=== PATIENT | female | born 1985 | race Caucasian/White ===

== ENCOUNTER 2017-12-10 14:50 | Emergency (ER) | payer OTHER, SELFPAY ==
[2017-12-10 15:24] LABS: Urine Blood 1+ (NEG); Urine Glucose NEGATIVE (NEG); Urine Protein NEGATIVE (NEG); Urine Specific Gravity >1.030 (1.005-1.030)
[2017-12-10] MEDS ORDERED: KETOROLAC 30 MG/ML INJ ONE (15:27)
--- NOTE | 2017-12-10 16:08 | RAD REPORT ---
EXAM DESCRIPTION: RAD - Ankle Left 3 View -12/10/2017 4:00 pm CLINICAL HISTORY: Left ankle pain status post injury FINDINGS: No fracture or dislocation is seen.
--- NOTE | 2017-12-10 16:10 | RAD REPORT ---
EXAM DESCRIPTION: RAD - Foot Left 3 View - 12/10/2017 4:04 pm CLINICAL HISTORY: Left Foot pain status post injury FINDINGS: No fracture or dislocation is seen.
--- NOTE | 2017-12-10 16:33 | ER ---
Nurse's Notes [facility] Name: Zaria De Oliveira Age: 32 yrs Sex: Female : 1985 Arrival Date: 12/10/2017 Time: 14:54 Bed 28 Private MD: None, None Diagnosis: Sprain of ankle Presentation: 12/10 14:56 Presenting complaint: Patient states: "I hurt my ankle 2 days ago, I stepped down on it aj1 and I fell and then later that day I fell again. I've been trying to stay off it. I have work tonight, but I don't want to injure it anymore than I already have" Reports left ankle pain. Transition of care: patient was not received from another setting of care. Onset of symptoms was December 08, 2017. Risk Assessment: Do you want to hurt yourself or someone else? Patient reports no desire to harm self or others. Initial Sepsis Screen: Does the patient meet any 2 criteria? No. Patient's initial sepsis screen is negative. Does the patient have a suspected source of infection? No. Patient's initial sepsis screen is negative. Care prior to arrival: None. 14:56 Method Of Arrival: Ambulatory aj1 14:56 Acuity: CELESTINO 4 aj1 Triage Assessment: 15:00 General: Appears in no apparent distress. comfortable, Behavior is calm, cooperative, aj1 appropriate for age. Pain: Complains of pain in left ankle Pain currently is 8 out of 10 on a pain scale. Neuro: Level of Consciousness is awake, alert, obeys commands. Cardiovascular: Patient's skin is warm and dry. Respiratory: Airway is patent Respiratory effort is even, unlabored, Respiratory pattern is regular, symmetrical. Musculoskeletal: Range of motion: limited in left ankle. 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 - Social history:: Smoking status: Patient/guardian denies using tobacco. - Ebola Screening: : Patient denies travel to an Ebola-affected area in the 21 days before illness onset. Screenin:20 Abuse screen: Denies threats or abuse. Denies injuries from another. Nutritional mg2 screening: No deficits noted. Tuberculosis screening: No symptoms or risk factors identified. Fall Risk Fall in past 12 months (25 points). Gait- Weak (10 pts.). Assessment: 15:20 General: Appears in no apparent distress. comfortable, Behavior is calm, cooperative. mg2 Pain: Complains of pain in left ankle Pain does not radiate. Pain currently is 5 out of 10 on a pain scale. Quality of pain is described as aching, Pain began 1 day ago. Is intermittent, Alleviated by rest, Aggravated by increased activity, repositioning, weight bearing. Neuro: Level of Consciousness is awake, alert, obeys commands, Oriented to person, place, time, situation. Cardiovascular: Capillary refill < 3 seconds Patient's skin is warm and dry. Derm: Skin is intact, Skin is pink, warm \\T\\ dry. normal. Musculoskeletal: Circulation, motion, and sensation intact. Swelling present in left ankle. Injury Description: swelling. 16:45 Reassessment: Patient appears in no apparent distress at this time. Patient and/or ch family updated on plan of care and expected duration. Pain level reassessed. Patient is alert, oriented x 3, equal unlabored respirations, skin warm/dry/pink. Vital Signs: 15:00 BP 130 / 90; Pulse 74; Resp 18; Temp 98.0; Pulse Ox 100% on R/A; Weight 81.65 kg (R); aj1 Height 5 ft. 2 in. (157.48 cm) (R); Pain 8/10; 16:06 BP 120 / 90; Pulse 67; Resp 18; Pulse Ox 97% ; Pain 5/10; mg2 16:57 BP 118 / 74; Pulse 60; Resp 14; Temp 98.3; Pulse Ox 99% on R/A; Pain 3/10; ch 15:00 Body Mass Index 32.92 (81.65 kg, 157.48 cm) aj1 ED Course: 14:54 Patient arrived in ED. mr 14:54 None, None is Private Physician. mr 14:59 Triage completed. aj1 15:00 Arm band placed on Patient placed in an exam room. aj1 15:04 Jonathan Sutton PA is PHCP. [facility] 15:04 Jayjay Acosta MD is Attending Physician. [facility] 15:12 Leonardo Rodriguez, RN is Primary Nurse. mg2 15:25 Patient has correct armband on for positive identification. Side rails up X 1. Pulse ox mg2 on. NIBP on. 15:59 X-ray completed. Portable x-ray completed in exam room. Patient tolerated procedure la2 well. 16:00 Ankle Left 3 View XRAY In Process Unspecified. EDMS 16:00 Foot Left 3 View XRAY In Process Unspecified. EDMS 16:32 Fredy Lagunas MD is Referral Physician. [facility] 16:57 No apparent distress. Resting quietly. 16:57 No provider procedures requiring assistance completed. Patient did not have IV access ch during this emergency room visit. Crutch training done. Giovanni wrap to left ankle. Administered Medications: 15:29 Drug: Ketorolac 30 mg Route: IM; Site: left gluteus; mg2 16:45 Follow up: Response: No adverse reaction Outcome: 16:32 Discharge ordered by . [facility] 16:57 Discharged to home ambulatory, with crutches. 16:57 Condition: stable 16:57 Discharge instructions given to patient, Instructed on discharge instructions, follow up and referral plans. crutch walking, Demonstrated understanding of instructions, follow-up care, medications, crutch walking, Prescriptions given X 1. 17:01 Patient left the ED. Signatures: Dispatcher [employer] Shannan Pacheco, NANCY RN Annette Oswald RN RN aj1 Jonathan Sutton PA PA [facility] Alisa Millan mr Ish Mcraelie la2 Leonardo Rodriguez, NANCY CRUZ mg2
--- NOTE | 2017-12-10 16:33 | EDPHYS ---
Physician Documentation [facility] Name: Zaria De Oliveira Age: 32 yrs Sex: Female : 1985 Arrival Date: 12/10/2017 Time: 14:54 Bed 28 Private MD: None, None ED Physician Jayjay Acosta HPI: 12/10 15:06 This 32 yrs old Female presents to ER via Ambulatory with complaints of Ankle jmm Injury. 15:06 The patient presents with an injury, pain. The complaints affect the left ankle. Onset: jmm The symptoms/episode began/occurred acutely, 2 day(s) ago. Associated signs and symptoms: Pertinent positives:. Modifying factors: The symptoms are alleviated by elevation of extremity, the symptoms are aggravated by weight bearing, movement. This is a 32 year old female with a history of migraines that presents to the ED with left ankle and foot pain falling 2 injuries. The initial injury occurred 2 days ago when the patient rolled her left ankle while attempting to walk down a step. The second injury occurred when the patient slipped while attempting to use the restroom. Patient complain of pain on weight bearing. . [employer]FORMATION [employer]: 15:00 LMP N/A - Depo-provera aj1 Historical: - Allergies: 15:00 Oxistat; aj1 - Home Meds: 15:00 None [Active]; aj1 - PMHx: 15:00 Migraines; aj1 - PSHx: 15:00 ; aj1 - Immunization history:: Flu vaccine status is unknown. - Social history:: Smoking status: Patient/guardian denies using tobacco. - Ebola Screening: : Patient denies travel to an Ebola-affected area in the 21 days before illness onset. ROS: 16:08 Constitutional: Negative for fever, chills, and weight loss, Cardiovascular: Negative jmm for chest pain, palpitations, and edema, Respiratory: Negative for shortness of breath, cough, wheezing, and pleuritic chest pain. 16:08 MS/extremity: Positive for pain. 16:08 All other systems are negative. Exam: 16:08 Head/Face: atraumatic. Chest/axilla: Normal chest wall appearance and motion. jmm Cardiovascular: Regular rate and rhythm. No edema appreciated Respiratory: Normal respirations, no respiratory distress appreciated Back: Normal ROM Skin: General appearance color normal 16:08 Constitutional: The patient appears in no acute distress, alert, awake. 16:08 Musculoskeletal/extremity: Full dorsalis pulse, compartments soft, NVI. Pain is elicited on palpation of the lateral malleolus and the base of the 5th metatarsal. No obvious deformity appreciated. . Vital Signs: 15:00 BP 130 / 90; Pulse 74; Resp 18; Temp 98.0; Pulse Ox 100% on R/A; Weight 81.65 kg (R); aj1 Height 5 ft. 2 in. (157.48 cm) (R); Pain 8/10; 16:06 BP 120 / 90; Pulse 67; Resp 18; Pulse Ox 97% ; Pain 5/10; mg2 16:57 BP 118 / 74; Pulse 60; Resp 14; Temp 98.3; Pulse Ox 99% on R/A; Pain 3/10; ch 15:00 Body Mass Index 32.92 (81.65 kg, 157.48 cm) aj1 MDM: 15:06 Patient medically screened. [facility] 16:14 Data reviewed: vital signs, nurses notes. [facility] 16:29 Data reviewed: radiologic studies, plain films. Counseling: I had a detailed discussion ceci with the patient and/or guardian regarding: the historical points, exam findings, and any diagnostic results supporting the discharge/admit diagnosis, the presence of at least one elevated blood pressure reading (>120/80) during this emergency department visit, radiology results, the need for outpatient follow up, to return to the emergency department if symptoms worsen or persist or if there are any questions or concerns that arise at home. Response to treatment: the patient's symptoms have markedly improved after treatment. 12/10 15:23 Order name: Urine Dipstick--Ancillary (enter results); Complete Time: 15:33 bd 12/10 15:23 Order name: Urine --Ancillary (enter results); Complete Time: 15:33 12/10 15:23 Order name: Ankle Left 3 View XRAY; Complete Time: 16:23 [facility] 12/10 15:23 Order name: Foot Left 3 View XRAY; Complete Time: 16:23 [facility] 12/10 16:24 Order name: Crutches; Complete Time: 16:45 [facility] 12/10 16:24 Order name: Giovanni Wrap; Complete Time: 16:45 [facility] Administered Medications: 15:29 Drug: Ketorolac 30 mg Route: IM; Site: left gluteus; mg2 16:45 Follow up: Response: No adverse reaction Disposition: 12/11 14:31 Co-signature as Attending Physician, Jayjay Acosta MD I agree with the assessment and [facility] plan of care. Disposition: 12/10/17 16:32 Discharged to Home. Impression: Sprain of ankle. - Condition is Stable. - Discharge Instructions: Ankle Sprain. - Prescriptions for Ibuprofen 800 mg Oral Tablet - take 1 tablet by ORAL route every 8 hours As needed take with food; 30 tablet. - Work release form, Medication Reconciliation Form, Thank You Letter, Antibiotic Education, Prescription Opioid Use form. - Follow up: Fredy Lagunas MD; When: As needed; Reason: Continuance of care. Signatures: Dispatcher [employer] Shannan Pacheco, NANCY RN Annette Astudillo RN RN ajJayjay Good MD MD cha Mickail, Joel, PA PA [facility] Leonardo Rodriguez RN RN mg2 Corrections: (The following items were deleted from the chart) 12/10 16:10 15:06 This is a 32. [facility] 17:01 16:32 12/10/2017 16:32 Discharged to Home. Impression: Sprain of ankle. Condition is Stable. Forms are Medication Reconciliation Form, Thank You Letter, Antibiotic Education, Prescription Opioid Use. Follow up: Fredy Lagunas; When: As needed; Reason: Continuance of care. [facility]
[2017-12-10 17:20] VITALS: BP 118/74; TEMP 98.3; O2SAT 99
== END 2017-12-10 17:01 | disposition home or self-care (01) ==
LOC: ER 14:50
DX: S93.402A Sprain of unspecified ligament of left ankle, initial encounter (principal); X50.1XXA Overexertion from prolonged static or awkward postures, initial encounter; Y93.89 Activity, other specified; Y92.89 Other specified places as the place of occurrence of the external cause; Y99.9 Unspecified external cause status; Z88.8 Allergy status to other drugs, medicaments and biological substances
CPT/HCPCS: 81003; 81025; 96372; 99284

== ENCOUNTER 2018-03-30 13:34 | Emergency (ER) | payer SELFPAY ==
--- NOTE | 2018-03-30 17:31 | EDPHYS ---
Physician Documentation [facility] Name: Zaria De Oliveira Age: 32 yrs Sex: Female : 1985 Arrival Date: 03/30/2018 Time: 13:57 Bed 10 Private MD: None, None ED Physician Jayjay Acosta HPI: 03/30 17:00 This 32 yrs old Female presents to ER via Ambulatory with complaints of pm1 Congestion, Cough. 17:00 The patient or guardian reports cough, with no sputum. Onset: The symptoms/episode pm1 began/occurred. 17:00 Onset: The symptoms/episode began/occurred 7 day(s) ago. Severity of symptoms: in the pm1 emergency department the symptoms are unchanged. Modifying factors: The symptoms are alleviated by OTC cold preparation, Tylenol, the symptoms are aggravated by nothing. Associated signs and symptoms: Pertinent positives: fever, rhinorrhea, sore throat, Pertinent negatives: chest pain. The patient has not recently seen a physician. Patient with sinus congestion and drainage, sore throat, and cough. On and off fevers for the past week. Son was diagnosed with the flu 2 weeks ago. Historical: - Allergies: 14:37 Oxistat; ss - Home Meds: 14:37 None [Active]; ss - PMHx: 14:37 Migraines; ss - PSHx: 14:37 ; ss - Immunization history:: Adult Immunizations up to date. - Social history:: Smoking status: Patient/guardian denies using tobacco. - Ebola Screening: : Patient denies exposure to infectious person Patient denies travel to an Ebola-affected area in the 21 days before illness onset. ROS: 17:00 Eyes: Negative for injury, pain, redness, and discharge, Neck: Negative for injury, pm1 pain, and swelling. 17:00 Cardiovascular: Negative for chest pain, palpitations, and edema. 17:00 Abdomen/GI: Negative for abdominal pain, nausea, vomiting, diarrhea, and constipation, Back: Negative for injury and pain, : Negative for injury, bleeding, discharge, and swelling, MS/Extremity: Negative for injury and deformity, Skin: Negative for injury, rash, and discoloration, Neuro: Negative for headache, weakness, numbness, tingling, and seizure. 17:00 Constitutional: Positive for fever, Negative for poor PO intake. 17:00 ENT: Positive for sinus congestion, sinus pain, sore throat, Negative for drainage from ear(s), ear pain. 17:00 Respiratory: Positive for cough. Exam: 17:00 Constitutional: This is a well developed, well nourished patient who is awake, alert, pm1 and in no acute distress. Eyes: Pupils equal round and reactive to light, extra-ocular motions intact. Lids and lashes normal. Conjunctiva and sclera are non-icteric and not injected. Cornea within normal limits. Periorbital areas with no swelling, redness, or edema. ENT: Nares patent. No nasal discharge, no septal abnormalities noted. Tympanic membranes are normal and external auditory canals are clear. Oropharynx with no redness, swelling, or masses, exudates, or evidence of obstruction, uvula midline. Mucous membranes moist. 17:00 Neck: Trachea midline, no thyromegaly or masses palpated, and no cervical lymphadenopathy. Supple, full range of motion without nuchal rigidity, or vertebral point tenderness. No Meningismus. Chest/axilla: Normal chest wall appearance and motion. Nontender with no deformity. No lesions are appreciated. Cardiovascular: Regular rate and rhythm with a normal S1 and S2. No gallops, murmurs, or rubs. Normal PMI, no JVD. No pulse deficits. Respiratory: Lungs have equal breath sounds bilaterally, clear to auscultation and percussion. No rales, rhonchi or wheezes noted. No increased work of breathing, no retractions or nasal flaring. Abdomen/GI: Soft, non-tender, with normal bowel sounds. No distension or tympany. No guarding or rebound. No evidence of tenderness throughout. Back: No spinal tenderness. No costovertebral tenderness. Full range of motion. Skin: Warm, dry with normal turgor. Normal color with no rashes, no lesions, and no evidence of cellulitis. MS/ Extremity: Pulses equal, no cyanosis. Neurovascular intact. Full, normal range of motion. 17:00 Head/face: Sinus tenderness, that is moderate, is located over the right frontal sinus and left frontal sinus. 17:00 Neuro: Orientation: is normal, Motor: is normal, Gait: is steady, at a normal pace, without difficulty. Vital Signs: 14:34 BP 137 / 100; Pulse 83; Resp 17; Temp 97.3(TE); Pulse Ox 100% on R/A; Weight 86.18 kg; ss Height 5 ft. 2 in. (157.48 cm); Pain 8/10; 14:38 BP 123 / 91; ss 14:34 Body Mass Index 34.75 (86.18 kg, 157.48 cm) MDM: 16:07 Patient medically screened. pm1 17:29 Data reviewed: vital signs. Data interpreted: Pulse oximetry: on room air is 100 %. pm1 Interpretation: normal. Counseling: I had a detailed discussion with the patient and/or guardian regarding: the historical points, exam findings, and any diagnostic results supporting the discharge/admit diagnosis, lab results, the need for outpatient follow up, to return to the emergency department if symptoms worsen or persist or if there are any questions or concerns that arise at home. 03/30 16:16 Order name: Flu; Complete Time: 17:26 pm1 03/30 16:16 Order name: Strep; Complete Time: 17:26 pm1 03/30 17:04 Order name: Throat Culture EDMS Administered Medications: No medications were administered Disposition: 03/30/18 17:31 Discharged to Home. Impression: Acute sinusitis. - Condition is Stable. - Discharge Instructions: Sinusitis, Adult. - Prescriptions for Augmentin 875- 125 mg Oral Tablet - take 1 tablet by ORAL route every 12 hours for 10 days; 20 tablet. Zyrtec- D 5-120 mg Oral Tablet Sustained Release 12 hr - take 1 tablet by ORAL route every 12 hours As needed; 20 tablet. - Medication Reconciliation Form, Thank You Letter, Antibiotic Education form. - Follow up: Emergency Department; When: As needed; Reason: Worsening of condition. Follow up: Private Physician; When: 2 - 3 days; Reason: Recheck today's complaints, Continuance of care, Re-evaluation by your physician. - Problem is new. - Symptoms have improved. Addendum: 04/02/2018 08:16 Co-signature as Attending Physician, Jayjay Acosta MD I agree with the assessment and c [facility] plan of care. Signatures: Dispatcher [employer] EDKY Jayjay Acosta MD MD cha Calderon, Audri, RN RN aa5 Josephine Sherwood RN RN ss Baudilio Denise, CHILD NUTRITION DIRECTOR CHILD NUTRITION DIRECTOR pm1 Corrections: (The following items were deleted from the chart) 03/30 17:46 17:31 03/30/2018 17:31 Discharged to Home. Impression: Acute sinusitis. Condition is aa5 Stable. Forms are Medication Reconciliation Form, Thank You Letter, Antibiotic Education, Prescription Opioid Use. Follow up: Emergency Department; When: As needed; Reason: Worsening of condition. Follow up: Private Physician; When: 2 - 3 days; Reason: Recheck today's complaints, Continuance of care, Re-evaluation by your physician. Problem is new. Symptoms have improved. pm1
--- NOTE | 2018-03-30 17:31 | ER ---
Nurse's Notes [facility] Name: Zaria De Oliveira Age: 32 yrs Sex: Female : 1985 Arrival Date: 03/30/2018 Time: 13:57 Bed 10 Private MD: None, None Diagnosis: Acute sinusitis Presentation: 03/30 14:35 Presenting complaint: Patient states: cough and chest congestion that began x 1 week. ss Pt reports that her son was diagnosed with the flu 2 weeks ago. Transition of care: patient was not received from another setting of care. Resp Distress? No respiratory distress is noted at this time. Onset of symptoms was March 23, 2018. Risk Assessment: Do you want to hurt yourself or someone else? Patient reports no desire to harm self or others. Initial Sepsis Screen: Does the patient meet any 2 criteria? No. Patient's initial sepsis screen is negative. Does the patient have a suspected source of infection? No. Patient's initial sepsis screen is negative. Care prior to arrival: None. 14:35 Method Of Arrival: Ambulatory ss 14:35 Acuity: CELESTINO 4 ss Historical: - Allergies: 14:37 Oxistat; ss - Home Meds: 14:37 None [Active]; ss - PMHx: 14:37 Migraines; ss - PSHx: 14:37 ; ss - Immunization history:: Adult Immunizations up to date. - Social history:: Smoking status: Patient/guardian denies using tobacco. - Ebola Screening: : Patient denies exposure to infectious person Patient denies travel to an Ebola-affected area in the 21 days before illness onset. Screenin:00 Abuse screen: Denies threats or abuse. Denies injuries from another. Nutritional ss screening: No deficits noted. Tuberculosis screening: Never had TB. Fall Risk None identified. Assessment: 14:35 General: Appears uncomfortable, Behavior is calm, cooperative, Reports chills for fever ss for feeling ill for fatigue for "off and on for 1 week". Pain: Complains of pain in face Pain currently is 7 out of 10 on a pain scale. Is continuous. Neuro: Level of Consciousness is awake, alert, obeys commands, Oriented to person, place, time, situation. Cardiovascular: Capillary refill < 3 seconds is brisk in bilateral fingers. Respiratory: Reports cough that is since x 1 week Airway is patent Respiratory effort is even, unlabored, Respiratory pattern is regular, symmetrical, Breath sounds are clear bilaterally. EENT: Nares are clear. Derm: Skin is pink, warm \\T\\ dry. normal. 16:00 Reassessment: Patient appears in no apparent distress at this time. Patient and/or ss family updated on plan of care and expected duration. Pain level reassessed. Patient is alert, oriented x 3, equal unlabored respirations, skin warm/dry/pink. Vital Signs: 14:34 BP 137 / 100; Pulse 83; Resp 17; Temp 97.3(TE); Pulse Ox 100% on R/A; Weight 86.18 kg; ss Height 5 ft. 2 in. (157.48 cm); Pain 8/10; 14:38 BP 123 / 91; ss 14:34 Body Mass Index 34.75 (86.18 kg, 157.48 cm) ED Course: 13:57 Patient arrived in ED. mr 13:57 None, None is Private Physician. mr 14:34 Arm band placed on right wrist. ss 14:36 Triage completed. ss 15:33 Patient has correct armband on for positive identification. Bed in low position. Call ss light in reach. 16:06 Baudilio Denise NP is PHCP. pm1 16:06 Jayjay Acosta MD is Attending Physician. pm1 16:28 Josephine Sherwood, NANCY is Primary Nurse. ss 16:28 Strep Sent. ss 16:28 Flu Sent. ss 17:45 No provider procedures requiring assistance completed. Patient did not have IV access ss during this emergency room visit. Administered Medications: No medications were administered Outcome: 17:31 Discharge ordered by . pm1 17:45 Discharged to home ambulatory. ss 17:45 Condition: good 17:45 Discharge instructions given to patient, family, Instructed on discharge instructions, follow up and referral plans. medication usage, Demonstrated understanding of instructions, follow-up care, medications, Prescriptions given X 2. 17:46 Patient left the ED. aa5 Signatures: Waleska Millan EthanNohemy RN RN aa5 Josephine Sherwood RN RN ss Baudilio Denise, LAUREN ENGRAVER LETTER pm1
[2018-03-30 18:51] VITALS: TEMP 97.3; O2SAT 100
[2018-03-30 18:52] VITALS: BP 123/91
== END 2018-03-30 17:46 | disposition home or self-care (01) ==
LOC: ER 13:34
DX: J01.90 Acute sinusitis, unspecified (principal); Z88.8 Allergy status to other drugs, medicaments and biological substances
CPT/HCPCS: 87070; 87081; 87804; 99283

== ENCOUNTER 2018-09-18 10:54 | Emergency (ER) | payer SELFPAY ==
[2018-09-18] MEDS ORDERED: CETIRIZINE HCL 5 MG TABLET ONE (12:47)
--- NOTE | 2018-09-18 13:12 | ER ---
Nurse's Notes [facility] Name: Zaria De Oliveira Age: 32 yrs Sex: Female : 1985 Arrival Date: 09/18/2018 Time: 10:58 Bed DIS2 Private MD: Diagnosis: Cough;Allergy, unspecified Presentation: 09/18 11:09 Presenting complaint: Patient states: "I've had a cough, like something is caught in my aj1 chest. I've been taking Mucinex, I just dont seem to get better" Reports having this cough for the past 2 weeks. [facility]. Transition of care: patient was not received from another setting of care. Resp Distress? No respiratory distress is noted at this time. Onset of symptoms was September 05, 2018. Risk Assessment: Do you want to hurt yourself or someone else? Patient reports no desire to harm self or others. Initial Sepsis Screen: Does the patient meet any 2 criteria? No. Patient's initial sepsis screen is negative. Does the patient have a suspected source of infection? Yes: Productive cough/pneumonia. Care prior to arrival: None. 11:09 Method Of Arrival: Ambulatory aj1 11:09 Acuity: CELESTINO 4 aj1 Triage Assessment: 11:11 General: Appears in no apparent distress. comfortable, Behavior is calm, cooperative, aj1 appropriate for age. Pain: Denies pain. Neuro: Level of Consciousness is awake, alert, obeys commands. Cardiovascular: Patient's skin is warm and dry. Cardiovascular: Reports chest pain when she coughs. Respiratory: Airway is patent Respiratory effort is even, unlabored, Respiratory pattern is regular, symmetrical. 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 - Social history:: Smoking status: Patient/guardian denies using tobacco. - Ebola Screening: : Patient denies travel to an Ebola-affected area in the 21 days before illness onset. Screenin:20 Abuse screen: Denies threats or abuse. Denies injuries from another. Nutritional ss screening: No deficits noted. Tuberculosis screening: Never had TB. Fall Risk None identified. Assessment: 11:25 General: Appears in no apparent distress. comfortable, Behavior is calm, cooperative. ss Neuro: Level of Consciousness is awake, alert, obeys commands, Oriented to person, place, time, situation. Cardiovascular:. Respiratory: Airway is patent Respiratory effort is even, unlabored, Respiratory pattern is regular, symmetrical. Respiratory: Respiratory: Reports cough that is. EENT: Nares are clear. Derm: Skin is intact, is healthy with good turgor, Skin is pink, warm \\T\\ dry. normal. Musculoskeletal: Circulation, motion, and sensation intact. Range of motion: intact in all extremities. 13:53 Reassessment: Patient appears in no apparent distress at this time. Patient and/or ss family updated on plan of care and expected duration. Pain level reassessed. Patient is alert, oriented x 3, equal unlabored respirations, skin warm/dry/pink. Vital Signs: 11:11 BP 118 / 82; Pulse 82; Resp 18; Temp 98.0(O); Pulse Ox 100% on R/A; Weight 86.18 kg aj1 (R); Height 5 ft. 2 in. (157.48 cm) (R); Pain 0/10; 11:11 Body Mass Index 34.75 (86.18 kg, 157.48 cm) aj1 ED Course: 10:58 Patient arrived in ED. mr 11:11 Triage completed. aj1 11:11 Arm band placed on Patient placed in an exam room. aj1 11:14 Swapna Cadena FNP-C is [facility]. snw 11:14 Jayjay Acosta MD is Attending Physician. snw 11:20 Patient has correct armband on for positive identification. Bed in low position. Call ss light in reach. 13:54 No provider procedures requiring assistance completed. Patient did not have IV access ss during this emergency room visit. Administered Medications: 12:35 Drug: ZyrTEC - Cetirizine 10 mg Route: PO; ss 13:54 Follow up: Response: No adverse reaction; No change in condition ss Outcome: 13:11 Discharge ordered by . snw 13:54 Discharged to home ambulatory. ss 13:54 Condition: good 13:54 Discharge instructions given to patient, family, Instructed on discharge instructions, follow up and referral plans. medication usage, Demonstrated understanding of instructions, follow-up care, medications, Prescriptions given X 2. 13:54 Patient left the ED. Signatures: Annette Oswald, RN RN aj1 Swapna Cadena, ERP PROGRAMMER-C ERP PROGRAMMER-Csnw Monty Waleska mr Josephine Sherwood, NANCY RN ss
--- NOTE | 2018-09-18 13:12 | EDPHYS ---
Physician Documentation [facility] Name: Zaria De Oliveira Age: 32 yrs Sex: Female : 1985 Arrival Date: 09/18/2018 Time: 10:58 Bed DIS2 Private MD: ED Physician Jayjay Acosta HPI: 09/18 13:09 This 32 yrs old Female presents to ER via Ambulatory with complaints of snw Cough, Congestion, Fever. 13:09 The patient or guardian reports cough, described as moderate. Onset: The snw symptoms/episode began/occurred gradually, 2 week(s) ago, and became persistent. Severity of symptoms: At their worst the symptoms were mild, moderate. Modifying factors: The symptoms are alleviated by nothing, the symptoms are aggravated by heat. Associated signs and symptoms: Pertinent positives: congestion. It is unknown whether or not the patient has had similar symptoms in the past. The patient has not recently seen a physician. 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 - Social history:: Smoking status: Patient/guardian denies using tobacco. - Ebola Screening: : Patient denies travel to an Ebola-affected area in the 21 days before illness onset. ROS: 13:05 Constitutional: Negative for fever, chills, and weight loss, Eyes: Negative for injury, snw pain, redness, and discharge, ENT: Negative for injury, pain, and discharge, Neck: Negative for injury, pain, and swelling, Cardiovascular: Negative for chest pain, palpitations, and edema, Abdomen/GI: Negative for abdominal pain, nausea, vomiting, diarrhea, and constipation, Back: Negative for injury and pain, : Negative for injury, bleeding, discharge, and swelling, MS/Extremity: Negative for injury and deformity, Skin: Negative for injury, rash, and discoloration. 13:05 Respiratory: Positive for cough, some days the cough feels sticky in the center of her chest. Exam: 13:05 Constitutional: This is a well developed, well nourished patient who is awake, alert, snw and in no acute distress. Head/Face: Normocephalic, atraumatic. Eyes: Pupils equal round and reactive to light, extra-ocular motions intact. Lids and lashes normal. Conjunctiva and sclera are non-icteric and not injected. Cornea within normal limits. Periorbital areas with no swelling, redness, or edema. ENT: Nares patent. No nasal discharge, no septal abnormalities noted. Tympanic membranes are normal and external auditory canals are clear. Oropharynx with no redness, swelling, or masses, exudates, or evidence of obstruction, uvula midline. Mucous membranes moist. Neck: Trachea midline, no thyromegaly or masses palpated, and no cervical lymphadenopathy. Supple, full range of motion without nuchal rigidity, or vertebral point tenderness. No Meningismus. Chest/axilla: Normal chest wall appearance and motion. Nontender with no deformity. No lesions are appreciated. Cardiovascular: Regular rate and rhythm with a normal S1 and S2. No gallops, murmurs, or rubs. Normal PMI, no JVD. No pulse deficits. Respiratory: Lungs have equal breath sounds bilaterally, clear to auscultation and percussion. No rales, rhonchi or wheezes noted. No increased work of breathing, no retractions or nasal flaring. Abdomen/GI: Soft, non-tender, with normal bowel sounds. No distension or tympany. No guarding or rebound. No evidence of tenderness throughout. Back: No spinal tenderness. No costovertebral tenderness. Full range of motion. Skin: Warm, dry with normal turgor. Normal color with no rashes, no lesions, and no evidence of cellulitis. MS/ Extremity: Pulses equal, no cyanosis. Neurovascular intact. Full, normal range of motion. Neuro: Awake and alert, GCS 15, oriented to person, place, time, and situation. Cranial nerves II-XII grossly intact. Motor strength 5/5 in all extremities. Sensory grossly intact. Cerebellar exam normal. Normal gait. Psych: Awake, alert, with orientation to person, place and time. Behavior, mood, and affect are within normal limits. Vital Signs: 11:11 BP 118 / 82; Pulse 82; Resp 18; Temp 98.0(O); Pulse Ox 100% on R/A; Weight 86.18 kg aj1 (R); Height 5 ft. 2 in. (157.48 cm) (R); Pain 0/10; 11:11 Body Mass Index 34.75 (86.18 kg, 157.48 cm) aj1 MDM: 11:14 Patient medically screened. snw 13:12 Data reviewed: vital signs, nurses notes. Data interpreted: Pulse oximetry: on room air snw is 100 %. Interpretation: normal. Counseling: I had a detailed discussion with the patient and/or guardian regarding: the historical points, exam findings, and any diagnostic results supporting the discharge/admit diagnosis, the presence of at least one elevated blood pressure reading (>120/80) during this emergency department visit, the need for outpatient follow up, to return to the emergency department if symptoms worsen or persist or if there are any questions or concerns that arise at home. Special discussion: I have referred the patient to see his PCP for further evaluation of high blood pressure. Based on the history and exam findings, there is no indication for further emergent testing or inpatient evaluation. I discussed with the patient/guardian the need to see the primary care provider for further evaluation of the symptoms. Administered Medications: 12:35 Drug: ZyrTEC - Cetirizine 10 mg Route: PO; ss 13:54 Follow up: Response: No adverse reaction; No change in condition ss Disposition: 09/19 07:01 Co-signature as Attending Physician, Jayjay Acosta MD I agree with the assessment and veronica plan of care. Disposition: 09/18/18 13:11 Discharged to Home. Impression: Cough, Allergy, unspecified. - Condition is Stable. - Discharge Instructions: Allergies, Adult, Cool Mist Vaporizer, Cough, Adult, [id number]. - Prescriptions for Zyrtec 10 mg Oral Tablet - take 1 tablet by ORAL route once daily As needed; 20 tablet. Tessalon Perles 100 mg Oral Capsule - take 1 capsule by ORAL route every 8 hours As needed; 15 capsule. - Work release form, Medication Reconciliation Form, Thank You Letter, Antibiotic Education, Prescription Opioid Use form. - Follow up: Private Physician; When: 2 - 3 days; Reason: Recheck today's complaints, Continuance of care, Re-evaluation by your physician. Follow up: Emergency Department; When: As needed; Reason: Worsening of condition. Signatures: Annette Oswald, RN RN aj1 Jayjay Acosta MD MD cha Therrien, Shelly, EVENT COORDINATOR-C EVENT COORDINATOR-Csnw Josephine Sherwood, NANCY RN ss Corrections: (The following items were deleted from the chart) 09/18 13:54 13:11 09/18/2018 13:11 Discharged to Home. Impression: Cough; Allergy, unspecified. ss Condition is Stable. Forms are Medication Reconciliation Form, Thank You Letter, Antibiotic Education, Prescription Opioid Use. Follow up: Private Physician; When: 2 - 3 days; Reason: Recheck today's complaints, Continuance of care, Re-evaluation by your physician. Follow up: Emergency Department; When: As needed; Reason: Worsening of condition. snw
[2018-09-18 20:03] VITALS: BP 118/82; TEMP 98; O2SAT 100
== END 2018-09-18 13:54 | disposition home or self-care (01) ==
LOC: ER 10:54
DX: R05 Cough (principal); T78.40XA Allergy, unspecified, initial encounter
CPT/HCPCS: 99283

== ENCOUNTER 2018-11-06 18:26 | Emergency (ER) | payer SELFPAY ==
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
[2018-11-06 20:01] LABS: Urine Blood NEGATIVE (NEG); Urine Glucose NEGATIVE (NEG); Urine Protein TRACE (NEG); Urine Specific Gravity >1.030 (1.005-1.030)
[2018-11-06 20:16] LABS: Urine Bacteria <20 /HPF (<20); Urine Culture Reflex Order NOT NEEDED; Urine RBC NONE SEEN /HPF (NONE SEEN)
[2018-11-07 20:04] VITALS: BP 142/98; O2SAT 100
== END 2018-11-06 20:00 | disposition home or self-care (01) ==
LOC: ER 18:26
DX: M54.5 Low back pain (principal); V49.00XA Driver injured in collision with unspecified motor vehicles in nontraffic accident, initial encounter; Z88.8 Allergy status to other drugs, medicaments and biological substances
CPT/HCPCS: 72100; 81003; 81015; 81025; 99284

== ENCOUNTER 2019-02-22 18:28 | Emergency (ER) | payer SELFPAY ==
[2019-02-22] MEDS ORDERED: HYDROCODONE/APAP 5/325 MG TAB ONE (19:10)
[2019-02-22] MEDS ORDERED: IBUPROFEN 400 MG TAB ONE (19:10)
[2019-02-22] MEDS ORDERED: IBUPROFEN 200 MG TAB PO ONE (19:11)
--- NOTE | 2019-02-22 19:26 | RAD REPORT ---
EXAM DESCRIPTION: RAD - Ankle Right 3 View - 02/22/2019 7:13 pm CLINICAL HISTORY: PAIN COMPARISON: Ankle Left 3 View dated 12/10/2017 FINDINGS: Moderate soft tissue swelling is seen adjacent to the lateral malleolus. No acute fracture or dislocation is evident.
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
[2019-02-22 21:47] VITALS: TEMP 98.7; O2SAT 100
[2019-02-22 21:48] VITALS: BP 139/99
== END 2019-02-22 21:18 | disposition home or self-care (01) ==
LOC: ER 18:28
DX: M25.571 Pain in right ankle and joints of right foot (principal); X50.1XXA Overexertion from prolonged static or awkward postures, initial encounter; Y93.89 Activity, other specified; Y92.9 Unspecified place or not applicable
CPT/HCPCS: 99284

== ENCOUNTER 2020-03-10 10:42 | Emergency (ER) | payer SELFPAY ==
--- NOTE | 2020-03-10 12:45 | ER ---
Nurse's Notes [facility] Name: Zaria De Oliveira Age: 34 yrs Sex: Female : 1985 Arrival Date: 03/10/2020 Time: 10:46 Bed 20 Private MD: Diagnosis: Acute sinusitis;Cough Presentation: 03/10 11:04 Chief complaint: Patient states: Cough, sore throat for 2-3 weeks. Coronavirus screen: ll1 Client denies travel out of the [place] in the last 14 days. Client presents with at least one sign or symptom that may indicate coronavirus-19. Standard/surgical mask placed on the client. Ebola Screen: Patient denies travel to an Ebola-affected area in the 21 days before illness onset. Initial Sepsis Screen: Does the patient meet any 2 criteria? No. Patient's initial sepsis screen is negative. Does the patient have a suspected source of infection? Yes: Other: sore throat/cough. Risk Assessment: Do you want to hurt yourself or someone else? Patient reports no desire to harm self or others. Onset of symptoms was February 20, 2020. 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 - Social history:: Smoking status: Patient denies any tobacco usage or history of. Screenin:49 Abuse screen: Denies threats or abuse. Denies injuries from another. Nutritional zb screening: No deficits noted. Tuberculosis screening: No symptoms or risk factors identified. Possible symptoms: None. Fall Risk None identified. Assessment: 11:47 General: Appears in no apparent distress. comfortable, obese, well groomed, Behavior is zb calm, cooperative, appropriate for age. Pain: Denies pain. Neuro: No deficits noted. Level of Consciousness is awake, alert, obeys commands, Oriented to person, place, time, situation. Cardiovascular: No deficits noted. Capillary refill < 3 seconds in bilateral fingers. Respiratory: Airway is patent is compromised Trachea midline Respiratory effort is even, unlabored, Respiratory pattern is regular, symmetrical. GI: No signs and/or symptoms were reported involving the gastrointestinal system. : No signs and/or symptoms were reported regarding the genitourinary system. EENT: Throat is reddened has enlarged tonsils bilaterally with gag reflex present. Derm: No signs and/or symptoms reported regarding the dermatologic system. Skin is intact, is healthy with good turgor, Skin is pink, warm \T\ dry. Musculoskeletal: Circulation, motion, and sensation intact. Capillary refill < 3 seconds, in bilateral fingers. 13:00 Reassessment: Patient appears in no apparent distress at this time. Patient and/or zb family updated on plan of care and expected duration. Pain level reassessed. Patient is alert, oriented x 3, equal unlabored respirations, skin warm/dry/pink. Respiratory: Reports cough that is. Vital Signs: 11:04 BP 139 / 92; Pulse 85; Resp 18; Temp 98.1; Pulse Ox 98% on R/A; Weight 99.34 kg; Pain ll1 0/10; 13:00 BP 142 / 84; Pulse 82; Resp 16; Pulse Ox 99% on R/A; zb ED Course: 10:46 Patient arrived in ED. mr 10:48 Jayjay Tariq PA is PHCP. cp 10:48 Raj Phillips MD is Attending Physician. cp 11:00 Lynne Moore, NANCY is Primary Nurse. zb 11:05 Triage completed. ll1 11:05 Arm band placed on Patient placed in an exam room, on a stretcher. ll1 11:49 Patient has correct armband on for positive identification. Bed in low position. Call zb light in reach. Side rails up X 1. Door closed. Noise minimized. Warm blanket given. Head of bed elevated. 11:50 No provider procedures requiring assistance completed. zb 13:20 Patient did not have IV access during this emergency room visit. zb Administered Medications: No medications were administered Outcome: 12:45 Discharge ordered by . cp 13:20 Discharged to home ambulatory. zb 13:20 Condition: good 13:20 Discharge instructions given to patient, Instructed on discharge instructions, follow up and referral plans. medication usage, Demonstrated understanding of instructions, follow-up care, medications, Prescriptions given X 1. 13:24 Patient left the ED. ph Addendum: 03/12/2020 18:04 Addendum: COVID-19 Result: Negative result given to RN to notify pt. Notified pt of i w negative COVID 19 swab results. Pt advised that even with a negative test result they should remain in isolation until symptom free for 3 days without medication. Pt also advised to return to the ED for worsening symptoms. Signatures: Waleska Millan Irene, RN RN Jazmine Madden RN RN ph Page, Corey, PA PA cp Lewis, Lynsay RN RN ll1 Lynne Moore RN RN zb
--- NOTE | 2020-03-10 12:45 | EDPHYS ---
Physician Documentation [facility] Name: Zaria De Oliveira Age: 34 yrs Sex: Female : 1985 Arrival Date: 03/10/2020 Time: 10:46 Bed 20 Private MD: ED Physician Raj Phillips HPI: 03/10 11:05 This 34 yrs old Female presents to ER via Ambulatory with complaints of Sore cp Throat, Cough. 11:05 The patient presents with sore throat. cp 11:05 Onset: The symptoms/episode began/occurred 2-3 weeks. cp 11:05 Associated signs and symptoms: Pertinent positives: cough, Sore throat sinus cp congestion, Pertinent negatives diarrhea, dysphagia, earache, vomiting. 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 - Social history:: Smoking status: Patient denies any tobacco usage or history of. ROS: 11:10 Constitutional: Negative for body aches, chills, fever, poor PO intake. cp 11:10 Eyes: Negative for injury, pain, redness, and discharge. cp 11:10 ENT: Positive for sinus congestion, sore throat, Negative for drainage from ear(s), ear pain, difficulty swallowing, difficulty handling secretions. 11:10 Cardiovascular: Negative for chest pain. 11:10 Respiratory: Positive for cough, Negative for shortness of breath, wheezing. 11:10 Abdomen/GI: Negative for abdominal pain, nausea, vomiting, and diarrhea. 11:10 Neuro: Negative for altered mental status, headache, weakness. 11:10 All other systems are negative. Exam: 11:30 Constitutional: The patient appears in no acute distress, alert, awake, non-toxic, well cp developed, well nourished. 11:30 Head/Face: Normocephalic, atraumatic. cp 11:30 Eyes: Periorbital structures: appear normal, Conjunctiva: normal, no exudate, no injection, Lids and lashes: appear normal, bilaterally. 11:30 ENT: External ear(s): are unremarkable, Ear canal(s): are normal, clear, TM's: bulging, is not appreciated, bilaterally, erythema, is not appreciated, bilaterally, Nose: is normal, Mouth: Lips: moist, Oral mucosa: pink and intact, moist, Posterior pharynx: Airway: no evidence of obstruction, patent, Tonsils: no enlargement, no exudate, erythema, that is mild, exudate, is not appreciated. 11:30 Neck: Lymph nodes: no appreciated lymphadenopathy. 11:30 Chest/axilla: Inspection: normal. 11:30 Cardiovascular: Rate: normal, Rhythm: regular. 11:30 Respiratory: the patient does not display signs of respiratory distress, Respirations: normal, no use of accessory muscles, no retractions, labored breathing, is not present, Breath sounds: bronchial sounds, are not appreciated, decreased breath sounds, are not appreciated, stridor, is not appreciated, + upper airway congestion. 11:30 Abdomen/GI: Exam negative for discomfort, distension, guarding, Inspection: abdomen appears normal. 11:30 Skin: no rash present. Vital Signs: 11:04 BP 139 / 92; Pulse 85; Resp 18; Temp 98.1; Pulse Ox 98% on R/A; Weight 99.34 kg; Pain ll1 0/10; 13:00 BP 142 / 84; Pulse 82; Resp 16; Pulse Ox 99% on R/A; zb MDM: 11:04 Patient medically screened. cp 12:00 Differential diagnosis: group A strep tonsillitis, influenza, pharyngitis, cp retropharyngeal abcess tonsillitis, upper respiratory infection. 12:44 Data reviewed: vital signs, nurses notes, lab test result(s), and as a result, I will cp discharge patient. 12:44 Counseling: I had a detailed discussion with the patient and/or guardian regarding: the cp historical points, exam findings, and any diagnostic results supporting the discharge/admit diagnosis, lab results, to return to the emergency department if symptoms worsen or persist or if there are any questions or concerns that arise at home. ED course: VSS. Patient instructed to self quarantine while awaiting results of COVID-19 testing. 03/10 11:04 Order name: Strep cp 03/10 11:04 Order name: COVID-19 cp 03/10 11:04 Order name: Influenza Screen (a \T\ B) cp 03/10 13:01 Order name: Throat Culture EDNJ Administered Medications: No medications were administered Disposition: 15:26 Co-signature as Attending Physician, Raj Phillips MD. rn Disposition: 03/10/20 12:45 Discharged to Home. Impression: Acute sinusitis, Cough. - Condition is Stable. - Discharge Instructions: Sinusitis, Adult, Cough, Adult. - Prescriptions for Amoxicillin 875 mg Oral Tablet - take 1 tablet by ORAL route every 12 hours for 10 days; 20 tablet. Tessalon Perles 100 mg Oral Capsule - take 1 capsule by ORAL route every 8 hours As needed; 15 capsule. - Medication Reconciliation Form, Thank You Letter, Antibiotic Education, Prescription Opioid Use form. - Follow up: Private Physician; When: 2 - 3 days; Reason: Worsening of condition. - Problem is new. - Symptoms are unchanged. Signatures: Dispatcher [employer] EDMS Raj Phillips MD MD rn Hall, Patricia, RN RN ph Jayjay Tariq PA PA cp Lewis, Lynsay, RN RN ll1 Corrections: (The following items were deleted from the chart) 12:46 12:45 03/10/2020 12:45 Discharged to Home. Impression: Acute upper respiratory cp infection, unspecified. Condition is Stable. Forms are Medication Reconciliation Form, Thank You Letter, Antibiotic Education, Prescription Opioid Use. Follow up: Private Physician; When: 2 - 3 days; Reason: Worsening of condition. Problem is new. Symptoms are unchanged. cp 13:24 12:46 03/10/2020 12:45 Discharged to Home. Impression: Acute sinusitis; Cough. ph Condition is Stable. Discharge Instructions: Sinusitis, Adult. Prescriptions for Amoxicillin 875 mg Oral Tablet - take 1 tablet by ORAL route every 12 hours for 10 days; 20 tablet, Tessalon Perles 100 mg Oral Capsule - take 1 capsule by ORAL route every 8 hours As needed; 15 capsule. and Forms are Medication Reconciliation Form, Thank You Letter, Antibiotic Education, Prescription Opioid Use. Follow up: Private Physician; When: 2 - 3 days; Reason: Worsening of condition. Problem is new. Symptoms are unchanged. cp
[2020-03-10 13:30] VITALS: BP 139/92; TEMP 98.1; O2SAT 98
== END 2020-03-10 13:24 | disposition home or self-care (01) ==
LOC: ER 10:42
DX: J01.90 Acute sinusitis, unspecified (principal); Z20.828 Contact with and (suspected) exposure to other viral communicable diseases; Z88.8 Allergy status to other drugs, medicaments and biological substances
CPT/HCPCS: 87070; 87081; 87804; 99282; U0002

== ENCOUNTER 2020-05-11 17:42 | Emergency (ER) | payer SELFPAY ==
--- NOTE | 2020-05-11 18:16 | EDPHYS ---
Physician Documentation [facility] Name: Zaria De Oliveira Age: 34 yrs Sex: Female : 1985 Arrival Date: 05/11/2020 Time: 17:48 Bed External Waiting Private MD: ED Physician Jayjay Acosta HPI: 05/11 18:50 This 34 yrs old Female presents to ER via Ambulatory with complaints of snw Fever, Cough, Vomiting. 18:50 The patient reports fever, that was measured at 102 degrees Fahrenheit. Onset: The snw symptoms/episode began/occurred suddenly, 3 day(s) ago, and became persistent. Associated signs and symptoms: Pertinent positives: cough, sore throat. Severity of symptoms: At their worst the symptoms were very mild mild. Unable to obtain HPI due to. It is unknown whether or not the patient has had similar symptoms in the past. It is unknown whether or not the patient has recently seen a physician. Historical: - Allergies: 18:09 Oxistat; sv 18:09 Bluestar ointments; sv - PMHx: 18:09 Migraines; sv - PSHx: 18:09 ; sv - Immunization history:: Adult Immunizations up to date. - Social history:: Smoking status: Patient denies any tobacco usage or history of. ROS: 18:49 Constitutional: Negative for fever, chills, and weight loss. snw 18:49 Eyes: Negative for injury, pain, redness, and discharge, ENT: Negative for injury and discharge, + sore throat Neck: Negative for injury, pain, and swelling, Cardiovascular: Negative for chest pain, palpitations, and edema, Respiratory: Negative for shortness of breath, cough, wheezing, and pleuritic chest pain, Abdomen/GI: Negative for abdominal pain, diarrhea, and constipation, positive nausea, vomiting, Back: Negative for injury and pain, : Negative for injury, bleeding, discharge, and swelling, MS/Extremity: Negative for injury and deformity, Skin: Negative for injury, rash, and discoloration, Neuro: Negative for headache, weakness, numbness, tingling, and seizure. 18:49 Constitutional: Positive for body aches, fever, malaise. Exam: 18:48 Constitutional: This is a well developed, well nourished patient who is awake, alert, snw and in no acute distress. Head/Face: Normocephalic, atraumatic. Eyes: Pupils equal round and reactive to light, extra-ocular motions intact. Lids and lashes normal. Conjunctiva and sclera are non-icteric and not injected. Cornea within normal limits. Periorbital areas with no swelling, redness, or edema. ENT: Nares patent. No nasal discharge, no septal abnormalities noted. Tympanic membranes are opaque and concave, and external auditory canals are clear. Oropharynx with no redness, swelling, or masses, exudates, or evidence of obstruction, uvula midline. Mucous membranes moist. Neck: Trachea midline, no thyromegaly or masses palpated, and no cervical lymphadenopathy. Supple, full range of motion without nuchal rigidity, or vertebral point tenderness. No Meningismus. Chest/axilla: Normal chest wall appearance and motion. Nontender with no deformity. No lesions are appreciated. Cardiovascular: Regular rate and rhythm with a normal S1 and S2. No gallops, murmurs, or rubs. Normal PMI, no JVD. No pulse deficits. Respiratory: Lungs have equal breath sounds bilaterally, clear to auscultation and percussion. No rales, rhonchi or wheezes noted. No increased work of breathing, no retractions or nasal flaring. Abdomen/GI: Soft, non-tender, with normal bowel sounds. No distension or tympany. No guarding or rebound. No evidence of tenderness throughout. Back: No spinal tenderness. No costovertebral tenderness. Full range of motion. Skin: Warm, dry with normal turgor. Normal color with no rashes, no lesions, and no evidence of cellulitis. MS/ Extremity: Pulses equal, no cyanosis. Neurovascular intact. Full, normal range of motion. Neuro: Awake and alert, GCS 15, oriented to person, place, time, and situation. Cranial nerves II-XII grossly intact. Motor strength 5/5 in all extremities. Sensory grossly intact. Cerebellar exam normal. Normal gait. Psych: Awake, alert, with orientation to person, place and time. Behavior, mood, and affect are within normal limits. Vital Signs: 18:07 BP 142 / 112; Pulse 85; Resp 20; Pulse Ox 100% ; Weight 97.52 kg; Height 5 ft. 2 in. sv (157.48 cm); 21:01 BP 130 / 100; Pulse 83; Resp 20; Temp 99(TE); Pulse Ox 99% on R/A; ca1 18:07 Body Mass Index 39.32 (97.52 kg, 157.48 cm) sv MDM: 18:15 Patient medically screened. snw 18:47 Data reviewed: vital signs, nurses notes. Data interpreted: Pulse oximetry: on room air snw is 100 %. Interpretation: normal. Counseling: I had a detailed discussion with the patient and/or guardian regarding: the historical points, exam findings, and any diagnostic results supporting the discharge/admit diagnosis, the presence of at least one elevated blood pressure reading (>120/80) during this emergency department visit, lab results, the need for outpatient follow up, to return to the emergency department if symptoms worsen or persist or if there are any questions or concerns that arise at home. Special discussion: I have referred the patient to see his PCP for further evaluation of high blood pressure. Based on the history and exam findings, there is no indication for further emergent testing or inpatient evaluation. I discussed with the patient/guardian the need to see the primary care provider for further evaluation of the symptoms. 05/11 18:14 Order name: Strep snw Administered Medications: 20:39 Drug: cloNIDine 0.2 mg Route: PO; ca1 21:02 Follow up: Response: No adverse reaction ca1 20:39 Drug: Zithromax 500 mg Route: PO; ca1 21:02 Follow up: Response: No adverse reaction ca1 Disposition: 05/11/20 18:15 Discharged to Home. Impression: Essential (primary) hypertension, Acute pharyngitis. - Condition is Stable. - Discharge Instructions: Hypertension, Pharyngitis, How to Take Your Blood Pressure, [id number], DASH Eating Plan, Rehydration, Adult, Managing Your Hypertension. - Prescriptions for Tessalon Perles 100 mg Oral Capsule - take 1 capsule by ORAL route every 8 hours As needed; 15 capsule. Pepcid 20 mg Oral Tablet - take 1 tablet by ORAL route once daily; 20 tablet. promethazine 25 mg Oral Tablet - take 1 tablet by ORAL route every 6 hours As needed; 20 tablet. Zithromax 500 mg Oral Tablet - take 1 tablet by ORAL route once daily for 5 days; 5 tablet. - Medication Reconciliation Form, Thank You Letter, Antibiotic Education, Prescription Opioid Use form. - Follow up: Emergency Department; When: As needed; Reason: Worsening of condition. Follow up: Private Physician; When: 1 - 2 days; Reason: Recheck today's complaints, Continuance of care, Re-evaluation by your physician. Addendum: 05/13/2020 06:49 Co-signature as Attending Physician, Jayjay Acosta MD I agree with the assessment and c rivera plan of care. Signatures: Dispatcher [employer] Felicia Lewis, RN RN Jayjay Mcmahon MD MD cha Waters, Shelly, BLUE LINE HANGER-C BLUE LINE HANGER-Csnw Joshua, Nicole RN RN ca1 Corrections: (The following items were deleted from the chart) 05/11 21:02 18:15 05/11/2020 18:15 Discharged to Home. Impression: Essential (primary) ca1 hypertension; Acute pharyngitis. Condition is Stable. Forms are Medication Reconciliation Form, Thank You Letter, Antibiotic Education, Prescription Opioid Use. Follow up: Emergency Department; When: As needed; Reason: Worsening of condition. Follow up: Private Physician; When: 1 - 2 days; Reason: Recheck today's complaints, Continuance of care, Re-evaluation by your physician. snw
--- NOTE | 2020-05-11 18:16 | ER ---
Nurse's Notes [facility] Name: Zaria De Oliveira Age: 34 yrs Sex: Female : 1985 Arrival Date: 05/11/2020 Time: 17:48 Bed External Waiting Private MD: Diagnosis: Essential (primary) hypertension;Acute pharyngitis Presentation: 05/11 18:07 Chief complaint: Patient states: sore throat, chest pain, fever Tmax 102, nausea, sv decreased appetite x 2 days. Coronavirus screen: Client denies travel out of the [place] in the last 14 days. Client presents with at least one sign or symptom that may indicate coronavirus-19. Standard/surgical mask placed on the client. Provider contacted for isolation considerations. Ebola Screen: No symptoms or risks identified at this time. Risk Assessment: Do you want to hurt yourself or someone else? Patient reports no desire to harm self or others. Onset of symptoms was May 09, 2020. 18:07 Method Of Arrival: Ambulatory sv 18:07 Acuity: CELESTINO 3 sv 18:07 Initial Sepsis Screen: Does the patient meet any 2 criteria? Yes Does the patient have sv a suspected source of infection? No. Patient's initial sepsis screen is negative. Triage Assessment: 18:09 General: Appears in no apparent distress. comfortable, Behavior is calm, cooperative, sv appropriate for age. Neuro: Level of Consciousness is awake, alert, obeys commands, Oriented to person, place, time, situation, Gait is steady. Respiratory: Respiratory effort is even, unlabored. Historical: - Allergies: 18:09 Oxistat; sv 18:09 Bluestar ointments; sv - PMHx: 18:09 Migraines; sv - PSHx: 18:09 ; sv - Immunization history:: Adult Immunizations up to date. - Social history:: Smoking status: Patient denies any tobacco usage or history of. Screenin:59 Abuse screen: Denies threats or abuse. Denies injuries from another. Nutritional ca1 screening: No deficits noted. Tuberculosis screening: No symptoms or risk factors identified. Fall Risk None identified. Assessment: 20:59 General: Appears in no apparent distress. comfortable, Behavior is calm, cooperative, ca1 appropriate for age. Pain: Complains of pain in anterior aspect of left upper chest Pain currently is 4 out of 10 on a pain scale. Pain began 2-3 days ago. Is intermittent. Neuro: Level of Consciousness is awake, alert, obeys commands, Oriented to person, place, time, situation. Cardiovascular: Heart tones S1 S2 present Capillary refill < 3 seconds Patient's skin is warm and dry. Rhythm is regular. Respiratory: Reports cough that is since today Airway is patent Respiratory effort is even, unlabored, Respiratory pattern is regular, symmetrical, Breath sounds are clear bilaterally. GI: Abdomen is round non-distended, Bowel sounds present X 4 quads. Abd is soft and non tender X 4 quads. Reports nausea. : No signs and/or symptoms were reported regarding the genitourinary system. EENT: No signs and/or symptoms were reported regarding the EENT system. Derm: Skin is intact, is healthy with good turgor, Skin is pink, warm \T\ dry. Musculoskeletal: Circulation, motion, and sensation intact. Capillary refill < 3 seconds. Vital Signs: 18:07 BP 142 / 112; Pulse 85; Resp 20; Pulse Ox 100% ; Weight 97.52 kg; Height 5 ft. 2 in. sv (157.48 cm); 21:01 BP 130 / 100; Pulse 83; Resp 20; Temp 99(TE); Pulse Ox 99% on R/A; ca1 18:07 Body Mass Index 39.32 (97.52 kg, 157.48 cm) sv ED Course: 17:48 Patient arrived in ED. rg4 18:08 Triage completed. sv 18:09 Arm band placed on. sv 18:13 Swapna Kellogg F[facility]-C [facility]. snw 18:13 Jayjay Acosta MD is Attending Physician. snw 20:59 Nicole Lewis, NANCY is Primary Nurse. ca1 20:59 Patient has correct armband on for positive identification. Bed in low position. ca1 21:01 Strep Sent. ca1 21:01 Flu Sent. ca1 21:02 COVID-19 Sent. ca1 21:02 No provider procedures requiring assistance completed. Patient did not have IV access ca1 during this emergency room visit. Administered Medications: 20:39 Drug: cloNIDine 0.2 mg Route: PO; ca1 21:02 Follow up: Response: No adverse reaction ca1 20:39 Drug: Zithromax 500 mg Route: PO; ca1 21:02 Follow up: Response: No adverse reaction ca1 Outcome: 18:15 Discharge ordered by MD. mtz 21:02 Discharged to home ambulatory. ca1 21:02 Condition: stable 21:02 Discharge instructions given to patient, Instructed on discharge instructions, follow up and referral plans. medication usage, Demonstrated understanding of instructions, follow-up care, medications, Prescriptions given X 2. 21:02 Patient left the ED. ca1 Signatures: Felicia Chase RN RN sv Swapna Kellogg, ALARM OPERATOR-C ALARM OPERATOR-Bobbi Pandey rg4 Nicole Lewis RN RN ca1 Corrections: (The following items were deleted from the chart) 18:09 18:07 97.52 kg; Height 5 ft. 2 in.; BMI: 39.3; sv sv 18:10 18:07 BP 142 / 112; Resp 20bpm; 97.52 kg; Height 5 ft. 2 in.; BMI: 39.3; sv sv
[2020-05-11] MEDS ORDERED: AZITHROMYCIN 250 MG TAB ONE (20:53)
[2020-05-11] MEDS ORDERED: cloNIDine HCL 0.1 MG TAB ONE (20:53)
[2020-05-11 21:28] VITALS: BP 130/100; TEMP 99; O2SAT 99
[2020-05-11 22:24] LABS: SARS-COV-2 RT PCR NEGATIVE (NEGATIVE)
== END 2020-05-11 21:02 | disposition home or self-care (01) ==
LOC: ER 17:42
DX: J02.9 Acute pharyngitis, unspecified (principal); I10 Essential (primary) hypertension; Z20.822 Contact with and (suspected) exposure to COVID-19; Z88.8 Allergy status to other drugs, medicaments and biological substances
CPT/HCPCS: 0240U; 87070; 87081; 99283

== ENCOUNTER 2020-06-05 16:38 | Emergency (ER) | payer OTHER, SELFPAY ==
--- OUTSIDE RECORDS SUMMARY | 2020-06-05 16:41 | XMS REPORT | Summary of Care ---
:1985 Author Organization [facility] Address [address] [place] [address] Care Team Providers Name Role Phone Pcp, Patient Does Not Have A Primary Care Provider +[id number] 0-0000 Reason for Referral Radiology Services (STAT) Status Reason Specialty Diagnoses / Referred By Referred To Procedures Contact Contact New Request Diagnostic Diagnoses Chest pain, unspecified type Elba Medina, Radiology Procedures XR CHEST 1 VW PAC [address] [place] [address] [place] [address] Reason for Visit Reason Comments Other sternum discomfort Auth/Cert Status Reason Specialty Diagnoses / Referred By Referred To Procedures Contact Contact Emergency Medicine [facility] Em ergency Dept [address] [place] [address] Fax: Encounter Details Date Type Department Care Team Description 05/27/2020 Emergency ADC-Emergency Elba Medina, PAC Gastritis, presence of bleeding unspecif ied, unspecified chronicity, unspecified gastritis type (Primary Dx); Department [address] [place] [address] Chest pain, unspecified type [address] [place] [address] [phone] [place] [address] [phone] Allergies Active Allergy Reactions Severity Noted Date Comments Oxiconazole Nitrate Swelling 12/08/2015 documented as of this encounter (statuses as of 05/27/2020) Medications Medication Sig Dispensed Refills Start Date End Date Status acyclovir (ZOVIRAX) 200 Take 200 mg by 0 Active mg capsule mouth. esomeprazole (NEXIUM) Take 20 mg by 30 capsule 0 05/27/2020 Active 20 mg mouth daily capsuleIndications: before a meal. Gastritis, presence of bleeding unspecified, unspecified chronicity, unspecified gastritis type documented as of this encounter (statuses as of 05/27/2020) Active Problems No known active problemsdocumented as of this encounter (statuses as of 05/27/2020) Immunizations Name Administration Dates Next Due Influenza Virus Vaccine Quad IM 3+ YRS 04/11/2016 TDAP 04/11/2016 documented as of this encounter Social History Tobacco Use Types Packs/Day Years Used Date Never Smoker Smokeless Tobacco: Never Used Alcohol Use Drinks/Week oz/Week Comments Yes 0 Standard drinks or equivalent 0.0 Occasional Sex Assigned at Date Recorded Not on file COVID-19 Exposure Response Date Recorded In the last month, have you been in contact with No / Unsure 05/27/2020 10:58 AM BOTANY PROFESSOR someone who was confirmed or suspected to have Coronavirus / COVID-19? documented as of this encounter Last Filed Vital Signs Vital Sign Reading Time Taken Comments Blood Pressure 127/87 05/27/2020 1:00 PM BOTANY PROFESSOR Pulse 73 05/27/2020 1:00 PM BOTANY PROFESSOR Temperature 36.2 C (97.1 F) 05/27/2020 10:59 AM BOTANY PROFESSOR Respiratory Rate 20 05/27/2020 1:00 PM BOTANY PROFESSOR Oxygen Saturation 100% 05/27/2020 1:00 PM BOTANY PROFESSOR Inhaled Oxygen Concentration - - Weight 98 kg (216 lb) 05/27/2020 10:59 AM BOTANY PROFESSOR Height 157.5 cm (5' 2") 05/27/2020 10:59 AM BOTANY PROFESSOR Body Mass Index 39.51 05/27/2020 10:59 AM BOTANY PROFESSOR documented in this encounter Discharge Instructions Elba Donovan PAC - 05/27/2020 DIAGNOSIS Diagnoses that have been ruled out: None Diagnoses that are still under consideration: None Final diagnoses: Chest pain, unspecified type Gastritis, presence of bleeding unspecified, unspecified chronicity, unspecified gastritis type NO LIFE-THREATENING FINDINGS ON TODAY'S EXAM. PROCEDURES IN THE ER TODAY: Orders Placed This Encounter Procedures XR CHEST 1 VW CBC WITH DIFF COMP. METABOLIC PANEL (12374) TROPONIN I POCT TEST MEDICATIONS ADMINISTERED IN THE ER TODAY AND DISCHARGE MEDICATIONS: Orders Placed This Encounter Medications aspirin tablet 325 mg ondansetron (ZOFRAN (PF)) injection 4 mg pantoprazole (PROTONIX) 40 mg in NaCl 0.9% (NS) 100 mL MINI-BAG esomeprazole (NEXIUM) 20 mg capsule SPECIAL CARE INSTRUCTIONS: Eat bland foods and avoid spicy, fatty, acidic foods. Drink plenty of clear liquids. Take medicine as directed. Follow up with a GI specialist for further evaluation. Return to the ER if you are worsening, especially if you develop chest pain or shortness of breath that is worse with activity. FOLLOW-UP RECOMMENDATIONS: RECOMMEND FOLLOW-UP WITH A PRIMARY CARE PROVIDER OR SPECIALIST IN 2-5 DAYS, ESPECIALLY IF NO IMPROVEMENT IN SYMPTOMS. MAY FOLLOW-UP WITH A PROVIDER OF YOUR CHOICE, SUCH : 1. A PHYSICIAN OF YOUR CHOICE 2. [facility], . LOCATIONS IN [facility] 3. [facility], [address] [place] [address]; [phone] OR, IF YOU WISH TO FOLLOW-UP WITHIN THE [facility], MAY TRY THESE OPTIONS (CLINIC APPOINTMENTS AVAILABLE ON ONGW-YL-TRYA BASIS): 1. SCHEDULE AN APPOINTMENT ONLINE AT [email or web address] 2. OR CALL THE [facility] AT OR 3. OR CALL YOUR [facility] PHYSICIAN'S OFFICE DIRECTLY IF YOU ARE ALREADY AN ESTABLISHED [facility] PATIENT. RETURN TO ER FOR WORSENING OF SYMPTOMS. AttachmentsThe following attachments cannot be sent through Care Everywhere. Gastritis (Adult) (Citizen Of [place])documented in this encounter ED Notes Roseline Molina RN - 05/27/2020 10:58 AM CSTEpigastric/sternal discomfort for "at least a month". Worsens when lying flat. Patient states, "I don't think it has to do with eating because i can eat just fine. But it's any position like I'm fucking fat bro. I'm just scared I won't wake up." documented in this encounter Miscellaneous Notes ED Nurse Note - Desirae Hernandez RN - 05/27/2020 1:39 PM CSTPt given printed and verbal discharge instructions regarding gastritis, encouraged hydration. 0 Prescriptions provided; 1 sent to pharmacy Discussed ibuprofen and to take with food to avoid GI distress. Pt verbalized understanding of instructions, pt awake alert oriented, resp reg unlabored, skin w/d, color appropriate for race, moves all ext well,pt encouraged to follow up with PCP and GI Advised to seek medical attention for new/prolonged/worsening of symptoms, Symptoms improved No adverse reaction to meds given in ER noted upon discharge PIV d'cd, dressing to site, catheter in tact. Awake, alert oriented, resp reg unlabored, skin w/d, pt leaving amb with steady gait, in no apparent distress. [place] PROFESSOR documented in this encounter Plan of Treatment Name Type Priority Associated Diagnoses Date/Ti me EKG-12 LEAD ROUTINE HEART STATION Routine Chest pain, unspecif ied 05/27/2020 11:06 AM ONCE type BOTANY PROFESSOR Name Type Priority Associated Diagnoses Order S chedule EKG-12 LEAD HEART STATION Routine Chest pain, ONCE for 1 Occ urrences ROUTINE ONCE unspecified type starting until Health Maintenance Due Date Last Done Comments VARICELLA VACCINES (1 of 2 - 1985 2-dose childhood series) Depression Screening 1996 PAP SMEAR 04/11/2019 04/11/2016 INFLUENZA VACCINE (#1) 2020 04/11/2016 DTaP,Tdap,and Td Vaccines (2 - Td) 04/11/2026 04/11/2016 PNEUMOCOCCAL 0-64 YEARS COMBINED Aged Out No longer eligible based on SERIES patient's age to complete this topic documented as of this encounter Procedures Procedure Name Priority Date/Time Associated Diagnosis Comme nts XR CHEST 1 VW STAT 05/27/2020 11:50 AM Chest pain, Results for this BOTANY PROFESSOR unspecified type procedure a re in the results section. CBC WITH DIFF STAT 05/27/2020 11:31 AM Chest pain, Results for this BOTANY PROFESSOR unspecified type procedure a re in the results section. COMP. METABOLIC STAT 05/27/2020 11:31 AM Chest pain, Resul ts for this PANEL ([id number]) BOTANY PROFESSOR unspecified type procedure are in the results section. TROPONIN I STAT 05/27/2020 11:31 AM Chest pain, Results for this BOTANY PROFESSOR unspecified type procedure a re in the results section. POCT TEST MERRILL 05/27/2020 11:26 AM Chest pain, R esults for this BOTANY PROFESSOR unspecified type procedure a re in the results section. NOTICE OF PRIVACY Routine 05/27/2020 10:45 AM PRACTICES BOTANY PROFESSOR documented in this encounter Results XR CHEST 1 VW (05/27/2020 11:50 AM BOTANY PROFESSOR) Specimen Narrative Performed At HISTORY: Chest pain. PACS/VR/DOSE TECHNIQUE: Portable AP semierect view of the chest is obtained. No prior chest study available for comparison. FINDINGS: No acute pneumonia. No pneumot horax or pleural effusion or pulmonary congestion detected. Cardiac s ize is within normal limits. CONCLUSIONS: No signs of acute cardiopulmonary disease . Procedure Note [facility], Radiant Results Inft User - 2020 11:53 AM BOTANY PROFESSOR HISTORY: Chest pain. TECHNIQUE: Portable AP semierect view of the chest is obtained. No prior chest study available for comparison. FINDINGS: No acute pneumonia. No pneumot horax or pleural effusion or pulmonary congestion detected. Cardiac s ize is within normal limits. CONCLUSIONS: No signs of acute cardiopul monary disease. Performing Organization Address City/State/Zipcode Phone Number PACS/VR/DOSE TROPONIN I (05/27/2020 11:31 AM BOTANY PROFESSOR) Pathologist Sig nature TROPONIN I <0.012 <=0.034 ng/mL [facility] Specimen Blood - VENOUS Narrative Performed At Equal or Less than 0.034 ng/ml---Normal [facility] Note: Cardiac troponin begins to rise 3-4 hours after the onset of ischemia. Repeat in 4-6 hours if the sample was drawn within 3-4 hours of the onset of the symptom and found normal. Between 0.035 and 0.120 ng/mL--- Borderline. Questionable myocardial injury or necros is Note: Serial measurement may be necessary to confirm or exclude the diagnosis of myocardial injury or necrosis; Clinical correlation (symptoms, EKGs, imaging studies, and others) required; Repeat in 4-6 hours if clinically indicated. Equal or Higher than 0.121 ng/mL---Abnormal. Myocardial Injury or Necrosis Likely Biotin has been reported to cause a negative bias, interpret results relative to patient's use of biotin. Performing Organization Address City/State/Zipcode Phone Number [facility] CLIA: [id number] [place] [address] COMP. METABOLIC PANEL ([id number]) (05/27/2020 11:31 AM BOTANY PROFESSOR) [facility] NA 140 135 - 145 mmol/L [facility] K 3.8 3.5 - 5.0 mmol/L [facility] CL 103 98 - 108 mmol/L [facility] CO2 TOTAL 26 23 - 31 mmol/L [facility] AGAP 11 2 - 16 [facility] BUN 13 7 - 23 mg/dL [facility] GLUCOSE 107 70 - 110 mg/dL [facility] CREATININE 0.88 0.50 - 1.04 [facility] mg/dL [facility] TOTAL BILI 0.5 0.1 - 1.1 mg/dL [facility] CALCIUM 9.1 8.6 - 10.6 mg/dL [facility] T PROTEIN 7.5 6.3 - 8.2 g/dL [facility] ALBUMIN 4.2 3.5 - 5.0 g/dL [facility] ALK PHOS 77 34 - 122 U/L [facility] ALTv 16 5 - 35 U/L [facility] AST(SGOT) 19 13 - 40 U/L [facility] eGFR Calculation 73.1 mL/min/1.73m2 [facility] (Non-) [facility] Y eGFR Calculation 88.6 mL/min/1.73m2 [facility] () [facility] Specimen Blood - VENOUS Narrative Performed At Association of Glomerular Filtration Rate (GFR) [facility] and Staging of Kidney Disease* + + +- + | GFR (mL/min/1.73 m2) | With Kidney Damage | Without Kidney Damage + + +- + | >90 | Stage one | Normal + + +- + | 60-89 | Stage two | Decreased GFR + + +- + | 30-59 | Stage three | Stage three + + +- + | 15-29 | Stage four | Stage four + + +- + | <15 (or dialysis) | Stage five | Stage five + + +- + *Each stage assumes the associated GFR level has been in effect for at least three months. Stages 1 to 5, with or without kidney disease, indicate chronic kidney disease. Notes: Determination of stages one and two (with eGFR >59mL/min/1.73 m2) requires estimation of kidney damage for at least three months as defined by structural or functional abnormalities of the kidney, manifested by either: Pathological abnormalities or Markers of kidney damage (including abnormalities in the composition of the blood or urine or abnormalities in imaging tests). Performing Organization Address City/State/Zipcode Phone Number [facility] CLIA: [id number] [place] [address] CBC WITH DIFF (05/27/2020 11:31 AM BOTANY PROFESSOR) Pathologist Sig nature WBC 10.55 4.30 - 11.10 [facility] 10*3/L [facility] RBC 4.65 3.93 - 5.25 [facility] 10*6/L [facility] HGB 12.1 11.6 - 15.0 g/dL [facility] HCT 38.0 35.7 - 45.2 % [facility] MCV 81.7 80.6 - 95.5 fL [facility] MCH 26.0 25.9 - 32.8 pg [facility] MCHC 31.8 31.6 - 35.1 g/dL [facility] RDW-SD 39.7 39.0 - 49.9 fL [facility] RDW-CV 13.3 12.0 - 15.5 % [facility] PLT 491 (H) 166 - 358 [facility] 10*3/L [facility] MPV 9.7 9.5 - 12.9 fL [facility] NRBC/100 WBC 0.0 0.0 - 10.0 /100 [facility] WBCs [facility] NRBC x10^3 <0.01 10*3/L [facility] GRAN MAT (NEUT) % 63.6 % [facility] IMM GRAN % 0.20 % [facility] LYMPH % 26.3 % [facility] MONO % 7.8 % [facility] EOS % 1.5 % [facility] BASO % 0.6 % [facility] GRAN MAT x10^3(ANC) 6.72 1.88 - 7.09 [facility] 10*3/uL [facility] IMM GRAN x10^3 <0.03 0.00 - 0.06 [facility] 10*3/uL [facility] LYMPH x10^3 2.77 1.32 - 3.29 [facility] 10*3/uL [facility] MONO x10^3 0.82 0.33 - 0.92 [facility] 10*3/uL [facility] EOS x10^3 0.16 0.03 - 0.39 [facility] 10*3/uL [facility] BASO x10^3 0.06 0.01 - 0.[address] LABORATORY Specimen Blood - VENOUS Performing Organization Address City/State/Zipcode Phone Number [facility] CLIA: [id number] [place] [address] POCT TEST (05/27/2020 11:26 AM BOTANY PROFESSOR) Pathologist Sig nature POCT PREG negative On board controls acceptable present with C Line POCT PREG LOT # [id number] POCT PREG TEST DATE 01/05/2022 Specimen Urine - URINE, CLEAN CATCH documented in this encounter Visit Diagnoses Diagnosis Gastritis, presence of bleeding unspecif ied, unspecified chronicity, unspecified gastritis type - Primary Chest pain, unspecified type documented in this encounter Administered Medications Medication Order MAR Action Action Date Dose Rate Site aspirin tablet 325 mg Given 05/27/2020 11:25 AM BOTANY PROFESSOR 325 mg 325 mg, Oral, ONCE, 1 dose, Mon05/27/20 at 1215, STAT ondansetron (ZOFRAN (PF)) injection 4 mg Given 05/27/2020 11:43 AM BOTANY PROFESSOR 4 mg 4 mg, Slow IV Push, ONCE, 1 dose, Mon05/27/20 at 1230, MERRILL pantoprazole (PROTONIX) 40 mg in NaCl 0.9% Given 05/27/2020 11:4 4 AM BOTANY PROFESSOR 40 mg (NS) 100 mL MINI-BAG 40 mg, IV Piggyback, ONCE, 1 dose, Mon05/27/20 at 1230, 100 mL documented in this encounter
--- OUTSIDE RECORDS SUMMARY | 2020-06-05 16:41 | XMS REPORT | Continuity of Care Document ---
:1985 Author Organization [facility] t Address [address] [place] [address] Care Team Providers Name Role Phone Mónica Hernandez Attending Clinician Problems This patient has no known problems. Allergies, Adverse Reactions, Alerts This patient has no known allergies or adverse reactions. Medications This patient has no known medications. Procedures This patient has no known procedures. Encounters Start End Encounter Admission Attending Care Care Encounter Source Date/Time Date/Time Type Type Clinicians Facility Department ID 2020-05-27 2020-05-27 Emergency TIMI Medina [id number] 11:00:00 13:42:00 Elba Nevarez [id number] [place] [id number] [place] [id number] Results This patient has no known results.
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
[2020-06-06 01:30] VITALS: TEMP 98.7; O2SAT 100
[2020-06-06 01:33] VITALS: BP 138/80
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
== END 2020-06-05 23:47 | disposition home or self-care (01) ==
LOC: ER 16:38
DX: R10.9 Unspecified abdominal pain (principal); V43.53XA Car driver injured in collision with pick-up truck in traffic accident, initial encounter; Y93.89 Activity, other specified; Y92.410 Unspecified street and highway as the place of occurrence of the external cause
CPT/HCPCS: 74177; 82565; 99283; Q9967

== ENCOUNTER 2020-07-08 16:01 | Emergency (ER) | payer SELFPAY ==
--- OUTSIDE RECORDS SUMMARY | 2020-07-08 16:04 | XMS REPORT | Continuity of Care Document ---
:1985 Author Organization [facility] t Address [address] [place] [address] Care Team Providers Name Role Phone Mónica [...] Department ID 2020-05-27 2020-05-27 Emergency TIMI Medina [id number] 11:00:00 13:42:00 Elba Nevarez [id number] [place] [id number] [place] [phone] [id number] Results This patient has no known results.
[2020-07-08 19:54] LABS: SARS-COV-2 RT PCR NEGATIVE (NEGATIVE)
--- NOTE | 2020-07-08 20:28 | ER ---
Nurse's Notes [facility] Name: Zaria De Oliveira Age: 34 yrs Sex: Female : 1985 Arrival Date: 07/08/2020 Time: 16:05 Bed 17 Private MD: Diagnosis: Acute pharyngitis Presentation: 07/08 16:10 Chief complaint: Patient states: Monday started with cough, body aches, congestion, low ll1 grade fever, DONOVAN for 4 day. + nausea. Coronavirus screen: Client denies travel out of the [place] in the last 14 days. congestion, cough unrelated to allergies, fatigue, fever, headache, sore throat, Client presents with at least one sign or symptom that may indicate coronavirus-19. Standard/surgical mask placed on the client. Ebola Screen: Patient denies travel to an Ebola-affected area in the 21 days before illness onset. Initial Sepsis Screen: Does the patient meet any 2 criteria? HR > 90 bpm. No. Patient's initial sepsis screen is negative. Does the patient have a suspected source of infection? Yes: Productive cough/pneumonia. Risk Assessment: Do you want to hurt yourself or someone else? Patient reports no desire to harm self or others. Onset of symptoms was July 05, 2020. 16:10 Method Of Arrival: Ambulatory ll1 16:10 Acuity: CELESTINO 3 ll1 Historical: - Allergies: 16:13 Bluestar ointments; ll1 16:13 Oxistat; ll1 - PMHx: 16:13 Migraines; ll1 - PSHx: 16:13 ; ll1 - Immunization history:: Flu vaccine is not up to date. - Social history:: Smoking status: Patient denies any tobacco usage or history of. Screenin:43 Abuse screen: Denies threats or abuse. Denies injuries from another. Nutritional ph screening: No deficits noted. Tuberculosis screening: No symptoms or risk factors identified. Fall Risk None identified. Assessment: 17:39 General: Appears in no apparent distress. comfortable, Behavior is calm, cooperative, ph appropriate for age, Reports fever for. Pain: Complains of pain in "body aches". Neuro: Level of Consciousness is awake, alert, obeys commands, Oriented to person, place, time, situation. Cardiovascular: Capillary refill < 3 seconds in bilateral fingers Patient's skin is warm and dry. Respiratory: Reports cough that is Airway is patent Respiratory effort is even, unlabored, Respiratory pattern is regular, symmetrical, Denies shortness of breath. GI: Reports nausea, Patient currently denies abdominal pain, diarrhea, vomiting. Derm: Skin is intact, is healthy with good turgor, Skin is pink, warm \\T\\ dry. 19:00 Reassessment: Patient appears in no apparent distress at this time. Patient and/or jb4 family updated on plan of care and expected duration. Pain level reassessed. Patient is alert, oriented x 3, equal unlabored respirations, skin warm/dry/pink. 19:59 Reassessment: Patient appears in no apparent distress at this time. Patient and/or jb4 family updated on plan of care and expected duration. Pain level reassessed. Patient is alert, oriented x 3, equal unlabored respirations, skin warm/dry/pink. 20:45 Reassessment: Patient appears in no apparent distress at this time. Patient and/or jb4 family updated on plan of care and expected duration. Pain level reassessed. Patient is alert, oriented x 3, equal unlabored respirations, skin warm/dry/pink. Vital Signs: 16:10 BP 133 / 97; Pulse 94; Resp 18; Temp 97.8; Pulse Ox 96% on R/A; Weight 97.98 kg; Height ll1 5 ft. 2 in. (157.48 cm); Pain 8/10; 20:45 BP 129 / 100; Pulse 95; Resp 18; Pulse Ox 97% on R/A; jb4 16:10 Body Mass Index 39.51 (97.98 kg, 157.48 cm) ll1 ED Course: 16:05 Patient arrived in ED. am2 16:13 Triage completed. ll1 16:13 Arm band placed on. 1 17:32 Jonathan Sutton PA is PHCP. [facility] 17:32 Eric Clayton MD is Attending Physician. [facility] 17:39 Jazmine Madden, NANCY is Primary Nurse. ph 17:44 Patient has correct armband on for positive identification. Bed in low position. Call light in reach. 20:45 No provider procedures requiring assistance completed. Patient did not have IV access jb4 during this emergency room visit. Administered Medications: No medications were administered Outcome: 20:27 Discharge ordered by . ceci 20:45 Discharged to home with family. jbOlga Lidia 20:45 Condition: stable 20:45 Discharge instructions given to patient, Instructed on discharge instructions, follow up and referral plans. medication usage, Demonstrated understanding of instructions, follow-up care, medications, Prescriptions given X 1. 20:49 Patient left the ED. jb4 Signatures: Jonathan Sutton PA PA jmm Hall, Patricia RN RN Remy Jiang RN RN jb4 Jessica Crowell am2 Acosta Alatorre RN RN ll1
--- NOTE | 2020-07-08 20:28 | EDPHYS ---
Physician Documentation [facility] Name: Zaria De Oliveira Age: 34 yrs Sex: Female : 1985 Arrival Date: 07/08/2020 Time: 16:05 Bed 17 Private MD: ED Physician Eric Clayton HPI: 07/08 20:24 This 34 yrs old Female presents to ER via Ambulatory with complaints of Body jmm Aches, Fever, Cough. 20:24 The patient presents with sore throat. Onset: The symptoms/episode began/occurred jmm gradually, 3 day(s) ago. Modifying factors: The symptoms are alleviated by nothing, the symptoms are aggravated by nothing. Associated signs and symptoms: Pertinent positives: chills, fever. Historical: - Allergies: 16:13 Bluestar ointments; ll1 16:13 Oxistat; ll1 - PMHx: 16:13 Migraines; ll1 - PSHx: 16:13 ; ll1 - Immunization history:: Flu vaccine is not up to date. - Social history:: Smoking status: Patient denies any tobacco usage or history of. ROS: 20:24 Cardiovascular: Negative for chest pain, palpitations, and edema, Respiratory: Negative jmm for shortness of breath, cough, wheezing, and pleuritic chest pain. 20:24 Constitutional: Positive for body aches, chills. 20:24 All other systems are negative. Exam: 20:24 Constitutional: This is a well developed, well nourished patient who is awake, alert, jmm and in no acute distress. Head/Face: atraumatic. Eyes: EOMI, no conjunctival erythema appreciated 20:24 Neck: Trachea midline, Supple Chest/axilla: Normal chest wall appearance and motion. Cardiovascular: Regular rate and rhythm. No edema appreciated Respiratory: Normal respirations, no respiratory distress appreciated Abdomen/GI: Non distended, soft Back: Normal ROM Skin: General appearance color normal MS/ Extremity: Moves all extremities, no obvious deformities appreciated, no edema noted to the lower extremities Neuro: Awake and alert, normal gait Psych: Behavior is normal, Mood is normal, Patient is cooperative and pleasant 20:24 ENT: Posterior pharynx: erythema, that is mild. Vital Signs: 16:10 BP 133 / 97; Pulse 94; Resp 18; Temp 97.8; Pulse Ox 96% on R/A; Weight 97.98 kg; Height ll1 5 ft. 2 in. (157.48 cm); Pain 8/10; 20:45 BP 129 / 100; Pulse 95; Resp 18; Pulse Ox 97% on R/A; jb4 16:10 Body Mass Index 39.51 (97.98 kg, 157.48 cm) ll1 MDM: 17:45 Patient medically screened. [facility] 20:25 Data reviewed: vital signs, nurses notes, lab test result(s). Counseling: I had a [facility] detailed discussion with the patient and/or guardian regarding: the historical points, exam findings, and any diagnostic results supporting the discharge/admit diagnosis, lab results, radiology results, the need for outpatient follow up, to return to the emergency department if symptoms worsen or persist or if there are any questions or concerns that arise at home. ED course: Patient is alert and non toxic in appearance in the ED. No signs of resp distress. Patient advised to return to the ED if symptoms return. patient understood and agrees with the plan of care. . 07/08 18:14 Order name: Flu [facility] 07/08 18:14 Order name: Strep [facility] 07/08 18:14 Order name: COVID-19 : Document "Date of Symptom Onset" if Symptomatic. [facility] 07/08 19:03 Order name: Group A Streptococcus Rapid Sc; Complete Time: 19:27 EDMS 07/08 19:54 Order name: COVID-19/FLU A+B; Complete Time: 20:08 EDMS Administered Medications: No medications were administered Disposition: 07/09 07:23 Co-signature as Attending Physician, Eric Clayton MD I agree with the assessment and kdr plan of care. Disposition: 07/08/20 20:27 Discharged to Home. Impression: Acute pharyngitis. - Condition is Stable. - Discharge Instructions: Pharyngitis. - Prescriptions for Amoxicillin 875 mg Oral Tablet - take 1 tablet by ORAL route every 12 hours for 10 days; 20 tablet. - Medication Reconciliation Form, Thank You Letter, Antibiotic Education, Prescription Opioid Use form. - Follow up: Private Physician; When: 2 - 3 days; Reason: Recheck today's complaints, Continuance of care, Re-evaluation by your physician. Signatures: Dispatcher [facility] EDMS Eric Clayton MD MD kdr Mickail, Joel, PA PA jmm Bryson, James, RN RN jb4 Acosta Alatorre RN RN ll1 Corrections: (The following items were deleted from the chart) 07/08 20:49 20:27 07/08/2020 20:27 Discharged to Home. Impression: Acute pharyngitis. Condition is jb4 Stable. Forms are Medication Reconciliation Form, Thank You Letter, Antibiotic Education, Prescription Opioid Use. Follow up: Private Physician; When: 2 - 3 days; Reason: Recheck today's complaints, Continuance of care, Re-evaluation by your physician. ceci
[2020-07-09 10:24] VITALS: BP 129/100; TEMP 97.8; O2SAT 97
== END 2020-07-08 20:49 | disposition home or self-care (01) ==
LOC: ER 16:01
DX: J02.9 Acute pharyngitis, unspecified (principal); Z20.822 Contact with and (suspected) exposure to COVID-19; Z88.8 Allergy status to other drugs, medicaments and biological substances
CPT/HCPCS: 0240U; 87070; 87081; 99282

== ENCOUNTER 2021-08-26 19:31 | Emergency (ER) | payer SELFPAY ==
--- OUTSIDE RECORDS SUMMARY | 2021-08-26 19:35 | XMS REPORT | Continuity of Care Document ---
:1985 Author Organization [facility] t Address [address] [place] [address] Care Team Providers Name Role Phone PCP, DOES NOT HAVE A Primary Care Physician Unavailable Sylvia GARY Attending Clinician Unavailable Sylvia Gary NP Attending Clinician Adam PAC, S Attending Clinician Sylvia GARY Admitting Clinician Unavailable Payers Payer Name Policy Type Policy Number Effective Date Expiration Date S juli [employer] [place] [id number] 2020 00:00:00 WOMEN Problems Condition Condition Condition Status Onset Resolution Last Treating Co mments Source Name Details Category Date Date Treatment Clinician Date No known No known Disease Unive rs active active ity of problems problems [facility] Allergies, Adverse Reactions, Alerts Allergy Allergy Status Severity Reaction(s) Onset Inactive Treating Comm ents Source Name Type Date Date Clinician OXICONAZ DRUG Active Swelling Univer s OLE INGREDI 12-07 ity of NITRATE 00:00: [place] [address] [place] [address] Branch Oxiconaz Propensi Active Swelling Univ ers ole ty to 12-07 ity of Nitrate adverse 00:00: [place] reaction Medical s Herod Social History Social Habit Start Date Stop Date Quantity Comments Source History [facility] [place] Alcohol Frequency Medical Branch History SDOH [facility] [place] Alcohol Std Drinks Medica l Branch History SDNH [facility] [place] Alcohol Binge Medical Bra count includes the [facility] Exposure to Not sure [facility] SARS-CoV-2 (event) Medica l Branch Alcohol intake 2021-04-11 2021-04-11 0 /d [facility] 00:00:00 00:00:00 Medical Branch Tobacco use and 2015-12-08 2015-12-08 Never used [facility] exposure 00:00:00 00:00:00 Medical Branch Alcohol Comment 2015-12-08 2015-12-08 Occasional [facility] 00:00:00 00:00:00 [facility] Branch Sex Ass[birth year] At [birth year] [facility] 00:00:00 00:00:00 Medical Branch Smoking Status Start Date Stop Date Source Never smoker [facility] Medications Ordered Filled Start Stop Current Ordering Indication Dosage Frequency Signature Comments Components Source Medication Medication Date Date Medication? Clinician (SIG) Name Name ketorolac 2020-05- No 30mg 30 mg, Unive rs (TORADOL) -05 Slow IV ity of injection 07:15: 06:22 Push, [place] 30 mg 00 :00 ONCE, 1 Medical dose, On Branch 04/11/21 at 0115, Routine
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 etodolac 2020-05- No [id number] 300mg Take 1 Univers 300 mg 2-05 -05 capsule by ity of capsule 00:00: 00:00 mouth 3 [place] 00 :00 (three) Medical times Branch daily with meals for 5 days. etodolac 2020-05- No [id number] 300mg Take 1 Univers 300 mg 2-05 12-05 capsule by ity of capsule 00:00: 00:00 mouth 3 [place] 00 :00 (three) Medical times Branch daily with meals. acyclovir 2020-05 Yes 200mg Take 200 Uni vers (ZOVIRAX) 2-04 mg by ity of 200 mg 23:44: mouth. [place] capsule 39 [facility] Branch benzonatate 2020- No [id number] 100mg Take 1 Univers 100 mg 12-26 capsule by ity of capsule 00:00: 00:00 mouth 3 [place] 00 :00 (three) Medical times Branch daily as needed for Cough. albuterol 2020- No [id number] 4{puff} Inhale 4 Univers 90 12-26 Puffs ity of mcg/actuati 00:00[place] 00:00 [place] 4 [place] inhaler 00 :00 (four) Medical hours as Branch needed for Wheezing or Shortness of Breath. ondansetron 2020- No [id number] 4mg Take 1 Univers 4 mg 12-26 tablet by ity of disintegrat 00:00: 00:00 [place] tablet 00 :00 every 8 Medica l (eight) Branch hours as needed for Nausea and Vomiting (N/V). esomeprazol 2020- No [id number] 20mg Take 20 mg Univers e (NEXIUM) 120 04-10 by mouth ity of 20 mg 00:00: 00:00 daily [place] capsule 00 :00 before a Medical meal. Branch Immunizations Ordered Filled Immunization Date Status Comments [facility] e Immunization Name Name Influenza Virus 2016-04-11 Completed [facility] of Vaccine Quad IM 3+ 00:00:00 [facility] Branch TDAP 2016-04-11 [facility] 00:00:00 [facility] Vital Signs Vital Name Observation Time Observation Value Comments Source Systolic blood 2021-04-11 08:00:00 132 mm[Hg] Univer sity of pressure [facility] Diastolic blood 2021-04-11 08:00:00 88 mm[facility]Hg[facility] Heart rate 2021-04-11 08:00:00 61 /[facility] Respiratory rate 2021-04-11 08:00:00 20 /min [facility] Oxygen saturation in 2021-04-11 08:00:00 100 /min [facility] Arterial blood by [facility] Pulse oximetry Branch Body temperature 2021-04-11 05:42:00 36.94 Penny [facility] Body height 2021-04-11 05:42:00 157.5 cm [facility] Body weight 2021-04-11 05:42:00 97.523 kg [facility] BMI 2021-04-11 05:42:00 39.32 kg/m2 [facility] Procedures Procedure Date / Time Performed Performing Clinician Supriya e XR CHEST 1 VW 2021-04-11 06:41:03 Vick Gary [facility] D-DIMER 2021-04-11 06:34:00 Vick Gary [facility] TROPONIN I 2021-04-11 06:15:00 Vick Gary [facility] COMP. METABOLIC PANEL 2021-04-11 06:15:00 Vick Gary [facility] ([facility]33[facility] CBC WITH DIFF 2021-04-11 06:15:00 Vick Gary [facility] LIPASE 2021-04-11 06:15:00 Vick Gary [facility] CONSENT/REFUSAL FOR 2021-04-11 05:33:33 Doctor Unassigned, No Un [facility] DIAGNOSIS AND Name [facility] TREATMENT Encounters Start End Encounter Admission Attending Care Care Encounter Source Date/Time Date/Time Type Type Clinicians Facility Department ID 2021-03-08 Emergency [facility] [id number] Univers [facility]-06 Emergency [facility] [id number] Univers 18:16:26 [facility] 2021-04-10 2021-04-11 Emergency [facility] ERT [id number] Univers 23:45:00 02:10:00 VICK [facility] 2021-04-10 2021-04-11 Emergency [facility] [id number] Univers 23:45:00 02:10:00 Vick NEVAREZ [id number] itjose [id number] [facility] [id number] [facility] 084 Branch 2020-05-27 2020-05-27 Emergency [facility] [id number] 11:00:00 13:42:00 Elba Nevarez [id number] [place] [id number] [place] [id number] Results Test Description Test Time Test Comments Results Result Comments Source D-DIMER 2021-04-11 07:04:48 Test Item Value Reference Range Interpretation Comme nts D-DIMER (test code = <0.27 See_Comment [Autom ated message] The [id number]) system which ge nerated this result tra nsmitted reference range : <0.41 ?g/mL (FEU). Th e reference range was not used to interpr et this result as normal/abnormal . JO (test code = JO) This test may be used in conjunction with a clinical pretest probability (PTP) assessment model to exclude venous thromboembolism (VTE) in patients suspected of deep venous thrombosis (DVT) and pulmonary embolism (PE) A D-Dimer value less than 0.50 ?g/ml (FEU) has a negative predicative value of 96 to 100% (95% CI)and 97 to 100% (95% CI) as an aid in the diagnosis of deep vein thrombosis (DVT) and pulmonary embolism when there is low or moderate pretest probability of PE or DVT. D-Dimer values are expressed in initial fibrinogen equivalent units (FEU)" The assay results should be used with other information, including the clinical context, in forming a diagnosis. Lab Interpretation Normal (test code = 09068-9) [facility] [place] [facility] [id number] 06:46:29 Test Item Value Reference Interpretation Comments Range TROPONIN I (test 0.000 ng/mL See_Comment [Automated code = [id number]) message] The system which generated this result transmitted reference range : <=0.034. The reference range was not used to interpret this result as normal/abnormal . JO (test code = Reference (Normal) JO) Range (defined by the 99th percentile reference limit): <= 0.034 ng/mL Note: Cardiac troponin begins to rise 3-4 hours after the onset of ischemia. Repeat in 4-6 hours if the sample was drawn within 3-4 hours of the onset of the symptom and found normal. Diagnosis of myocardial injury is made with acute changes in cTn concentrations with at least one serial sample above the 99th percentile upper reference limit (URL), taken together with the patient's clinical presentation. Biotin has been reported to cause a negative bias, interpret results relative to patient's use of biotin. Lab Interpretation Normal (test code = 77800-6) [facility]. METABOLIC PANEL (30398)2021-04-11 06:35:05 Test Item Value Reference Range Interpretation Comments NA (test code = 141 mmol/L 135-145 7310457811) K (test code = 4.2 mmol/L 3.5-5.0 4078994944) CL (test code = 107 mmol/L 98-108 7323164675) CO2 TOTAL (test code = 25 mmol/L 23-31 0642070006) AGAP (test code = 2-16 2056375048) BUN (test code = 15 mg/dL 7-23 0543919220) GLUCOSE (test code = 112 mg/dL 70-110 H 6904716355) CREATININE (test code = 0.79 mg/dL 0.50-1.04 0194152399) TOTAL BILI (test code = 0.4 mg/dL 0.1-1.9 9557748412) CALCIUM (test code = 10.0 mg/dL 8.6-10.6 5519505875) T PROTEIN (test code = 7.5 g/dL 6.3-8.2 2710479466) ALBUMIN (test code = 4.2 g/dL 3.5-5.0 9231068656) ALK PHOS (test code = 92 U/L 34-122 7054948141) ALTv (test code = 19 U/L 5-35 1742-6) AST(SGOT) (test code = 21 U/L 13-40 2193390866) eGFR (test code = mL/min/1.73m2 2113130602) JO (test code = JO) Association of Glomerular Filtration Rate (GFR) and Staging of Kidney Disease* + --+ --+ ------+| GFR (mL/min/1.73 m2) ?| With Kidney Damage ?| ?Without Kidney Damage+ --------+ --------+ +| ?>90 ?| ?Stage one ?| ? Normal ?+ ---+ ---+ -------+| ?60-89 ?| ?Stage two ?| ? Decreased GFR ? + --+ --+ ------+| ?30-59 ?| ?Stage three ?| ? Stage three ? + --+ --+ ------+| ?15-29 ?| ?Stage four ? | ? Stage four ?+ ---+ ---+ -------+| ?<15 (or dialysis) ? ?| ?Stage five ? | ? Stage five ?+ ---+ ---+ -------+ *Each stage assumes the associated GFR level has been in effect for at least three months. ?Stages 1 to 5, with or without kidney disease, indicate chronic kidney disease. Notes: Determination of stages one and two (with eGFR >59mL/min/1.73 m2) requires estimation of kidney damage for at least three months as defined by structural or functional abnormalities of the kidney, manifested by either:Pathological abnormalities or Markers of kidney damage (including abnormalities in the composition of the blood or urine or abnormalities in imaging tests). Lab Interpretation Abnormal (test code = 46121-1) [facility]45 Test Item Value Reference Range Interpretation Comments LIPASE (test code = 4993140832) 64 U/L 0-220 Lab Interpretation (test code = Normal 63230-6) [facility] WITH [id number] 06:24:53 Test Item Value Reference Range Interpretation Comments WBC (test code = See_Comment H [Automated 5696-2) message] The sy stem which generated this result transmitted reference range : 4.30 - 11.10 10*3/?L. The reference range was not used to interpret this result as normal/abnormal . RBC (test code = See_Comment [Automated 366-8) message] The sy stem which generated this result transmitted reference range : 3.93 - 5.25 10*6/?L. The reference range was not used to interpret this result as normal/abnormal . HGB (test code = 12.4 g/dL 11.6-15.0 718-7) HCT (test code = 39.5 % 35.7-45.2 4544-3) MCV (test code = 80.0 fL 80.6-95.5 L 787-2) MCH (test code = 25.1 pg 25.9-32.8 L 785-6) MCHC (test code = 31.4 g/dL 31.6-35.1 L 786-4) RDW-SD (test code = 41.1 fL 39.0-49.9 00863-0) RDW-CV (test code = 14.4 % 12.0-15.5 788-0) PLT (test code = See_Comment H [Automated 777-3) message] The sy stem which generated this result transmitted reference range : 166 - 358 10*3/ ?L. The reference r félix was not used to interpret this result as normal/abnormal . MPV (test code = 10.1 fL 9.5-12.9 19711-1) NRBC/100 WBC (test See_Comment [Automat ed code = 8853441600) message] The system which generated this result transmitted reference range : 0.0 - 10.0 /100 WBCs. The refer ence range was not u sed to interpret th is result as normal/abnormal . NRBC x10^3 (test code <0.01 See_Comment [Auto mated = 1350058529) message] The s ystem which generated this result transmitted reference range : 10*3/?L. The reference range was not used to interpret this result as normal/abnormal . GRAN MAT (NEUT) % 59.1 % (test code = 770-8) IMM GRAN % (test code 0.60 % = 4559873315) LYMPH % (test code = 28.9 % 736-9) MONO % (test code = 9.1 % 5905-5) EOS % (test code = 1.7 % 713-8) BASO % (test code = 0.6 % 706-2) GRAN MAT x10^3(ANC) 8.48 10*3/uL 1.88-7.09 H (test code = 5553316177) IMM GRAN x10^3 (test 0.08 10*3/uL 0.00-0.06 H code = 7818718446) LYMPH x10^3 (test code 4.14 10*3/uL 1.32-3.29 H = 731-0) MONO x10^3 (test code 1.30 10*3/uL 0.33-0.92 H = 742-7) EOS x10^3 (test code = 0.24 10*3/uL 0.03-0.39 711-2) BASO x10^3 (test code 0.08 10*3/uL 0.01-0.07 H = 704-7) Lab Interpretation Abnormal (test code = 60265-1) [facility]
[2021-08-26 20:46] LABS: Urine Blood Negative (Negative); Urine Glucose Negative (Negative); Urine Protein Negative (Negative); Urine Specific Gravity >=1.030 (1.005-1.030)
--- NOTE | 2021-08-26 21:06 | RAD REPORT ---
EXAM DESCRIPTION: CT - Head Brain Wo Cont - 08/26/2021 8:58 pm CLINICAL HISTORY: Headache COMPARISON: 2016 TECHNIQUE: Computed axial tomography of the head was obtained. IV contrast was not requested. All CT scans are performed using dose optimization technique as appropriate and may include automated exposure control or mA/KV adjustment according to patient size. FINDINGS: An intracranial bleed is not seen . The ventricles are normal in caliber. No significant hypodense areas within the brain Basal ganglia calcifications are unchanged No extra-axial fluid collection is noted. Fluid within the sinuses/ mastoids is not seen. IMPRESSION: No acute intracranial abnormality is seen. If patient's symptoms persist MRI of the bra in would be recommended.
--- NOTE | 2021-08-26 21:09 | ER ---
Nurse's Notes [facility] Name: Zaria De Oliveira Age: 35 yrs Sex: Female : 1985 Arrival Date: 08/26/2021 Time: 19:32 Bed 16 Private MD: Diagnosis: Epistaxis;Migraine, unspecified, not intractable, without status migrainosus Presentation: 08/26 19:53 Chief complaint: Patient states: 'I had a nosebleed on Monday and it quit. Well ab2 today I got another one. I am also lightheaded I have a migraine and im dizzy. I also checked my blood pressure at home and it was really high.". Coronavirus screen: Vaccine status: Patient reports being unvaccinated. Client denies travel out of the [place] in the last 14 days. At this time, the client does not indicate any symptoms associated with coronavirus-19. Ebola Screen: Patient negative for fever greater than or equal to 101.5 degrees Fahrenheit, and additional compatible Ebola Virus Disease symptoms Patient denies exposure to infectious person. Patient denies travel to an Ebola-affected area in the 21 days before illness onset. No symptoms or risks identified at this time. Initial Sepsis Screen: Does the patient meet any 2 criteria? No. Patient's initial sepsis screen is negative. Does the patient have a suspected source of infection? No. Patient's initial sepsis screen is negative. Risk Assessment: Do you want to hurt yourself or someone else? Patient reports no desire to harm self or others. Onset of symptoms is unknown. 19:53 Method Of Arrival: Ambulatory ab2 19:53 Acuity: CELESTINO 3 ab2 Triage Assessment: 19:55 Headache History: The patient has had previous headaches. General: Appears in no ab2 apparent distress. uncomfortable, Behavior is calm, cooperative, appropriate for age. Pain: Complains of pain in head Pain currently is 8 out of 10 on a pain scale. Pain: Pain began 2-3 days ago. Also complains of decreased appetite. EENT: Reports bloody nose. Neuro: Level of Consciousness is awake, alert, obeys commands, Oriented to person, place, time, situation, Appropriate for age Reports dizziness, headache. 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 - Social history:: Smoking status: Patient denies any tobacco usage or history of. - Family history:: not pertinent. - Hospitalizations: : No recent hospitalization is reported. Screenin:14 Abuse screen: Denies threats or abuse. Denies injuries from another. Nutritional mahendra screening: No deficits noted. Tuberculosis screening: No symptoms or risk factors identified. Fall Risk None identified. Assessment: 19:57 Reassessment: Patient appears in no apparent distress at this time. No changes from mahendra previously documented assessment. is at bedside discussing the pt's complaint with her and reassuring her. 20:38 Reassessment: The pt is providing a urine specimen, although she's on Depo, for an Hcg. mahendra 20:52 Reassessment: The Hcg was negative and the pt is being taken to CT, via wc. mahendra 21:02 Reassessment: The pt has returned from CT. mahendra 21:10 Reassessment: MD is at bedside explaining the unremarkable findings. He is expressing mahendra to the patient, the importance of f/u. Vital Signs: 19:53 BP 135 / 88; Pulse 97; Resp 17; Temp 97.7; Pulse Ox 100% on R/A; Weight 102.06 kg; ab2 Height 5 ft. 2 in. (157.48 cm); Pain 8/10; 19:58 BP 135 / 88; Pulse 78; Resp 18; Pulse Ox 100% on R/A; Pain 0/10; mahendra 20:15 BP 137 / 82; Pulse 94; Resp 18; Temp 98.5; Pulse Ox 98% on R/A; mahendra 21:11 BP 132 / 78; Pulse 88; Resp 18; Pulse Ox 100% on R/A; Pain 0/10; mahendra 19:53 Body Mass Index 41.15 (102.06 kg, 157.48 cm) ab2 ED Course: 19:32 Patient arrived in ED. ja2 19:43 Raj Phillips MD is Attending Physician. rn 19:54 Triage completed. ab2 19:56 Arm band placed on right wrist. ab2 19:57 O'Laird, Radha, RN is Primary Nurse. mahendra 20:15 No provider procedures requiring assistance completed. mahendra 20:22 Patient has correct armband on for positive identification. Placed in gown. Bed in low mahendra position. Call light in reach. Side rails up X 1. 20:59 CT Head Brain wo Cont In Process Unspecified. EDMS 21:24 Patient did not have IV access during this emergency room visit. mahendra Administered Medications: No medications were administered Outcome: 20:15 Condition: stable mahendra 21:08 Discharge ordered by . rn 21:24 Discharged to home ambulatory. mahendra 21:24 Discharge instructions given to patient, Instructed on discharge instructions, follow up and referral plans. Demonstrated understanding of instructions, follow-up care. 21:24 Patient left the ED. mahendra Signatures: Dispatcher [employer] Raj Villalobos MD MD rn Alexander, Jessica ja2 O'Farrell, Brenda, RN Hernan García
--- NOTE | 2021-08-26 21:09 | EDPHYS ---
Physician Documentation [facility] Name: Zaria De Oliveira Age: 35 yrs Sex: Female : 1985 Arrival Date: 08/26/2021 Time: 19:32 Bed 16 Private MD: ED Physician Raj Phillips HPI: 08/26 20:53 This 35 yrs old Female presents to ER via Ambulatory with complaints of Nose Bleed, rn High Blood Pressure, Headache. 20:53 The patient presents with a nose bleed, that is apparently anterior, from the right rn nare, and the bleeding resolved prior to arrival. Onset: The symptoms/episode began/occurred 2 day(s) ago. Modifying factors: The symptoms are alleviated by nothing. the symptoms are aggravated by nothing. Associated signs and symptoms: Loss of consciousness: the patient experienced no loss of consciousness, Pertinent positives: headache, Pertinent negatives: blurred vision, chest pain, fever, shortness of breath, vertigo. Severity of symptoms: At their worst the symptoms were mild in the emergency department the symptoms have resolved. The patient has experienced similar episodes in the past. The patient has not recently seen a physician. Pt reports nose bleed x 2 in last few days. No trauma. Reports a little congested but no fever. Reports hx of migraines that had gotten better, but now returning. NO focal neuro complaint. Mother scared her and told her she would could have a brain hemorrhage so she is panicked. . 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 - Social history:: Smoking status: Patient denies any tobacco usage or history of. - Family history:: not pertinent. - Hospitalizations: : No recent hospitalization is reported. ROS: 20:53 Constitutional: Negative for fever, chills, and weight loss, Eyes: Negative for injury, rn pain, redness, and discharge, ENT: + nosebleed, resolved Neck: Negative for injury, pain, and swelling, Cardiovascular: Negative for chest pain, palpitations, and edema, Respiratory: Negative for shortness of breath, cough, wheezing, and pleuritic chest pain, Abdomen/GI: Negative for abdominal pain, nausea, vomiting, diarrhea, and constipation, MS/Extremity: Negative for injury and deformity, Neuro: + headache, no focal weakness/numbness Exam: 20:53 Constitutional: This is a well developed, well nourished patient who is awake, alert, rn and in no acute distress. Head/Face: Normocephalic, atraumatic. Eyes: Pupils equal round and reactive to light, extra-ocular motions intact. Periorbital areas with no swelling, redness, or edema. ENT: Scabbed piercing right nare, no active bleeding, no masses Cardiovascular: Regular rate and rhythm. No pulse deficits. Neuro: Awake and alert, GCS 15, oriented to person, place, time, and situation. Cranial nerves II-XII grossly intact. Motor strength 5/5 in all extremities. Sensory grossly intact. Cerebellar exam normal. Vital Signs: 19:53 BP 135 / 88; Pulse 97; Resp 17; Temp 97.7; Pulse Ox 100% on R/A; Weight 102.06 kg; ab2 Height 5 ft. 2 in. (157.48 cm); Pain 8/10; 19:58 BP 135 / 88; Pulse 78; Resp 18; Pulse Ox 100% on R/A; Pain 0/10; mahendra 20:15 BP 137 / 82; Pulse 94; Resp 18; Temp 98.5; Pulse Ox 98% on R/A; mahendra 21:11 BP 132 / 78; Pulse 88; Resp 18; Pulse Ox 100% on R/A; Pain 0/10; mahendra 19:53 Body Mass Index 41.15 (102.06 kg, 157.48 cm) ab2 MDM: 19:43 Patient medically screened. rn 20:53 Differential diagnosis: spontaneous epistaxis, migraine, headache. rn 21:07 Data reviewed: vital signs, nurses notes, radiologic studies, CT scan, and as a result, rn I will discharge patient. Counseling: I had a detailed discussion with the patient and/or guardian regarding: the historical points, exam findings, and any diagnostic results supporting the discharge/admit diagnosis, radiology results, the need for outpatient follow up, to return to the emergency department if symptoms worsen or persist or if there are any questions or concerns that arise at home. Special discussion: I discussed with the patient/guardian in detail that at this point there is no indication for admission to the hospital. It is understood, however, that if the symptoms persist or worsen the patient needs to return immediately for re-evaluation. ED course: CT head without acute findings, epistaxis resolved prior to arrival, will dc home with return precautions.. 08/26 20:47 Order name: Urine Dipstick-Ancillary; Complete Time: 20:53 EDMD 08/26 20:03 Order name: CT Head Brain wo Cont; Complete Time: 21:07 rn Administered Medications: No medications were administered Disposition Summary: 08/26/21 21:08 Discharge Ordered Location: Home rn Problem: new rn Symptoms: have improved rn Condition: Stable rn Diagnosis - Epistaxis rn - Migraine, unspecified, not intractable, without status migrainosus rn Followup: rn - With: Private Physician - When: As needed - Reason: Recheck today's complaints, Re-evaluation by your physician Discharge Instructions: - Discharge Summary Sheet rn - Nosebleed, Adult rn - Migraine Headache rn Forms: - Medication Reconciliation Form rn - Thank You Letter 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
[2021-08-26 21:33] VITALS: TEMP 98.5
[2021-08-26 21:35] VITALS: BP 132/78; O2SAT 100
== END 2021-08-26 21:24 | disposition home or self-care (01) ==
LOC: ER 19:31
DX: R04.0 Epistaxis (principal); G43.909 Migraine, unspecified, not intractable, without status migrainosus
CPT/HCPCS: 70450; 81003; 99283

== ENCOUNTER 2022-05-17 12:15 | Emergency (ER) | payer SELFPAY ==
--- OUTSIDE RECORDS SUMMARY | 2022-05-17 12:26 | XMS REPORT | Continuity of Care Document ---
:1985 Author Organization [facility] t Address [address] [place] [address] Care Team Providers Name Role Phone Jesus WILSON, [facility] Primary Care Physician [phone] VICK GARY Attending Clinician Unavailable Vick Gary NP Attending Clinician Krissy Hernandez Attending Clinician KRISSY MERRITT Attending Clinician Unavailable VICK GARY Admitting Clinician Unavailable KRISSY MERRITT Admitting Clinician Unavailable Payers Payer Name Policy Type Policy Number Effective Date Expiration Date S [employer] [place] [id number] 2020 00:00:00 WOMEN Problems Condition Condition Condition Status Onset Resolution Last Treating Co mments Source Name Details Category Date Date Treatment Clinician Date No known No known Disease Unive rs active active ity of problems problems [facility] Allergies, Adverse Reactions, Alerts Allergy Allergy Status Severity Reaction(s) Onset Inactive Treating Comm ents Source Name Type Date Date Clinician OXICONAZ DRUG Active Swelling Univer s OLE INGREDI 12-07 ity of NITRATE 00:00: [address] Oxiconaz Propensi Active Swelling Univ ers ole ty to 12-07 ity of Nitrate adverse 00:00: [place] reaction 00 Medical s Branch Social History Social Habit Start Date Stop Date Quantity Comments Source History SDOH [facility] [place] Alcohol Frequency Medical Branch History SDOH [facility] [place] Alcohol Std Drinks Medica l Branch History SDAK [facility] [place] Alcohol Binge Medical Bra [facility] Exposure to Not sure [facility] SARS-CoV-2 (event) Medica l Branch Alcohol intake 2021-04-11 2021-04-11 0 /d [facility] 00:00:00 00:00:00 Medical Branch Tobacco use and 2015-12-08 2015-12-08 Never used [facility] exposure 00:00:00 00:00:00 Medical Branch Alcohol Comment 2015-12-08 2015-12-08 Occasional [facility] 00:00:00 00:00:00 Medical Branch Sex Ass[birth year] At [birth year] [facility] 00:00:00 00:00:00 Medical Branch Smoking Status Start Date Stop Date Source Never smoker [facility] Medical Branch Medications Ordered Filled Start Stop Current Ordering Indication Dosage Frequency Signature Comments Components Source Medication Medication Date Date Medication? Clinician (SIG) Name Name Depo-Utilities Operator 2021-0 No 1mg/mL a 150 mg/mL 6-28 intramuscul 00:00: ar syringe 00 TAKE 0 No CAPSULE BY 6-28 MOUTH THREE 00:00: TIMES A DAY 00 NEEDED FOR COUGH TAKE 0 No CAPSULE BY 6-28 MOUTH THREE 00:00: TIMES A DAY 00 NEEDED FOR COUGH TAKE 0 No CAPSULE BY 6-28 MOUTH THREE 00:00: TIMES A DAY 00 NEEDED FOR COUGH Depo-Utilities Operator 2021-0 No 1mg/mL a 150 mg/mL 6-28 intramuscul 00:00: ar syringe 00 TAKE 2021-0 No CAPSULE BY 6-28 MOUTH THREE 00:00: TIMES A DAY 00 NEEDED FOR COUGH TAKE 2021-0 No CAPSULE BY 6-28 MOUTH THREE 00:00: TIMES A DAY 00 NEEDED FOR COUGH TAKE 2021-0 No CAPSULE BY 6-28 MOUTH THREE 00:00: TIMES A DAY 00 NEEDED FOR COUGH INJECT 1 ML 2021-0 No INTRAMUSCUL -28 CARTER ONCE 00:00: EVERY 3 00 MONTHS. TAKE 2021-0 No CAPSULE BY 6-28 MOUTH THREE 00:00: TIMES A DAY 00 NEEDED FOR COUGH TAKE 1 0 No CAPSULE BY 6-28 MOUTH THREE 00:00: TIMES A DAY 00 NEEDED FOR COUGH TAKE 1 0 No CAPSULE BY 6-28 MOUTH THREE 00:00: TIMES A DAY 00 NEEDED FOR COUGH Dose 2021- No Unknown 1-17 00:00: 00 Dose 2021-0 No Unknown 1-17 00:00: 00 lisinopril No 1mg 10 mg 05-24 tablet 00:00: 00 Dose No Unknown 05-24 00:00: 00 Dose 2021-0 No Unknown 17 00:00: 00 Dose 0 No Unknown 05-24 00:00: 00 ketorolac 2020-05- No 30mg 30 mg, Unive rs (TORADOL) 2-09 16-05 Slow IV ity of injection 07:15: 06:22 Push, [place] 30 mg 00 :00 ONCE, 1 Medical dose, On Branch 04/11/21 at 0115, Routine
membership manager approving Restricted medication : VICK GARY etodolac 2020-05 Yes [id number] 300mg Take 1 U nivers 300 mg 2-05 capsule by ity of capsule 00:00: mouth 3 [place] 00 (three) Medical times Branch daily with meals. etodolac 2020-05- No [id number] 300mg Take 1 Univers 300 mg 2-09 16-05 capsule by ity of capsule 00:00: 00:00 mouth 3 [place] 00 :00 (three) Medical times Branch daily with meals for 5 days. etodolac 2020-05- No [id number] 300mg Take 1 Univers 300 mg 2-09 16-05 capsule by ity of capsule 00:00: 00:00 mouth 3 [place] 00 :00 (three) Medical times Branch daily with meals. acyclovir 2020-05 Yes 200mg Take 200 Uni vers (ZOVIRAX) 2-04 mg by ity of 200 mg 23:44: mouth. [place] capsule 39 Medical Branch Depo-Utilities Operator 2020-05 No 1mg/mL a 150 mg/mL 0-22 intramuscul 00:00: ar syringe 00 Depo-Utilities Operator 2020-05 No 1mg/mL a 150 mg/mL 0-22 intramuscul 00:00: ar syringe Depo-Utilities Operator 2020-05 No 1mg/mL a 150 mg/mL 0-22 intramuscul 00:00: ar syringe benzonatate 2020- No [id number] 100mg Take 1 Univers 100 mg 8-04 capsule by ity of capsule 00:00: 00:00 mouth 3 [place] 00 :00 (three) Medical times Branch daily as needed for Cough. albuterol 2020- No [id number] 4{puff} Inhale 4 Univers 90 12-26 12- Puffs ity of mcg/actuati 00:00: 00:00 [place] 4 [place]er 00 :00 (four) Medical hours as Branch needed for Wheezing or Shortness of Breath. ondansetron 2020- No [id number] 4mg Take 1 Univers 4 mg 12-26 tablet by ity of disintegrat 00:00: 00:00 [place] tablet 00 :00 every 8 Medica l (eight) Branch hours as needed for Nausea and Vomiting (N/V). Depo-Utilities Operator No 1mg/mL a 150 mg/mL 8-05 intramuscul 00:00: ar syringe Depo-Utilities Operator No 1mg/mL a 150 mg/mL 8-05 intramuscul 00:00: ar syringe Depo-Utilities Operator No 1mg/mL a 150 mg/mL 8-05 intramuscul 00:00: ar syringe esomeprazol 2020- No [id number] 20mg Take 20 mg Univers e (NEXIUM) 1-20 12-04 by mouth ity of 20 mg 00:00: 00:00 daily [place] capsule 00 :00 before a Medical meal. Branch lisinopril 2019-05 No 1mg 10 mg 2-29 tablet 00:00: 00 Dose 2019- No Unknown 2-29 00:00: 00 Dose 2019- No Unknown 2-29 00:00: 00 lisinopril 2019-05 No 1mg 10 mg 2-03 tablet 00:00: 00 lisinopril 2020-1 No 1mg 10 mg 2-03 tablet 00:00: 00 lisinopril 2020-1 No 1mg 10 mg 2-03 tablet 00:00: 00 lisinopril 2020-0 No 1mg 10 mg 3-31 tablet 00:00: 00 acyclovir 2020-0 No 3mg 200 mg 3-31 capsule 00:00: 00 Dose 2020-0 No Unknown 3-31 00:00: 00 Dose 2020-0 No Unknown 3-31 00:00: 00 Dose 2020-0 No Unknown 3-31 00:00: 00 Dose 2020-0 No Unknown 3-31 00:00: 00 lisinopril 2019-0 No 1mg 10 mg 8-20 tablet 00:00: 00 acyclovir 2019-0 No 3mg 200 mg 8-20 capsule 00:00: 00 lisinopril 2019-0 No 1mg 10 mg 8-20 tablet 00:00: 00 acyclovir 2019-0 No 3mg 200 mg 8-20 capsule 00:00: 00 lisinopril 2019-0 No 1mg 10 mg 8-20 tablet 00:00: 00 acyclovir 2019-0 No 3mg 200 mg 8-20 capsule 00:00: 00 clotrimazol 2019-0 No 1% e 1 % 5-07 topical 00:00: cream 00 clotrimazol 2019-0 No 1% e 1 % 5-07 topical 00:00: cream 00 clotrimazol 2019-0 No 1% e 1 % 5-07 topical 00:00: cream 00 lisinopril 2019-0 No 1mg 10 mg 3-27 tablet 00:00: 00 lisinopril 2019-0 No 1mg 10 mg 3-27 tablet 00:00: 00 lisinopril 2019-0 No 1mg 10 mg 3-27 tablet 00:00: 00 lisinopril 2019-0 No 1mg 10 mg 2-13 tablet 00:00: 00 acyclovir 2019-0 No 3mg 200 mg 2-13 capsule 00:00: 00 lisinopril 2019-0 No 1mg 10 mg 2-13 tablet 00:00: 00 acyclovir 2019-0 No 3mg 200 mg 2-13 capsule 00:00: 00 lisinopril 2019-0 No 1mg 10 mg 2-13 tablet 00:00: 00 acyclovir 2019-0 No 3mg 200 mg 2-13 capsule 00:00: 00 acyclovir 2019-0 No 3mg 200 mg 2-12 capsule 00:00: 00 acyclovir 2019-0 No 3mg 200 mg 2-12 capsule 00:00: 00 acyclovir 2019-0 No 3mg 200 mg 2-12 capsule 00:00: 00 clarithromy 2016-05 No 1mg joanna 500 mg 0-25 tablet 00:00: 00 amoxicillin 2016- No 2mg 500 mg 0-25 capsule 00:00: 00 clarithromy 2016-05 No 1mg joanna 500 mg 0-25 tablet 00:00: 00 amoxicillin 2016- No 2mg 500 mg 0-25 capsule 00:00: 00 clarithromy 2016-05 No 1mg joanna 500 mg 0-25 tablet 00:00: 00 amoxicillin 2016- No 2mg 500 mg 0-25 capsule 00:00: 00 Immunizations Ordered Filled Immunization Date Status Comments Sour e Immunization Name Name Influenza, 2018-06-19 Completed seasonal, inj 00:00:00 Tdap 2018-06-19 Completed 00:00:00 Influenza, 2018-06-19 Completed seasonal, inj 00:00:00 Tdap 2018-06-19 Completed 00:00:00 Influenza, 2018-06-19 Completed seasonal, inj 00:00:00 Tdap 2018-06-19 Completed 00:00:00 Influenza Virus 2016-04-11 Completed Universit y of Vaccine Quad IM 3+ 00:00:00 [facility] Branch TDAP 2016-04-11 Completed [facility] 00:00:00 [facility] Vital Signs Vital Name Observation Time Observation Value Comments Source Systolic blood 2021-04-11 08:00:00 132 mm[Hg] Univer sity of pressure [facility] Diastolic blood 2021-04-11 08:00:00 88 mm[Hg] Unive rsity of pressure [facility] Heart rate 2021-04-11 08:00:00 61 /[facility] Respiratory rate 2021-04-11 08:00:00 20 /min [facility] Oxygen saturation in 2021-04-11 08:00:00 100 /min [facility] Arterial blood by [facility] Pulse oximetry Branch Body temperature 2021-04-11 05:42:00 36.94 [facility] Body height 2021-04-11 05:42:00 157.5 cm [facility] Body weight 2021-04-11 05:42:00 97.523 kg [facility] BMI 2021-04-11 05:42:00 39.32 kg/m2 [facility] BP Systolic 2022-04-06 10:27:00 135 mm[Hg] BP Diastolic 2022-04-06 10:27:00 93 mm[Hg] Weight Measured 2022-04-06 10:27:00 224.20 pounds Height Measured 2022-04-06 10:27:00 61.00 inches Body Temperature 2022-04-06 10:27:00 98.30 degrees Heart Rate 2022-04-06 10:27:00 97.00 /min Respiratory Rate 2022-04-06 10:27:00 18.00 /min BP Systolic 2022-01-19 10:24:00 129 mm[Hg] BP Diastolic 2022-01-19 10:24:00 94 mm[Hg] Weight Measured 2022-01-19 10:24:00 226.00 pounds Height Measured 2022-01-19 10:24:00 61.00 inches Body Temperature 2022-01-19 10:24:00 98.10 degrees Heart Rate 2022-01-19 10:24:00 92.00 /min Respiratory Rate 2022-01-19 10:24:00 18.00 /min BP Systolic 2021-11-02 14:37:00 109 mm[Hg] BP Diastolic 2021-11-02 14:37:00 72 mm[Hg] Weight Measured 2021-11-02 14:37:00 230.00 pounds Height Measured 2021-11-02 14:37:00 61.00 inches Body Temperature 2021-11-02 14:37:00 98.00 degrees Heart Rate 2021-11-02 14:37:00 80.00 /min Respiratory Rate 2021-11-02 14:37:00 BP Systolic 2021-08-14 14:20:00 145 mm[Hg] BP Diastolic 2021-08-14 14:20:00 89 mm[Hg] Weight Measured 2021-08-14 14:20:00 225.20 pounds Height Measured 2021-08-14 14:20:00 61.00 inches Body Temperature 2021-08-14 14:20:00 98.20 degrees Heart Rate 2021-08-14 14:20:00 85.00 /min Respiratory Rate 2021-08-14 14:20:00 BP Systolic 2021-06-15 20:01:00 BP Diastolic 2021-06-15 20:01:00 Weight Measured 2021-06-15 20:01:00 220.00 pounds Height Measured 2021-06-15 20:01:00 61.00 inches Body Temperature 2021-06-15 20:01:00 Heart Rate 2021-06-15 20:01:00 Respiratory Rate 2021-06-15 20:01:00 BP Systolic 2021-05-24 14:54:00 141 mm[Hg] BP Diastolic 2021-05-24 14:54:00 91 mm[Hg] Weight Measured 2021-05-24 14:54:00 221.80 pounds Height Measured 2021-05-24 14:54:00 61.00 inches Body Temperature 2021-05-24 14:54:00 98.40 degrees Heart Rate 2021-05-24 14:54:00 95.00 /min Respiratory Rate 2021-05-24 14:54:00 BP Systolic 2021-02-26 08:16:00 136 mm[Hg] BP Diastolic 2021-02-26 08:16:00 93 mm[Hg] Weight Measured 2021-02-26 08:16:00 226.20 pounds Height Measured 2021-02-26 08:16:00 61.00 inches Body Temperature 2021-02-26 08:16:00 98.20 degrees Heart Rate 2021-02-26 08:16:00 76.00 /min Respiratory Rate 2021-02-26 08:16:00 BP Systolic 2020-12-10 11:20:00 146 mm[Hg] BP Diastolic 2020-12-10 11:20:00 95 mm[Hg] Weight Measured 2020-12-10 11:20:00 230.40 pounds Height Measured 2020-12-10 11:20:00 61.00 inches Body Temperature 2020-12-10 11:20:00 98.40 degrees Heart Rate 2020-12-10 11:20:00 95.00 /min Respiratory Rate 2020-12-10 11:20:00 17.00 /min BP Systolic 2020-11-03 14:47:00 132 mm[Hg] BP Diastolic 2020-11-03 14:47:00 93 mm[Hg] Weight Measured 2020-11-03 14:47:00 229.60 pounds Height Measured 2020-11-03 14:47:00 61.00 inches Body Temperature 2020-11-03 14:47:00 98.70 degrees Heart Rate 2020-11-03 14:47:00 93.00 /min Respiratory Rate 2020-11-03 14:47:00 17.00 /min BP Systolic 2020-09-23 13:46:00 123 mm[Hg] BP Diastolic 2020-09-23 13:46:00 79 mm[Hg] Weight Measured 2020-09-23 13:46:00 229.00 pounds Height Measured 2020-09-23 13:46:00 61.00 inches Body Temperature 2020-09-23 13:46:00 97.70 degrees Heart Rate 2020-09-23 13:46:00 85.00 /min Respiratory Rate 2020-09-23 13:46:00 21.00 /min BP Diastolic 2020-06-29 14:15:00 81 mm[Hg] Weight Measured 2020-06-29 14:15:00 228.60 pounds Height Measured 2020-06-29 14:15:00 61.00 inches Body Temperature 2020-06-29 14:15:00 98.20 degrees Heart Rate 2020-06-29 14:15:00 18.00 /min Respiratory Rate 2020-06-29 14:15:00 18.00 /min BP Systolic 2020-06-29 14:15:00 132 mm[Hg] BP Systolic 2020-04-09 15:39:00 127 mm[Hg] BP Diastolic 2020-04-09 15:39:00 96 mm[Hg] Weight Measured 2020-04-09 15:39:00 220.40 pounds Height Measured 2020-04-09 15:39:00 61.00 inches Body Temperature 2020-04-09 15:39:00 97.70 degrees Heart Rate 2020-04-09 15:39:00 91.00 /min Respiratory Rate 2020-04-09 15:39:00 17.00 /min Procedures Procedure Date / Time Performed Performing Clinician Supriya e XR CHEST 1 VW 2021-04-11 06:41:03 Vick Gary [facility] D-DIMER 2021-04-11 06:34:00 Vick Gary [facility] LIPASE 2021-04-11 06:15:00 Vick Gary [facility] TROPONIN I 2021-04-11 06:15:00 Vick Gary [facility] COMP. METABOLIC PANEL 2021-04-11 06:15:00 Vick Gary [facility] ([id number]) [facility] CBC WITH DIFF 2021-04-11 06:15:00 Vick Gary [facility] CONSENT/REFUSAL FOR 2021-04-11 05:33:33 Doctor Unassigned, No Un [facility] DIAGNOSIS AND Name [facility] TREATMENT Plan of Care Planned Activity Planned Date Details Comments Source Goal Plan of Care Note [code = 73548-1] Goal Plan of Care Note [code = 91479-2] Goal Plan of Care Note [code = 80626-9] Goal Plan of Care Note [code = 82651-4] Goal Plan of Care Note [code = 24591-1] Goal Plan of Care Note [code = 21672-5] Goal Plan of Care Note [code = 44497-8] Goal Plan of Care Note [code = 58920-9] Goal Plan of Care Note [code = 79651-3] Goal Plan of Care Note [code = 03420-7] Goal Plan of Care Note [code = 00147-0] Goal Plan of Care Note [code = 39490-2] Goal Plan of Care Note [code = 94740-1] Goal Plan of Care Note [code = 50448-0] Goal Plan of Care Note [code = 63973-0] Goal Plan of Care Note [code = 49748-8] Goal Plan of Care Note [code = 15383-8] Goal Plan of Care Note [code = 87191-1] Goal Plan of Care Note [code = 18686-5] Goal Plan of Care Note [code = 08374-4] Goal Plan of Care Note [code = 62792-5] Goal Plan of Care Note [code = 34692-9] Goal Plan of Care Note [code = 45207-9] Goal Plan of Care Note [code = 77442-6] Goal Plan of Care Note [code = 85104-3] Goal Plan of Care Note [code = 63307-9] Goal Plan of Care Note [code = 05056-9] Goal Plan of Care Note [code = 32922-8] Goal Plan of Care Note [code = 45534-0] Goal Plan of Care Note [code = 69553-4] Goal Plan of Care Note [code = 48763-4] Goal Plan of Care Note [code = 12602-8] Goal Plan of Care Note [code = 94470-7] Goal Plan of Care Note [code = 98841-1] Goal Plan of Care Note [code = 92976-9] Goal Plan of Care Note [code = 12502-8] Goal Plan of Care Note [code = 82085-3] Goal Plan of Care Note [code = 65475-4] Goal Plan of Care Note [code = 90881-3] Goal Plan of Care Note [code = 69869-7] Goal Plan of Care Note [code = 30366-8] Goal Plan of Care Note [code = 01841-9] Goal Plan of Care Note [code = 58397-3] Goal Plan of Care Note [code = 02565-3] Goal Plan of Care Note [code = 73657-8] Goal Plan of Care Note [code = 16705-9] Goal Plan of Care Note [code = 59349-8] Goal Plan of Care Note [code = 95845-1] Goal Plan of Care Note [code = 67058-8] Goal Plan of Care Note [code = 77899-4] Goal Plan of Care Note [code = 34145-4] Goal Plan of Care Note [code = 43328-1] Goal Plan of Care Note [code = 75811-1] Goal Plan of Care Note [code = 50539-6] Goal Plan of Care Note [code = 13731-3] Goal Plan of Care Note [code = 69199-1] Goal Plan of Care Note [code = 42393-9] Goal Plan of Care Note [code = 31852-1] Goal Plan of Care Note [code = 65664-9] Goal Plan of Care Note [code = 64600-9] Goal Plan of Care Note [code = 99373-7] Goal Plan of Care Note [code = 23109-5] Goal Plan of Care Note [code = 10258-8] Goal Plan of Care Note [code = 16757-2] Goal Plan of Care Note [code = 29454-5] Goal Plan of Care Note [code = 67214-0] Goal Plan of Care Note [code = 98711-5] Goal Plan of Care Note [code = 71707-5] Goal Plan of Care Note [code = 02108-8] Goal Plan of Care Note [code = 31019-1] Goal Plan of Care Note [code = 41685-9] Goal Plan of Care Note [code = 02944-7] Goal Plan of Care Note [code = 00805-4] Goal Plan of Care Note [code = 47946-2] Goal Plan of Care Note [code = 88925-8] Goal Plan of Care Note [code = 77053-4] Goal Plan of Care Note [code = 53655-0] Goal Plan of Care Note [code = 38149-0] Goal Plan of Care Note [code = 88041-9] Goal Plan of Care Note [code = 26200-3] Goal Plan of Care Note [code = 67231-5] Encounters Start End Encounter Admission Attending Care Care Encounter Source Date/Time Date/Time Type Type Clinicians Facility Department ID 2021-03-08 Emergency [facility] [id number] Univers 17:07:32 ity of [facility] 2022-04-06 2022-04-06 Outpatient [facility] [id number] Rah Zamorano 10:14:07 10:14:07 1130 F Madhav 2022-04-06 2022-04-06 Outpatient [id number] 00:00:00 00:00:00 Visit [id number]-[id number]-436a-[id number] -[id number] [id number] [id number] 2022-01-19 2022-01-19 Outpatient [id number] 00:00:00 00:00:00 Visit [id number] -[id number] [id number] 4965-06-28 2021-11-02 Outpatient [id number] 00:00:00 00:00:00 Visit 97g9-50n4 [id number] -8009-desiree [id number] 1504-12-04 2021-04-11 Emergency X [facility] ERT [id number] Univers 23:45:00 02:10:00 [facility] 2021-04-10 2021-04-11 Emergency [facility] [id number] [facility] 23:45:00 02:10:00 Vick LACEY 350.1.13.10 [facility] 4.2.7.2.686 [facility] [id number] [address] 2020-05-27 2020-05-27 Emergency [facility] [id number] 11:00:00 13:42:00 [facility] Mónica VergaraAvoca [id number] [place] 4.2.7.2.686 [place] [id number] [facility] 2020-05-27 2020-05-27 Emergency X [facility] ERT [id number] Univers 11:00:00 13:42:00 [facility] Results Test Description Test Time Test Comments Results Result Comments Source D-DIMER 2021-04-11 07:04:48 Test Item Value Reference Range Interpretation Comme nts D-DIMER (test code = <0.27 See_Comment [Autom ated message] The 7202250246) system which ge nerated this result tra nsmitted reference range : <0.41 ?g/mL (). Th e reference range was not used [...] diagnosis. Lab Interpretation Normal (test code = 32230-8) [facility] [id number] 06:46:29 Test Item Value Reference Interpretation Comments Range TROPONIN I (test 0.000 ng/mL See_Comment [Automated code = 0906842988) message] The system which generated this result [...] biotin. Lab Interpretation Normal (test code = 61221-6) [facility]. METABOLIC PANEL (00245)2021-04-11 06:35:05 Test Item Value Reference Range Interpretation Comments NA (test code = 141 mmol/L 135-145 2319908731) K (test code = 4.2 mmol/L 3.5-5.0 2100567536) CL (test code = 107 mmol/L 98-108 0760510527) CO2 TOTAL (test code = 25 mmol/L 23-31 9706406269) AGAP (test code = 2-16 0396573782) BUN (test code = 15 mg/dL 7-23 1674670649) GLUCOSE (test code = 112 mg/dL 70-110 H 6376283180) CREATININE (test code = 0.79 mg/dL 0.50-1.04 4167595465) TOTAL BILI (test code = 0.4 mg/dL 0.1-1.0 1048491848) CALCIUM (test code = 10.0 mg/dL 8.6-10.6 6786837348) T PROTEIN (test code = 7.5 g/dL 6.3-8.2 6533118610) ALBUMIN (test code = 4.2 g/dL 3.5-5.0 6391214992) ALK PHOS (test code = 92 U/L 34-122 7731656325) ALTv (test code = 19 U/L 5-35 1742-6) AST(SGOT) (test code = 21 U/L 13-40 3510504371) eGFR (test code = mL/min/1.73m2 5118749637) OJ (test code = JO) Association of Glomerular [...] tests). Lab Interpretation Abnormal (test code = 46983-7) [facility] 06:34:45 Test Item Value Reference Range Interpretation Comments LIPASE (test code = 1045321013) 64 U/L 0-220 Lab Interpretation (test code = Normal 12718-3) [facility] [id number] 06:24:53 Test Item Value Reference Range Interpretation Comments WBC (test code = See_Comment H [Automated 6690-2) message] The sy stem which generated this result transmitted reference range : 4.30 - 11.10 10*3/?L. The reference range was not used to interpret this result as normal/abnormal . RBC (test code = See_Comment [Automated 789-8) message] The sy stem which generated this [...] RDW-SD (test code = 41.1 fL 39.0-49.9 18822-4) RDW-CV (test code = 14.4 % 12.0-15.5 788-0) PLT (test code = See_Comment H [Automated 777-3) message] The sy stem which generated this result transmitted reference range : 166 - 358 10*3/ ?L. The reference r félix was not used to interpret this result as normal/abnormal . MPV (test code = 10.1 fL 9.5-12.9 89522-0) NRBC/100 WBC (test See_Comment [Automat ed code = 9283034669) message] The system which generated this result transmitted reference range : 0.0 - 10.0 /100 WBCs. The refer ence range was not u sed to interpret th is result as normal/abnormal . NRBC x10^3 (test code <0.01 See_Comment [Auto mated = 8544704053) message] The s ystem which generated this result transmitted reference range : 10*3/?L. The reference range was not used to interpret this result as normal/abnormal . GRAN MAT (NEUT) % 59.1 % (test code = 770-8) IMM GRAN % (test code 0.60 % = 5777260396) LYMPH % (test code = 28.9 % 736-9) MONO % (test code = 9.1 % 5905-5) EOS % (test code = 1.7 % 713-8) BASO % (test code = 0.6 % 706-2) GRAN MAT x10^3(ANC) 8.48 10*3/uL 1.88-7.09 H (test code = 2384278431) IMM GRAN x10^3 (test 0.08 10*3/uL 0.00-0.06 H code = 3690327747) LYMPH x10^3 (test code 4.14 10*3/uL 1.32-3.29 H = 731-0) MONO x10^3 (test code 1.30 10*3/uL 0.33-0.92 H = 742-7) EOS x10^3 (test code = 0.24 10*3/uL 0.03-0.39 711-2) BASO x10^3 (test code 0.08 10*3/uL 0.01-0.07 H = 704-7) Lab Interpretation Abnormal (test code = 34848-8) [facility] CHLAMYDIA, AMPLIFIED, [id number] 00:00:00 Test Item Value Reference Range Interpretation Comments GONORRHEA, NAAT (test code = 39622) NEGATIVE CHLAMYDIA, NAAT (test code = 71670) NEGATIVE GC AND CHLAMYDIA, AMPLIFIED, [id number] 00:00:00 Test Item Value Reference Range Interpretation Comments GONORRHEA, NAAT (test code = 51231) NEGATIVE CHLAMYDIA, NAAT (test code = 87551) NEGATIVE [id number] 00:00:00 Test Item Value Reference Range Interpretation Comments RPR RESULT (test code = NON-REACTIVE 3501) RPR TITER (test code = 3500) NOT INDIC. TITER [id number] 00:00:00 Test Item Value Reference Range Interpretation Comments RPR RESULT (test code = NON-REACTIVE 3501) RPR TITER (test code = 3500) NOT INDIC. TITER [id number] 00:00:00 Test Item Value Reference Range Interpretation Comments RPR RESULT (test code = NON-REACTIVE 3501) RPR TITER (test code = 3500) NOT INDIC. TITER HIV AB/AG COMBO RFLX [id number] 00:00:00 Test Item Value Reference Range Interpretation Comments HIV 1/2 4TH GEN, RFLX CONF (test NON-REACTIVE code = 3514) HIV AB/AG COMBO RFLX [id number] 00:00:00 Test Item Value Reference Range Interpretation Comments HIV 1/2 4TH GEN, RFLX CONF (test NON-REACTIVE code = 3514) GC AND CHLAMYDIA, AMPLIFIED, [id number] 00:00:00 Test Item Value Reference Range Interpretation Comments GONORRHEA, NAAT (test code = 96591) NEGATIVE CHLAMYDIA, NAAT (test code = 32229) NEGATIVE GC AND CHLAMYDIA, AMPLIFIED, [id number] 00:00:00 Test Item Value Reference Range Interpretation Comments GONORRHEA, NAAT (test code = 17714) NEGATIVE CHLAMYDIA, NAAT (test code = 23986) NEGATIVE [id number] 00:00:00 Test Item Value Reference Range Interpretation Comments RPR RESULT (test code = NON-REACTIVE 3501) RPR TITER (test code = 3500) NOT INDIC. TITER [id number] 00:00:00 Test Item Value Reference Range Interpretation Comments RPR RESULT (test code = NON-REACTIVE 3501) RPR TITER (test code = 3500) NOT INDIC. TITER [id number] 00:00:00 Test Item Value Reference Range Interpretation Comments RPR RESULT (test code = NON-REACTIVE 3501) RPR TITER (test code = 3500) NOT INDIC. TITER HIV AB/AG COMBO RFLX [id number] 00:00:00 Test Item Value Reference Range Interpretation Comments HIV 1/2 4TH GEN, RFLX CONF (test NON-REACTIVE code = 3514) GC AND CHLAMYDIA, AMPLIFIED, [id number] 00:00:00 Test Item Value Reference Range Interpretation Comments GONORRHEA, NAAT (test code = 77388) NEGATIVE CHLAMYDIA, NAAT (test code = 75946) NEGATIVE [id number] 00:00:00 Test Item Value Reference Range Interpretation Comments RPR RESULT (test code = NON-REACTIVE 3501) RPR TITER (test code = 3500) NOT INDIC. TITER [id number] 00:00:00 Test Item Value Reference Range Interpretation Comments RPR RESULT (test code = NON-REACTIVE 3501) RPR TITER (test code = 3500) NOT INDIC. TITER HIV AB/AG COMBO RFLX [id number] 00:00:00 Test Item Value Reference Range Interpretation Comments HIV 1/2 4TH GEN, RFLX CONF (test NON-REACTIVE code = 3514) HIV AB/AG COMBO RFLX [id number] 00:00:00 Test Item Value Reference Range Interpretation Comments HIV 1/2 4TH GEN, RFLX CONF (test NON-REACTIVE code = 3514) SARS-CoV-2 (COVID-19) by RT-PCR (HIGH RISK)2019-11-26 00:00:00 Test Item Value Reference Range Interpretation Comments SARS-CoV-2 INTERPRETATION (test NEGATIVE code = 91956) SOURCE (test code = 66983) NOT SPECIFIED SARS-CoV-2 (COVID-19) by RT-PCR (HIGH RISK)2019-11-26 00:00:00 Test Item Value Reference Range Interpretation Comments SARS-CoV-2 INTERPRETATION (test NEGATIVE code = 83735) SOURCE (test code = 36450) NOT SPECIFIED SARS-CoV-2 (COVID-19) by RT-PCR (HIGH RISK)2019-11-26 00:00:00 Test Item Value Reference Range Interpretation Comments SARS-CoV-2 INTERPRETATION (test NEGATIVE code = 95498) SOURCE (test code = 92531) NOT SPECIFIED SARS-CoV-2 (COVID-19) by RT-PCR (HIGH RISK)2019-11-26 00:00:00 Test Item Value Reference Range Interpretation Comments SARS-CoV-2 INTERPRETATION (test NEGATIVE code = 05163) SOURCE (test code = 06682) NOT SPECIFIED SARS-CoV-2 (COVID-19) by RT-PCR (HIGH RISK)2019-11-26 00:00:00 Test Item Value Reference Range Interpretation Comments SARS-CoV-2 INTERPRETATION (test NEGATIVE code = 53212) SOURCE (test code = 86825) NOT SPECIFIED PAP TEST, THINPREP, [id number] 00:00:00 Test Item Value Reference Range Interpretation Comments SOURCE: (test code = Cervical/Endocervical 8001) SLIDES: (test code = 1 8011) LMP: (test code = 8021) 03/08/2018 SPECIMEN ADEQUACY: (NOTE) (test code = 09327) INTERPRETATION: (test NILM/NO EPITH. code = 56733) ABNORMALITY;SEE BELOW RECORDS MANAGEMENT ASSISTANT: (test Andrew code = 8101) BEN Urena(ASCP)IAC LOCATION: (test code = (NOTE) 00274) CPT: (test code = 8140) (NOTE) PAP TEST, THINPREP, [id number] 00:00:00 Test Item Value Reference Range Interpretation Comments SOURCE: (test code = Cervical/Endocervical 8001) SLIDES: (test code = 1 8011) LMP: (test code = 8021) 03/08/2018 SPECIMEN ADEQUACY: (NOTE) (test code = 22538) INTERPRETATION: (test NILM/NO EPITH. code = 62260) ABNORMALITY;SEE BELOW RECORDS MANAGEMENT ASSISTANT: (test Andrew code = 8101) BEN Urena(ASCP)IAC LOCATION: (test code = (NOTE) 35587) CPT: (test code = 8140) (NOTE) PAP TEST, THINPREP, [id number] 00:00:00 Test Item Value Reference Range Interpretation Comments SOURCE: (test code = Cervical/Endocervical 8001) SLIDES: (test code = 1 8011) LMP: (test code = 8021) 03/08/2018 SPECIMEN ADEQUACY: (NOTE) (test code = 87059) INTERPRETATION: (test NILM/NO EPITH. code = 93760) ABNORMALITY;SEE BELOW RECORDS MANAGEMENT ASSISTANT: (test Andrew code = 8101) BEN Urena(ASCP)IAC LOCATION: (test code = (NOTE) 71820) CPT: (test code = 8140) (NOTE) PAP TEST, THINPREP, [id number] 00:00:00 Test Item Value Reference Range Interpretation Comments SOURCE: (test code = Cervical/Endocervical 8001) SLIDES: (test code = 1 8011) LMP: (test code = 8021) 03/08/2018 SPECIMEN ADEQUACY: (NOTE) (test code = 81793) INTERPRETATION: (test NILM/NO EPITH. code = 04844) ABNORMALITY;SEE BELOW RECORDS MANAGEMENT ASSISTANT: (test Andrew code = 8101) BEN Urena(ASCP)IAC LOCATION: (test code = (NOTE) 69890) CPT: (test code = 8140) (NOTE) PAP TEST, THINPREP, [id number] 00:00:00 Test Item Value Reference Range Interpretation Comments SOURCE: (test code = Cervical/Endocervical 8001) SLIDES: (test code = 1 8011) LMP: (test code = 8021) 03/08/2018 SPECIMEN ADEQUACY: (NOTE) (test code = 88524) INTERPRETATION: (test NILM/NO EPITH. code = 94690) ABNORMALITY;SEE BELOW RECORDS MANAGEMENT ASSISTANT: (test Andrew code = 8101) BEN Urena(ASCP)IAC LOCATION: (test code = (NOTE) 72010) CPT: (test code = 8140) (NOTE) PAP TEST, THINPREP, [id number] 00:00:00 Test Item Value Reference Range Interpretation Comments SOURCE: (test code = Cervical/Endocervical 8001) SLIDES: (test code = 2 8011) LMP: (test code = 8021) 03/08/2018 SPECIMEN ADEQUACY: (test (NOTE) code = 01778) INTERPRETATION: (test UNSATISFACTORY; SEE code = 80939) BELOW OTHER COMMENTS: (test (NOTE) code = 8081) RECORDS MANAGEMENT ASSISTANT: (test Farrah code = 8101) BEN Nicole(ASCP)IAC QC TECHNOLOGIST: (test Macarena code = 8111) JENARO Valentine(ASCP)CT(IA C) LOCATION: (test code = (NOTE) 98813) CPT: (test code = 8140) (NOTE) PAP TEST, THINPREP, [id number] 00:00:00 Test Item Value Reference Range Interpretation Comments SOURCE: (test code = Cervical/Endocervical 8001) SLIDES: (test code = 2 8011) LMP: (test code = 8021) 03/08/2018 SPECIMEN ADEQUACY: (test (NOTE) code = 48473) INTERPRETATION: (test UNSATISFACTORY; SEE code = 39030) BELOW OTHER COMMENTS: (test (NOTE) code = 8081) RECORDS MANAGEMENT ASSISTANT: (test Farrah code = 8101) BEN Nicole(ASCP)IAC QC TECHNOLOGIST: (test Macarena code = 8111) MemeSCT(ASCP)CT(IA C) LOCATION: (test code = (NOTE) 31562) CPT: (test code = 8140) (NOTE) PAP TEST, THINPREP, [id number] 00:00:00 Test Item Value Reference Range Interpretation Comments SOURCE: (test code = Cervical/Endocervical 8001) SLIDES: (test code = 2 8011) LMP: (test code = 8021) 03/08/2018 SPECIMEN ADEQUACY: (test (NOTE) code = 40742) INTERPRETATION: (test UNSATISFACTORY; SEE code = 61245) BELOW OTHER COMMENTS: (test (NOTE) code = 8081) RECORDS MANAGEMENT ASSISTANT: (test Farrah code = 8101) BEN Nicole(ASCP)IAC QC TECHNOLOGIST: (test Macarena code = 8111) MemeSCT(ASCP)CT(IA C) LOCATION: (test code = (NOTE) 52002) CPT: (test code = 8140) (NOTE) PAP TEST, THINPREP, [id number] 00:00:00 Test Item Value Reference Range Interpretation Comments SOURCE: (test code = Cervical/Endocervical 8001) SLIDES: (test code = 2 8011) LMP: (test code = 8021) 03/08/2018 SPECIMEN ADEQUACY: (test (NOTE) code = 41427) INTERPRETATION: (test UNSATISFACTORY; SEE code = 64272) BELOW OTHER COMMENTS: (test (NOTE) code = 8081) RECORDS MANAGEMENT ASSISTANT: (test Farrah code = 8101) BEN Nicole(ASCP)IAC QC TECHNOLOGIST: (test Macarena code = 8111) MemeSCT(ASCP)CT(IA C) LOCATION: (test code = (NOTE) 91087) CPT: (test code = 8140) (NOTE) PAP TEST, THINPREP, [id number] 00:00:00 Test Item Value Reference Range Interpretation Comments SOURCE: (test code = Cervical/Endocervical 8001) SLIDES: (test code = 2 8011) LMP: (test code = 8021) 03/08/2018 SPECIMEN ADEQUACY: (test (NOTE) code = 21451) INTERPRETATION: (test UNSATISFACTORY; SEE code = 92107) BELOW OTHER COMMENTS: (test (NOTE) code = 8081) RECORDS MANAGEMENT ASSISTANT: (test Farrah code = 8101) BEN Nicole(ASCP)IAC QC TECHNOLOGIST: (test Macarena code = 8111) JENARO Valentine(ASCP)CT(IA C) LOCATION: (test code = (NOTE) 49998) CPT: (test code = 8140) (NOTE) GC AND CHLAMYDIA AMPLIFIED, [id number] 00:00:00 Test Item Value Reference Range Interpretation Comments GONORRHEA, TMA (test code = 87364) NEGATIVE CHLAMYDIA, TMA (test code = 87643) NEGATIVE HEMOGLOBIN [id number] 00:00:00 Test Item Value Reference Range Interpretation Comments HEMOGLOBIN A1c (test code = 26504) 5.0 % LIPID [id number] 00:00:00 Test Item Value Reference Range Interpretation Comments CHOLESTEROL (test code = 2210) 149 MG/DL TRIGLYCERIDES (test code = 2232) 160 MG/DL HDL CHOLESTEROL (test code = 2220) 38 MG/DL CALC LDL CHOL (test code = 2237) 79 MG/DL RISK RATIO LDL/HDL (test code = 2.08 RATIO 2238) LIPID [id number] 00:00:00 Test Item Value Reference Range Interpretation Comments CHOLESTEROL (test code = 2210) 149 MG/DL TRIGLYCERIDES (test code = 2232) 160 MG/DL HDL CHOLESTEROL (test code = 2220) 38 MG/DL CALC LDL CHOL (test code = 2237) 79 MG/DL RISK RATIO LDL/HDL (test code = 2.08 RATIO 2238) HPV HIGH RISK WITH GENOTYPE, [id number] 00:00:00 Test Item Value Reference Range Interpretation Comments HPV HIGH RISK INTERP (test code = NEGATIVE 07939) HPV 16 (test code = 03870) NEGATIVE HPV 18 (test code = 99984) NEGATIVE HPV, HR, OTHER GENOTYPES (test code NEGATIVE = 20411) HPV HIGH RISK WITH GENOTYPE, [id number] 00:00:00 Test Item Value Reference Range Interpretation Comments HPV HIGH RISK INTERP (test code = NEGATIVE 29845) HPV 16 (test code = 52845) NEGATIVE HPV 18 (test code = 04765) NEGATIVE HPV, HR, OTHER GENOTYPES (test code NEGATIVE = 19553) COMPREHENSIVE METABOLIC [id number] 00:00:00 Test Item Value Reference Range Interpretation Comments GLUCOSE (test code = 2217) 96 MG/DL BUN (test code = 2208) 8 MG/DL CREATININE (test code = 2214) 0.82 MG/DL eGFR AMER. (test code 109 ML/MIN/1.73 = 74974) eGFR NON- AMER. (test 94 ML/MIN/1.73 code = 97592) CALC BUN/CREAT (test code = 10 RATIO 2235) SODIUM (test code = 2231) 142 MEQ/L POTASSIUM (test code = 2228) 4.4 MEQ/L CHLORIDE (test code = 2215) 101 MEQ/L CARBON DIOXIDE (test code = 29 MEQ/L 2205) CALCIUM (test code = 2209) 9.7 MG/DL PROTEIN, TOTAL (test code = 7.2 G/DL 2228) ALBUMIN (test code = 2201) 4.5 G/DL CALC GLOBULIN (test code = 2.7 G/DL 2240) CALC A/G RATIO (test code = 1.7 RATIO 2234) BILIRUBIN, TOTAL (test code = 0.3 MG/DL 2206) ALKALINE PHOSPHATASE (test 91 U/L code = 2204) AST (test code = 2218) 15 U/L ALT (test code = 2219) 16 U/L COMPREHENSIVE METABOLIC [id number] 00:00:00 Test Item Value Reference Range Interpretation Comments GLUCOSE (test code = 2217) 96 MG/DL BUN (test code = 2208) 8 MG/DL CREATININE (test code = 2214) 0.82 MG/DL eGFR AMER. (test code 109 ML/MIN/1.73 = 89468) eGFR NON- AMER. (test 94 ML/MIN/1.73 code = 30340) CALC BUN/CREAT (test code = 10 RATIO 2235) SODIUM (test code = 2231) 142 MEQ/L POTASSIUM (test code = 2228) 4.4 MEQ/L CHLORIDE (test code = 2215) 101 MEQ/L CARBON DIOXIDE (test code = 29 MEQ/L 2205) CALCIUM (test code = 2209) 9.7 MG/DL PROTEIN, TOTAL (test code = 7.2 G/DL 2228) ALBUMIN (test code = 2201) 4.5 G/DL CALC GLOBULIN (test code = 2.7 G/DL 2240) CALC A/G RATIO (test code = 1.7 RATIO 2233) BILIRUBIN, TOTAL (test code = 0.3 MG/DL 2206) ALKALINE PHOSPHATASE (test 91 U/L code = 2204) AST (test code = 2218) 15 U/L ALT (test code = 2219) 16 U/L [id number] 00:00:00 Test Item Value Reference Range Interpretation Comments RPR RESULT (test code = NON-REACTIVE 3501) RPR TITER (test code = 3500) NOT INDIC. TITER [id number] 00:00:00 Test Item Value Reference Range Interpretation Comments RPR RESULT (test code = NON-REACTIVE 3501) RPR TITER (test code = 3500) NOT INDIC. TITER [id number] 00:00:00 Test Item Value Reference Range Interpretation Comments RPR RESULT (test code = NON-REACTIVE 3501) RPR TITER (test code = 3500) NOT INDIC. TITER ACUTE HEPATITIS [id number] 00:00:00 Test Item Value Reference Range Interpretation Comments HEPATITIS A IgM (test code = NON-REACTIVE 64765) HEPATITIS B CORE IgM (test code NON-REACTIVE = 4644) HEPATITIS B SURF AG (test code = NON-REACTIVE 9) HEPATITIS C ANTIBODY (test code NON-REACTIVE = 4675) HCV INDEX (test code = 13117) 0.08 INTERPRETATION HEPATITIS A: (NOTE) (test code = 2552) INTERPRETATION HEPATITIS B: (NOTE) (test code = 98652) INTERPRETATION HEPATITIS C: (NOTE) (test code = 82462) ACUTE HEPATITIS [id number] 00:00:00 Test Item Value Reference Range Interpretation Comments HEPATITIS A IgM (test code = NON-REACTIVE 92944) HEPATITIS B CORE IgM (test code NON-REACTIVE = 4644) HEPATITIS B SURF AG (test code = NON-REACTIVE 9) HEPATITIS C ANTIBODY (test code NON-REACTIVE = 4675) HCV INDEX (test code = 47941) 0.08 INTERPRETATION HEPATITIS A: (NOTE) (test code = 2552) INTERPRETATION HEPATITIS B: (NOTE) (test code = 66320) INTERPRETATION HEPATITIS C: (NOTE) (test code = 39087) HIV AB/AG COMBO RFLX [id number] 00:00:00 Test Item Value Reference Range Interpretation Comments HIV 1/2 4TH GEN, RFLX CONF (test NON-REACTIVE code = 3514) HIV AB/AG COMBO RFLX [id number] 00:00:00 Test Item Value Reference Range Interpretation Comments HIV 1/2 4TH GEN, RFLX CONF (test NON-REACTIVE code = 3514) HEMOGLOBIN [id number] 00:00:00 Test Item Value Reference Range Interpretation Comments HEMOGLOBIN A1c (test code = 48559) 5.0 % HEMOGLOBIN [id number] 00:00:00 Test Item Value Reference Range Interpretation Comments HEMOGLOBIN A1c (test code = 01768) 5.0 % HEMOGLOBIN [id number] 00:00:00 Test Item Value Reference Range Interpretation Comments HEMOGLOBIN A1c (test code = 25995) 5.0 % GC AND CHLAMYDIA AMPLIFIED, [id number] 00:00:00 Test Item Value Reference Range Interpretation Comments GONORRHEA, TMA (test code = 03262) NEGATIVE CHLAMYDIA, TMA (test code = 95174) NEGATIVE GC AND CHLAMYDIA AMPLIFIED, [id number] 00:00:00 Test Item Value Reference Range Interpretation Comments GONORRHEA, TMA (test code = 54500) NEGATIVE CHLAMYDIA, TMA (test code = 16733) NEGATIVE HEMOGLOBIN [id number] 00:00:00 Test Item Value Reference Range Interpretation Comments HEMOGLOBIN A1c (test code = 89702) 5.0 % LIPID [id number] 00:00:00 Test Item Value Reference Range Interpretation Comments CHOLESTEROL (test code = 2210) 149 MG/DL TRIGLYCERIDES (test code = 2232) 160 MG/DL HDL CHOLESTEROL (test code = 2220) 38 MG/DL CALC LDL CHOL (test code = 2237) 79 MG/DL RISK RATIO LDL/HDL (test code = 2.08 RATIO 2238) LIPID [id number] 00:00:00 Test Item Value Reference Range Interpretation Comments CHOLESTEROL (test code = 2210) 149 MG/DL TRIGLYCERIDES (test code = 2232) 160 MG/DL HDL CHOLESTEROL (test code = 2220) 38 MG/DL CALC LDL CHOL (test code = 2237) 79 MG/DL RISK RATIO LDL/HDL (test code = 2.08 RATIO 2238) HPV HIGH RISK WITH GENOTYPE, [id number] 00:00:00 Test Item Value Reference Range Interpretation Comments HPV HIGH RISK INTERP (test code = NEGATIVE 42397) HPV 16 (test code = 53019) NEGATIVE HPV 18 (test code = 32274) NEGATIVE HPV, HR, OTHER GENOTYPES (test code NEGATIVE = 22429) HPV HIGH RISK WITH GENOTYPE, [id number] 00:00:00 Test Item Value Reference Range Interpretation Comments HPV HIGH RISK INTERP (test code = NEGATIVE 46627) HPV 16 (test code = 48769) NEGATIVE HPV 18 (test code = 29938) NEGATIVE HPV, HR, OTHER GENOTYPES (test code NEGATIVE = 61417) COMPREHENSIVE METABOLIC [id number] 00:00:00 Test Item Value Reference Range Interpretation Comments GLUCOSE (test code = 2217) 96 MG/DL BUN (test code = 2208) 8 MG/DL CREATININE (test code = 2214) 0.82 MG/DL eGFR AMER. (test code 109 ML/MIN/1.73 = 55967) eGFR NON- AMER. (test 94 ML/MIN/1.73 code = 77708) CALC BUN/CREAT (test code = 10 RATIO 2235) SODIUM (test code = 2231) 142 MEQ/L POTASSIUM (test code = 2228) 4.4 MEQ/L CHLORIDE (test code = 2215) 101 MEQ/L CARBON DIOXIDE (test code = 29 MEQ/L 2205) CALCIUM (test code = 2209) 9.7 MG/DL PROTEIN, TOTAL (test code = 7.2 G/DL 2228) ALBUMIN (test code = 2201) 4.5 G/DL CALC GLOBULIN (test code = 2.7 G/DL 2239) CALC A/G RATIO (test code = 1.7 RATIO 223) BILIRUBIN, TOTAL (test code = 0.3 MG/DL 2206) ALKALINE PHOSPHATASE (test 91 U/L code = 2204) AST (test code = 2218) 15 U/L ALT (test code = 2219) 16 U/L COMPREHENSIVE METABOLIC [id number] 00:00:00 Test Item Value Reference Range Interpretation Comments GLUCOSE (test code = 2217) 96 MG/DL BUN (test code = 2208) 8 MG/DL CREATININE (test code = 2214) 0.82 MG/DL eGFR AMER. (test code 109 ML/MIN/1.73 = 06154) eGFR NON- AMER. (test 94 ML/MIN/1.73 code = 29968) CALC BUN/CREAT (test code = 10 RATIO 2235) SODIUM (test code = 2231) 142 MEQ/L POTASSIUM (test code = 2228) 4.4 MEQ/L CHLORIDE (test code = 2215) 101 MEQ/L CARBON DIOXIDE (test code = 29 MEQ/L 2205) CALCIUM (test code = 2209) 9.7 MG/DL PROTEIN, TOTAL (test code = 7.2 G/DL 2228) ALBUMIN (test code = 2201) 4.5 G/DL CALC GLOBULIN (test code = 2.7 G/DL 2240) CALC A/G RATIO (test code = 1.7 RATIO 2234) BILIRUBIN, TOTAL (test code = 0.3 MG/DL 2206) ALKALINE PHOSPHATASE (test 91 U/L code = 2204) AST (test code = 2218) 15 U/L ALT (test code = 2219) 16 U/L [id number] 00:00:00 Test Item Value Reference Range Interpretation Comments RPR RESULT (test code = NON-REACTIVE 3501) RPR TITER (test code = 3500) NOT INDIC. TITER [id number] 00:00:00 Test Item Value Reference Range Interpretation Comments RPR RESULT (test code = NON-REACTIVE 3501) RPR TITER (test code = 3500) NOT INDIC. TITER [id number] 00:00:00 Test Item Value Reference Range Interpretation Comments RPR RESULT (test code = NON-REACTIVE 3501) RPR TITER (test code = 3500) NOT INDIC. TITER ACUTE HEPATITIS [id number] 00:00:00 Test Item Value Reference Range Interpretation Comments HEPATITIS A IgM (test code = NON-REACTIVE 27733) HEPATITIS B CORE IgM (test code NON-REACTIVE = 2243) HEPATITIS B SURF AG (test code = NON-REACTIVE 2739) HEPATITIS C ANTIBODY (test code NON-REACTIVE = 4675) HCV INDEX (test code = 72114) 0.08 INTERPRETATION HEPATITIS A: (NOTE) (test code = 2552) INTERPRETATION HEPATITIS B: (NOTE) (test code = 39871) INTERPRETATION HEPATITIS C: (NOTE) (test code = 92994) ACUTE HEPATITIS [id number] 00:00:00 Test Item Value Reference Range Interpretation Comments HEPATITIS A IgM (test code = NON-REACTIVE 92725) HEPATITIS B CORE IgM (test code NON-REACTIVE = 4644) HEPATITIS B SURF AG (test code = NON-REACTIVE 2739) HEPATITIS C ANTIBODY (test code NON-REACTIVE = 4675) HCV INDEX (test code = 58592) 0.08 INTERPRETATION HEPATITIS A: (NOTE) (test code = 2552) INTERPRETATION HEPATITIS B: (NOTE) (test code = 74750) INTERPRETATION HEPATITIS C: (NOTE) (test code = 09828) HIV AB/AG COMBO RFLX [id number] 00:00:00 Test Item Value Reference Range Interpretation Comments HIV 1/2 4TH GEN, RFLX CONF (test NON-REACTIVE code = 3514) HIV AB/AG COMBO RFLX [id number] 00:00:00 Test Item Value Reference Range Interpretation Comments HIV 1/2 4TH GEN, RFLX CONF (test NON-REACTIVE code = 3514) HEMOGLOBIN [id number] 00:00:00 Test Item Value Reference Range Interpretation Comments HEMOGLOBIN A1c (test code = 56928) 5.0 % GC AND CHLAMYDIA AMPLIFIED, [id number] 00:00:00 Test Item Value Reference Range Interpretation Comments GONORRHEA, TMA (test code = 78206) NEGATIVE CHLAMYDIA, TMA (test code = 49748) NEGATIVE LIPID [id number] 00:00:00 Test Item Value Reference Range Interpretation Comments CHOLESTEROL (test code = 2210) 149 MG/DL TRIGLYCERIDES (test code = 2232) 160 MG/DL HDL CHOLESTEROL (test code = 2220) 38 MG/DL CALC LDL CHOL (test code = 2237) 79 MG/DL RISK RATIO LDL/HDL (test code = 2.08 RATIO 2238) HPV HIGH RISK WITH GENOTYPE, [id number] 00:00:00 Test Item Value Reference Range Interpretation Comments HPV HIGH RISK INTERP (test code = NEGATIVE 15510) HPV 16 (test code = 04618) NEGATIVE HPV 18 (test code = 75123) NEGATIVE HPV, HR, OTHER GENOTYPES (test code NEGATIVE = 31227) COMPREHENSIVE METABOLIC [id number] 00:00:00 Test Item Value Reference Range Interpretation Comments GLUCOSE (test code = 2217) 96 MG/DL BUN (test code = 2208) 8 MG/DL CREATININE (test code = 2214) 0.82 MG/DL eGFR AMER. (test code 109 ML/MIN/1.73 = 61857) eGFR NON- AMER. (test 94 ML/MIN/1.73 code = 20716) CALC BUN/CREAT (test code = 10 RATIO 2235) SODIUM (test code = 2231) 142 MEQ/L POTASSIUM (test code = 2228) 4.4 MEQ/L CHLORIDE (test code = 2215) 101 MEQ/L CARBON DIOXIDE (test code = 29 MEQ/L 2206) CALCIUM (test code = 2209) 9.7 MG/DL PROTEIN, TOTAL (test code = 7.2 G/DL 2228) ALBUMIN (test code = 2201) 4.5 G/DL CALC GLOBULIN (test code = 2.7 G/DL 2240) CALC A/G RATIO (test code = 1.7 RATIO 2234) BILIRUBIN, TOTAL (test code = 0.3 MG/DL 2206) ALKALINE PHOSPHATASE (test 91 U/L code = 2204) AST (test code = 2218) 15 U/L ALT (test code = 2219) 16 U/L [id number] 00:00:00 Test Item Value Reference Range Interpretation Comments RPR RESULT (test code = NON-REACTIVE 3501) RPR TITER (test code = 3500) NOT INDIC. TITER [id number] 00:00:00 Test Item Value Reference Range Interpretation Comments RPR RESULT (test code = NON-REACTIVE 3501) RPR TITER (test code = 3500) NOT INDIC. TITER ACUTE HEPATITIS [id number] 00:00:00 Test Item Value Reference Range Interpretation Comments HEPATITIS A IgM (test code = NON-REACTIVE 42243) HEPATITIS B CORE IgM (test code NON-REACTIVE = 2421) HEPATITIS B SURF AG (test code = NON-REACTIVE 5379) HEPATITIS C ANTIBODY (test code NON-REACTIVE = 3351) HCV INDEX (test code = 58085) 0.08 INTERPRETATION HEPATITIS A: (NOTE) (test code = 2552) INTERPRETATION HEPATITIS B: (NOTE) (test code = 64511) INTERPRETATION HEPATITIS C: (NOTE) (test code = 18940) HIV AB/AG COMBO RFLX [id number] 00:00:00 Test Item Value Reference Range Interpretation Comments HIV 1/2 4TH GEN, RFLX CONF (test NON-REACTIVE code = 3514) HEMOGLOBIN [id number] 00:00:00 Test Item Value Reference Range Interpretation Comments HEMOGLOBIN A1c (test code = 20663) 5.0 % HEMOGLOBIN [id number] 00:00:00 Test Item Value Reference Range Interpretation Comments HEMOGLOBIN A1c (test code = 39702) 5.0 % GC AND CHLAMYDIA AMPLIFIED, [id number] 00:00:00 Test Item Value Reference Range Interpretation Comments GONORRHEA, TMA (test code = 20036) NEGATIVE CHLAMYDIA, TMA (test code = 98255) NEGATIVE
--- NOTE | 2022-05-17 12:59 | RAD REPORT ---
EXAM DESCRIPTION: US - Abdomen Exam Limited - 05/17/2022 12:46 pm CLINICAL HISTORY: ABD PAIN COMPARISON: Abdomen Pelvis W Contrast dated 06/05/2020 FINDINGS: Gallbladder is tightly contracted. Patient indicates she ate 2 hours before the examinatio n. This is not an adequate fasting duration for accurate gallbladder assessment. No gross evidence for gallstones or large quantity of sludge. Contracted state creates artificial wal l thickening. No pericholecystic fluid is seen. No common duct stone or biliary tree dilatation identified. IMPRESSION: No gross evidence for gallstones or large quantity of sludge. The patient was not fasting. The gallbladder is contracted due to recent meal.
[2022-05-17 13:18] LABS: Absolute Lymphocytes (CBC) 3.1 K/uL (0.7-4.9); Hematocrit 36.1 % (36.0-45.0); Lymphocytes % 22.7 % (15.3-44.8); MPV 7.9 fL (7.6-11.3); RBC Red Blood Cell Count 4.57 M/uL (3.86-4.86)
[2022-05-17 13:38] LABS: Albumin 3.3 g/dL (3.4-5.0); Bilirubin Total 0.4 mg/dL (0.2-1.0); Potassium 3.8 mmol/L (3.5-5.1); Protein, Total 7.6 g/dL (6.4-8.2)
[2022-05-17 13:41] LABS: Urine Blood Negative (Negative); Urine Glucose Negative (Negative); Urine Protein Negative (Negative); Urine Specific Gravity 1.025 (1.005-1.030); Urine pH 5.5 (5.0-7.0)
[2022-05-17 14:01] LABS: Urine Specific Gravity/Preg 1.025 (1.005-1.030)
[2022-05-17 14:14] LABS: Urine Bacteria None Seen /HPF (<20); Urine Crystals Unidentified Few /HPF (None Seen)
[2022-05-17] MEDS ORDERED: NA CHLORIDE 0.9% 1,000 ML ONE (14:24)
--- NOTE | 2022-05-17 15:52 | ER ---
Nurse's Notes [facility] Name: Zaria De Oliveira Age: 36 yrs Sex: Female : 1985 Arrival Date: 05/17/2022 Time: 12:17 Bed 12 Private MD: Diagnosis: Dehydration;Migraine without aura, not intractable Presentation: 05/17 12:28 Chief complaint: Patient states: Gave blood on Monday, then started to feel weak, ll1 dizzy, fatigued, N/V since Monday. [place] hot at home, but no fever. Never felt this bad after giving blood. Coronavirus screen: Vaccine status: Patient reports being unvaccinated. Client denies travel out of the [place] in the last 14 days. congestion, difficulty breathing, fatigue, headache, muscle pain, nausea, runny nose, sore throat, vomiting. Client presents with at least one sign or symptom that may indicate coronavirus-19. Standard/surgical mask placed on the client. Ebola Screen: Patient denies travel to an Ebola-affected area in the 21 days before illness onset. No acute neurological deficit is noted. Initial Sepsis Screen: Does the patient meet any 2 criteria? No. Patient's initial sepsis screen is negative. Does the patient have a suspected source of infection? No. Patient's initial sepsis screen is negative. Risk Assessment: Do you want to hurt yourself or someone else? Patient reports no desire to harm self or others. Onset of symptoms was May 14, 2022. 12:28 Method Of Arrival: Ambulatory ll1 12:28 Acuity: CELESTINO 3 ll1 Triage Assessment: 12:31 General: Appears in no apparent distress. Behavior is calm, cooperative, appropriate ll1 for age. Pain: Complains of pain in head Quality of pain is described as aching. Neuro: Reports dizziness, headache weakness. Cardiovascular: Reports fatigue, lightheadedness. GI: Reports diarrhea, nausea, vomiting. Stroke Activation: Symptom onset > 6 hours Physician: Stroke Attending; Name: ; Notified At: ; Arrived At: Physician: Chief Stroke Resident; Name: ; Notified At: ; Arrived At: Physician: Stroke Resident; Name: ; Notified At: ; Arrived At: Physician: ED Attending; Name: ; Notified At: ; Arrived At: Physician: ED Resident; Name: ; Notified At: ; Arrived At: Historical: - Allergies: 12:30 Bluestar ointments; ll1 12:30 Oxistat; ll1 - PMHx: 12:30 Migraines; ll1 - PSHx: 12:30 section; ll1 - Immunization history:: Client reports having NOT received the Covid vaccine. - Social history:: Smoking status: Patient denies any tobacco usage or history of. Screenin:30 [facility] ED Fall Risk Assessment (Adult) History of falling in the last 3 months, eh3 including since admission No falls in past 3 months (0 pts) Confusion or Disorientation No (0 pts) Intoxicated or Sedated No (0 pts) Impaired Gait No (0 pts) Mobility Assist Device Used No (0 pt) Altered Elimination No (0 pt) Score/Fall Risk Level 0 - 2 = Low Risk. Abuse screen: Denies threats or abuse. Denies injuries from another. Nutritional screening: No deficits noted. Tuberculosis screening: No symptoms or risk factors identified. Assessment: 13:30 VAN Scoring: Arm Drift: Patients demonstrates NO arm weakness. Patient is VAN Negative. eh3 Patient has been NPO before screening. The patient is alert, and able to follow commands. The patient does not exhibit slurred or garbled speech. The patient is not exhibiting difficulty speaking. The patient does not exhibit difficulty understanding words. The patient is able to swallow own secretions with no drooling or need for suction. Patient tolerated one teaspoon of water. No drooling, immediate coughing, gurgling, or clearing of the throat was noted. The patient tolerated 90mL of water. No drooling, immediate coughing, gurgling, or clearing of the throat was noted. The patient passed the bedside swallow screening. Oral medications may be given as ordered. Contact Physician for further diet orders. Provider notified of bedside swallow screening results: Ivis PENNINGTON. TNKase (Tenecteplase) Screening: Indications: Definite evidence of stroke, ischemic, embolic, or hypertensive: No. General: Appears in no apparent distress. uncomfortable, Behavior is calm, cooperative, appropriate for age. Pain: Denies pain. Neuro: Level of Consciousness is awake, alert, obeys commands, Oriented to person, place, time, situation. Neuro: Reports dizziness, weakness. Cardiovascular: Capillary refill < 3 seconds Patient's skin is warm and dry. Respiratory: Airway is patent Respiratory effort is even, unlabored, Respiratory pattern is regular, symmetrical. GI: Abdomen is round non-distended, Reports nausea. : No signs and/or symptoms were reported regarding the genitourinary system. EENT: No signs and/or symptoms were reported regarding the EENT system. Derm: No signs and/or symptoms reported regarding the dermatologic system. Musculoskeletal: No signs and/or symptoms reported regarding the musculoskeletal system. 14:30 Reassessment: Patient appears in no apparent distress at this time. Patient and/or eh3 family updated on plan of care and expected duration. Pain level reassessed. Patient is alert, oriented x 3, equal unlabored respirations, skin warm/dry/pink. 15:30 Reassessment: Patient appears in no apparent distress at this time. Patient and/or eh3 family updated on plan of care and expected duration. Pain level reassessed. Patient is alert, oriented x 3, equal unlabored respirations, skin warm/dry/pink. Vital Signs: 12:28 BP 129 / 80; Pulse 80; Resp 18; Temp 98.5; Pulse Ox 98% on R/A; Weight 99.79 kg; Height ll1 5 ft. 2 in. (157.48 cm); Pain 8/10; 12:34 BP 129 / 85 Sitting; Pulse 85; ll1 12:34 BP 127 / 89 Standing; Pulse 103; ll1 13:30 BP 121 / 86; Pulse 80; Resp 18; Pulse Ox 100% on R/A; eh3 14:30 BP 123 / 82; Pulse 79; Resp 18; Pulse Ox 100% on R/A; eh3 15:30 BP 121 / 82; Pulse 82; Resp 18; Pulse Ox 100% on R/A; eh3 12:28 Body Mass Index 40.24 (99.79 kg, 157.48 cm) ll1 NIH Stroke Scale Scores: 13:30 NIHSS Score: 0 3 ED Course: 12:17 Patient arrived in ED. rg4 12:23 Ivis Mcghee FNP-C [facility] kb 12:23 Clemente Thompson MD is Attending Physician. kb 12:30 Triage completed. ll1 12:31 Arm band placed on. ll1 12:48 US Abdomen Limited In Process Unspecified. EDMS 13:00 Initial lab(s) drawn, by me, sent to lab. Inserted saline lock: 20 gauge in left kj1 antecubital area, using aseptic technique. Blood collected. 13:30 Patient has correct armband on for positive identification. Bed in low position. Call 3 light in reach. Side rails up X2. Pulse ox on. NIBP on. Door closed. Noise minimized. Lights dimmed. Warm blanket given. 13:37 Christina Madden, NANCY is Primary Nurse. eh3 13:44 Urine collected: clean catch specimen, clear. tm3 14:30 Repositioned patient. eh3 16:36 No provider procedures requiring assistance completed. IV discontinued, intact, eh3 bleeding controlled, No redness/swelling at site. Pressure dressing applied. Administered Medications: 14:50 Drug: NS 0.9% 1000 ml Route: IV; Rate: 1000 ml; Site: left antecubital; eh3 16:11 Follow up: Response: No adverse reaction; IV Status: Completed infusion; IV Intake: ll1 1000ml 16:36 Follow up: IV Status: Completed infusion; IV Intake: 1000ml eh3 16:30 Drug: Ketorolac 15 mg Route: IVP; Site: left antecubital; eh3 16:44 Follow up: Response: Medication administered at discharge. eh3 16:30 Drug: Benadryl (diphenhydrAMINE) 12.5 mg Route: IVP; Site: left antecubital; eh3 16:44 Follow up: Response: Medication administered at discharge. eh3 16:30 Drug: Reglan (metoCLOPramide) 10 mg Route: IVP; Site: left antecubital; eh3 16:44 Follow up: Response: Medication administered at discharge. eh3 Medication: 16:36 VIS not applicable for this client. eh3 Intake: 16:11 IV: 1000ml; Total: 1000ml. ll1 16:36 IV: 1000ml; Total: 2000ml. eh3 Outcome: 15:51 Discharge ordered by . russ 16:43 Discharged to home ambulatory. eh3 16:43 Condition: stable 16:43 Discharge instructions given to patient, Instructed on discharge instructions, follow up and referral plans. medication usage, Demonstrated understanding of instructions, follow-up care, medications, Prescriptions given X 1. 16:44 Patient left the ED. eh3 NIH Stroke Scale - NIH Stroke Score Date: 05/17/2022 Time: 13:30 Total Score = 0 1a. Level of Consciousness (LOC) - 0(Alert) 1b. Level of Consciousness (LOC) (Month \T\ Age) - 0(Both) 1c. LOC Commands (Open \T\ Closes Eyes/Wardrobe Manager) - 0(Both) 2. Best Gaze (Lateral Gaze Paresis) - 0(Normal) 3. Visual Field Loss - 0(No visual loss) 4. Facial Palsy - 0(Normal) 5a. Left Arm: Motor (10-second hold) - 0(No drift) 5b. Right Arm: Motor (10-second hold) - 0(No drift) 6a. Left Leg: Motor (5-second hold - always test supine) - 0(No drift) 6b. Right Leg: Motor (5-second hold - always test supine) - 0(No drift) 7. Limb Ataxia (finger/nose \T\ heel/redman - test with eyes open) - 0(Absent) 8. Sensory Loss (pinprick arms/legs/face) - 0(Normal) 9. Best Language: Aphasia (description/naming/reading) - 0(No aphasia) 10. Dysarthria (speech clarity - read or repeat words) - 0(Normal) 11. Extinction and Inattention (visual/tactile/auditory/spatial/personal) - 0(No abnormality) Initials: eh3 Signatures: Dispatcher [employer] Ivis Rick, JACQUES-C MANAGER PUBLISHING-CkMiah Garcia tm3 Bobbi Porter rg4 Lia Mcghee kj1 Acosta Alatorre RN RN 1 Christina Madden RN RN 3
--- NOTE | 2022-05-17 15:52 | EDPHYS ---
Physician Documentation [facility] Name: Zaria De Oliveira Age: 36 yrs Sex: Female : 1985 Arrival Date: 05/17/2022 Time: 12:17 Bed 12 Private MD: ED Physician Clemente Thompson HPI: 05/17 15:48 This 36 yrs old Female presents to ER via Ambulatory with complaints of Weakness, kb Nausea/Vomiting. 15:48 The patient presents to the emergency department with nausea, vomiting. Onset: The kb symptoms/episode began/occurred 4 day(s) ago. Possible causes: blood donation. The symptoms are aggravated by nothing. The symptoms are alleviated by nothing. Associated signs and symptoms: Pertinent positives: nausea, vomiting. Severity of symptoms: At their worst the symptoms were moderate in the emergency department the symptoms are unchanged. The patient has not experienced similar symptoms in the past. The patient has not recently seen a physician. Pt reports weakness, n/v, migraine, dizziness and fatigue since giving blood 4 days ago. Historical: - Allergies: 12:30 Bluestar ointments; ll1 12:30 Oxistat; ll1 - PMHx: 12:30 Migraines; ll1 - PSHx: 12:30 section; ll1 - Immunization history:: Client reports having NOT received the Covid vaccine. - Social history:: Smoking status: Patient denies any tobacco usage or history of. ROS: 15:47 Respiratory: Negative for shortness of breath, cough, wheezing, and pleuritic chest kb pain. 15:47 Constitutional: Positive for fatigue, malaise. 15:47 Abdomen/GI: Positive for nausea and vomiting, Negative for abdominal pain, diarrhea. 15:47 Neuro: Positive for dizziness, headache. 15:47 All other systems are negative. Exam: 15:47 Constitutional: This is a well developed, well nourished patient who is awake, alert, kb and in no acute distress. Head/Face: Normocephalic, atraumatic. ENT: Moist Mucous membranes Cardiovascular: Regular rate and rhythm with a normal S1 and S2. No gallops, murmurs, or rubs. No pulse deficits. Respiratory: Respirations even and unlabored. No increased work of breathing. Talking in full sentences Skin: Warm, dry with normal turgor. Normal color. MS/ Extremity: Pulses equal, no cyanosis. Neurovascular intact. Full, normal range of motion. Neuro: Awake and alert, GCS 15, oriented to person, place, time, and situation. Moves all extremities. Normal gait. Psych: Awake, alert, with orientation to person, place and time. Behavior, mood, and affect are within normal limits. 15:47 Abdomen/GI: Inspection: abdomen appears normal, Bowel sounds: normal, Palpation: soft, in all quadrants, mild abdominal tenderness, in the right upper quadrant. Vital Signs: 12:28 BP 129 / 80; Pulse 80; Resp 18; Temp 98.5; Pulse Ox 98% on R/A; Weight 99.79 kg; Height ll1 5 ft. 2 in. (157.48 cm); Pain 12/15; 12:34 BP 129 / 85 Sitting; Pulse 85; ll1 12:34 BP 127 / 89 Standing; Pulse 103; ll1 13:30 BP 121 / 86; Pulse 80; Resp 18; Pulse Ox 100% on R/A; eh3 14:30 BP 123 / 82; Pulse 79; Resp 18; Pulse Ox 100% on R/A; eh3 15:30 BP 121 / 82; Pulse 82; Resp 18; Pulse Ox 100% on R/A; eh3 12:28 Body Mass Index 40.24 (99.79 kg, 157.48 cm) ll1 NIH Stroke Scale Scores: 13:30 NIHSS Score: 0 eh3 MDM: 12:29 Patient medically screened. kb 15:32 Data reviewed: vital signs, nurses notes. I considered the following discharge kb prescriptions or medication management in the emergency department Antibiotics: At this time antibiotics are not recommended, Pain Medications: At this time, prescription pain medications are not recommended. Test considered but Not performed: Other Details CT scan considered, but pt only has mild tenderness to RUQ with no reported pain. . Counseling: I had a detailed discussion with the patient and/or guardian regarding: the historical points, exam findings, and any diagnostic results supporting the discharge/admit diagnosis, lab results, radiology results, the need for outpatient follow up, a family practitioner, to return to the emergency department if symptoms worsen or persist or if there are any questions or concerns that arise at home. 05/17 12:30 Order name: CBC with Diff; Complete Time: 13:20 kb 05/17 12:30 Order name: CMP; Complete Time: 13:44 kb 05/17 12:30 Order name: Lipase; Complete Time: 13:44 kb 05/17 13:41 Order name: Urine Dipstick-Ancillary; Complete Time: 13:44 EDMS 05/17 13:41 Order name: Urine --Ancillary (enter results); Complete Time: 14:08 bd 05/17 13:45 Order name: Urine Microscopic Only; Complete Time: 14:24 kb 05/17 12:30 Order name: IV Saline Lock; Complete Time: 13:14 kb 05/17 12:30 Order name: Labs collected and sent; Complete Time: 13:14 kb 05/17 12:30 Order name: US Abdomen Limited; Complete Time: 13:00 kb 05/17 14:24 Order name: Urine Culture EDMS 05/17 12:30 Order name: Orthostatics; Complete Time: 12:36 kb Administered Medications: 14:50 Drug: NS 0.9% 1000 ml Route: IV; Rate: 1000 ml; Site: left antecubital; eh3 16:11 Follow up: Response: No adverse reaction; IV Status: Completed infusion; IV Intake: ll1 1000ml 16:36 Follow up: IV Status: Completed infusion; IV Intake: 1000ml eh3 16:30 Drug: Ketorolac 15 mg Route: IVP; Site: left antecubital; eh3 16:44 Follow up: Response: Medication administered at discharge. eh3 16:30 Drug: Benadryl (diphenhydrAMINE) 12.5 mg Route: IVP; Site: left antecubital; eh3 16:44 Follow up: Response: Medication administered at discharge. eh3 16:30 Drug: Reglan (metoCLOPramide) 10 mg Route: IVP; Site: left antecubital; eh3 16:44 Follow up: Response: Medication administered at discharge. 3 Disposition Summary: 05/17/22 15:51 Discharge Ordered Location: Home kb Condition: Stable kb Diagnosis - Dehydration kb - Migraine without aura, not intractable kb Followup: kb - With: Emergency Department - When: As needed - Reason: Worsening of condition Followup: kb - With: Private Physician - When: 2 - 3 days - Reason: Recheck today's complaints, Continuance of care, Re-evaluation by your physician Discharge Instructions: - Discharge Summary Sheet kb - Migraine Headache, [id number] kb - Dehydration, Adult, [id number] kb Forms: - Medication Reconciliation Form kb - Thank You Letter kb - Antibiotic Education kb - Prescription Opioid Use kb - Work release form eh3 Prescriptions: - Zofran 4 mg Oral Tablet - take 1 tablet by ORAL route every 8 hours As needed; 10 tablet; Refills: 0, kb Product Selection Permitted NIH Stroke Scale - NIH Stroke Score Date: 05/17/2022 Time: 13:30 Total Score = 0 1a. Level of Consciousness (LOC) - 0(Alert) 1b. Level of Consciousness (LOC) (Month \T\ Age) - 0(Both) 1c. LOC Commands (Open \T\ Closes Eyes/Stretching Machine Operator) - 0(Both) 2. Best Gaze (Lateral Gaze Paresis) - 0(Normal) 3. Visual Field Loss - 0(No visual loss) 4. Facial Palsy - 0(Normal) 5a. Left Arm: Motor (10-second hold) - 0(No drift) 5b. Right Arm: Motor (10-second hold) - 0(No drift) 6a. Left Leg: Motor (5-second hold - always test supine) - 0(No drift) 6b. Right Leg: Motor (5-second hold - always test supine) - 0(No drift) 7. Limb Ataxia (finger/nose \T\ heel/redman - test with eyes open) - 0(Absent) 8. Sensory Loss (pinprick arms/legs/face) - 0(Normal) 9. Best Language: Aphasia (description/naming/reading) - 0(No aphasia) 10. Dysarthria (speech clarity - read or repeat words) - 0(Normal) 11. Extinction and Inattention (visual/tactile/auditory/spatial/personal) - 0(No abnormality) Initials: eh3 Signatures: Dispatcher [employer] Ivis Rick, JACQUES-C AWNING HANGER HELPER-Acosta Guo, RN RN 1 Christina Madden RN RN eh3
[2022-05-17] MEDS ORDERED: METOCLOPRAMIDE 10 MG/2mL INJ ONE (16:28)
[2022-05-17] MEDS ORDERED: KETOROLAC 30 MG/ML INJ ONE (16:29)
[2022-05-17] MEDS ORDERED: DIPHENHYDRAMINE 50 MG/ML VIAL ONE (16:29)
[2022-05-17 16:55] VITALS: TEMP 98.5
[2022-05-17 16:57] VITALS: O2SAT 100
[2022-05-17 17:00] VITALS: BP 121/82
== END 2022-05-17 16:44 | disposition home or self-care (01) ==
LOC: ER 12:15
DX: E86.0 Dehydration (principal); G43.009 Migraine without aura, not intractable, without status migrainosus
CPT/HCPCS: 36415; 76705; 80053; 81003; 81015; 81025; 83690; 85025; 87086; 87088; 96361; 96374; 96375; 99284; J1200; J2765; J7030

== ENCOUNTER 2022-07-25 12:34 | Emergency (ER) | payer SELFPAY ==
--- OUTSIDE RECORDS SUMMARY | 2022-07-25 12:57 | XMS REPORT | Continuity of Care Document ---
:1985 Author Organization [facility] t Address [address] [place] [address] Care Team Providers Name Role Phone PCP, PATIENT DOES NOT HAVE A Primary Care Physician Unavaila ble VICK GARY Attending Clinician Unavailable Vick Gray NP Attending Clinician Krissy Hernandez Attending Clinician KRISSY MERRITT Attending Clinician Unavailable VICK GARY Admitting Clinician Unavailable KRISSY MERRITT Admitting Clinician Unavailable Payers Payer Name Policy Type Policy Number Effective Date Expiration Date S juli [employer] [place] [id number] 2020 00:00:00 WOMEN Problems Condition Condition Condition Status Onset Resolution Last Treating Co mments Source Name Details Category Date Date Treatment Clinician Date No known No known Disease Unive rs active active ity of problems problems [facility] Allergies, Adverse Reactions, Alerts Allergy Allergy Status Severity Reaction(s) Onset Inactive Treating Comm ents Source Name Type Date Date Clinician OXICONAZ DRUG Active Swelling Univer s OLE INGREDI 12-07 ity of NITRATE 00:00: [address] Oxiconaz Propensi Active Swelling Univ ers ole ty to 12-07 ity of Nitrate adverse 00:00: [place] reaction 00 Medical s Branch Social History Social Habit Start Date Stop Date Quantity Comments Source History SDOH [facility] [place] Alcohol Frequency Medical Branch History SDOH [facility] [place] Alcohol Std Drinks Medica l Branch History SDOH [facility] [place] Alcohol Binge Medical Bra [facility] Exposure to Not sure [facility] SARS-CoV-2 (event) Medica l Branch Alcohol intake 2021-04-11 2021-04-11 0 /d [facility] 00:00:00 00:00:00 Medical Branch Tobacco use and 2015-12-08 2015-12-08 Never used [facility] exposure 00:00:00 00:00:00 Medical Branch Alcohol Comment 2015-12-08 2015-12-08 Occasional [facility] 00:00:00 00:00:00 Medical Branch Sex [birth year] [facility] 00:00:00 00:00:00 Medical Branch Smoking Status Start Date Stop Date Source Never smoker [facility] Medical Branch Medications Ordered Filled Start Stop Current Ordering Indication Dosage Frequency Signature Comments Components Source Medication Medication Date Date Medication? Clinician (SIG) Name Name Depo-Plate Setter 2021-0 No 1mg/mL a 150 mg/mL -28 intramuscul 00:00: ar syringe 00 TAKE 2021-0 No CAPSULE BY 6-28 MOUTH THREE 00:00: TIMES A DAY 00 NEEDED FOR COUGH TAKE 0 No CAPSULE BY 6-28 MOUTH THREE 00:00: TIMES A DAY 00 NEEDED FOR COUGH TAKE 0 No CAPSULE BY 6-28 MOUTH THREE 00:00: TIMES A DAY 00 NEEDED FOR COUGH Depo-Plate Setter 2021-0 No 1mg/mL a 150 mg/mL -28 intramuscul 00:00: ar syringe 00 TAKE 2021-0 [...] ONCE 00:00: EVERY 3 00 MONTHS. TAKE 1 2022-0 No CAPSULE BY 6-28 MOUTH THREE 00:00: TIMES A DAY 00 NEEDED FOR COUGH TAKE 1 0 No CAPSULE BY 6-28 MOUTH THREE 00:00: TIMES A DAY 00 NEEDED FOR COUGH TAKE 1 No CAPSULE BY 6-28 MOUTH THREE 00:00: TIMES A DAY 00 NEEDED FOR COUGH Dose 2021- No Unknown 1-17 00:00: 00 Dose 2021-0 No Unknown 1-17 00:00: 00 lisinopril No 1mg 10 mg -17 tablet 00:00: 00 Dose 0 No Unknown -17 00:00: 00 Dose 2021-0 No Unknown -17 00:00: 00 Dose 0 No Unknown - 00:00: 00 ketorolac 2020-05- No 30mg 30 mg, Unive rs (TORADOL) 2-09 16-05 Slow IV ity of injection 07:15: 06:22 Push, [place] 30 mg 00 :00 ONCE, 1 Medical dose, On Branch [place] 04/11/21 at 0115, Routine
[employer] team member approving Restricted medication : VICK GARY etodolac 2020-05 Yes [id number] 300mg Take 1 U nivers 300 mg 2-05 capsule by ity of capsule 00:00: mouth 3 [place] 00 (three) Medical times Branch daily with meals. etodolac 2020-05- No [id number] 300mg Take 1 Univers 300 mg 2-09 16-05 capsule by ity of capsule 00:00: 00:00 mouth 3 [place] 00 :00 (three) Medical times Branch daily with meals for 5 days. etodolac 2020-05- No [id number] 300mg Take 1 Univers 300 mg 2-09 16-05 capsule by ity of capsule 00:00: 00:00 mouth 3 [place] 00 :00 (three) Medical times Branch daily with meals. acyclovir 2020-05 Yes 200mg Take 200 Uni vers (ZOVIRAX) 2-04 mg by ity of 200 mg 23:44: mouth. [place] capsule 39 Medical Branch Depo-Plate Setter 2020-05 No 1mg/mL a 150 mg/mL 0-22 intramuscul 00:00: ar syringe 00 Depo-Plate Setter 2020-05 No 1mg/mL a 150 mg/mL 0-22 intramuscul 00:00: ar syringe 00 Depo-Plate Setter 2020-05 No 1mg/mL a 150 mg/mL 0-22 intramuscul 00:00: ar syringe 00 benzonatate 2020- No [id number] 100mg Take 1 Univers 100 mg 8- 12-04 capsule by ity of capsule 00:00: 00:00 mouth 3 [place] 00 :00 (three) Medical times Branch daily as needed for Cough. albuterol 2020- No [id number] 4{puff} Inhale 4 Univers 90 8- 12- Puffs ity of mcg/actuati 00:00: 00:00 [place] 4 [place] inhaler 00 :00 (four) Medical hours as Branch needed for Wheezing or Shortness of Breath. ondansetron 2020- No [id number] 4mg Take 1 Univers 4 mg 12-26 tablet by ity of disintegrat 00:00: 00:00 [place] tablet 00 :00 every 8 Medica l (eight) Branch hours as needed for Nausea and Vomiting (N/V). Depo-Plate Setter No 1mg/mL a 150 mg/mL 8-05 intramuscul 00:00: ar syringe 00 Depo-Plate Setter No 1mg/mL a 150 mg/mL 8-05 intramuscul 00:00: ar syringe Depo-Plate Setter 0 No 1mg/mL a 150 mg/mL 8-05 intramuscul 00:00: ar syringe 00 esomeprazol 2020- No [id number] 20mg Take 20 mg Univers e (NEXIUM) [...] 500 mg 0-25 tablet 00:00: 00 amoxicillin 2016-05 No 2mg 500 mg 0-25 capsule 00:00: 00 clarithromy 2016-05 No 1mg joanna 500 mg 0-25 tablet 00:00: 00 amoxicillin 2016-05 No 2mg 500 mg 0-25 capsule 00:00: 00 clarithromy 2016-05 No 1mg joanna 500 mg 0-25 tablet 00:00: 00 amoxicillin 2016-05 No 2mg 500 mg 0-25 capsule 00:00: 00 Immunizations Ordered Filled Immunization Date Status Comments Sour e Immunization Name Name Influenza, 2018-06-19 Completed seasonal, inj 00:00:00 Tdap 2018-06-19 Completed 00:00:00 Influenza, 2018-06-19 Completed seasonal, inj 00:00:00 Tdap 2018-06-19 Completed 00:00:00 Influenza, 2018-06-19 Completed seasonal, inj 00:00:00 Tdap 2018-06-19 Completed 00:00:00 Influenza Virus 2016-04-11 Completed Universit y of Vaccine Quad IM 3+ 00:00:00 [facility] Branch TDAP 2016-04-11 Completed University 00:00:00 [facility] Vital Signs Vital Name Observation Time Observation Value Comments Source Systolic blood 2021-04-11 08:00:00 132 mm[Hg] Univer sity of pressure [facility] Diastolic blood 2021-04-11 08:00:00 88 [facility]Hg[facility] 2021-04-11 08:00:00 61 /min [facility] Respiratory rate 2021-04-11 08:00:00 20 /min [facility] Oxygen saturation in 2021-04-11 08:00:00 100 /min [facility] Arterial blood by [facility] Pulse oximetry Branch Body temperature 2021-04-11 05:42:00 36.94 [facility] Body height 2021-04-11 05:42:00 157.5 cm [facility] Body weight 2021-04-11 05:42:00 97.523 kg [facility] BMI 2021-04-11 05:42:00 39.32 kg/m2 [facility] BP Systolic 2022-04-06 10:27:00 135 mm[Hg] BP [...] Procedure Date / Time Performed Performing Clinician Sourkaren e XR CHEST 1 VW 2021-04-11 06:41:03 Vick Gary [facility] D-DIMER 2021-04-11 06:34:00 Vick Gary [facility] LIPASE 2021-04-11 06:15:00 Vick Gary [facility] TROPONIN I 2021-04-11 06:15:00 Vick Gary [facility] COMP. METABOLIC PANEL 2021-04-11 06:15:00 Vick Gary [facility] ([id number]) [facility] CBC WITH DIFF 2021-04-11 06:15:00 Vick Gary [facility] CONSENT/REFUSAL FOR 2021-04-11 05:33:33 Doctor Unassigned, No Un [facility] DIAGNOSIS AND Name [facility] TREATMENT Plan of Care Planned Activity Planned Date Details Comments Source Goal Plan of Care Note [code = 00007-4] Goal Plan of Care Note [code = 10292-2] Goal Plan of Care Note [code = 02750-4] Goal Plan of Care Note [code = 55566-5] Goal Plan of Care Note [code = 46794-9] Goal Plan of Care Note [code = 14968-2] Goal Plan of Care Note [code = 52516-5] Goal Plan of Care Note [code = 60301-8] Goal Plan of Care Note [code = 47999-0] Goal Plan of Care Note [code = 47400-6] Goal Plan of Care Note [code = 95625-2] Goal Plan of Care Note [code = 74971-6] Goal Plan of Care Note [code = 94699-1] Goal Plan of Care Note [code = 45212-2] Goal Plan of Care Note [code = 35987-7] Goal Plan of Care Note [code = 21683-2] Goal Plan of Care Note [code = 92758-3] Goal Plan of Care Note [code = 23074-3] Goal Plan of Care Note [code = 75828-4] Goal Plan of Care Note [code = 51575-0] Goal Plan of Care Note [code = 00534-5] Goal Plan of Care Note [code = 11205-7] Goal Plan of Care Note [code = 54691-9] Goal Plan of Care Note [code = 92323-6] Goal Plan of Care Note [code = 89105-3] Goal Plan of Care Note [code = 72215-9] Goal Plan of Care Note [code = 51207-5] Goal Plan of Care Note [code = 75571-5] Goal Plan of Care Note [code = 70567-1] Goal Plan of Care Note [code = 23906-8] Goal Plan of Care Note [code = 15706-4] Goal Plan of Care Note [code = 13906-1] Goal Plan of Care Note [code = 49139-5] Goal Plan of Care Note [code = 55023-7] Goal Plan of Care Note [code = 34082-2] Goal Plan of Care Note [code = 87415-3] Goal Plan of Care Note [code = 94887-0] Goal Plan of Care Note [code = 54371-9] Goal Plan of Care Note [code = 22342-1] Goal Plan of Care Note [code = 23707-1] Goal Plan of Care Note [code = 46890-0] Goal Plan of Care Note [code = 48572-0] Goal Plan of Care Note [code = 53020-7] Goal Plan of Care Note [code = 52595-2] Goal Plan of Care Note [code = 39159-0] Goal Plan of Care Note [code = 60192-1] Goal Plan of Care Note [code = 60956-7] Goal Plan of Care Note [code = 00558-9] Goal Plan of Care Note [code = 05441-9] Goal Plan of Care Note [code = 93022-2] Goal Plan of Care Note [code = 90163-7] Goal Plan of Care Note [code = 49121-5] Goal Plan of Care Note [code = 78618-9] Goal Plan of Care Note [code = 56941-1] Goal Plan of Care Note [code = 61809-9] Goal Plan of Care Note [code = 31974-8] Goal Plan of Care Note [code = 13974-6] Goal Plan of Care Note [code = 82638-1] Goal Plan of Care Note [code = 21367-5] Goal Plan of Care Note [code = 09998-6] Goal Plan of Care Note [code = 40038-0] Goal Plan of Care Note [code = 59676-7] Goal Plan of Care Note [code = 23836-5] Goal Plan of Care Note [code = 53692-9] Goal Plan of Care Note [code = 02035-8] Goal Plan of Care Note [code = 26942-3] Goal Plan of Care Note [code = 73432-8] Goal Plan of Care Note [code = 33000-5] Goal Plan of Care Note [code = 22512-5] Goal Plan of Care Note [code = 17735-8] Goal Plan of Care Note [code = 75250-8] Goal Plan of Care Note [code = 43902-4] Goal Plan of Care Note [code = 68878-8] Goal Plan of Care Note [code = 35232-6] Goal Plan of Care Note [code = 20846-8] Goal Plan of Care Note [code = 07582-2] Goal Plan of Care Note [code = 25906-6] Goal Plan of Care Note [code = 36508-9] Goal Plan of Care Note [code = 76406-6] Goal Plan of Care Note [code = 73087-0] Goal Plan of Care Note [code = 33984-9] Encounters Start End Encounter Admission Attending Care Care Encounter Source Date/Time Date/Time Type Type Clinicians Facility Department ID 2021-03-08 Emergency [facility] [id number] [facility]22-06-24 Outpatient SFA SFA [id number] Jaun 13:07:39 13:07:39 0217 F Madhav 2022-04-06 2022-04-06 Outpatient SFA SFA [id number] Jaun 10:14:07 10:14:07 1130 F Madhav 2022-04-06 2022-04-06 Outpatient [id number] 00:00:00 00:00:00 Visit 076b-436a 76b-436a-9 -9005-7a4 005-8x645l 30itb32k2 ca41b7 2022-01-19 2022-01-19 Outpatient [id number] [id number] p7y260-0 00:00:00 00:00:00 Visit 23c9-838a 5t8-036i-4 -3kf5-125 [facility]209318 [id number] 2218-06-28 2021-11-02 Outpatient [id number] 0u6bq9-2 00:00:00 00:00:00 Visit 41s1-36i9 1o0-39h4-3 -8009-desiree 009-eda48b [id number] 4260-12-04 2021-04-[address] [facility] ERT [id number] Univers 23:45:00 02:10:00 [facility] 2021-04-10 2021-04-11 Emergency [facility] [id number] [facility] 23:45:00 02:10:[address] [facility] 4.2.7.2.686 [facility] [id number] [address] 2020-05-27 2020-05-27 Emergency [facility] [id number] 11:00:00 13:42:00 [facility] Mónica Geri 350.1.13.10 [place] 4.2.7.2.686 [place] [id number] [facility] 2020-05-27 2020-05-27 Emergency X [facility] ERT [id number] Univers 11:00:00 13:42:00 [facility] Results Test Description Test Time Test Comments Results Result Comments Source D-DIMER 2021-04-11 07:04:48 Test Item Value Reference Range Interpretation Comme nts D-DIMER (test code = <0.27 See_Comment [Autom ated message] The 7958406896) system which ge nerated this result tra [...] diagnosis. Lab Interpretation Normal (test code = 89886-2) [facility] [id number] 06:46:29 Test Item Value Reference Interpretation Comments Range TROPONIN I (test 0.000 ng/mL See_Comment [Automated code = 7220359955) message] The system which generated this result [...] biotin. Lab Interpretation Normal (test code = 52639-0) [facility] (50475)2021-04-11 06:35:05 Test Item Value Reference Range Interpretation Comments NA (test code = 141 mmol/L 135-145 2026668754) K (test code = 4.2 mmol/L 3.5-5.0 9953124228) CL (test code = 107 mmol/L 98-108 1944087417) CO2 TOTAL (test code = 25 mmol/L 23-31 5774898934) AGAP (test code = 2-16 4118185175) BUN (test code = 15 mg/dL 7-23 8827246035) GLUCOSE (test code = 112 mg/dL 70-110 H 3790348519) CREATININE (test code = 0.79 mg/dL 0.50-1.04 4246580742) TOTAL BILI (test code = 0.4 mg/dL 0.1-1.3 8777725753) CALCIUM (test code = 10.0 mg/dL 8.6-10.6 2865992697) T PROTEIN (test code = 7.5 g/dL 6.3-8.2 0907445180) ALBUMIN (test code = 4.2 g/dL 3.5-5.0 9084503483) ALK PHOS (test code = 92 U/L 34-122 6605836558) ALTv (test code = 19 U/L 5-35 2-6) AST(SGOT) (test code = 21 U/L 13-40 7410823619) eGFR (test code = mL/min/1.73m2 7693491595) JO (test code = JO) Association of [...] tests). Lab Interpretation Abnormal (test code = 62594-9) [facility] 06:34:45 Test Item Value Reference Range Interpretation Comments LIPASE (test code = 6989741526) 64 U/L 0-220 Lab Interpretation (test code = Normal 91537-1) [facility] [id number] 06:24:53 Test Item Value Reference Range Interpretation [...] RDW-SD (test code = 41.1 fL 39.0-49.9 59178-3) RDW-CV (test code = 14.4 % 12.0-15.5 788-0) PLT (test code = See_Comment H [Automated 777-3) message] The sy stem which generated this result transmitted reference range : 166 - 358 10*3/ ?L. The reference r félix was not used to interpret this result as normal/abnormal . MPV (test code = 10.1 fL 9.5-12.9 96756-3) NRBC/100 WBC (test See_Comment [Automat ed code = 7968077859) message] The system which generated this result transmitted reference range : 0.0 - 10.0 /100 WBCs. The refer ence range was not u sed to interpret th is result as normal/abnormal . NRBC x10^3 (test code <0.01 See_Comment [Auto mated = 4995930530) message] The s ystem which generated this result transmitted reference range : 10*3/?L. The reference range was not used to interpret this result as normal/abnormal . GRAN MAT (NEUT) % 59.1 % (test code = 770-8) IMM GRAN % (test code 0.60 % = 8667029743) LYMPH % (test code = 28.9 % 736-9) MONO % (test code = 9.1 % 5905-5) EOS % (test code = 1.7 % 713-8) BASO % (test code = 0.6 % 706-2) GRAN MAT x10^3(ANC) 8.48 10*3/uL 1.88-7.09 H (test code = 5073051268) IMM GRAN x10^3 (test 0.08 10*3/uL 0.00-0.06 H code = 2799972043) LYMPH x10^3 (test code 4.14 10*3/uL 1.32-3.29 H = 731-0) MONO x10^3 (test code 1.30 10*3/uL 0.33-0.92 H = 742-7) EOS x10^3 (test code = 0.24 10*3/uL 0.03-0.39 711-2) BASO x10^3 (test code 0.08 10*3/uL 0.01-0.07 H = 704-7) Lab Interpretation Abnormal (test code = 03035-8) [facility] AB/AG COMBO RFLX [id number] 00:00:00 Test Item Value Reference Range Interpretation Comments HIV 1/2 4TH GEN, RFLX CONF (test NON-REACTIVE code = 3514) HIV AB/AG COMBO RFLX [id number] 00:00:00 Test Item Value Reference Range Interpretation Comments HIV 1/2 4TH GEN, RFLX CONF (test NON-REACTIVE code = 3514) GC AND CHLAMYDIA, AMPLIFIED, [id number] 00:00:00 Test Item Value Reference Range Interpretation Comments GONORRHEA, NAAT (test code = 75227) NEGATIVE CHLAMYDIA, NAAT (test code = 98171) NEGATIVE GC AND CHLAMYDIA, AMPLIFIED, [id number] 00:00:00 Test Item Value Reference Range Interpretation Comments GONORRHEA, NAAT (test code = 23004) NEGATIVE CHLAMYDIA, NAAT (test code = 89649) NEGATIVE [id number] 00:00:00 Test Item Value Reference Range Interpretation Comments RPR RESULT (test code = NON-REACTIVE 3501) RPR TITER (test code = 3500) NOT INDIC. TITER [id number] 00:00:00 Test Item Value Reference Range Interpretation Comments RPR RESULT (test code = NON-REACTIVE 3501) RPR TITER (test code = 3500) NOT INDIC. TITER [id number] 00:00:00 Test Item Value Reference Range Interpretation Comments RPR RESULT (test code = NON-REACTIVE 3501) RPR TITER (test code = 3500) NOT INDIC. TITER HIV AB/AG COMBO RFLX [id number] 00:00:00 Test Item Value Reference Range Interpretation Comments HIV 1/2 4TH GEN, RFLX CONF (test NON-REACTIVE code = 3514) HIV AB/AG COMBO RFLX [id number] 00:00:00 Test Item Value Reference Range Interpretation Comments HIV 1/2 4TH GEN, RFLX CONF (test NON-REACTIVE code = 3514) GC AND CHLAMYDIA, AMPLIFIED, [id number] 00:00:00 Test Item Value Reference Range Interpretation Comments GONORRHEA, NAAT (test code = 25773) NEGATIVE CHLAMYDIA, NAAT (test code = 75198) NEGATIVE GC AND CHLAMYDIA, AMPLIFIED, [id number] 00:00:00 Test Item Value Reference Range Interpretation Comments GONORRHEA, NAAT (test code = 81966) NEGATIVE CHLAMYDIA, NAAT (test code = 24776) NEGATIVE [id number] 00:00:00 Test Item Value Reference Range Interpretation Comments RPR RESULT (test code = NON-REACTIVE 3501) RPR TITER (test code = 3500) NOT INDIC. TITER [id number] 00:00:00 Test Item Value Reference Range Interpretation Comments RPR RESULT (test code = NON-REACTIVE 3501) RPR TITER (test code = 3500) NOT INDIC. TITER [id number] 00:00:00 Test Item Value Reference Range Interpretation Comments RPR RESULT (test code = NON-REACTIVE 3501) RPR TITER (test code = 3500) NOT INDIC. TITER HIV AB/AG COMBO RFLX [id number] 00:00:00 Test Item Value Reference Range Interpretation Comments HIV 1/2 4TH GEN, RFLX CONF (test NON-REACTIVE code = 3514) GC AND CHLAMYDIA, AMPLIFIED, [id number] 00:00:00 Test Item Value Reference Range Interpretation Comments GONORRHEA, NAAT (test code = 62334) NEGATIVE CHLAMYDIA, NAAT (test code = 87247) NEGATIVE [id number] 00:00:00 Test Item Value Reference Range Interpretation Comments RPR RESULT (test code = NON-REACTIVE 3501) RPR TITER (test code = 3500) NOT INDIC. TITER [id number] 00:00:00 Test Item Value Reference Range Interpretation Comments RPR RESULT (test code = NON-REACTIVE 3501) RPR TITER (test code = 3500) NOT INDIC. TITER SARS-CoV-2 (COVID-19) by RT-PCR (HIGH RISK)2019-11-26 00:00:00 Test Item Value Reference Range Interpretation Comments SARS-CoV-2 INTERPRETATION (test NEGATIVE code = 15940) SOURCE (test code = 77740) NOT SPECIFIED SARS-CoV-2 (COVID-19) by RT-PCR (HIGH RISK)2019-11-26 00:00:00 Test Item Value Reference Range Interpretation Comments SARS-CoV-2 INTERPRETATION (test NEGATIVE code = 27342) SOURCE (test code = 37932) NOT SPECIFIED SARS-CoV-2 (COVID-19) by RT-PCR (HIGH RISK)2019-11-26 00:00:00 Test Item Value Reference Range Interpretation Comments SARS-CoV-2 INTERPRETATION (test NEGATIVE code = 90201) SOURCE (test code = 31683) NOT SPECIFIED SARS-CoV-2 (COVID-19) by RT-PCR (HIGH RISK)2019-11-26 00:00:00 Test Item Value Reference Range Interpretation Comments SARS-CoV-2 INTERPRETATION (test NEGATIVE code = 68559) SOURCE (test code = 02796) NOT SPECIFIED SARS-CoV-2 (COVID-19) by RT-PCR (HIGH RISK)2019-11-26 00:00:00 Test Item Value Reference Range Interpretation Comments SARS-CoV-2 INTERPRETATION (test NEGATIVE code = 39541) SOURCE (test code = 78541) NOT SPECIFIED PAP TEST, THINPREP, [id number] 00:00:00 Test Item Value Reference Range Interpretation Comments SOURCE: (test code = Cervical/Endocervical 8001) SLIDES: (test code = 1 8011) LMP: (test code = 8021) 03/08/2018 SPECIMEN ADEQUACY: (NOTE) (test code = 62789) INTERPRETATION: (test NILM/NO EPITH. code = 11910) ABNORMALITY;SEE BELOW MANAGER INSURANCE: (test Andrew code = 8101) BEN Urena(ASCP)IAC LOCATION: (test code = (NOTE) 11085) CPT: (test code = 8140) (NOTE) PAP TEST, THINPREP, [id number] 00:00:00 Test Item Value Reference Range Interpretation Comments SOURCE: (test code = Cervical/Endocervical 8001) SLIDES: (test code = 1 8011) LMP: (test code = 8021) 03/08/2018 SPECIMEN ADEQUACY: (NOTE) (test code = 61175) INTERPRETATION: (test NILM/NO EPITH. code = 39489) ABNORMALITY;SEE BELOW MANAGER INSURANCE: (test Andrew code = 8101) BEN Urena(ASCP)IAC LOCATION: (test code = (NOTE) 42541) CPT: (test code = 8140) (NOTE) PAP TEST, THINPREP, [id number] 00:00:00 Test Item Value Reference Range Interpretation Comments SOURCE: (test code = Cervical/Endocervical 8001) SLIDES: (test code = 1 8011) LMP: (test code = 8021) 03/08/2018 SPECIMEN ADEQUACY: (NOTE) (test code = 40476) INTERPRETATION: (test NILM/NO EPITH. code = 23577) ABNORMALITY;SEE BELOW MANAGER INSURANCE: (test Andrew code = 8101) BEN Urena(ASCP)IAC LOCATION: (test code = (NOTE) 70089) CPT: (test code = 8140) (NOTE) PAP TEST, THINPREP, [id number] 00:00:00 Test Item Value Reference Range Interpretation Comments SOURCE: (test code = Cervical/Endocervical 8001) SLIDES: (test code = 1 8011) LMP: (test code = 8021) 03/08/2018 SPECIMEN ADEQUACY: (NOTE) (test code = 51236) INTERPRETATION: (test NILM/NO EPITH. code = 45105) ABNORMALITY;SEE BELOW MANAGER INSURANCE: (test Andrew code = 8101) BEN Urena(ASCP)IAC LOCATION: (test code = (NOTE) 71047) CPT: (test code = 8140) (NOTE) PAP TEST, THINPREP, [id number] 00:00:00 Test Item Value Reference Range Interpretation Comments SOURCE: (test code = Cervical/Endocervical 8001) SLIDES: (test code = 1 8011) LMP: (test code = 8021) 03/08/2018 SPECIMEN ADEQUACY: (NOTE) (test code = 79630) INTERPRETATION: (test NILM/NO EPITH. code = 42069) ABNORMALITY;SEE BELOW MANAGER INSURANCE: (test Andrew code = 8101) BEN Urena(ASCP)IAC LOCATION: (test code = (NOTE) 98188) CPT: (test code = 8140) (NOTE) PAP TEST, THINPREP, [id number] 00:00:00 Test Item Value Reference Range Interpretation Comments SOURCE: (test code = Cervical/Endocervical 8001) SLIDES: (test code = 2 8011) LMP: (test code = 8021) 03/08/2018 SPECIMEN ADEQUACY: (test (NOTE) code = 76966) INTERPRETATION: (test UNSATISFACTORY; SEE code = 47894) BELOW OTHER COMMENTS: (test (NOTE) code = 8081) MANAGER INSURANCE: (test Farrah code = 8101) BEN Nicole(ASCP)IAC QC TECHNOLOGIST: (test Macarena code = 8111) JENARO Valentine(ASCP)CT(IA C) LOCATION: (test code = (NOTE) 40906) CPT: (test code = 8140) (NOTE) PAP TEST, THINPREP, [id number] 00:00:00 Test Item Value Reference Range Interpretation Comments SOURCE: (test code = Cervical/Endocervical 8001) SLIDES: (test code = 2 8011) LMP: (test code = 8021) 03/08/2018 SPECIMEN ADEQUACY: (test (NOTE) code = 69902) INTERPRETATION: (test UNSATISFACTORY; SEE code = 74734) BELOW OTHER COMMENTS: (test (NOTE) code = 8081) MANAGER INSURANCE: (test Farrah code = 8101) BEN Nicole(ASCP)IAC QC TECHNOLOGIST: (test Macarena code = 8111) JENARO Valentine(ASCP)CT(IA C) LOCATION: (test code = (NOTE) 36825) CPT: (test code = 8140) (NOTE) PAP TEST, THINPREP, [id number] 00:00:00 Test Item Value Reference Range Interpretation Comments SOURCE: (test code = Cervical/Endocervical 8001) SLIDES: (test code = 2 8011) LMP: (test code = 8021) 03/08/2018 SPECIMEN ADEQUACY: (test (NOTE) code = 25724) INTERPRETATION: (test UNSATISFACTORY; SEE code = 43593) BELOW OTHER COMMENTS: (test (NOTE) code = 8081) MANAGER INSURANCE: (test Farrah code = 8101) BEN Nicole(ASCP)IAC QC TECHNOLOGIST: (test Macarena code = 8111) JENARO Valentine(ASCP)CT(IA C) LOCATION: (test code = (NOTE) 04293) CPT: (test code = 8140) (NOTE) PAP TEST, THINPREP, [id number] 00:00:00 Test Item Value Reference Range Interpretation Comments SOURCE: (test code = Cervical/Endocervical 8001) SLIDES: (test code = 2 8011) LMP: (test code = 8021) 03/08/2018 SPECIMEN ADEQUACY: (test (NOTE) code = 12746) INTERPRETATION: (test UNSATISFACTORY; SEE code = 32906) BELOW OTHER COMMENTS: (test (NOTE) code = 8081) MANAGER INSURANCE: (test Farrah code = 8101) BEN Nicole(ASCP)IAC QC TECHNOLOGIST: (test Macarena code = 8111) JENARO Valentine(ASCP)CT(IA C) LOCATION: (test code = (NOTE) 04611) CPT: (test code = 8140) (NOTE) PAP TEST, THINPREP, [id number] 00:00:00 Test Item Value Reference Range Interpretation Comments SOURCE: (test code = Cervical/Endocervical 8001) SLIDES: (test code = 2 8011) LMP: (test code = 8021) 03/08/2018 SPECIMEN ADEQUACY: (test (NOTE) code = 75861) INTERPRETATION: (test UNSATISFACTORY; SEE code = 48327) BELOW OTHER COMMENTS: (test (NOTE) code = 8081) MANAGER INSURANCE: (test Farrah code = 8101) BEN Nicole(ASCP)IAC QC TECHNOLOGIST: (test Macarena code = 8111) JENARO Valentine(ASCP)CT(IA C) LOCATION: (test code = (NOTE) 89125) CPT: (test code = 8140) (NOTE) HEMOGLOBIN [id number] 00:00:00 Test Item Value Reference Range Interpretation Comments HEMOGLOBIN A1c (test code = 61397) 5.0 % HEMOGLOBIN [id number] 00:00:00 Test Item Value Reference Range Interpretation Comments HEMOGLOBIN A1c (test code = 87395) 5.0 % GC AND CHLAMYDIA AMPLIFIED, [id number] 00:00:00 Test Item Value Reference Range Interpretation Comments GONORRHEA, TMA (test code = 13374) NEGATIVE CHLAMYDIA, TMA (test code = 41354) NEGATIVE GC AND CHLAMYDIA AMPLIFIED, [id number] 00:00:00 Test Item Value Reference Range Interpretation Comments GONORRHEA, TMA (test code = 00640) NEGATIVE CHLAMYDIA, TMA (test code = 09624) NEGATIVE HEMOGLOBIN [id number] 00:00:00 Test Item Value Reference Range Interpretation Comments HEMOGLOBIN A1c (test code = 60261) 5.0 % LIPID [id number] 00:00:00 Test Item Value Reference Range Interpretation Comments CHOLESTEROL (test code = 2210) 149 MG/DL TRIGLYCERIDES (test code = 2232) 160 MG/DL HDL CHOLESTEROL (test code = 2220) 38 MG/DL CALC LDL CHOL (test code = 2237) 79 MG/DL RISK RATIO LDL/HDL (test code = 2.08 RATIO 2238) LIPID [id number] 00:00:00 Test Item Value Reference Range Interpretation Comments CHOLESTEROL (test code = 2210) 149 MG/DL TRIGLYCERIDES (test code = 2232) 160 MG/DL HDL CHOLESTEROL (test code = 2220) 38 MG/DL CALC LDL CHOL (test code = 2237) 79 MG/DL RISK RATIO LDL/HDL (test code = 2.08 RATIO 2238) HPV HIGH RISK WITH GENOTYPE, [id number] 00:00:00 Test Item Value Reference Range Interpretation Comments HPV HIGH RISK INTERP (test code = NEGATIVE 97979) HPV 16 (test code = 75372) NEGATIVE HPV 18 (test code = 45935) NEGATIVE HPV, HR, OTHER GENOTYPES (test code NEGATIVE = 98147) HPV HIGH RISK WITH GENOTYPE, [id number] 00:00:00 Test Item Value Reference Range Interpretation Comments HPV HIGH RISK INTERP (test code = NEGATIVE 76269) HPV 16 (test code = 65782) NEGATIVE HPV 18 (test code = 30445) NEGATIVE HPV, HR, OTHER GENOTYPES (test code NEGATIVE = 51004) COMPREHENSIVE METABOLIC [id number] 00:00:00 Test Item Value Reference Range Interpretation Comments GLUCOSE (test code = 2217) 96 MG/DL BUN (test code = 2208) 8 MG/DL CREATININE (test code = 2214) 0.82 MG/DL eGFR AMER. (test code 109 ML/MIN/1.73 = 92318) eGFR NON- AMER. (test 94 ML/MIN/1.73 code = 53663) CALC BUN/CREAT (test code = 10 RATIO [...] code = 2219) 16 U/L COMPREHENSIVE METABOLIC [id number] 00:00:00 Test Item Value Reference Range Interpretation Comments GLUCOSE (test code = 2217) 96 MG/DL BUN (test code = 2208) 8 MG/DL CREATININE (test code = 2214) 0.82 MG/DL eGFR AMER. (test code 109 ML/MIN/1.73 = 73779) eGFR NON- AMER. (test 94 ML/MIN/1.73 code = 03472) CALC BUN/CREAT (test code = 10 RATIO 2235) SODIUM (test code = 2231) 142 MEQ/L POTASSIUM (test code = 2228) 4.4 MEQ/L CHLORIDE (test code = 2215) 101 MEQ/L CARBON DIOXIDE (test code = 29 MEQ/L 220) CALCIUM (test code = 2209) 9.7 MG/DL PROTEIN, TOTAL (test code = 7.2 G/DL 222) ALBUMIN (test code = 2201) 4.5 G/DL CALC GLOBULIN (test code = 2.7 G/DL 2240) CALC A/G RATIO (test code = 1.7 RATIO 2234) BILIRUBIN, TOTAL (test code = 0.3 MG/DL 220) ALKALINE PHOSPHATASE (test 91 U/L code = 2204) AST (test code = 2218) 15 U/L ALT (test code = 2219) 16 U/L [id number] 00:00:00 Test Item Value Reference Range Interpretation Comments RPR RESULT (test code = NON-REACTIVE 3501) RPR TITER (test code = 3500) NOT INDIC. TITER [id number] 00:00:00 Test Item Value Reference Range Interpretation Comments RPR RESULT (test code = NON-REACTIVE 3501) RPR TITER (test code = 3500) NOT INDIC. TITER [id number] 00:00:00 Test Item Value Reference Range Interpretation Comments RPR RESULT (test code = NON-REACTIVE 3501) RPR TITER (test code = 3500) NOT INDIC. TITER ACUTE HEPATITIS [id number] 00:00:00 Test Item Value Reference Range Interpretation Comments HEPATITIS A IgM (test code = NON-REACTIVE 08382) HEPATITIS B CORE IgM (test code NON-REACTIVE = 4644) HEPATITIS B SURF AG (test code = NON-REACTIVE 2739) HEPATITIS C ANTIBODY (test code NON-REACTIVE = 4675) HCV INDEX (test code = 50878) 0.08 INTERPRETATION HEPATITIS A: (NOTE) (test code = 2552) INTERPRETATION HEPATITIS B: (NOTE) (test code = 07225) INTERPRETATION HEPATITIS C: (NOTE) (test code = 79123) ACUTE HEPATITIS [id number] 00:00:00 Test Item Value Reference Range Interpretation Comments HEPATITIS A IgM (test code = NON-REACTIVE 96965) HEPATITIS B CORE IgM (test code NON-REACTIVE = 4644) HEPATITIS B SURF AG (test code = NON-REACTIVE 2739) HEPATITIS C ANTIBODY (test code NON-REACTIVE = 4675) HCV INDEX (test code = 31600) 0.08 INTERPRETATION HEPATITIS A: (NOTE) (test code = 2552) INTERPRETATION HEPATITIS B: (NOTE) (test code = 28276) INTERPRETATION HEPATITIS C: (NOTE) (test code = 09054) HIV AB/AG COMBO RFLX [id number] 00:00:00 Test Item Value Reference Range Interpretation Comments HIV 1/2 4TH GEN, RFLX CONF (test NON-REACTIVE code = 3514) HIV AB/AG COMBO RFLX [id number] 00:00:00 Test Item Value Reference Range Interpretation Comments HIV 1/2 4TH GEN, RFLX CONF (test NON-REACTIVE code = 3514) HEMOGLOBIN [id number] 00:00:00 Test Item Value Reference Range Interpretation Comments HEMOGLOBIN A1c (test code = 80264) 5.0 % HEMOGLOBIN [id number] 00:00:00 Test Item Value Reference Range Interpretation Comments HEMOGLOBIN A1c (test code = 16395) 5.0 % HEMOGLOBIN [id number] 00:00:00 Test Item Value Reference Range Interpretation Comments HEMOGLOBIN A1c (test code = 70113) 5.0 % GC AND CHLAMYDIA AMPLIFIED, [id number] 00:00:00 Test Item Value Reference Range Interpretation Comments GONORRHEA, TMA (test code = 19491) NEGATIVE CHLAMYDIA, TMA (test code = 21245) NEGATIVE GC AND CHLAMYDIA AMPLIFIED, [id number] 00:00:00 Test Item Value Reference Range Interpretation Comments GONORRHEA, TMA (test code = 30823) NEGATIVE CHLAMYDIA, TMA (test code = 47764) NEGATIVE HEMOGLOBIN [id number] 00:00:00 Test Item Value Reference Range Interpretation Comments HEMOGLOBIN A1c (test code = 23906) 5.0 % LIPID [id number] 00:00:00 Test Item Value Reference Range Interpretation Comments CHOLESTEROL (test code = 2210) 149 MG/DL TRIGLYCERIDES (test code = 2232) 160 MG/DL HDL CHOLESTEROL (test code = 2220) 38 MG/DL CALC LDL CHOL (test code = 2237) 79 MG/DL RISK RATIO LDL/HDL (test code = 2.08 RATIO 2238) LIPID [id number] 00:00:00 Test Item Value Reference Range Interpretation Comments CHOLESTEROL (test code = 2210) 149 MG/DL TRIGLYCERIDES (test code = 2232) 160 MG/DL HDL CHOLESTEROL (test code = 2220) 38 MG/DL CALC LDL CHOL (test code = 2237) 79 MG/DL RISK RATIO LDL/HDL (test code = 2.08 RATIO 2238) HPV HIGH RISK WITH GENOTYPE, [id number] 00:00:00 Test Item Value Reference Range Interpretation Comments HPV HIGH RISK INTERP (test code = NEGATIVE 41564) HPV 16 (test code = 06449) NEGATIVE HPV 18 (test code = 99619) NEGATIVE HPV, HR, OTHER GENOTYPES (test code NEGATIVE = 74281) HPV HIGH RISK WITH GENOTYPE, [id number] 00:00:00 Test Item Value Reference Range Interpretation Comments HPV HIGH RISK INTERP (test code = NEGATIVE 13014) HPV 16 (test code = 05699) NEGATIVE HPV 18 (test code = 49060) NEGATIVE HPV, HR, OTHER GENOTYPES (test code NEGATIVE = 91877) COMPREHENSIVE METABOLIC [id number] 00:00:00 Test Item Value Reference Range Interpretation Comments GLUCOSE (test code = 2217) 96 MG/DL BUN (test code = 2208) 8 MG/DL CREATININE (test code = 2214) 0.82 MG/DL eGFR AMER. (test code 109 ML/MIN/1.73 = 56916) eGFR NON- AMER. (test 94 ML/MIN/1.73 code = 07054) CALC BUN/CREAT (test code = 10 RATIO 2235) SODIUM (test code = 2231) 142 MEQ/L POTASSIUM (test code = 2228) 4.4 MEQ/L CHLORIDE (test code = 2215) 101 MEQ/L CARBON DIOXIDE (test code = 29 MEQ/L 220) CALCIUM (test code = 2209) 9.7 MG/DL [...] code = 2219) 16 U/L COMPREHENSIVE METABOLIC [id number] 00:00:00 Test Item Value Reference Range Interpretation Comments GLUCOSE (test code = 2217) 96 MG/DL BUN (test code = 2208) 8 MG/DL CREATININE (test code = 2214) 0.82 MG/DL eGFR AMER. (test code 109 ML/MIN/1.73 = 53171) eGFR NON- AMER. (test 94 ML/MIN/1.73 code = 58649) CALC BUN/CREAT (test code = 10 RATIO [...] BILIRUBIN, TOTAL (test code = 0.3 MG/DL 7) ALKALINE PHOSPHATASE (test 91 U/L code = 2204) AST (test code = 2218) 15 U/L ALT (test code = 2219) 16 U/L [id number] 00:00:00 Test Item Value Reference Range Interpretation Comments RPR RESULT (test code = NON-REACTIVE 3501) RPR TITER (test code = 3500) NOT INDIC. TITER [id number] 00:00:00 Test Item Value Reference Range Interpretation Comments RPR RESULT (test code = NON-REACTIVE 3501) RPR TITER (test code = 3500) NOT INDIC. TITER [id number] 00:00:00 Test Item Value Reference Range Interpretation Comments RPR RESULT (test code = NON-REACTIVE 3501) RPR TITER (test code = 3500) NOT INDIC. TITER ACUTE HEPATITIS [id number] 00:00:00 Test Item Value Reference Range Interpretation Comments HEPATITIS A IgM (test code = NON-REACTIVE 02976) HEPATITIS B CORE IgM (test code NON-REACTIVE = 4644) HEPATITIS B SURF AG (test code = NON-REACTIVE 2739) HEPATITIS C ANTIBODY (test code NON-REACTIVE = 4675) HCV INDEX (test code = 35943) 0.08 INTERPRETATION HEPATITIS A: (NOTE) (test code = 2552) INTERPRETATION HEPATITIS B: (NOTE) (test code = 08913) INTERPRETATION HEPATITIS C: (NOTE) (test code = 56340) ACUTE HEPATITIS [id number] 00:00:00 Test Item Value Reference Range Interpretation Comments HEPATITIS A IgM (test code = NON-REACTIVE 87943) HEPATITIS B CORE IgM (test code NON-REACTIVE = 4644) HEPATITIS B SURF AG (test code = NON-REACTIVE 2739) HEPATITIS C ANTIBODY (test code NON-REACTIVE = 4675) HCV INDEX (test code = 27364) 0.08 INTERPRETATION HEPATITIS A: (NOTE) (test code = 2552) INTERPRETATION HEPATITIS B: (NOTE) (test code = 64465) INTERPRETATION HEPATITIS C: (NOTE) (test code = 19718) HIV AB/AG COMBO RFLX [id number] 00:00:00 Test Item Value Reference Range Interpretation Comments HIV 1/2 4TH GEN, RFLX CONF (test NON-REACTIVE code = 3514) HIV AB/AG COMBO RFLX [id number] 00:00:00 Test Item Value Reference Range Interpretation Comments HIV 1/2 4TH GEN, RFLX CONF (test NON-REACTIVE code = 3514) HEMOGLOBIN [id number] 00:00:00 Test Item Value Reference Range Interpretation Comments HEMOGLOBIN A1c (test code = 61367) 5.0 % GC AND CHLAMYDIA AMPLIFIED, [id number] 00:00:00 Test Item Value Reference Range Interpretation Comments GONORRHEA, TMA (test code = 46529) NEGATIVE CHLAMYDIA, TMA (test code = 57321) NEGATIVE LIPID [id number] 00:00:00 Test Item Value Reference Range Interpretation Comments CHOLESTEROL (test code = 2210) 149 MG/DL TRIGLYCERIDES (test code = 2232) 160 MG/DL HDL CHOLESTEROL (test code = 2220) 38 MG/DL CALC LDL CHOL (test code = 2237) 79 MG/DL RISK RATIO LDL/HDL (test code = 2.08 RATIO 2238) HPV HIGH RISK WITH GENOTYPE, [id number] 00:00:00 Test Item Value Reference Range Interpretation Comments HPV HIGH RISK INTERP (test code = NEGATIVE 66686) HPV 16 (test code = 01539) NEGATIVE HPV 18 (test code = 64781) NEGATIVE HPV, HR, OTHER GENOTYPES (test code NEGATIVE = 90241) COMPREHENSIVE METABOLIC [id number] 00:00:00 Test Item Value Reference Range Interpretation Comments GLUCOSE (test code = 2217) 96 MG/DL BUN (test code = 2208) 8 MG/DL CREATININE (test code = 2214) 0.82 MG/DL eGFR AMER. (test code 109 ML/MIN/1.73 = 28610) eGFR NON- AMER. (test 94 ML/MIN/1.73 code = 66423) CALC BUN/CREAT (test code = 10 RATIO [...] ALT (test code = 2219) 16 U/L [id number] 00:00:00 Test Item Value Reference Range Interpretation Comments RPR RESULT (test code = NON-REACTIVE 3501) RPR TITER (test code = 3500) NOT INDIC. TITER [id number] 00:00:00 Test Item Value Reference Range Interpretation Comments RPR RESULT (test code = NON-REACTIVE 3501) RPR TITER (test code = 3500) NOT INDIC. TITER ACUTE HEPATITIS [id number] 00:00:00 Test Item Value Reference Range Interpretation Comments HEPATITIS A IgM (test code = NON-REACTIVE 33568) HEPATITIS B CORE IgM (test code NON-REACTIVE = 4644) HEPATITIS B SURF AG (test code = NON-REACTIVE 2739) HEPATITIS C ANTIBODY (test code NON-REACTIVE = 4675) HCV INDEX (test code = 62734) 0.08 INTERPRETATION HEPATITIS A: (NOTE) (test code = 2552) INTERPRETATION HEPATITIS B: (NOTE) (test code = 89447) INTERPRETATION HEPATITIS C: (NOTE) (test code = 78331) HIV AB/AG COMBO RFLX [id number] 00:00:00 Test Item Value Reference Range Interpretation Comments HIV 1/2 4TH GEN, RFLX CONF (test NON-REACTIVE code = 3514)
--- NOTE | 2022-07-25 14:10 | RAD REPORT ---
EXAM DESCRIPTION: RAD - Lumbar Spine 3 Views - 07/25/2022 1:59 pm CLINICAL HISTORY: Back pain FINDINGS: No fracture or dislocation is seen. Mild spondylosis L3-4 mainly consisting of small osteophytes
[2022-07-25] MEDS ORDERED: KETOROLAC 30 MG/ML INJ ONE (14:31)
[2022-07-25] MEDS ORDERED: LIDOCAINE 4% PATCH ONE (14:31)
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
--- NOTE | 2022-07-25 14:31 | ER ---
Nurse's Notes [facility] Name: Zaria De Oliveira Age: 36 yrs Sex: Female : 1985 Arrival Date: 07/25/2022 Time: 12:37 Bed 10 Private MD: Diagnosis: Low back pain Presentation: 07/25 12:57 Chief complaint: Patient states: mid back pain radiating to lower back, can't sit up or iw lie down without pain, started 3 days ago, denies injury , in the past she has had back pains but not this bad , pain is 10/10 , took naproxen and ibuprofen this morning around 6. Coronavirus screen: At this time, the client does not indicate any symptoms associated with coronavirus-19. Ebola Screen: Patient negative for fever greater than or equal to 101.5 degrees Fahrenheit, and additional compatible Ebola Virus Disease symptoms Patient denies exposure to infectious person. Patient denies travel to an Ebola-affected area in the 21 days before illness onset. No symptoms or risks identified at this time. Initial Sepsis Screen: Does the patient meet any 2 criteria? No. Patient's initial sepsis screen is negative. Does the patient have a suspected source of infection? No. Patient's initial sepsis screen is negative. Risk Assessment: Do you want to hurt yourself or someone else? Patient reports no desire to harm self or others. Onset of symptoms was July 22, 2022. 12:57 Method Of Arrival: Ambulatory iw 12:57 Acuity: CELESTINO 3 iw Triage Assessment: 14:50 General: Appears in no apparent distress. Behavior is calm, cooperative. iw Musculoskeletal: Range of motion: intact in all extremities. Historical: - Allergies: 12:59 Bluestar ointments; iw 12:59 Oxistat; iw - PMHx: 12:59 Migraines; iw - PSHx: 12:59 section; iw - Immunization history:: Adult Immunizations unknown. - Social history:: Smoking status: unknown. Screenin:50 [facility] ED Fall Risk Assessment (Adult) History of falling in the last 3 months, iw including since admission. Abuse screen: Denies threats or abuse. Denies injuries from another. Nutritional screening: No deficits noted. Tuberculosis screening: No symptoms or risk factors identified. Assessment: 13:00 General: Appears in no apparent distress. Behavior is calm, cooperative. Pain: iw Complains of pain in back. Neuro: Level of Consciousness is awake, alert, obeys commands, Oriented to person, place, time, situation, Moves all extremities. Full function. Cardiovascular: Patient's skin is warm and dry. Respiratory: Airway is patent Respiratory effort is even, unlabored. Derm: Skin is intact, is healthy with good turgor. Musculoskeletal: Range of motion: intact in all extremities. Vital Signs: 12:57 BP 127 / 82; Pulse 90; Resp 18; Temp 98.3; Pulse Ox 100% on R/A; Pain 10/10; iw 12:57 Pain Scale: Adult iw ED Course: 12:37 Patient arrived in ED. rg4 12:37 Ron Kim MD is Attending Physician. bs3 12:59 Triage completed. iw 12:59 Arm band placed on. iw 13:00 Patient has correct armband on for positive identification. iw 14:01 XRAY Lumbar Spine (3 Views) In Process Unspecified. EDMS 14:13 Lety Mcmillan RN is Primary Nurse. iw 14:50 No provider procedures requiring assistance completed. Patient did not have IV access iw during this emergency room visit. Administered Medications: 14:35 Drug: Ketorolac IM 30 mg Route: IM; Site: left deltoid; iw 15:00 Follow up: Response: No adverse reaction; Pain is decreased iw 14:35 Drug: Lidoderm Topical Patch 5 % (700 mg/patch) 1 patches Route: Topical; Site: iw affected area; Medication: 13:00 VIS not applicable for this client. iw Outcome: 14:30 Discharge ordered by . bs3 14:50 Discharged to home ambulatory. iw 14:50 Condition: good 14:50 Discharge instructions given to patient, Instructed on discharge instructions, follow up and referral plans. medication usage, Demonstrated understanding of instructions, follow-up care, medications, Prescriptions given X 1. 14:51 Patient left the ED. iw Signatures: Dispatcher [employer] EDLety Carroll, Bobbi Riley RN rg4 Ron Kim MD MD bs3
[2022-07-25 16:13] VITALS: BP 127/82; TEMP 98.3; O2SAT 100
== END 2022-07-25 14:51 | disposition home or self-care (01) ==
LOC: ER 12:34
DX: M54.50 Low back pain, unspecified (principal)
CPT/HCPCS: 72100; J2001

== ENCOUNTER 2022-11-19 22:38 | Emergency (ER) | payer SELFPAY ==
--- OUTSIDE RECORDS SUMMARY | 2022-11-19 22:43 | XMS REPORT | Continuity of Care Document ---
:1985 Author Organization [facility] t Address [address] [facility] [address] [place] [address] Care Team Providers Name Role Phone PCP, PATIENT DOES NOT HAVE A Primary Care Physician Unavaila ble VICK GARY Attending Clinician Unavailable Vick Gary NP Attending Clinician Krissy Hernandez Attending Clinician KRISSY MERRITT Attending Clinician Unavailable VICK GARY Admitting Clinician Unavailable KRISSY MERRITT Admitting Clinician Unavailable Payers Payer Name Policy Type Policy Number Effective Date Expiration Date S juli [place] [id number] 2020 00:00:00 WOMEN Problems Condition Condition Condition Status Onset Resolution Last Treating Co mments Source Name Details Category Date Date Treatment Clinician Date No known No known Disease Unive rs active active ity of problems problems [facility] Allergies, Adverse Reactions, Alerts Allergy Allergy Status Severity Reaction(s) Onset Inactive Treating Comm ents Source Name Type Date Date Clinician OXICONAZ DRUG Active Swelling Univer s OLE INGREDI 12-07 ity of NITRATE 00:00: [address] Oxiconaz Propensi Active Swelling Univ ers [...] o f [place] Alcohol Binge [facility] Exposure to Not sure [facility] SARS-CoV-2 (event) Medica l Branch Alcohol intake 2021-04-11 2021-04-11 0 /d [facility] 00:00:00 00:00:00 Medical Branch Tobacco use and 2015-12-08 2015-12-08 Never used [facility] exposure 00:00:00 00:00:00 Medical Branch Alcohol Comment 2015-12-08 2015-12-08 Occasional [facility] 00:00:00 00:00:00 Medical Branch Sex [birth year] [facility] 00:00:00 00:00:00 Medical Branch Smoking Status Start Date Stop Date Source Never smoker [facility] Medical Branch Medications Ordered Filled Start Stop Current Ordering Indication Dosage Frequency Signature Comments Components Source Medication Medication Date Date Medication? Clinician (SIG) Name Name Depo-Market Research Assistant 2021-0 No 1mg/mL a 150 mg/mL -28 intramuscul 00:00: ar syringe 00 TAKE 2021-0 No CAPSULE BY 6-28 MOUTH THREE 00:00: TIMES A DAY 00 NEEDED FOR COUGH TAKE 0 No CAPSULE BY 6-28 MOUTH THREE 00:00: TIMES A DAY 00 NEEDED FOR COUGH TAKE 0 No CAPSULE BY 6-28 MOUTH THREE 00:00: TIMES A DAY 00 NEEDED FOR COUGH Depo-Market Research Assistant 2021-0 No 1mg/mL a 150 mg/mL -28 [...] :00 ONCE, 1 Medical dose, On Branch [place] 04/11/21 at 0115, Routine
member of congress approving Restricted medication : VICK GARY etodolac 2020-05 Yes [id number] 300mg Take 1 U nivers 300 mg 2-05 capsule by ity of capsule 00:00: mouth 3 [place] 00 (three) Medical times Branch daily with meals. etodolac 2020-05- No [id number] 300mg Take 1 Univers 300 mg 2-09 16-05 capsule by ity of capsule 00:00: 00:00 mouth 3 [place] 00 :00 (three) Medical times Branch daily with meals for 5 days. etodolac 2020-05- No [id number] 300mg Take 1 Univers 300 mg 2-09 16-05 capsule by ity of capsule 00:00: 00:00 mouth 3 [place] 00 :00 (three) Medical times Branch daily with meals. acyclovir 2020-05 Yes 200mg Take 200 Uni vers (ZOVIRAX) 2-04 mg by ity of 200 mg 23:44: mouth. [place] capsule 39 Medical Branch Depo-Market Research Assistant 2020-05 No 1mg/mL a 150 mg/mL 0-22 intramuscul 00:00: ar syringe 00 Depo-Market Research Assistant 2020-05 No 1mg/mL a 150 mg/mL 0-22 intramuscul 00:00: ar syringe 00 Depo-Market Research Assistant 2020-05 No 1mg/mL a 150 mg/mL 0-22 intramuscul 00:00: ar syringe 00 benzonatate 2020- No [id number] 100mg Take 1 Univers 100 mg 8- 12-04 capsule by ity of capsule 00:00: 00:00 mouth 3 [place] 00 :00 (three) Medical times Branch daily as needed for Cough. albuterol 2020- No [id number] 4{puff} Inhale 4 Univers 90 8- 12- Puffs ity of mcg/actuati 00:00: 00:00 every 4 [place] inhaler 00 :00 (four) Medical hours as Branch needed for Wheezing or Shortness of Breath. ondansetron 2020- No [id number] 4mg Take 1 Univers 4 mg 12-26 tablet by ity of disintegrat 00:00: 00:00 [place] tablet 00 :00 every 8 Medica l (eight) Branch hours as needed for Nausea and Vomiting (N/V). Depo-Market Research Assistant No 1mg/mL a 150 mg/mL 8-05 intramuscul 00:00: ar syringe 00 Depo-Market Research Assistant No 1mg/mL a 150 mg/mL 8-05 intramuscul 00:00: ar syringe Depo-Market Research Assistant 0 No 1mg/mL a 150 mg/mL 8-05 intramuscul 00:00: ar syringe 00 esomeprazol 2020- No [id number] 20mg Take 20 mg Univers e (NEXIUM) [...] y of Vaccine Quad IM 3+ 00:00:00 [facility] Branch TDAP 2016-04-11 Completed University 00:00:00 [facility] Vital Signs Vital Name Observation Time Observation Value Comments Source Systolic blood 2021-04-11 08:00:00 132 mm[Hg] Univer sity of pressure [facility] Diastolic blood 2021-04-11 08:00:00 88 [facility]Hg[facility] 2021-04-11 08:00:00 61 [facility] Respiratory rate 2021-04-11 08:00:00 20 /min [facility] Oxygen saturation in 2021-04-11 08:00:00 100 /min [facility] Arterial blood by [facility] Pulse oximetry Branch Body temperature 2021-04-11 05:42:00 36.94 Penny [facility] Body height 2021-04-11 05:42:00 157.5 cm [facility] Body weight 2021-04-11 05:42:00 97.523 kg [facility] BMI 2021-04-11 05:42:00 39.32 kg/m2 [facility] BP Systolic 2022-04-06 10:27:00 135 mm[Hg] [...] CHEST 1 VW 2021-04-11 06:41:03 Vick Gary [facility] D-DIMER 2021-04-11 06:34:00 Vick Gary [facility] LIPASE 2021-04-11 06:15:00 Vick Gary [facility] TROPONIN I 2021-04-11 06:15:00 Vick Gary [facility] COMP. METABOLIC PANEL 2021-04-11 06:15:00 Vick Gary [facility] ([id number]) [facility] CBC WITH DIFF 2021-04-11 06:15:00 Vick Gary [facility] CONSENT/REFUSAL FOR 2021-04-11 05:33:33 Doctor Unassigned, No Un [facility] DIAGNOSIS AND Name [facility] TREATMENT Plan of Care Planned Activity Planned Date Details Comments Source Goal Plan of Care Note [code = 53053-6] Goal Plan of Care Note [code = 40762-1] Goal Plan of Care Note [code = 76019-8] Goal Plan of Care Note [code = 11785-6] Goal Plan of Care Note [code = 10367-9] Goal Plan of Care Note [code = 95782-2] Goal Plan of Care Note [code = 60405-4] Goal Plan of Care Note [code = 12533-1] Goal Plan of Care Note [code = 45277-5] Goal Plan of Care Note [code = 38235-3] Goal Plan of Care Note [code = 43955-2] Goal Plan of Care Note [code = 81819-5] Goal Plan of Care Note [code = 51643-7] Goal Plan of Care Note [code = 79185-0] Goal Plan of Care Note [code = 36552-4] Goal Plan of Care Note [code = 45386-8] Goal Plan of Care Note [code = 78389-5] Goal Plan of Care Note [code = 23564-3] Goal Plan of Care Note [code = 91129-1] Goal Plan of Care Note [code = 88699-3] Goal Plan of Care Note [code = 99668-7] Goal Plan of Care Note [code = 07584-0] Goal Plan of Care Note [code = 91050-2] Goal Plan of Care Note [code = 25064-4] Goal Plan of Care Note [code = 86731-6] Goal Plan of Care Note [code = 00798-1] Goal Plan of Care Note [code = 32616-8] Goal Plan of Care Note [code = 08396-1] Goal Plan of Care Note [code = 74926-5] Goal Plan of Care Note [code = 87940-2] Goal Plan of Care Note [code = 77007-7] Goal Plan of Care Note [code = 11656-2] Goal Plan of Care Note [code = 40937-9] Goal Plan of Care Note [code = 57090-5] Goal Plan of Care Note [code = 04143-1] Goal Plan of Care Note [code = 05665-5] Goal Plan of Care Note [code = 34881-9] Goal Plan of Care Note [code = 53818-1] Goal Plan of Care Note [code = 28621-4] Goal Plan of Care Note [code = 67314-6] Goal Plan of Care Note [code = 81223-7] Goal Plan of Care Note [code = 92094-9] Goal Plan of Care Note [code = 68721-8] Goal Plan of Care Note [code = 05161-9] Goal Plan of Care Note [code = 47642-6] Goal Plan of Care Note [code = 52905-6] Goal Plan of Care Note [code = 81485-7] Goal Plan of Care Note [code = 69021-8] Goal Plan of Care Note [code = 83311-2] Goal Plan of Care Note [code = 46949-6] Goal Plan of Care Note [code = 76398-2] Goal Plan of Care Note [code = 50232-6] Goal Plan of Care Note [code = 99063-9] Goal Plan of Care Note [code = 95827-2] Goal Plan of Care Note [code = 81870-9] Goal Plan of Care Note [code = 38057-4] Goal Plan of Care Note [code = 67464-1] Goal Plan of Care Note [code = 16385-2] Goal Plan of Care Note [code = 90484-9] Goal Plan of Care Note [code = 88824-5] Goal Plan of Care Note [code = 70331-9] Goal Plan of Care Note [code = 84481-9] Goal Plan of Care Note [code = 15176-7] Goal Plan of Care Note [code = 18537-4] Goal Plan of Care Note [code = 54936-4] Goal Plan of Care Note [code = 96839-4] Goal Plan of Care Note [code = 47821-9] Goal Plan of Care Note [code = 82710-0] Goal Plan of Care Note [code = 58740-2] Goal Plan of Care Note [code = 85363-5] Goal Plan of Care Note [code = 10100-0] Goal Plan of Care Note [code = 70664-6] Goal Plan of Care Note [code = 25388-7] Goal Plan of Care Note [code = 68065-8] Goal Plan of Care Note [code = 41039-7] Goal Plan of Care Note [code = 90243-0] Goal Plan of Care Note [code = 51881-4] Goal Plan of Care Note [code = 93714-5] Goal Plan of Care Note [code = 86266-2] Goal Plan of Care Note [code = 47596-4] Goal Plan of Care Note [code = 27319-9] Encounters Start End Encounter Admission Attending Care Care Encounter Source Date/Time Date/Time Type Type Clinicians Facility Department ID 2021-03-08 Emergency [facility] [id number] Univers 17:07:32 it of [facility] 2022-09-16 2022-09-16 Outpatient SFA SFA [id number] Jaun 10:18:08 10:18:08 0512 F Madhav 2022-06-24 2022-06-24 Outpatient SFA SFA [id number] 023 Jaun 13:07:39 13:07:39 0217 F Madhav 2022-04-06 2022-04-06 Outpatient SFA SFA [id number] Jaun 10:14:07 10:14:07 1130 F Madhav 2022-04-06 2022-04-06 Outpatient [id number]- [id number] u87fu5-7 00:00:00 00:00:00 Visit 076b-436a 76b-436a-9 -9005-7a4 005-1r522j 84uls90n3 ca41b7 2022-01-19 2022-01-19 Outpatient [id number] m5q616-3 00:00:00 00:00:00 Visit 68y8-732u 9u2-312i-1 -0ef3-205 [facility]-783967 [id number] 0355-06-28 2021-11-02 Outpatient c37m2mb5- [id number] a1 8a2kc8-8 00:00:00 00:00:00 Visit 30j3-43m6 5y3-57c5-6 -8009-desiree 009-eda48b [id number] 1379-12-04 2021-04-11 Emergency X [facility] ERT [id number] Univers 23:45:00 02:10:00 [facility] 2021-04-10 2021-04-11 Emergency [facility] [id number] Univers 23:45:00 02:10:00 Vick Sylvia LACEY 350.1.13.10 [facility] 4.2.7.2.686 [facility] [id number] [address] 2020-05-27 2020-05-27 Emergency [facility] [id number] 11:00:00 13:42:00 Krissy Mónica [place] 350.1.13.10 [place] [address] [address] [id number] [facility] 2020-05-27 2020-05-27 Emergency X [facility] ERT [id number] Univers 11:00:00 13:42:00 [facility] Results Test Description Test Time Test Comments Results Result Comments Source D-DIMER 2021-04-11 07:04:48 Test Item Value Reference Range Interpretation Comme nts D-DIMER (test code = <0.27 See_Comment [Autom ated message] The 7772166064) system which ge nerated this result tra [...] diagnosis. Lab Interpretation Normal (test code = 23578-3) [facility] [id number] 06:46:29 Test Item Value Reference Interpretation Comments Range TROPONIN I (test 0.000 ng/mL See_Comment [Automated code = 0665026621) message] The system which generated this result [...] biotin. Lab Interpretation Normal (test code = 70969-1) [facility]. METABOLIC PANEL (81368)2021-04-11 06:35:05 Test Item Value Reference Range Interpretation Comments NA (test code = 141 mmol/L 135-145 1089334403) K (test code = 4.2 mmol/L 3.5-5.0 0178613478) CL (test code = 107 mmol/L 98-108 9393924865) CO2 TOTAL (test code = 25 mmol/L 23-31 2545669496) AGAP (test code = 2-16 4251953665) BUN (test code = 15 mg/dL 7-23 4735812043) GLUCOSE (test code = 112 mg/dL 70-110 H 6909071692) CREATININE (test code = 0.79 mg/dL 0.50-1.04 7751459216) TOTAL BILI (test code = 0.4 mg/dL 0.1-1.7 1113557003) CALCIUM (test code = 10.0 mg/dL 8.6-10.6 6282604071) T PROTEIN (test code = 7.5 g/dL 6.3-8.2 9630461475) ALBUMIN (test code = 4.2 g/dL 3.5-5.0 6234710783) ALK PHOS (test code = 92 U/L 34-122 5127958424) ALTv (test code = 19 U/L 5-35 2-6) AST(SGOT) (test code = 21 U/L 13-40 1913131026) eGFR (test code = mL/min/1.73m2 3480286852) JO (test code = JO) Association of [...] tests). Lab Interpretation Abnormal (test code = 49953-8) [facility] 06[facility]34:45 Test Item Value Reference Range Interpretation Comments LIPASE (test code = 9989214259) 64 U/L 0-220 Lab Interpretation (test code = Normal 79912-9) [facility] [id number] 06:24:53 Test Item Value Reference Range Interpretation [...] RDW-SD (test code = 41.1 fL 39.0-49.9 49009-0) RDW-CV (test code = 14.4 % 12.0-15.5 788-0) PLT (test code = See_Comment H [Automated 777-3) message] The sy stem which generated this result transmitted reference range : 166 - 358 10*3/ ?L. The reference r félix was not used to interpret this result as normal/abnormal . MPV (test code = 10.1 fL 9.5-12.9 56605-7) NRBC/100 WBC (test See_Comment [Automat ed code = 3020532355) message] The system which generated this result transmitted reference range : 0.0 - 10.0 /100 WBCs. The refer ence range was not u sed to interpret th is result as normal/abnormal . NRBC x10^3 (test code <0.01 See_Comment [Auto mated = 4445320651) message] The s ystem which generated this result transmitted reference range : 10*3/?L. The reference range was not used to interpret this result as normal/abnormal . GRAN MAT (NEUT) % 59.1 % (test code = 770-8) IMM GRAN % (test code 0.60 % = 9319156463) LYMPH % (test code = 28.9 % 736-9) MONO % (test code = 9.1 % 5905-5) EOS % (test code = 1.7 % 713-8) BASO % (test code = 0.6 % 706-2) GRAN MAT x10^3(ANC) 8.48 10*3/uL 1.88-7.09 H (test code = 4182117681) IMM GRAN x10^3 (test 0.08 10*3/uL 0.00-0.06 H code = 4843259599) LYMPH x10^3 (test code 4.14 10*3/uL 1.32-3.29 H = 731-0) MONO x10^3 (test code 1.30 10*3/uL 0.33-0.92 H = 742-7) EOS x10^3 (test code = 0.24 10*3/uL 0.03-0.39 711-2) BASO x10^3 (test code 0.08 10*3/uL 0.01-0.07 H = 704-7) Lab Interpretation Abnormal (test code = 81445-6) [facility] [id number] 00:00:00 Test Item Value Reference Range Interpretation Comments HIV 1/2 4TH GEN, RFLX CONF (test NON-REACTIVE code = 3514) HIV AB/AG COMBO RFLX [id number] 00:00:00 Test Item Value Reference Range Interpretation Comments HIV 1/2 4TH GEN, RFLX CONF (test NON-REACTIVE code = 3514) GC AND CHLAMYDIA, AMPLIFIED, [id number] 00:00:00 Test Item Value Reference Range Interpretation Comments GONORRHEA, NAAT (test code = 13715) NEGATIVE CHLAMYDIA, NAAT (test code = 69448) NEGATIVE GC AND CHLAMYDIA, AMPLIFIED, [id number] 00:00:00 Test Item Value Reference Range Interpretation Comments GONORRHEA, NAAT (test code = 37881) NEGATIVE CHLAMYDIA, NAAT (test code = 83138) NEGATIVE [id number] 00:00:00 Test Item Value Reference Range Interpretation Comments RPR RESULT (test code = NON-REACTIVE 3501) RPR TITER (test code = 3500) NOT INDIC. TITER [id number] 00:00:00 Test Item Value Reference Range Interpretation Comments RPR RESULT (test code = NON-REACTIVE 3501) RPR TITER (test code = 3500) NOT INDIC. TITER [id number] 00:00:00 Test Item Value Reference Range Interpretation Comments RPR RESULT (test code = NON-REACTIVE 3501) RPR TITER (test code = 3500) NOT INDIC. TITER HIV AB/AG COMBO RFLX [id number] 00:00:00 Test Item Value Reference Range Interpretation Comments HIV 1/2 4TH GEN, RFLX CONF (test NON-REACTIVE code = 3514) HIV AB/AG COMBO RFLX [id number] 00:00:00 Test Item Value Reference Range Interpretation Comments HIV 1/2 4TH GEN, RFLX CONF (test NON-REACTIVE code = 3514) GC AND CHLAMYDIA, AMPLIFIED, [id number] 00:00:00 Test Item Value Reference Range Interpretation Comments GONORRHEA, NAAT (test code = 62496) NEGATIVE CHLAMYDIA, NAAT (test code = 15321) NEGATIVE GC AND CHLAMYDIA, AMPLIFIED, [id number] 00:00:00 Test Item Value Reference Range Interpretation Comments GONORRHEA, NAAT (test code = 27215) NEGATIVE CHLAMYDIA, NAAT (test code = 75982) NEGATIVE [id number] 00:00:00 Test Item Value Reference Range Interpretation Comments RPR RESULT (test code = NON-REACTIVE 3501) RPR TITER (test code = 3500) NOT INDIC. TITER [id number] 00:00:00 Test Item Value Reference Range Interpretation Comments RPR RESULT (test code = NON-REACTIVE 3501) RPR TITER (test code = 3500) NOT INDIC. TITER [id number] 00:00:00 Test Item Value Reference Range Interpretation Comments RPR RESULT (test code = NON-REACTIVE 3501) RPR TITER (test code = 3500) NOT INDIC. TITER HIV AB/AG COMBO RFLX [id number] 00:00:00 Test Item Value Reference Range Interpretation Comments HIV 1/2 4TH GEN, RFLX CONF (test NON-REACTIVE code = 3514) GC AND CHLAMYDIA, AMPLIFIED, [id number] 00:00:00 Test Item Value Reference Range Interpretation Comments GONORRHEA, NAAT (test code = 85033) NEGATIVE CHLAMYDIA, NAAT (test code = 19300) NEGATIVE [id number] 00:00:00 Test Item Value Reference Range Interpretation Comments RPR RESULT (test code = NON-REACTIVE 3501) RPR TITER (test code = 3500) NOT INDIC. TITER [id number] 00:00:00 Test Item Value Reference Range Interpretation Comments RPR RESULT (test code = NON-REACTIVE 3501) RPR TITER (test code = 3500) NOT INDIC. TITER SARS-CoV-2 (COVID-19) by RT-PCR (HIGH RISK)2019-11-26 00:00:00 Test Item Value Reference Range Interpretation Comments SARS-CoV-2 INTERPRETATION (test NEGATIVE code = 02882) SOURCE (test code = 64927) NOT SPECIFIED SARS-CoV-2 (COVID-19) by RT-PCR (HIGH RISK)2019-11-26 00:00:00 Test Item Value Reference Range Interpretation Comments SARS-CoV-2 INTERPRETATION (test NEGATIVE code = 10585) SOURCE (test code = 30089) NOT SPECIFIED SARS-CoV-2 (COVID-19) by RT-PCR (HIGH RISK)2019-11-26 00:00:00 Test Item Value Reference Range Interpretation Comments SARS-CoV-2 INTERPRETATION (test NEGATIVE code = 67946) SOURCE (test code = 55183) NOT SPECIFIED SARS-CoV-2 (COVID-19) by RT-PCR (HIGH RISK)2019-11-26 00:00:00 Test Item Value Reference Range Interpretation Comments SARS-CoV-2 INTERPRETATION (test NEGATIVE code = 19650) SOURCE (test code = 23611) NOT SPECIFIED SARS-CoV-2 (COVID-19) by RT-PCR (HIGH RISK)2019-11-26 00:00:00 Test Item Value Reference Range Interpretation Comments SARS-CoV-2 INTERPRETATION (test NEGATIVE code = 75409) SOURCE (test code = 00503) NOT SPECIFIED PAP TEST, THINPREP, [id number] 00:00:00 Test Item Value Reference Range Interpretation Comments SOURCE: (test code = Cervical/Endocervical 8001) SLIDES: (test code = 1 8011) LMP: (test code = 8021) 03/08/2018 SPECIMEN ADEQUACY: (NOTE) (test code = 72671) INTERPRETATION: (test NILM/NO EPITH. code = 51292) ABNORMALITY;SEE BELOW ECHOCARDIOLOGIST: (test Andrew code = 8101) BEN Urena(ASCP)IAC LOCATION: (test code = (NOTE) 84718) CPT: (test code = 8140) (NOTE) PAP TEST, THINPREP, [id number] 00:00:00 Test Item Value Reference Range Interpretation Comments SOURCE: (test code = Cervical/Endocervical 8001) SLIDES: (test code = 1 8011) LMP: (test code = 8021) 03/08/2018 SPECIMEN ADEQUACY: (NOTE) (test code = 52962) INTERPRETATION: (test NILM/NO EPITH. code = 11514) ABNORMALITY;SEE BELOW ECHOCARDIOLOGIST: (test Andrew code = 8101) BEN Urena(ASCP)IAC LOCATION: (test code = (NOTE) 34519) CPT: (test code = 8140) (NOTE) PAP TEST, THINPREP, [id number] 00:00:00 Test Item Value Reference Range Interpretation Comments SOURCE: (test code = Cervical/Endocervical 8001) SLIDES: (test code = 1 8011) LMP: (test code = 8021) 03/08/2018 SPECIMEN ADEQUACY: (NOTE) (test code = 79475) INTERPRETATION: (test NILM/NO EPITH. code = 73835) ABNORMALITY;SEE BELOW ECHOCARDIOLOGIST: (test Andrew code = 8101) BEN Urena(ASCP)IAC LOCATION: (test code = (NOTE) 78743) CPT: (test code = 8140) (NOTE) PAP TEST, THINPREP, [id number] 00:00:00 Test Item Value Reference Range Interpretation Comments SOURCE: (test code = Cervical/Endocervical 8001) SLIDES: (test code = 1 8011) LMP: (test code = 8021) 03/08/2018 SPECIMEN ADEQUACY: (NOTE) (test code = 73853) INTERPRETATION: (test NILM/NO EPITH. code = 85935) ABNORMALITY;SEE BELOW ECHOCARDIOLOGIST: (test Andrew code = 8101) BEN Urena(ASCP)IAC LOCATION: (test code = (NOTE) 17194) CPT: (test code = 8140) (NOTE) PAP TEST, THINPREP, [id number] 00:00:00 Test Item Value Reference Range Interpretation Comments SOURCE: (test code = Cervical/Endocervical 8001) SLIDES: (test code = 1 8011) LMP: (test code = 8021) 03/08/2018 SPECIMEN ADEQUACY: (NOTE) (test code = 00676) INTERPRETATION: (test NILM/NO EPITH. code = 13944) ABNORMALITY;SEE BELOW ECHOCARDIOLOGIST: (test Andrew code = 8101) BEN Urena(ASCP)IAC LOCATION: (test code = (NOTE) 78775) CPT: (test code = 8140) (NOTE) PAP TEST, THINPREP, [id number] 00:00:00 Test Item Value Reference Range Interpretation Comments SOURCE: (test code = Cervical/Endocervical 8001) SLIDES: (test code = 2 8011) LMP: (test code = 8021) 03/08/2018 SPECIMEN ADEQUACY: (test (NOTE) code = 32001) INTERPRETATION: (test UNSATISFACTORY; SEE code = 98893) BELOW OTHER COMMENTS: (test (NOTE) code = 8081) ECHOCARDIOLOGIST: (test Farrah code = 8101) BEN Nicole(ASCP)IAC QC TECHNOLOGIST: (test Macarena code = 8111) JENARO Valentine(ASCP)CT(IA C) LOCATION: (test code = (NOTE) 32064) CPT: (test code = 8140) (NOTE) PAP TEST, THINPREP, [id number] 00:00:00 Test Item Value Reference Range Interpretation Comments SOURCE: (test code = Cervical/Endocervical 8001) SLIDES: (test code = 2 8011) LMP: (test code = 8021) 03/08/2018 SPECIMEN ADEQUACY: (test (NOTE) code = 08776) INTERPRETATION: (test UNSATISFACTORY; SEE code = 29435) BELOW OTHER COMMENTS: (test (NOTE) code = 8081) ECHOCARDIOLOGIST: (test Farrah code = 8101) BEN Nicole(ASCP)IAC QC TECHNOLOGIST: (test Macarena code = 8111) JENARO Valentine(ASCP)CT(IA C) LOCATION: (test code = (NOTE) 51112) CPT: (test code = 8140) (NOTE) PAP TEST, THINPREP, [id number] 00:00:00 Test Item Value Reference Range Interpretation Comments SOURCE: (test code = Cervical/Endocervical 8001) SLIDES: (test code = 2 8011) LMP: (test code = 8021) 03/08/2018 SPECIMEN ADEQUACY: (test (NOTE) code = 14608) INTERPRETATION: (test UNSATISFACTORY; SEE code = 86827) BELOW OTHER COMMENTS: (test (NOTE) code = 8081) ECHOCARDIOLOGIST: (test Farrah code = 8101) BEN Nicole(ASCP)IAC QC TECHNOLOGIST: (test Macarena code = 8111) JENARO Valentine(ASCP)CT(IA C) LOCATION: (test code = (NOTE) 45961) CPT: (test code = 8140) (NOTE) PAP TEST, THINPREP, [id number] 00:00:00 Test Item Value Reference Range Interpretation Comments SOURCE: (test code = Cervical/Endocervical 8001) SLIDES: (test code = 2 8011) LMP: (test code = 8021) 03/08/2018 SPECIMEN ADEQUACY: (test (NOTE) code = 14566) INTERPRETATION: (test UNSATISFACTORY; SEE code = 51312) BELOW OTHER COMMENTS: (test (NOTE) code = 8081) ECHOCARDIOLOGIST: (test Farrah code = 8101) BEN Nicole(ASCP)[facility] QC TECHNOLOGIST: (test Macarena code = 8111) JENARO Valentine(ASCP)CT(IA C) LOCATION: (test code = (NOTE) 23554) CPT: (test code = 8140) (NOTE) PAP TEST, THINPREP, [id number] 00:00:00 Test Item Value Reference Range Interpretation Comments SOURCE: (test code = Cervical/Endocervical 8001) SLIDES: (test code = 2 8011) LMP: (test code = 8021) 03/08/2018 SPECIMEN ADEQUACY: (test (NOTE) code = 61086) INTERPRETATION: (test UNSATISFACTORY; SEE code = 92566) BELOW OTHER COMMENTS: (test (NOTE) code = 8081) ECHOCARDIOLOGIST: (test Farrah code = 8101) BEN Nicole(ASCP)[facility] [facility] QC TECHNOLOGIST: (test Macarena code = 8111) JENARO Valentine(ASCP)CT(IA C) LOCATION: (test code = (NOTE) 77032) CPT: (test code = 8140) (NOTE) HEMOGLOBIN [id number] 00:00:00 Test Item Value Reference Range Interpretation Comments HEMOGLOBIN A1c (test code = 36308) 5.0 % HEMOGLOBIN [id number] 00:00:00 Test Item Value Reference Range Interpretation Comments HEMOGLOBIN A1c (test code = 06473) 5.0 % GC AND CHLAMYDIA AMPLIFIED, [id number] 00:00:00 Test Item Value Reference Range Interpretation Comments GONORRHEA, TMA (test code = 26963) NEGATIVE CHLAMYDIA, TMA (test code = 74001) NEGATIVE GC AND CHLAMYDIA AMPLIFIED, [id number] 00:00:00 Test Item Value Reference Range Interpretation Comments GONORRHEA, TMA (test code = 94104) NEGATIVE CHLAMYDIA, TMA (test code = 38504) NEGATIVE HEMOGLOBIN [id number] 00:00:00 Test Item Value Reference Range Interpretation Comments HEMOGLOBIN A1c (test code = 74226) 5.0 % LIPID [id number] 00:00:00 Test Item Value Reference Range Interpretation Comments CHOLESTEROL (test code = 2210) 149 MG/DL TRIGLYCERIDES (test code = 2232) 160 MG/DL HDL CHOLESTEROL (test code = 2220) 38 MG/DL CALC LDL CHOL (test code = 2237) 79 MG/DL RISK RATIO LDL/HDL (test code = 2.08 RATIO 2238) LIPID [id number] 00:00:00 Test Item Value Reference Range Interpretation Comments CHOLESTEROL (test code = 2210) 149 MG/DL TRIGLYCERIDES (test code = 2232) 160 MG/DL HDL CHOLESTEROL (test code = 2220) 38 MG/DL CALC LDL CHOL (test code = 2237) 79 MG/DL RISK RATIO LDL/HDL (test code = 2.08 RATIO 2238) HPV HIGH RISK WITH GENOTYPE, [id number] 00:00:00 Test Item Value Reference Range Interpretation Comments HPV HIGH RISK INTERP (test code = NEGATIVE 97910) HPV 16 (test code = 01129) NEGATIVE HPV 18 (test code = 49352) NEGATIVE HPV, HR, OTHER GENOTYPES (test code NEGATIVE = 37672) HPV HIGH RISK WITH GENOTYPE, [id number] 00:00:00 Test Item Value Reference Range Interpretation Comments HPV HIGH RISK INTERP (test code = NEGATIVE 41687) HPV 16 (test code = 65738) NEGATIVE HPV 18 (test code = 30907) NEGATIVE HPV, HR, OTHER GENOTYPES (test code NEGATIVE = 30808) COMPREHENSIVE METABOLIC [id number] 00:00:00 Test Item Value Reference Range Interpretation Comments GLUCOSE (test code = 2217) 96 MG/DL BUN (test code = 2208) 8 MG/DL CREATININE (test code = 2214) 0.82 MG/DL eGFR AMER. (test code 109 ML/MIN/1.73 = 74806) eGFR NON- AMER. (test 94 ML/MIN/1.73 code = 58031) CALC BUN/CREAT (test code = 10 RATIO [...] code = 2219) 16 U/L COMPREHENSIVE METABOLIC [id number] 00:00:00 Test Item Value Reference Range Interpretation Comments GLUCOSE (test code = 2217) 96 MG/DL BUN (test code = 2208) 8 MG/DL CREATININE (test code = 2214) 0.82 MG/DL eGFR AMER. (test code 109 ML/MIN/1.73 = 65951) eGFR NON- AMER. (test 94 ML/MIN/1.73 code = 89041) CALC BUN/CREAT (test code = 10 RATIO [...] ALT (test code = 2219) 16 U/L [id number] 00:00:00 Test Item Value Reference Range Interpretation Comments RPR RESULT (test code = NON-REACTIVE 3501) RPR TITER (test code = 3500) NOT INDIC. TITER [id number] 00:00:00 Test Item Value Reference Range Interpretation Comments RPR RESULT (test code = NON-REACTIVE 3501) RPR TITER (test code = 3500) NOT INDIC. TITER [id number] 00:00:00 Test Item Value Reference Range Interpretation Comments RPR RESULT (test code = NON-REACTIVE 3501) RPR TITER (test code = 3500) NOT INDIC. TITER ACUTE HEPATITIS [id number] 00:00:00 Test Item Value Reference Range Interpretation Comments HEPATITIS A IgM (test code = NON-REACTIVE 20360) HEPATITIS B CORE IgM (test code NON-REACTIVE = 4644) HEPATITIS B SURF AG (test code = NON-REACTIVE 2739) HEPATITIS C ANTIBODY (test code NON-REACTIVE = 4675) HCV INDEX (test code = 52141) 0.08 INTERPRETATION HEPATITIS A: (NOTE) (test code = 2552) INTERPRETATION HEPATITIS B: (NOTE) (test code = 81134) INTERPRETATION HEPATITIS C: (NOTE) (test code = 87551) ACUTE HEPATITIS [id number] 00:00:00 Test Item Value Reference Range Interpretation Comments HEPATITIS A IgM (test code = NON-REACTIVE 74681) HEPATITIS B CORE IgM (test code NON-REACTIVE = 4644) HEPATITIS B SURF AG (test code = NON-REACTIVE 2739) HEPATITIS C ANTIBODY (test code NON-REACTIVE = 4675) HCV INDEX (test code = 52974) 0.08 INTERPRETATION HEPATITIS A: (NOTE) (test code = 2552) INTERPRETATION HEPATITIS B: (NOTE) (test code = 30889) INTERPRETATION HEPATITIS C: (NOTE) (test code = 36955) HIV AB/AG COMBO RFLX [id number] 00:00:00 Test Item Value Reference Range Interpretation Comments HIV 1/2 4TH GEN, RFLX CONF (test NON-REACTIVE code = 3514) HIV AB/AG COMBO RFLX [id number] 00:00:00 Test Item Value Reference Range Interpretation Comments HIV 1/2 4TH GEN, RFLX CONF (test NON-REACTIVE code = 3514) HEMOGLOBIN [id number] 00:00:00 Test Item Value Reference Range Interpretation Comments HEMOGLOBIN A1c (test code = 26297) 5.0 % HEMOGLOBIN [id number] 00:00:00 Test Item Value Reference Range Interpretation Comments HEMOGLOBIN A1c (test code = 53467) 5.0 % HEMOGLOBIN [id number] 00:00:00 Test Item Value Reference Range Interpretation Comments HEMOGLOBIN A1c (test code = 53717) 5.0 % GC AND CHLAMYDIA AMPLIFIED, [id number] 00:00:00 Test Item Value Reference Range Interpretation Comments GONORRHEA, TMA (test code = 99497) NEGATIVE CHLAMYDIA, TMA (test code = 38723) NEGATIVE GC AND CHLAMYDIA AMPLIFIED, [id number] 00:00:00 Test Item Value Reference Range Interpretation Comments GONORRHEA, TMA (test code = 50677) NEGATIVE CHLAMYDIA, TMA (test code = 68366) NEGATIVE HEMOGLOBIN [id number] 00:00:00 Test Item Value Reference Range Interpretation Comments HEMOGLOBIN A1c (test code = 48923) 5.0 % LIPID [id number] 00:00:00 Test Item Value Reference Range Interpretation Comments CHOLESTEROL (test code = 2210) 149 MG/DL TRIGLYCERIDES (test code = 2232) 160 MG/DL HDL CHOLESTEROL (test code = 2220) 38 MG/DL CALC LDL CHOL (test code = 2237) 79 MG/DL RISK RATIO LDL/HDL (test code = 2.08 RATIO 2238) LIPID [id number] 00:00:00 Test Item Value Reference Range Interpretation Comments CHOLESTEROL (test code = 2210) 149 MG/DL TRIGLYCERIDES (test code = 2232) 160 MG/DL HDL CHOLESTEROL (test code = 2220) 38 MG/DL CALC LDL CHOL (test code = 2237) 79 MG/DL RISK RATIO LDL/HDL (test code = 2.08 RATIO 2238) HPV HIGH RISK WITH GENOTYPE, [id number] 00:00:00 Test Item Value Reference Range Interpretation Comments HPV HIGH RISK INTERP (test code = NEGATIVE 94696) HPV 16 (test code = 57446) NEGATIVE HPV 18 (test code = 45702) NEGATIVE HPV, HR, OTHER GENOTYPES (test code NEGATIVE = 05577) HPV HIGH RISK WITH GENOTYPE, [id number] 00:00:00 Test Item Value Reference Range Interpretation Comments HPV HIGH RISK INTERP (test code = NEGATIVE 99035) HPV 16 (test code = 46043) NEGATIVE HPV 18 (test code = 31679) NEGATIVE HPV, HR, OTHER GENOTYPES (test code NEGATIVE = 51554) COMPREHENSIVE METABOLIC [id number] 00:00:00 Test Item Value Reference Range Interpretation Comments GLUCOSE (test code = 2217) 96 MG/DL BUN (test code = 2208) 8 MG/DL CREATININE (test code = 2214) 0.82 MG/DL eGFR AMER. (test code 109 ML/MIN/1.73 = 55332) eGFR NON- AMER. (test 94 ML/MIN/1.73 code = 38165) CALC BUN/CREAT (test code = 10 RATIO [...] code = 2219) 16 U/L COMPREHENSIVE METABOLIC [id number] 00:00:00 Test Item Value Reference Range Interpretation Comments GLUCOSE (test code = 2217) 96 MG/DL BUN (test code = 2208) 8 MG/DL CREATININE (test code = 2214) 0.82 MG/DL eGFR AMER. (test code 109 ML/MIN/1.73 = 16171) eGFR NON- AMER. (test 94 ML/MIN/1.73 code = 93600) CALC BUN/CREAT (test code = 10 RATIO [...] ALT (test code = 2219) 16 U/L [id number] 00:00:00 Test Item Value Reference Range Interpretation Comments RPR RESULT (test code = NON-REACTIVE 3501) RPR TITER (test code = 3500) NOT INDIC. TITER [id number] 00:00:00 Test Item Value Reference Range Interpretation Comments RPR RESULT (test code = NON-REACTIVE 3501) RPR TITER (test code = 3500) NOT INDIC. TITER [id number] 00:00:00 Test Item Value Reference Range Interpretation Comments RPR RESULT (test code = NON-REACTIVE 3501) RPR TITER (test code = 3500) NOT INDIC. TITER ACUTE HEPATITIS [id number] 00:00:00 Test Item Value Reference Range Interpretation Comments HEPATITIS A IgM (test code = NON-REACTIVE 84466) HEPATITIS B CORE IgM (test code NON-REACTIVE = 4644) HEPATITIS B SURF AG (test code = NON-REACTIVE 2739) HEPATITIS C ANTIBODY (test code NON-REACTIVE = 4675) HCV INDEX (test code = 12658) 0.08 INTERPRETATION HEPATITIS A: (NOTE) (test code = 2552) INTERPRETATION HEPATITIS B: (NOTE) (test code = 43658) INTERPRETATION HEPATITIS C: (NOTE) (test code = 62369) ACUTE HEPATITIS [id number] 00:00:00 Test Item Value Reference Range Interpretation Comments HEPATITIS A IgM (test code = NON-REACTIVE 57774) HEPATITIS B CORE IgM (test code NON-REACTIVE = 4644) HEPATITIS B SURF AG (test code = NON-REACTIVE 2739) HEPATITIS C ANTIBODY (test code NON-REACTIVE = 4675) HCV INDEX (test code = 70595) 0.08 INTERPRETATION HEPATITIS A: (NOTE) (test code = 2552) INTERPRETATION HEPATITIS B: (NOTE) (test code = 69970) INTERPRETATION HEPATITIS C: (NOTE) (test code = 16674) HIV AB/AG COMBO RFLX [id number] 00:00:00 Test Item Value Reference Range Interpretation Comments HIV 1/2 4TH GEN, RFLX CONF (test NON-REACTIVE code = 3514) HIV AB/AG COMBO RFLX [id number] 00:00:00 Test Item Value Reference Range Interpretation Comments HIV 1/2 4TH GEN, RFLX CONF (test NON-REACTIVE code = 3514) HEMOGLOBIN [id number] 00:00:00 Test Item Value Reference Range Interpretation Comments HEMOGLOBIN A1c (test code = 50961) 5.0 % GC AND CHLAMYDIA AMPLIFIED, [id number] 00:00:00 Test Item Value Reference Range Interpretation Comments GONORRHEA, TMA (test code = 75002) NEGATIVE CHLAMYDIA, TMA (test code = 65315) NEGATIVE LIPID [id number] 00:00:00 Test Item Value Reference Range Interpretation Comments CHOLESTEROL (test code = 2210) 149 MG/DL TRIGLYCERIDES (test code = 2232) 160 MG/DL HDL CHOLESTEROL (test code = 2220) 38 MG/DL CALC LDL CHOL (test code = 2237) 79 MG/DL RISK RATIO LDL/HDL (test code = 2.08 RATIO 2238) HPV HIGH RISK WITH GENOTYPE, [id number] 00:00:00 Test Item Value Reference Range Interpretation Comments HPV HIGH RISK INTERP (test code = NEGATIVE 23043) HPV 16 (test code = 23543) NEGATIVE HPV 18 (test code = 22475) NEGATIVE HPV, HR, OTHER GENOTYPES (test code NEGATIVE = 33850) COMPREHENSIVE METABOLIC [id number] 00:00:00 Test Item Value Reference Range Interpretation Comments GLUCOSE (test code = 2217) 96 MG/DL BUN (test code = 2208) 8 MG/DL CREATININE (test code = 2214) 0.82 MG/DL eGFR AMER. (test code 109 ML/MIN/1.73 = 84755) eGFR NON- AMER. (test 94 ML/MIN/1.73 code = 14887) CALC BUN/CREAT (test code = 10 RATIO [...] ALT (test code = 2219) 16 U/L [id number] 00:00:00 Test Item Value Reference Range Interpretation Comments RPR RESULT (test code = NON-REACTIVE 3501) RPR TITER (test code = 3500) NOT INDIC. TITER [id number] 00:00:00 Test Item Value Reference Range Interpretation Comments RPR RESULT (test code = NON-REACTIVE 3501) RPR TITER (test code = 3500) NOT INDIC. TITER ACUTE HEPATITIS [id number] 00:00:00 Test Item Value Reference Range Interpretation Comments HEPATITIS A IgM (test code = NON-REACTIVE 28267) HEPATITIS B CORE IgM (test code NON-REACTIVE = 4644) HEPATITIS B SURF AG (test code = NON-REACTIVE 2739) HEPATITIS C ANTIBODY (test code NON-REACTIVE = 4675) HCV INDEX (test code = 95588) 0.08 INTERPRETATION HEPATITIS A: (NOTE) (test code = 2552) INTERPRETATION HEPATITIS B: (NOTE) (test code = 54468) INTERPRETATION HEPATITIS C: (NOTE) (test code = 31747) HIV AB/AG COMBO RFLX [id number] 00:00:00 Test Item Value Reference Range Interpretation Comments HIV 1/2 4TH GEN, RFLX CONF (test NON-REACTIVE code = 3514)
[2022-11-19 23:59] LABS: Absolute Lymphocytes (CBC) 3.9 K/uL (0.7-4.9); Hematocrit 37.9 % (36.0-45.0); Lymphocytes % 27.2 % (15.3-44.8); MCV 76.9 fL (80-100); MPV 7.8 fL (7.6-11.3); RBC Red Blood Cell Count 4.93 M/uL (3.86-4.86)
[2022-11-20 00:19] LABS: ALT/SGPT 25 U/L (13-56); AST/SGOT 15 U/L (15-37); Albumin 3.3 g/dL (3.4-5.0); Alkaline Phosphatase 88 U/L (45-117); BUN Blood Urea Nitrogen 12 mg/dL (7-18); Bicarbonate 22 mEq/L (21-32); Bilirubin Direct < 0.1 mg/dL (0-0.2); Bilirubin Indirect, Calculated ND mg/dL (0.2-0.8); Bilirubin Total 0.2 mg/dL (0.2-1.0); Glomerular Filtration Rate 89 ml/min (=/>90); Glucose Level 91 mg/dL (74-106); Magnesium 2.2 mg/dL (1.6-2.4); NT PRO-BNP 178 pg/mL (<125); Potassium 3.7 mEq/L (3.5-5.1); Protein, Total 7.6 g/dL (6.4-8.2); Sodium Level 139 mEq/L (136-145); Troponin High Sensitivity 3.2 pg/mL (<58.9)
[2022-11-20] MEDS ORDERED: METOCLOPRAMIDE 10 MG/2mL INJ ONE (01:25)
[2022-11-20] MEDS ORDERED: dexAMETHasone 10 MG/ML VIAL ONE (01:25)
[2022-11-20] MEDS ORDERED: KETOROLAC 30 MG/ML INJ ONE (01:26)
[2022-11-20] MEDS ORDERED: NA CHLORIDE 0.9% 1,000 ML ONE (01:26)
[2022-11-20] MEDS ORDERED: MAGNESIUM SULFATE 1 gm IVPB 1 GM/100 ML BAG IV ONE (01:26)
[2022-11-20 01:28] LABS: Specific Gravity 1.023 (1.005-1.030); Urine Bacteria <20 /HPF (<20); Urine Bilirubin NEGATIVE (Negative); Urine Blood Negative (Negative); Urine Clarity Turbid (Clear); Urine Color Light-Yellow (Yellow); Urine Glucose NEGATIVE (Negative); Urine Mucus Slight /HPF (None Seen); Urine Protein NEGATIVE (Negative); Urine Urobilinogen Normal (Normal); Urine WBC Clump Rare /HPF (None Seen); Urine pH 5.5 (5.0-7.0)
--- NOTE | 2022-11-20 02:01 | ER ---
Nurse's Notes [facility] Name: Zaria De Oliveira Age: 37 yrs Sex: Female : 1985 Arrival Date: 11/19/2022 Time: 22:38 Bed 20 Private MD: Diagnosis: Essential (primary) hypertension Presentation: 11/19 23:07 Chief complaint: Patient states: I started feeling dizzy, fatigued, and the chills vc1 yesterday I checked my blood pressure and it was high. I took 2 lisinopril and my pressure is still high. Coronavirus screen: Vaccine status: Patient reports being unvaccinated. At this time, the client does not indicate any symptoms associated with coronavirus-19. Ebola Screen: Patient negative for fever greater than or equal to 101.5 degrees Fahrenheit, and additional compatible Ebola Virus Disease symptoms Patient denies exposure to infectious person. Patient denies travel to an Ebola-affected area in the 21 days before illness onset. No symptoms or risks identified at this time. Initial Sepsis Screen: Does the patient meet any 2 criteria? No. Patient's initial sepsis screen is negative. Does the patient have a suspected source of infection? No. Patient's initial sepsis screen is negative. Risk Assessment: Do you want to hurt yourself or someone else? Patient reports no desire to harm self or others. Onset of symptoms was November 18, 2022. 23:07 Method Of Arrival: Ambulatory vc1 23:07 Acuity: CELESTINO 3 vc1 Triage Assessment: 23:14 General: Appears in no apparent distress. uncomfortable, obese, Behavior is calm, vc1 cooperative, appropriate for age. Pain: Complains of pain in headache Pain does not radiate. Pain currently is 9 out of 10 on a pain scale. Pain began gradually, Also complains of nausea, dizziness. EENT: No deficits noted. No signs and/or symptoms were reported regarding the EENT system. Neuro: Level of Consciousness is awake, alert, obeys commands, Oriented to person, place, time, situation, Appropriate for age Reports headache. Cardiovascular: Reports fatigue, lightheadedness, nausea, dizziness Chest pain is denied. Respiratory: Airway is patent Respiratory effort is even, unlabored, Respiratory pattern is regular, symmetrical. GI: No deficits noted. No signs and/or symptoms were reported involving the gastrointestinal system. : No deficits noted. No signs and/or symptoms were reported regarding the genitourinary system. Derm: No deficits noted. No signs and/or symptoms reported regarding the dermatologic system. Musculoskeletal: No deficits noted. SR. MANAGER: 23:13 LMP N/A - Depo-provera vc1 Historical: - Allergies: 23:11 Bluestar ointments; vc1 23:11 Oxistat; vc1 - Home Meds: 23:11 lisinopril 10 mg Oral tablet daily [Active]; vc1 - PMHx: 23:11 Migraines; Hypertensive disorder; vc1 - PSHx: 23:11 section; vc1 - Immunization history:: Client reports having NOT received the Covid vaccine. - Social history:: Smoking status: Patient denies any tobacco usage or history of. Screenin:12 [facility] ED Fall Risk Assessment (Adult) History of falling in the last 3 months, vc1 including since admission No falls in past 3 months (0 pts) Confusion or Disorientation No (0 pts) Intoxicated or Sedated No (0 pts) Impaired Gait No (0 pts) Mobility Assist Device Used No (0 pt) Altered Elimination No (0 pt) Score/Fall Risk Level 0 - 2 = Low Risk Oriented to surroundings, Maintained a safe environment, Educated pt \T\ family on fall prevention, incl call for assistance when getting out of bed. Abuse screen: Denies threats or abuse. Nutritional screening: No deficits noted. Tuberculosis screening: No symptoms or risk factors identified. Assessment: 23:02 General: Appears uncomfortable, Behavior is calm, cooperative. Pain:. Pain: Complains ha1 of pain in head Pain does not radiate. Pain currently is 9 out of 10 on a pain scale. Quality of pain is described as pressure. Neuro: Level of Consciousness is awake, alert, obeys commands, Oriented to person, place, time, situation. Neuro: Reports dizziness, headache weakness. Cardiovascular: Patient's skin is warm and dry. Respiratory: Airway is patent Respiratory effort is even, unlabored, Respiratory pattern is regular, symmetrical. GI: Abdomen is round non-distended. : No signs and/or symptoms were reported regarding the genitourinary system. Derm: Skin is pink, warm \T\ dry. Musculoskeletal: Circulation, motion, and sensation intact. Range of motion: intact in all extremities. 11/20 00:00 Reassessment: Patient and/or family updated on plan of care and expected duration. Pain ha1 level reassessed. Patient is alert, oriented x 3, equal unlabored respirations, skin warm/dry/pink. 01:00 Reassessment: Patient and/or family updated on plan of care and expected duration. Pain ha1 level reassessed. Patient is alert, oriented x 3, equal unlabored respirations, skin warm/dry/pink. 02:00 Reassessment: Patient and/or family updated on plan of care and expected duration. Pain ha1 level reassessed. Patient is alert, oriented x 3, equal unlabored respirations, skin warm/dry/pink. Patient states feeling better. Patient states symptoms have improved. Vital Signs: 11/19 23:07 BP 172 / 103; Pulse 64; Resp 20; Temp 98.5; Pulse Ox 100% ; Weight 117.93 kg; Height 5 vc1 ft. 2 in. ; Pain 9/10; 23:30 BP 151 / 91; Pulse 66; Resp 18 S; Pulse Ox 100% on R/A; ha1 11/20 00:20 BP 118 / 80; Pulse 75; Resp 16 S; Pulse Ox 98% on R/A; ha1 00:45 BP 126 / 87; Pulse 72; Resp 16 S; Pulse Ox 100% on R/A; ha1 01:30 BP 120 / 88; Pulse 89; Resp 18 S; Pulse Ox 98% on R/A; ha1 02:20 BP 118 / 85; Pulse 82; Resp 16 S; Pulse Ox 100% on R/A; ha1 11/19 23:07 Body Mass Index 47.55 (117.93 kg, 157.48 cm) vc1 11/19 23:07 Pain Scale: Adult vc1 ED Course: 11/19 22:44 Patient arrived in ED. kj1 23:05 Lissy Moore PA-C is PHCP. sb4 23:05 Alessio Tellez MD is Attending Physician. sb4 23:08 Darlene Soto RN is Primary Nurse. ha1 23:11 Triage completed. vc1 23:12 Arm band placed on right wrist. vc1 23:13 Patient has correct armband on for positive identification. Bed in low position. Call vc1 light in reach. Pulse ox on. NIBP on. 23:30 Inserted saline lock: 22 gauge in left antecubital area, using aseptic technique. Blood ha1 collected. 23:31 XRAY Chest (1 view) In Process Unspecified. EDMS 23:52 Basic Metabolic Panel Sent. ha1 23:52 CBC with Diff Sent. ha1 23:52 LFT's Sent. ha1 23:52 Magnesium Sent. ha1 23:52 NT PRO-BNP Sent. ha1 23:52 Troponin HS Sent. ha1 11/20 02:20 No provider procedures requiring assistance completed. IV discontinued, intact, ha1 bleeding controlled, No redness/swelling at site. Pressure dressing applied. 02:23 Provided Education on: medication administration.. ha1 Administered Medications: :15 Drug: NS 0.9% IV 1000 ml Route: IV; Rate: 1 bolus; Site: left antecubital; ha1 02:28 Follow up: Response: No adverse reaction; IV Status: Completed infusion; IV Intake: ha1 1000ml 01:19 Drug: Decadron - Dexamethasone IVP 10 mg Route: IVP; Site: left antecubital; ha1 02:00 Follow up: Response: No adverse reaction ha1 01:22 Drug: metoCLOPramide IVP 10 mg Route: IVP; Site: left antecubital; ha1 02:27 Follow up: Response: No adverse reaction ha1 01:25 Drug: Ketorolac IVP 15 mg Route: IVP; Site: left antecubital; ha1 02:00 Follow up: Response: No adverse reaction ha1 01:27 Drug: Magnesium Sulfate IVPB 1 grams Route: IVPB; Infused Over: 1 hrs; Site: left ha1 antecubital; 02:20 Follow up: Response: No adverse reaction; IV Status: Completed infusion; IV Intake: [id number] Medication: 11/19 23:14 VIS not applicable for this client. vc1 Intake: 11/20 02:20 IV: 50ml; Total: 50ml. ha1 02:28 IV: 1000ml; Total: 1050ml. ha1 Outcome: 02:00 Discharge ordered by MD. mcnulty 02:22 Discharged to home ambulatory. ha1 02:22 Condition: stable 02:22 Discharge instructions given to patient, Instructed on discharge instructions, follow up and referral plans. medication usage, Demonstrated understanding of instructions, follow-up care, medications, Prescriptions given X 2. 02:23 Patient left the ED. ha1 Signatures: Dispatcher [employer] EDLia Hernandez kj1 Paty Sheppard RN RN 1 Darlene Soto RN RN ha1 Lissy Moore, KATIE PAHaylee sb4
--- NOTE | 2022-11-20 02:01 | EDPHYS ---
Physician Documentation [facility] – [place], [place] Name: Zaria De Oliveira Age: 37 yrs Sex: Female : 1985 Arrival Date: 11/19/2022 Time: 22:38 Bed 20 Private MD: ED Physician Alessio Tellez HPI: 11/20 00:15 This 37 yrs old Female presents to ER via Ambulatory with complaints of High Blood sb4 Pressure, Headache, Nose Bleed. 00:15 states her blood pressure has been running high because she ran out of her lisinopril. sb4 she has also had a nose bleed, been dizzy, and felt generally unwell. her son tested negative for covid and flu yesterday. she denies chest pain, shortness of breath, nausea, vomiting. 00:17 The patient has elevated blood pressure and discovered this at home, with a home sb4 device. Onset: The symptoms/episode began/occurred yesterday. Modifying factors: The symptoms are aggravated by discontinuation of meds, KELY-inhibitor. Associated signs and symptoms: Pertinent positives: dizziness, headache, visual changes, Pertinent negatives: chest pain, dyspnea, vomiting. Severity of symptoms: in the emergency department the blood pressure is are actually worse, 172 mm Hg. 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 - Social history:: Smoking status: Patient denies any tobacco usage or history of. ROS: 11/20 00:17 Constitutional: Negative for fever, chills, and weight loss, Eyes: Negative for injury, sb4 pain, redness, and discharge, ENT: Negative for injury, pain, and discharge, Cardiovascular: Negative for chest pain, palpitations, and edema, Respiratory: Negative for shortness of breath, cough, wheezing, and pleuritic chest pain, Abdomen/GI: Negative for abdominal pain, nausea, vomiting, diarrhea, and constipation, MS/Extremity: Negative for injury and deformity, Skin: Negative for injury, rash, and discoloration. ENT: Positive for nose bleed. Neuro: Positive for dizziness, headache. Exam: 00:17 Constitutional: This is a well developed, well nourished patient who is awake, alert, sb4 and in no acute distress. Head/Face: Normocephalic, atraumatic. Eyes: Extra-ocular motions intact. Periorbital areas with no swelling, redness, or edema. Cardiovascular: Regular rate and rhythm with a normal S1 and S2. Respiratory: Lungs have equal breath sounds bilaterally, clear to auscultation and percussion. No rales, rhonchi or wheezes noted. No increased work of breathing, no retractions or nasal flaring. Abdomen/GI: Soft, non-tender, no distension. Skin: Warm, dry with normal turgor. Normal color with no rashes, no lesions, and no evidence of cellulitis. MS/ Extremity: Pulses equal, no cyanosis. Neurovascular intact. Full, normal range of motion. Neuro: Awake and alert, GCS 15, oriented to person, place, time, and situation. Cranial nerves II-XII grossly intact. Motor strength 5/5 in all extremities. Sensory grossly intact. Cerebellar exam normal. Normal gait. Vital Signs: 11/19 23:07 BP 172 / 103; Pulse 64; Resp 20; Temp 98.5; Pulse Ox 100% ; Weight 117.93 kg; Height 5 vc1 ft. 2 in. ; Pain 9/10; 23:30 BP 151 / 91; Pulse 66; Resp 18 S; Pulse Ox 100% on R/A; ha1 11/20 00:20 BP 118 / 80; Pulse 75; Resp 16 S; Pulse Ox 98% on R/A; ha1 00:45 BP 126 / 87; Pulse 72; Resp 16 S; Pulse Ox 100% on R/A; ha1 01:30 BP 120 / 88; Pulse 89; Resp 18 S; Pulse Ox 98% on R/A; ha1 02:20 BP 118 / 85; Pulse 82; Resp 16 S; Pulse Ox 100% on R/A; ha1 11/19 23:07 Body Mass Index 47.55 (117.93 kg, 157.48 cm) vc1 11/19 23:07 Pain Scale: Adult vc1 MDM: 11/19 23:05 Patient medically screened. 4 11/20 00:17 Differential diagnosis: hypertensive crisis, Malignant HTN, CVA, intracerebral sb4 hemorrhage, covid, flu. Data interpreted: Pulse oximetry: on room air is 100 %. Interpretation: normal. 01:00 ED course: BP has normalized but patient still feels poorly- nausea, headache, sb4 generally unwell. Will check UA and administer migraine cocktail . 02:00 Data reviewed: vital signs, nurses notes, lab test result(s), EKG, radiologic studies, sb4 and as a result, I will discharge patient. Care significantly affected by the following chronic conditions: Hypertension. Care significantly affected by the following Social Determinants of Health: Poor access to healthcare and/or lack of insurance. Counseling: I had a detailed discussion with the patient and/or guardian regarding: the historical points, exam findings, and any diagnostic results supporting the discharge/admit diagnosis, the presence of at least one elevated blood pressure reading (>120/80) during this emergency department visit, lab results, radiology results, to return to the emergency department if symptoms worsen or persist or if there are any questions or concerns that arise at home. Response to treatment: the patient's symptoms have markedly improved after treatment. 11/19 23:08 Order name: Basic Metabolic Panel; Complete Time: 00:22 [facility] 11/19 23:08 Order name: CBC with Diff; Complete Time: 00:05 [facility] 11/19 23:08 Order name: LFT's; Complete Time: 00:22 [facility] 11/19 23:08 Order name: Magnesium; Complete Time: 00:22 [facility] 11/19 23:08 Order name: NT PRO-BNP; Complete Time: 00:22 [facility] 11/19 23:08 Order name: Troponin HS; Complete Time: 00:22 [facility] 11/19 23:37 Order name: COVID-19 SARS RT PCR; Complete Time: 00:55 [facility] 11/19 23:37 Order name: Flu; Complete Time: 00:19 [facility] 11/20 01:00 Order name: UAM; Complete Time: 01:56 [facility] 11/20 01:32 Order name: Urine Culture EDMS 11/19 23:08 Order name: XRAY Chest (1 view) [facility] 11/19 23:08 Order name: EKG; Complete Time: 23:09 sb4 11/19 23:08 Order name: Cardiac monitoring; Complete Time: 23:52 sb4 11/19 23:08 Order name: EKG - Nurse/Tech; Complete Time: 23:52 sb4 11/19 23:08 Order name: IV Saline Lock; Complete Time: 23:52 sb4 11/19 23:08 Order name: Labs collected and sent; Complete Time: 23:52 sb4 11/19 23:08 Order name: O2 Per Protocol; Complete Time: 23:12 sb4 11/19 23:08 Order name: O2 Sat Monitoring; Complete Time: 23:12 sb4 11/19 23:57 Order name: Misc. Order: redo covid, wrong swab; Complete Time: 00:11 sb4 EC:06 Rate is 59 beats/min. Rhythm is regular, Sinus bradycardia. FL interval is normal at sb4 160 msec. QRS interval is normal at 84 msec. QT interval is normal at 402 msec. No Q waves. T waves are Normal. Clinical impression: Normal ECG. Interpreted by me. Reviewed by me. Administered Medications: 01:15 Drug: NS 0.9% IV 1000 ml Route: IV; Rate: 1 bolus; Site: left antecubital; ha1 02:28 Follow up: Response: No adverse reaction; IV Status: Completed infusion; IV Intake: ha1 1000ml 01:19 Drug: Decadron - Dexamethasone IVP 10 mg Route: IVP; Site: left antecubital; ha1 02:00 Follow up: Response: No adverse reaction ha1 01:22 Drug: metoCLOPramide IVP 10 mg Route: IVP; Site: left antecubital; ha1 02:27 Follow up: Response: No adverse reaction ha1 01:25 Drug: Ketorolac IVP 15 mg Route: IVP; Site: left antecubital; ha1 02:00 Follow up: Response: No adverse reaction ha1 01:27 Drug: Magnesium Sulfate IVPB 1 grams Route: IVPB; Infused Over: 1 hrs; Site: left ha1 antecubital; 02:20 Follow up: Response: No adverse reaction; IV Status: Completed infusion; IV Intake: [id number] Disposition: 04:59 Co-signature as Attending Physician, Alessio Tellez MD I reviewed the patient's care rt provided by the Advanced Practice Provider and agree with the diagnosis and treatment plan. Disposition Summary: 11/20/22 02:00 Discharge Ordered Location: Home sb4 Problem: an acute exacerbation sb4 Symptoms: have improved sb4 Condition: Stable sb4 Diagnosis - Essential (primary) hypertension sb4 Followup: sb4 - With: Private Physician - When: 2 - 3 days - Reason: Recheck today's complaints, Continuance of care, Re-evaluation by your physician Discharge Instructions: - Discharge Summary Sheet sb4 Forms: - Work release form sb4 - Medication Reconciliation Form sb4 - Thank You Letter sb4 - Antibiotic Education sb4 - Prescription Opioid Use sb4 - Patient Portal Instructions sb4 Prescriptions: - Doxycycline Hyclate 100 mg Oral Tablet - take 1 tablet by ORAL route every 12 hours; 20 tablet; Refills: 0, Product sb4 Selection Permitted - Lisinopril 10 mg Oral Tablet - take 1 tablet by ORAL route once daily; 20 tablet; Refills: 0, Product sb4 Selection Permitted Signatures: Dispatcher [employer] EDPaty Castellanos RN RN vc1 Darlene Soto RN RN ha1 Lissy Moore, PA-C PA-C sb4 Alessio Tellez MD MD rt Corrections: (The following items were deleted from the chart) 00:18 00:15 . sb4 sb4
[2022-11-20 02:28] VITALS: TEMP 98.5
[2022-11-20 02:36] VITALS: BP 118/85; O2SAT 100
--- NOTE | 2022-11-20 13:43 | RAD REPORT ---
EXAM DESCRIPTION: RAD - Chest Single View - 11/19/2022 11:29 pm CLINICAL HISTORY: The patient is 37 years old and is Female; CHEST PAIN TECHNIQUE: Frontal view of the chest. COMPARISON: No relevant prior studies available. FINDINGS: Lungs: Mildly prominent interstitial markings. No consolidation. Pleural space: Unremarkable. No pneumothorax. Heart: Unremarkable. Mediastinum: Unremarkable. Bones/joints: Unremarkable. IMPRESSION: Mildly prominent interstitial markings. No consolidation. Electronically signed by: Dennis Ramirez MD 11/19/2022 11:43 PM CDT Due to temporary technical issues with the PACS/Fluency reporting system, reports are being signed by the in house radiologists without review as a courtesy to insure prompt reporting. The interpreting radiologist is fully responsible for the content of the report.
--- NOTE | 2022-11-21 11:46 | EKG ---
Test Date: 2022-11-19 Test Time: 23:33:51 Assistant Media Buyer: MASOOD MEASUREMENT RESULTS: Intervals: Rate: 59 [place]: 160 QRSD: 84 QT: 402 QTc: 397 [place]: P: 35 [place]: 160 QRS: 54 T: 48 INTERPRETIVE STATEMENTS: Sinus bradycardia with sinus arrhythmia Otherwise normal ECG No previous ECG available for comparison Electronically Signed On 11-21-22 11:44:05 CDT by Chintan Julio
== END 2022-11-20 02:23 | disposition home or self-care (01) ==
LOC: ER 22:38
DX: I10 Essential (primary) hypertension (principal); R11.0 Nausea; R51.9 Headache, unspecified; Z20.822 Contact with and (suspected) exposure to COVID-19
CPT/HCPCS: 36415; 71045; 80048; 80076; 81001; 83735; 83880; 84484; 85025; 87086; 87088; 87635; 87804; 93005; 96365; 96375; 99284; J1100; J2765; J3475; J7030

== ENCOUNTER 2023-03-04 16:02 | Emergency (ER) | payer SELFPAY ==
--- OUTSIDE RECORDS SUMMARY | 2023-03-04 16:06 | XMS REPORT | Continuity of Care Document ---
:1985 Author Organization [facility] t Address [address] [facility] [place] [address] Care Team Providers Name Role Phone PCP, PATIENT DOES NOT HAVE A Primary Care Physician Unavaila ble VICK GARY Attending Clinician Unavailable Vick Gary NP Attending Clinician Krissy Hernandez Attending Clinician KRISSY MERRITT Attending Clinician Unavailable VICK GARY Admitting Clinician Unavailable KRISSY MERRITT Admitting Clinician Unavailable Payers Payer Name Policy Type Policy Number Effective Date Expiration Date S juli [employer] [place] [id number] 2020 00:00:00 WOMEN Problems Condition Condition Condition Status Onset Resolution Last Treating Co mments Source Name Details Category Date Date Treatment Clinician Date No known No known Disease Unive rs active active ity of problems problems [facility] Allergies, Adverse Reactions, Alerts Allergy Allergy Status Severity Reaction(s) Onset Inactive Treating Comm ents Source Name Type Date Date Clinician OXICONAZ DRUG Active Swelling Univer s OLE INGREDI 12-07 ity of NITRATE 00:00: [address] Oxiconaz Propensi Active Swelling Univ ers [...] o f [place] Alcohol Binge Medical Bra [facility] Exposure to Not sure [facility] SARS-CoV-2 (event) Medica l Branch Alcohol intake 2021-04-11 2021-04-11 0 /d [facility] 00:00:00 00:00:00 Medical Branch Tobacco use and 2015-12-08 2015-12-08 Never used [facility] exposure 00:00:00 00:00:00 Medical Branch Alcohol Comment 2015-12-08 2015-12-08 Occasional [facility] 00:00:00 00:00:00 Medical Branch Sex [birth year] At [birth year] [facility] 00:00:00 00:00:00 Medical Branch Smoking Status Start Date Stop Date Source Never smoker [facility] Medical Branch Medications Ordered Filled Start Stop Current Ordering Indication Dosage Frequency Signature Comments Components Source Medication Medication Date Date Medication? Clinician (SIG) Name Name Depo-Rug Hooker 2021-0 No 1mg/mL a 150 mg/mL 6-28 intramuscul 00:00: ar syringe 00 TAKE 2021-0 No CAPSULE BY 6-28 MOUTH THREE 00:00: TIMES A DAY 00 NEEDED FOR COUGH TAKE 0 No CAPSULE BY 6-28 MOUTH THREE 00:00: TIMES A DAY 00 NEEDED FOR COUGH TAKE 2021-0 No CAPSULE BY 6-28 MOUTH THREE 00:00: TIMES A DAY 00 NEEDED FOR COUGH Depo-Rug Hooker 2021-0 No 1mg/mL a 150 mg/mL -28 [...] INJECT 1 ML 2021-0 No INTRAMUSCUL -28 CRATER ONCE 00:00: EVERY 3 00 MONTHS. TAKE 2021-0 No CAPSULE BY 6-28 MOUTH THREE 00:00: TIMES A DAY 00 NEEDED FOR COUGH TAKE 1 0 No CAPSULE BY 6-28 MOUTH THREE 00:00: TIMES A DAY 00 NEEDED FOR COUGH TAKE 1 No CAPSULE BY 6-28 MOUTH THREE 00:00: TIMES A DAY 00 NEEDED FOR COUGH Dose 2021- No Unknown 1-17 00:00: 00 Dose 0 No Unknown 1-17 00:00: 00 lisinopril No 1mg 10 mg 05-24 tablet 00:00: 00 Dose No Unknown -17 00:00: 00 Dose 2021-0 No Unknown 17 00:00: 00 Dose No Unknown 05-24 00:00: 00 ketorolac 2020-05- No 30mg 30 mg, Unive rs (TORADOL) 2-09 16-05 Slow IV ity of injection 07:15: 06:22 Push, [place] 30 mg 00 :00 ONCE, 1 Medical dose, On Branch 04/11/21 at 0115, Routine
membership coordinator approving Restricted medication : VICK GARY etodolac 2020-05 Yes [id number] 300mg Take 1 U nivers 300 mg 2-05 capsule by ity of capsule 00:00: mouth 3 [place] 00 (three) Medical times Branch daily with meals. etodolac 2020-05- No [id number] 300mg Take 1 Univers 300 mg 2-09 16-05 capsule by ity of capsule 00:00: 00:00 mouth 3 [place] 00 :00 (three) Medical times Branch daily with meals for 5 days. etodolac 2020-05- No [id number] 300mg Take 1 Univers 300 mg 2-09 16-05 capsule by ity of capsule 00:00: 00:00 mouth 3 [place] 00 :00 (three) Medical times Branch daily with meals. acyclovir 2020-05 Yes 200mg Take 200 Uni vers (ZOVIRAX) 2-04 mg by ity of 200 mg 23:44: mouth. [place] capsule 39 Medical Branch Depo-Rug Hooker 2020-05 No 1mg/mL a 150 mg/mL 0-22 intramuscul 00:00: ar syringe 00 Depo-Rug Hooker 2020-05 No 1mg/mL a 150 mg/mL 0-22 intramuscul 00:00: ar syringe Depo-Rug Hooker 2020-05 No 1mg/mL a 150 mg/mL 0-22 intramuscul 00:00: ar syringe 00 benzonatate 2020- No [id number] 100mg Take 1 Univers 100 mg 8- 12-04 capsule by ity of capsule 00:00: 00:00 mouth 3 [place] 00 :00 (three) Medical times Branch daily as needed for Cough. albuterol 2020- No [id number] 4{puff} Inhale 4 Univers 90 8- 12-04 Puffs ity of mcg/actuati 00:00: 00:00 [place] 4 [place] inhaler 00 :00 (four) Medical hours as Branch needed for Wheezing or Shortness of Breath. ondansetron 2020- No [id number] 4mg Take 1 Univers 4 mg 12-26 tablet by ity of disintegrat 00:00: 00:00 [place] tablet 00 :00 every 8 Medica l (eight) Branch hours as needed for Nausea and Vomiting (N/V). Depo-Rug Hooker No 1mg/mL a 150 mg/mL 8-05 intramuscul 00:00: ar syringe Depo-Rug Hooker No 1mg/mL a 150 mg/mL 8-05 intramuscul 00:00: ar syringe Depo-Rug Hooker No 1mg/mL a 150 mg/mL 8-05 intramuscul 00:00: ar syringe esomeprazol 2020- No [id number] 20mg Take 20 mg Univers e (NEXIUM) [...] 200 mg 2-12 capsule 00:00: 00 clarithromy 1 No 1mg joanna 500 mg 0-25 tablet 00:00: 00 amoxicillin 2016-1 No 2mg 500 mg 0-25 capsule 00:00: 00 clarithromy 1 No 1mg joanna 500 mg 0-25 tablet 00:00: 00 amoxicillin 2016-1 No 2mg 500 mg 0-25 capsule 00:00: 00 clarithromy 1 No 1mg joanna 500 mg 0-25 tablet 00:00: 00 amoxicillin 2016-1 No 2mg 500 mg 0-25 capsule 00:00: 00 Vital Signs Vital Name Observation Time Observation Value Comments Source Systolic blood 2021-04-11 08:00:00 132 mm[Hg] Univer sity [facility] Diastolic blood 2021-04-11 08:00:00 88 mm[Hg] [facility] Heart rate 2021-04-11 08:00:00 61 /min [facility] Respiratory rate 2021-04-11 08:00:00 20 /min [facility] Oxygen saturation in 2021-04-11 08:00:00 100 /min [facility] Arterial blood by [facility] Pulse oximetry Branch Body temperature 2021-04-11 05:42:00 36.94 Penny [facility] Body height 2021-04-11 05:42:00 157.5 cm [facility] Body weight 2021-04-11 05:42:00 97.523 kg [facility] BMI 2021-04-11 05:42:00 39.32 kg/m2 [facility] BP Systolic 2022-04-06 10:27:00 135 mm[Hg] [...] Procedure Date / Time Performed Performing Clinician Sourc e XR CHEST 1 VW 2021-04-11 06:41:03 Vick Gary [facility] D-DIMER 2021-04-11 06:34:00 Vick Gary [facility] LIPASE 2021-04-11 06:15:00 Vick Gary [facility] TROPONIN I 2021-04-11 06:15:00 Vick Gary [facility] COMP. METABOLIC PANEL 2021-04-11 06:15:00 Vick Gary [facility] ([id number]) [facility] CBC WITH DIFF 2021-04-11 06:15:00 Vick Gary [facility] CONSENT/REFUSAL FOR 2021-04-11 05:33:33 [facility], [facility] AND Name Medical Branch TREATMENT Plan of Care Planned Activity Planned Date Details Comments Source Goal Plan of Care Note [code = 07130-3] Goal Plan of Care Note [code = 09503-4] Goal Plan of Care Note [code = 29612-4] Goal Plan of Care Note [code = 64336-7] Goal Plan of Care Note [code = 30931-5] Goal Plan of Care Note [code = 32554-2] Goal Plan of Care Note [code = 32770-0] Goal Plan of Care Note [code = 23617-0] Goal Plan of Care Note [code = 08471-5] Goal Plan of Care Note [code = 92931-3] Goal Plan of Care Note [code = 84847-6] Goal Plan of Care Note [code = 46620-2] Goal Plan of Care Note [code = 83879-8] Goal Plan of Care Note [code = 99549-0] Goal Plan of Care Note [code = 84297-8] Goal Plan of Care Note [code = 09779-7] Goal Plan of Care Note [code = 89711-7] Goal Plan of Care Note [code = 81058-0] Goal Plan of Care Note [code = 06340-8] Goal Plan of Care Note [code = 61376-8] Goal Plan of Care Note [code = 83480-8] Goal Plan of Care Note [code = 56356-1] Goal Plan of Care Note [code = 80068-1] Goal Plan of Care Note [code = 85610-7] Goal Plan of Care Note [code = 52702-1] Goal Plan of Care Note [code = 98600-4] Goal Plan of Care Note [code = 56293-2] Goal Plan of Care Note [code = 47796-2] Goal Plan of Care Note [code = 09806-6] Goal Plan of Care Note [code = 80259-3] Goal Plan of Care Note [code = 89279-2] Goal Plan of Care Note [code = 39410-2] Goal Plan of Care Note [code = 97721-6] Goal Plan of Care Note [code = 77489-5] Goal Plan of Care Note [code = 32587-7] Goal Plan of Care Note [code = 11319-9] Goal Plan of Care Note [code = 75971-5] Goal Plan of Care Note [code = 53665-4] Goal Plan of Care Note [code = 53038-7] Goal Plan of Care Note [code = 12523-2] Goal Plan of Care Note [code = 46696-3] Goal Plan of Care Note [code = 13646-9] Goal Plan of Care Note [code = 37692-3] Goal Plan of Care Note [code = 77381-6] Goal Plan of Care Note [code = 24767-2] Goal Plan of Care Note [code = 75023-8] Goal Plan of Care Note [code = 50285-3] Goal Plan of Care Note [code = 43962-2] Goal Plan of Care Note [code = 80381-3] Goal Plan of Care Note [code = 90387-0] Goal Plan of Care Note [code = 55627-0] Goal Plan of Care Note [code = 92826-6] Goal Plan of Care Note [code = 06180-7] Goal Plan of Care Note [code = 62077-1] Goal Plan of Care Note [code = 25142-0] Goal Plan of Care Note [code = 61072-3] Goal Plan of Care Note [code = 42166-2] Goal Plan of Care Note [code = 62442-1] Goal Plan of Care Note [code = 03491-6] Goal Plan of Care Note [code = 59120-5] Goal Plan of Care Note [code = 92271-2] Goal Plan of Care Note [code = 98222-0] Goal Plan of Care Note [code = 94695-2] Goal Plan of Care Note [code = 15024-5] Goal Plan of Care Note [code = 76147-4] Goal Plan of Care Note [code = 88984-0] Goal Plan of Care Note [code = 71383-1] Goal Plan of Care Note [code = 52871-5] Goal Plan of Care Note [code = 88411-4] Goal Plan of Care Note [code = 07634-6] Goal Plan of Care Note [code = 42731-0] Goal Plan of Care Note [code = 24089-6] Goal Plan of Care Note [code = 51602-1] Goal Plan of Care Note [code = 53504-8] Goal Plan of Care Note [code = 08324-9] Goal Plan of Care Note [code = 05730-5] Goal Plan of Care Note [code = 39354-6] Goal Plan of Care Note [code = 97384-2] Goal Plan of Care Note [code = 85632-7] Goal Plan of Care Note [code = 01913-2] Goal Plan of Care Note [code = 44330-8] Encounters Start End Encounter Admission Attending Care Care Encounter Source Date/Time Date/Time Type Type Clinicians Facility Department ID 2021-03-08 Emergency [facility] [id number] Univers 17:07:32 [facility] 2023-02-23 2023-02-23 Outpatient SFA SFA [id number] Jaun 10:25:11 10:25:11 1019 [place] 2023-01-05 2023-01-05 Outpatient SFA SFA [id number] 023 Jaun 14:31:44 14:31:44 0831 F [place] 2022-12-02 2022-12-02 Outpatient SFA SFA [id number] 023 Jaun 17:31:26 17:31:26 0728 F [place] 2022-09-16 2022-09-16 Outpatient SFA SFA [id number] 023 Jaun 10:18:08 10:18:08 0512 F [place] 2022-06-24 2022-06-24 Outpatient SFA SFA [id number] 023 Jaun 13:07:39 13:07:39 0217 F [place] 2022-04-06 2022-04-06 Outpatient SFA SFA [id number] 022 Jaun 10:14:07 10:14:07 1130 F [place] 2022-04-06 2022-04-06 Outpatient [id number] l64cn6-3 00:00:00 00:00:00 Visit 076b-436a 76b-436a-9 -9005-7a4 005-9k186a 96jlh90g8 ca41b7 2022-01-19 2022-01-19 Outpatient [id number]- [id number] w4g577-2 00:00:00 00:00:00 Visit 28d7-856u 7o9-325y-0 -0hr9-114 [facility]-1187[facility] [id number] 7330-06-28 2021-11-02 Outpatient [id number]- [id number] a1 6a2rg3-8 00:00:00 00:00:00 Visit 71w3-41r7 2e5-72p2-7 -8009-desiree 009-eda48b [id number] 6987-12-04 2021-04-11 Emergency X [facility] ERT [id number] Univers 23:45:00 02:10:00 [facility] 2021-04-10 2021-04-11 Emergency [facility] [id number] Univers 23:45:00 02:10:00 Vick LACEY 350.1.13.10 [facility] 4.2.7.2.686 [facility] [id number] [address] 2020-05-27 2020-05-27 Emergency [facility] [id number] 11:00:00 13:42:00 [facility] [place] 350.1.13.10 [place] 4.2.7.2.686 [place] [id number] [facility] 2020-05-27 2020-05-27 Emergency X [facility] ERT [id number] Univers 11:00:00 13:42:00 [facility] Results Test Description Test Time Test Comments Results Result Comments Source D-DIMER 2021-04-11 07:04:48 Test Item Value Reference Range Interpretation Comme nts D-DIMER (test code = <0.27 See_Comment [Autom ated message] The [id number]) system which ge nerated this result tra [...] diagnosis. Lab Interpretation Normal (test code = 33047-2) [facility] [id number] 06:46:29 Test Item Value Reference Interpretation Comments Range TROPONIN I (test 0.000 ng/mL See_Comment [Automated code = 1824921459) message] The system which generated this result [...] biotin. Lab Interpretation Normal (test code = 61390-1) [facility] (03977)2021-04-11 06:35:05 Test Item Value Reference Range Interpretation Comments NA (test code = 141 mmol/L 135-145 4001233942) K (test code = 4.2 mmol/L 3.5-5.0 6740194513) CL (test code = 107 mmol/L 98-108 2049733477) CO2 TOTAL (test code = 25 mmol/L 23-31 6469359992) AGAP (test code = 2-16 4587925815) BUN (test code = 15 mg/dL 7-23 2565482945) GLUCOSE (test code = 112 mg/dL 70-110 H 3829860926) CREATININE (test code = 0.79 mg/dL 0.50-1.04 4479154195) TOTAL BILI (test code = 0.4 mg/dL 0.1-1.3 1099945419) CALCIUM (test code = 10.0 mg/dL 8.6-10.6 0544880339) T PROTEIN (test code = 7.5 g/dL 6.3-8.2 7334209113) ALBUMIN (test code = 4.2 g/dL 3.5-5.0 9772397236) ALK PHOS (test code = 92 U/L 34-122 7294542899) ALTv (test code = 19 U/L 5-35 2-6) AST(SGOT) (test code = 21 U/L 13-40 8530449019) eGFR (test code = mL/min/1.73m2 7747075620) JO (test code = JO) Association of [...] tests). Lab Interpretation Abnormal (test code = 39440-7) [facility] 06:34:45 Test Item Value Reference Range Interpretation Comments LIPASE (test code = 8211313483) 64 U/L 0-220 Lab Interpretation (test code = Normal 50703-0) [facility] WITH [id number] 06:24:53 Test Item Value Reference Range Interpretation [...] RDW-SD (test code = 41.1 fL 39.0-49.9 81594-1) RDW-CV (test code = 14.4 % 12.0-15.5 788-0) PLT (test code = See_Comment H [Automated 777-3) message] The sy stem which generated this result transmitted reference range : 166 - 358 10*3/ ?L. The reference r félix was not used to interpret this result as normal/abnormal . MPV (test code = 10.1 fL 9.5-12.9 26067-9) NRBC/100 WBC (test See_Comment [Automat ed code = 8888487734) message] The system which generated this result transmitted reference range : 0.0 - 10.0 /100 WBCs. The refer ence range was not u sed to interpret th is result as normal/abnormal . NRBC x10^3 (test code <0.01 See_Comment [Auto mated = 6158801709) message] The s ystem which generated this result transmitted reference range : 10*3/?L. The reference range was not used to interpret this result as normal/abnormal . GRAN MAT (NEUT) % 59.1 % (test code = 770-8) IMM GRAN % (test code 0.60 % = 3409506502) LYMPH % (test code = 28.9 % 736-9) MONO % (test code = 9.1 % 5905-5) EOS % (test code = 1.7 % 713-8) BASO % (test code = 0.6 % 706-2) GRAN MAT x10^3(ANC) 8.48 10*3/uL 1.88-7.09 H (test code = 2712097974) IMM GRAN x10^3 (test 0.08 10*3/uL 0.00-0.06 H code = 5866133268) LYMPH x10^3 (test code 4.14 10*3/uL 1.32-3.29 H = 731-0) MONO x10^3 (test code 1.30 10*3/uL 0.33-0.92 H = 742-7) EOS x10^3 (test code = 0.24 10*3/uL 0.03-0.39 711-2) BASO x10^3 (test code 0.08 10*3/uL 0.01-0.07 H = 704-7) Lab Interpretation Abnormal (test code = 75919-7) [facility] AB/AG COMBO RFLX [id number] 00:00:00 Test Item Value Reference Range Interpretation Comments HIV 1/2 4TH GEN, RFLX CONF (test NON-REACTIVE code = 3514) HIV AB/AG COMBO RFLX [id number] 00:00:00 Test Item Value Reference Range Interpretation Comments HIV 1/2 4TH GEN, RFLX CONF (test NON-REACTIVE code = 3514) GC AND CHLAMYDIA, AMPLIFIED, [id number] 00:00:00 Test Item Value Reference Range Interpretation Comments GONORRHEA, NAAT (test code = 50208) NEGATIVE CHLAMYDIA, NAAT (test code = 29666) NEGATIVE GC AND CHLAMYDIA, AMPLIFIED, [id number] 00:00:00 Test Item Value Reference Range Interpretation Comments GONORRHEA, NAAT (test code = 42977) NEGATIVE CHLAMYDIA, NAAT (test code = 67697) NEGATIVE [id number] 00:00:00 Test Item Value Reference Range Interpretation Comments RPR RESULT (test code = NON-REACTIVE 3501) RPR TITER (test code = 3500) NOT INDIC. TITER [id number] 00:00:00 Test Item Value Reference Range Interpretation Comments RPR RESULT (test code = NON-REACTIVE 3501) RPR TITER (test code = 3500) NOT INDIC. TITER [id number] 00:00:00 Test Item Value Reference Range Interpretation Comments RPR RESULT (test code = NON-REACTIVE 3501) RPR TITER (test code = 3500) NOT INDIC. TITER HIV AB/AG COMBO RFLX [id number] 00:00:00 Test Item Value Reference Range Interpretation Comments HIV 1/2 4TH GEN, RFLX CONF (test NON-REACTIVE code = 3514) HIV AB/AG COMBO RFLX [id number] 00:00:00 Test Item Value Reference Range Interpretation Comments HIV 1/2 4TH GEN, RFLX CONF (test NON-REACTIVE code = 3514) GC AND CHLAMYDIA, AMPLIFIED, [id number] 00:00:00 Test Item Value Reference Range Interpretation Comments GONORRHEA, NAAT (test code = 08136) NEGATIVE CHLAMYDIA, NAAT (test code = 69773) NEGATIVE GC AND CHLAMYDIA, AMPLIFIED, [id number] 00:00:00 Test Item Value Reference Range Interpretation Comments GONORRHEA, NAAT (test code = 55887) NEGATIVE CHLAMYDIA, NAAT (test code = 56570) NEGATIVE [id number] 00:00:00 Test Item Value Reference Range Interpretation Comments RPR RESULT (test code = NON-REACTIVE 3501) RPR TITER (test code = 3500) NOT INDIC. TITER [id number] 00:00:00 Test Item Value Reference Range Interpretation Comments RPR RESULT (test code = NON-REACTIVE 3501) RPR TITER (test code = 3500) NOT INDIC. TITER [id number] 00:00:00 Test Item Value Reference Range Interpretation Comments RPR RESULT (test code = NON-REACTIVE 3501) RPR TITER (test code = 3500) NOT INDIC. TITER HIV AB/AG COMBO RFLX [id number] 00:00:00 Test Item Value Reference Range Interpretation Comments HIV 1/2 4TH GEN, RFLX CONF (test NON-REACTIVE code = 3514) GC AND CHLAMYDIA, AMPLIFIED, [id number] 00:00:00 Test Item Value Reference Range Interpretation Comments GONORRHEA, NAAT (test code = 10748) NEGATIVE CHLAMYDIA, NAAT (test code = 72437) NEGATIVE [id number] 00:00:00 Test Item Value Reference Range Interpretation Comments RPR RESULT (test code = NON-REACTIVE 3501) RPR TITER (test code = 3500) NOT INDIC. TITER [id number] 00:00:00 Test Item Value Reference Range Interpretation Comments RPR RESULT (test code = NON-REACTIVE 3501) RPR TITER (test code = 3500) NOT INDIC. TITER SARS-CoV-2 (COVID-19) by RT-PCR (HIGH RISK)2019-11-26 00:00:00 Test Item Value Reference Range Interpretation Comments SARS-CoV-2 INTERPRETATION (test NEGATIVE code = 78223) SOURCE (test code = 42584) NOT SPECIFIED SARS-CoV-2 (COVID-19) by RT-PCR (HIGH RISK)2019-11-26 00:00:00 Test Item Value Reference Range Interpretation Comments SARS-CoV-2 INTERPRETATION (test NEGATIVE code = 03975) SOURCE (test code = 33214) NOT SPECIFIED SARS-CoV-2 (COVID-19) by RT-PCR (HIGH RISK)2019-11-26 00:00:00 Test Item Value Reference Range Interpretation Comments SARS-CoV-2 INTERPRETATION (test NEGATIVE code = 32302) SOURCE (test code = 97497) NOT SPECIFIED SARS-CoV-2 (COVID-19) by RT-PCR (HIGH RISK)2019-11-26 00:00:00 Test Item Value Reference Range Interpretation Comments SARS-CoV-2 INTERPRETATION (test NEGATIVE code = 60256) SOURCE (test code = 78250) NOT SPECIFIED SARS-CoV-2 (COVID-19) by RT-PCR (HIGH RISK)2019-11-26 00:00:00 Test Item Value Reference Range Interpretation Comments SARS-CoV-2 INTERPRETATION (test NEGATIVE code = 14494) SOURCE (test code = 01522) NOT SPECIFIED PAP TEST, THINPREP, [id number] 00:00:00 Test Item Value Reference Range Interpretation Comments SOURCE: (test code = Cervical/Endocervical 8001) SLIDES: (test code = 1 8011) LMP: (test code = 8021) 03/08/2018 SPECIMEN ADEQUACY: (NOTE) (test code = 99174) INTERPRETATION: (test NILM/NO EPITH. code = 81051) ABNORMALITY;SEE BELOW EXPORT SPECIALIST: (test Andrew code = 8101) BEN Urena(ASCP)IAC LOCATION: (test code = (NOTE) 75572) CPT: (test code = 8140) (NOTE) PAP TEST, THINPREP, [id number] 00:00:00 Test Item Value Reference Range Interpretation Comments SOURCE: (test code = Cervical/Endocervical 8001) SLIDES: (test code = 1 8011) LMP: (test code = 8021) 03/08/2018 SPECIMEN ADEQUACY: (NOTE) (test code = 94267) INTERPRETATION: (test NILM/NO EPITH. code = 51397) ABNORMALITY;SEE BELOW EXPORT SPECIALIST: (test Andrew code = 8101) BEN Urena(ASCP)IAC LOCATION: (test code = (NOTE) 51673) CPT: (test code = 8140) (NOTE) PAP TEST, THINPREP, [id number] 00:00:00 Test Item Value Reference Range Interpretation Comments SOURCE: (test code = Cervical/Endocervical 8001) SLIDES: (test code = 1 8011) LMP: (test code = 8021) 03/08/2018 SPECIMEN ADEQUACY: (NOTE) (test code = 26469) INTERPRETATION: (test NILM/NO EPITH. code = 58789) ABNORMALITY;SEE BELOW EXPORT SPECIALIST: (test Andrew code = 8101) BEN Urena(ASCP)IAC LOCATION: (test code = (NOTE) 12082) CPT: (test code = 8140) (NOTE) PAP TEST, THINPREP, [id number] 00:00:00 Test Item Value Reference Range Interpretation Comments SOURCE: (test code = Cervical/Endocervical 8001) SLIDES: (test code = 1 8011) LMP: (test code = 8021) 03/08/2018 SPECIMEN ADEQUACY: (NOTE) (test code = 46151) INTERPRETATION: (test NILM/NO EPITH. code = 87934) ABNORMALITY;SEE BELOW EXPORT SPECIALIST: (test Andrew code = 8101) BEN Urena(ASCP)IAC LOCATION: (test code = (NOTE) 45081) CPT: (test code = 8140) (NOTE) PAP TEST, THINPREP, [id number] 00:00:00 Test Item Value Reference Range Interpretation Comments SOURCE: (test code = Cervical/Endocervical 8001) SLIDES: (test code = 1 8011) LMP: (test code = 8021) 03/08/2018 SPECIMEN ADEQUACY: (NOTE) (test code = 56661) INTERPRETATION: (test NILM/NO EPITH. code = 43999) ABNORMALITY;SEE BELOW EXPORT SPECIALIST: (test Andrew code = 8101) BEN Urena(ASCP)IAC LOCATION: (test code = (NOTE) 72629) CPT: (test code = 8140) (NOTE) PAP TEST, THINPREP, [id number] 00:00:00 Test Item Value Reference Range Interpretation Comments SOURCE: (test code = Cervical/Endocervical 8001) SLIDES: (test code = 2 8011) LMP: (test code = 8021) 03/08/2018 SPECIMEN ADEQUACY: (test (NOTE) code = 08838) INTERPRETATION: (test UNSATISFACTORY; SEE code = 73321) BELOW OTHER COMMENTS: (test (NOTE) code = 8081) EXPORT SPECIALIST: (test Farrah code = 8101) BEN Nicole(ASCP)IAC QC TECHNOLOGIST: (test Macarena code = 8111) JENARO Valentine(ASCP)CT(IA C) LOCATION: (test code = (NOTE) 91881) CPT: (test code = 8140) (NOTE) PAP TEST, THINPREP, [id number] 00:00:00 Test Item Value Reference Range Interpretation Comments SOURCE: (test code = Cervical/Endocervical 8001) SLIDES: (test code = 2 8011) LMP: (test code = 8021) 03/08/2018 SPECIMEN ADEQUACY: (test (NOTE) code = 27265) INTERPRETATION: (test UNSATISFACTORY; SEE code = 55123) BELOW OTHER COMMENTS: (test (NOTE) code = 8081) EXPORT SPECIALIST: (test Farrah code = 8101) BEN Nicole(ASCP)IAC QC TECHNOLOGIST: (test Macarena code = 8111) JENARO Valentine(ASCP)CT(IA C) LOCATION: (test code = (NOTE) 34729) CPT: (test code = 8140) (NOTE) PAP TEST, THINPREP, [id number] 00:00:00 Test Item Value Reference Range Interpretation Comments SOURCE: (test code = Cervical/Endocervical 8001) SLIDES: (test code = 2 8011) LMP: (test code = 8021) 03/08/2018 SPECIMEN ADEQUACY: (test (NOTE) code = 86423) INTERPRETATION: (test UNSATISFACTORY; SEE code = 88420) BELOW OTHER COMMENTS: (test (NOTE) code = 8081) EXPORT SPECIALIST: (test Farrah code = 8101) BEN Nicole(ASCP)IAC QC TECHNOLOGIST: (test Macarena code = 8111) JENARO Valentine(ASCP)CT(IA C) LOCATION: (test code = (NOTE) 97235) CPT: (test code = 8140) (NOTE) PAP TEST, THINPREP, [id number] 00:00:00 Test Item Value Reference Range Interpretation Comments SOURCE: (test code = Cervical/Endocervical 8001) SLIDES: (test code = 2 8011) LMP: (test code = 8021) 03/08/2018 SPECIMEN ADEQUACY: (test (NOTE) code = 10823) INTERPRETATION: (test UNSATISFACTORY; SEE code = 39868) BELOW OTHER COMMENTS: (test (NOTE) code = 8081) EXPORT SPECIALIST: (test Farrah code = 8101) BEN Nicole(ASCP)IAC QC TECHNOLOGIST: (test Macarena code = 8111) JENARO Valentine(ASCP)CT(IA C) LOCATION: (test code = (NOTE) 88335) CPT: (test code = 8140) (NOTE) PAP TEST, THINPREP, [id number] 00:00:00 Test Item Value Reference Range Interpretation Comments SOURCE: (test code = Cervical/Endocervical 8001) SLIDES: (test code = 2 8011) LMP: (test code = 8021) 03/08/2018 SPECIMEN ADEQUACY: (test (NOTE) code = 57021) INTERPRETATION: (test UNSATISFACTORY; SEE code = 11284) BELOW OTHER COMMENTS: (test (NOTE) code = 8081) EXPORT SPECIALIST: (test Farrah code = 8101) BEN Nicole(ASCP)IAC QC TECHNOLOGIST: (test Macarena code = 8111) JENARO Valentine(ASCP)CT(IA C) LOCATION: (test code = (NOTE) 50021) CPT: (test code = 8140) (NOTE) HEMOGLOBIN [id number] 00:00:00 Test Item Value Reference Range Interpretation Comments HEMOGLOBIN A1c (test code = 06580) 5.0 % HEMOGLOBIN [id number] 00:00:00 Test Item Value Reference Range Interpretation Comments HEMOGLOBIN A1c (test code = 69697) 5.0 % GC AND CHLAMYDIA AMPLIFIED, [id number] 00:00:00 Test Item Value Reference Range Interpretation Comments GONORRHEA, TMA (test code = 86510) NEGATIVE CHLAMYDIA, TMA (test code = 80574) NEGATIVE GC AND CHLAMYDIA AMPLIFIED, [id number] 00:00:00 Test Item Value Reference Range Interpretation Comments GONORRHEA, TMA (test code = 41091) NEGATIVE CHLAMYDIA, TMA (test code = 42957) NEGATIVE HEMOGLOBIN [id number] 00:00:00 Test Item Value Reference Range Interpretation Comments HEMOGLOBIN A1c (test code = 83456) 5.0 % LIPID [id number] 00:00:00 Test Item Value Reference Range Interpretation Comments CHOLESTEROL (test code = 2210) 149 MG/DL TRIGLYCERIDES (test code = 2232) 160 MG/DL HDL CHOLESTEROL (test code = 2220) 38 MG/DL CALC LDL CHOL (test code = 2237) 79 MG/DL RISK RATIO LDL/HDL (test code = 2.08 RATIO 2238) LIPID [id number] 00:00:00 Test Item Value Reference Range Interpretation Comments CHOLESTEROL (test code = 2210) 149 MG/DL TRIGLYCERIDES (test code = 2232) 160 MG/DL HDL CHOLESTEROL (test code = 2220) 38 MG/DL CALC LDL CHOL (test code = 2237) 79 MG/DL RISK RATIO LDL/HDL (test code = 2.08 RATIO 2238) HPV HIGH RISK WITH GENOTYPE, [id number] 00:00:00 Test Item Value Reference Range Interpretation Comments HPV HIGH RISK INTERP (test code = NEGATIVE 96899) HPV 16 (test code = 50199) NEGATIVE HPV 18 (test code = 41243) NEGATIVE HPV, HR, OTHER GENOTYPES (test code NEGATIVE = 14714) HPV HIGH RISK WITH GENOTYPE, [id number] 00:00:00 Test Item Value Reference Range Interpretation Comments HPV HIGH RISK INTERP (test code = NEGATIVE 31175) HPV 16 (test code = 87550) NEGATIVE HPV 18 (test code = 88037) NEGATIVE HPV, HR, OTHER GENOTYPES (test code NEGATIVE = 24530) COMPREHENSIVE METABOLIC [id number] 00:00:00 Test Item Value Reference Range Interpretation Comments GLUCOSE (test code = 2217) 96 MG/DL BUN (test code = 2208) 8 MG/DL CREATININE (test code = 2214) 0.82 MG/DL eGFR AMER. (test code 109 ML/MIN/1.73 = 38327) eGFR NON- AMER. (test 94 ML/MIN/1.73 code = 78127) CALC BUN/CREAT (test code = 10 RATIO [...] code = 2219) 16 U/L COMPREHENSIVE METABOLIC [id number] 00:00:00 Test Item Value Reference Range Interpretation Comments GLUCOSE (test code = 2217) 96 MG/DL BUN (test code = 2208) 8 MG/DL CREATININE (test code = 2214) 0.82 MG/DL eGFR AMER. (test code 109 ML/MIN/1.73 = 45914) eGFR NON- AMER. (test 94 ML/MIN/1.73 code = 28819) CALC BUN/CREAT (test code = 10 RATIO [...] ALT (test code = 2219) 16 U/L [id number] 00:00:00 Test Item Value Reference Range Interpretation Comments RPR RESULT (test code = NON-REACTIVE 3501) RPR TITER (test code = 3500) NOT INDIC. TITER [id number] 00:00:00 Test Item Value Reference Range Interpretation Comments RPR RESULT (test code = NON-REACTIVE 3501) RPR TITER (test code = 3500) NOT INDIC. TITER [id number] 00:00:00 Test Item Value Reference Range Interpretation Comments RPR RESULT (test code = NON-REACTIVE 3501) RPR TITER (test code = 3500) NOT INDIC. TITER ACUTE HEPATITIS [id number] 00:00:00 Test Item Value Reference Range Interpretation Comments HEPATITIS A IgM (test code = NON-REACTIVE 50119) HEPATITIS B CORE IgM (test code NON-REACTIVE = 4644) HEPATITIS B SURF AG (test code = NON-REACTIVE 2739) HEPATITIS C ANTIBODY (test code NON-REACTIVE = 4675) HCV INDEX (test code = 32723) 0.08 INTERPRETATION HEPATITIS A: (NOTE) (test code = 2552) INTERPRETATION HEPATITIS B: (NOTE) (test code = 13436) INTERPRETATION HEPATITIS C: (NOTE) (test code = 38318) ACUTE HEPATITIS [id number] 00:00:00 Test Item Value Reference Range Interpretation Comments HEPATITIS A IgM (test code = NON-REACTIVE 55012) HEPATITIS B CORE IgM (test code NON-REACTIVE = 4644) HEPATITIS B SURF AG (test code = NON-REACTIVE 2739) HEPATITIS C ANTIBODY (test code NON-REACTIVE = 4675) HCV INDEX (test code = 60032) 0.08 INTERPRETATION HEPATITIS A: (NOTE) (test code = 2552) INTERPRETATION HEPATITIS B: (NOTE) (test code = 34195) INTERPRETATION HEPATITIS C: (NOTE) (test code = 21677) HIV AB/AG COMBO RFLX [id number] 00:00:00 Test Item Value Reference Range Interpretation Comments HIV 1/2 4TH GEN, RFLX CONF (test NON-REACTIVE code = 3514) HIV AB/AG COMBO RFLX [id number] 00:00:00 Test Item Value Reference Range Interpretation Comments HIV 1/2 4TH GEN, RFLX CONF (test NON-REACTIVE code = 3514) HEMOGLOBIN [id number] 00:00:00 Test Item Value Reference Range Interpretation Comments HEMOGLOBIN A1c (test code = 26614) 5.0 % HEMOGLOBIN [id number] 00:00:00 Test Item Value Reference Range Interpretation Comments HEMOGLOBIN A1c (test code = 90452) 5.0 % HEMOGLOBIN [id number] 00:00:00 Test Item Value Reference Range Interpretation Comments HEMOGLOBIN A1c (test code = 78390) 5.0 % GC AND CHLAMYDIA AMPLIFIED, [id number] 00:00:00 Test Item Value Reference Range Interpretation Comments GONORRHEA, TMA (test code = 54416) NEGATIVE CHLAMYDIA, TMA (test code = 71573) NEGATIVE GC AND CHLAMYDIA AMPLIFIED, [id number] 00:00:00 Test Item Value Reference Range Interpretation Comments GONORRHEA, TMA (test code = 53282) NEGATIVE CHLAMYDIA, TMA (test code = 03721) NEGATIVE HEMOGLOBIN [id number] 00:00:00 Test Item Value Reference Range Interpretation Comments HEMOGLOBIN A1c (test code = 36075) 5.0 % LIPID [id number] 00:00:00 Test Item Value Reference Range Interpretation Comments CHOLESTEROL (test code = 2210) 149 MG/DL TRIGLYCERIDES (test code = 2232) 160 MG/DL HDL CHOLESTEROL (test code = 2220) 38 MG/DL CALC LDL CHOL (test code = 2237) 79 MG/DL RISK RATIO LDL/HDL (test code = 2.08 RATIO 2238) LIPID [id number] 00:00:00 Test Item Value Reference Range Interpretation Comments CHOLESTEROL (test code = 2210) 149 MG/DL TRIGLYCERIDES (test code = 2232) 160 MG/DL HDL CHOLESTEROL (test code = 2220) 38 MG/DL CALC LDL CHOL (test code = 2237) 79 MG/DL RISK RATIO LDL/HDL (test code = 2.08 RATIO 2238) HPV HIGH RISK WITH GENOTYPE, [id number] 00:00:00 Test Item Value Reference Range Interpretation Comments HPV HIGH RISK INTERP (test code = NEGATIVE 36302) HPV 16 (test code = 88813) NEGATIVE HPV 18 (test code = 79767) NEGATIVE HPV, HR, OTHER GENOTYPES (test code NEGATIVE = 92619) HPV HIGH RISK WITH GENOTYPE, [id number] 00:00:00 Test Item Value Reference Range Interpretation Comments HPV HIGH RISK INTERP (test code = NEGATIVE 10824) HPV 16 (test code = 42465) NEGATIVE HPV 18 (test code = 60311) NEGATIVE HPV, HR, OTHER GENOTYPES (test code NEGATIVE = 56679) COMPREHENSIVE METABOLIC [id number] 00:00:00 Test Item Value Reference Range Interpretation Comments GLUCOSE (test code = 2217) 96 MG/DL BUN (test code = 2208) 8 MG/DL CREATININE (test code = 2214) 0.82 MG/DL eGFR AMER. (test code 109 ML/MIN/1.73 = 78000) eGFR NON- AMER. (test 94 ML/MIN/1.73 code = 07239) CALC BUN/CREAT (test code = 10 RATIO [...] code = 2219) 16 U/L COMPREHENSIVE METABOLIC [id number] 00:00:00 Test Item Value Reference Range Interpretation Comments GLUCOSE (test code = 2217) 96 MG/DL BUN (test code = 2208) 8 MG/DL CREATININE (test code = 2214) 0.82 MG/DL eGFR AMER. (test code 109 ML/MIN/1.73 = 61495) eGFR NON- AMER. (test 94 ML/MIN/1.73 code = 12144) CALC BUN/CREAT (test code = 10 RATIO 2235) SODIUM (test code = 2231) 142 MEQ/L POTASSIUM (test code = 2228) 4.4 MEQ/L CHLORIDE (test code = 2215) 101 MEQ/L CARBON DIOXIDE (test code = 29 MEQ/L 6) CALCIUM (test code = 2209) 9.7 MG/DL [...] ALT (test code = 2219) 16 U/L [id number] 00:00:00 Test Item Value Reference Range Interpretation Comments RPR RESULT (test code = NON-REACTIVE 3501) RPR TITER (test code = 3500) NOT INDIC. TITER [id number] 00:00:00 Test Item Value Reference Range Interpretation Comments RPR RESULT (test code = NON-REACTIVE 3501) RPR TITER (test code = 3500) NOT INDIC. TITER [id number] 00:00:00 Test Item Value Reference Range Interpretation Comments RPR RESULT (test code = NON-REACTIVE 3501) RPR TITER (test code = 3500) NOT INDIC. TITER ACUTE HEPATITIS [id number] 00:00:00 Test Item Value Reference Range Interpretation Comments HEPATITIS A IgM (test code = NON-REACTIVE 78057) HEPATITIS B CORE IgM (test code NON-REACTIVE = 4644) HEPATITIS B SURF AG (test code = NON-REACTIVE 2739) HEPATITIS C ANTIBODY (test code NON-REACTIVE = 4675) HCV INDEX (test code = 14271) 0.08 INTERPRETATION HEPATITIS A: (NOTE) (test code = 2552) INTERPRETATION HEPATITIS B: (NOTE) (test code = 20591) INTERPRETATION HEPATITIS C: (NOTE) (test code = 38515) ACUTE HEPATITIS [id number] 00:00:00 Test Item Value Reference Range Interpretation Comments HEPATITIS A IgM (test code = NON-REACTIVE 34711) HEPATITIS B CORE IgM (test code NON-REACTIVE = 4644) HEPATITIS B SURF AG (test code = NON-REACTIVE 2739) HEPATITIS C ANTIBODY (test code NON-REACTIVE = 4675) HCV INDEX (test code = 17309) 0.08 INTERPRETATION HEPATITIS A: (NOTE) (test code = 2552) INTERPRETATION HEPATITIS B: (NOTE) (test code = 43287) INTERPRETATION HEPATITIS C: (NOTE) (test code = 77598) HIV AB/AG COMBO RFLX [id number] 00:00:00 Test Item Value Reference Range Interpretation Comments HIV 1/2 4TH GEN, RFLX CONF (test NON-REACTIVE code = 3514) HIV AB/AG COMBO RFLX [id number] 00:00:00 Test Item Value Reference Range Interpretation Comments HIV 1/2 4TH GEN, RFLX CONF (test NON-REACTIVE code = 3514) HEMOGLOBIN [id number] 00:00:00 Test Item Value Reference Range Interpretation Comments HEMOGLOBIN A1c (test code = 27148) 5.0 % GC AND CHLAMYDIA AMPLIFIED, [id number] 00:00:00 Test Item Value Reference Range Interpretation Comments GONORRHEA, TMA (test code = 10574) NEGATIVE CHLAMYDIA, TMA (test code = 65992) NEGATIVE LIPID [id number] 00:00:00 Test Item Value Reference Range Interpretation Comments CHOLESTEROL (test code = 2210) 149 MG/DL TRIGLYCERIDES (test code = 2232) 160 MG/DL HDL CHOLESTEROL (test code = 2220) 38 MG/DL CALC LDL CHOL (test code = 2237) 79 MG/DL RISK RATIO LDL/HDL (test code = 2.08 RATIO 2238) HPV HIGH RISK WITH GENOTYPE, [id number] 00:00:00 Test Item Value Reference Range Interpretation Comments HPV HIGH RISK INTERP (test code = NEGATIVE 95468) HPV 16 (test code = 81389) NEGATIVE HPV 18 (test code = 57099) NEGATIVE HPV, HR, OTHER GENOTYPES (test code NEGATIVE = 88844) COMPREHENSIVE METABOLIC [id number] 00:00:00 Test Item Value Reference Range Interpretation Comments GLUCOSE (test code = 2217) 96 MG/DL BUN (test code = 2208) 8 MG/DL CREATININE (test code = 2214) 0.82 MG/DL eGFR AMER. (test code 109 ML/MIN/1.73 = 57319) eGFR NON- AMER. (test 94 ML/MIN/1.73 code = 20104) CALC BUN/CREAT (test code = 10 RATIO [...] ALT (test code = 2219) 16 U/L [id number] 00:00:00 Test Item Value Reference Range Interpretation Comments RPR RESULT (test code = NON-REACTIVE 3501) RPR TITER (test code = 3500) NOT INDIC. TITER [id number] 00:00:00 Test Item Value Reference Range Interpretation Comments RPR RESULT (test code = NON-REACTIVE 3501) RPR TITER (test code = 3500) NOT INDIC. TITER ACUTE HEPATITIS [id number] 00:00:00 Test Item Value Reference Range Interpretation Comments HEPATITIS A IgM (test code = NON-REACTIVE 98358) HEPATITIS B CORE IgM (test code NON-REACTIVE = 4644) HEPATITIS B SURF AG (test code = NON-REACTIVE 2739) HEPATITIS C ANTIBODY (test code NON-REACTIVE = 4675) HCV INDEX (test code = 58160) 0.08 INTERPRETATION HEPATITIS A: (NOTE) (test code = 2552) INTERPRETATION HEPATITIS B: (NOTE) (test code = 68765) INTERPRETATION HEPATITIS C: (NOTE) (test code = 61008) HIV AB/AG COMBO RFLX [id number] 00:00:00 Test Item Value Reference Range Interpretation Comments HIV 1/2 4TH GEN, RFLX CONF (test NON-REACTIVE code = 3514)
--- NOTE | 2023-03-04 17:03 | EDPHYS ---
Physician Documentation [facility] Name: Zaria De Oliveira Age: 37 yrs Sex: Female : 1985 Arrival Date: 03/04/2023 Time: 16:02 Bed Waiting Private MD: ED Physician Leonel Chapin HPI: 03/05 14:54 This 37 yrs old Female presents to ER via Ambulatory with complaints of Cough, sb4 Diarrhea, Chills. 14:54 patient states that she had covid about 2 months ago and is still experiencing sb4 lingering symptoms- productive cough, diarrhea, sinus congestion. she was seen here 1 month ago and prescribed a steroid inhaler which she said was too expensive to fill. she does not have health insurance so did not follow up. she states she has tried taking several OTC medications without any relief. Historical: - Allergies: 03/04 16:56 Bluestar ointments; hb 16:56 Oxistat; hb - Home Meds: 16:56 lisinopril 10 mg Oral tablet daily [Active]; hb - PMHx: 16:56 Hypertensive disorder; Migraines; hb - PSHx: 16:56 section; hb - Immunization history:: Adult Immunizations unknown. - Social history:: Smoking status: Patient denies any tobacco usage or history of. ROS: 03/05 14:54 Cardiovascular: Negative for chest pain, palpitations, and edema, sb4 Constitutional: Positive for chills, fever, ENT: Positive for sinus congestion, Respiratory: Positive for cough, Abdomen/GI: Positive for diarrhea, All other systems are negative, Exam: 14:54 Constitutional: This is a well developed, well nourished patient who is awake, alert, sb4 and in no acute distress. Head/Face: Normocephalic, atraumatic. Eyes: Extra-ocular motions intact. Periorbital areas with no swelling, redness, or edema. ENT: Mucous membranes moist. Cardiovascular: Regular rate and rhythm with a normal S1 and S2. Abdomen/GI: Soft, non-tender, no distension. Skin: Warm, dry with normal turgor. Normal color with no rashes, no lesions, and no evidence of cellulitis. MS/ Extremity: Pulses equal, no cyanosis. Neurovascular intact. Full, normal range of motion. Neuro: Awake and alert, GCS 15, oriented to person, place, time, and situation. Motor strength 5/5 in all extremities. Sensory grossly intact. 14:54 Respiratory: the patient does not display signs of respiratory distress, Respirations: no acute changes, labored breathing, is not present, Breath sounds: bronchial sounds, that are mild, are scattered, Vital Signs: 03/04 16:54 BP 150 / 93; Pulse 98; Resp 18; Temp 98.5; Pulse Ox 98% on R/A; Weight 105.23 kg; hb Height 5 ft. 2 in. ; Pain 02/14; 16:54 Body Mass Index 42.43 (105.23 kg, 157.48 cm) hb 16:54 Pain Scale: Adult hb MDM: 17:03 Patient medically screened. sb4 03/05 14:54 Differential Diagnosis: Bronchitis Sinusitis Pharyngitis Pneumonia. Data reviewed: sb4 vital signs, nurses notes, and as a result, I will discharge patient. Counseling: I had a detailed discussion with the patient and/or guardian regarding the historical points, exam findings, and any diagnostic results supporting the discharge/admit diagnosis, to return to the emergency department if symptoms worsen or persist or if there are any questions or concerns that arise at home. Administered Medications: No medications were administered Disposition Summary: 03/04/23 17:03 Discharge Ordered Notes: Location: Home sb4 Problem: an ongoing problem sb4 Symptoms: are unchanged sb4 Condition: Stable sb4 Diagnosis - Acute pansinusitis sb4 - Acute upper respiratory infection, unspecified sb4 Followup: sb4 - With: Emergency Department - When: As needed - Reason: Trouble breathing, Worsening of condition Discharge Instructions: - Discharge Summary Sheet sb4 - Sinusitis, Adult, [id number] sb4 - Upper Respiratory Infection, Adult, Jaul-id-Rohn sb4 Forms: - Medication Reconciliation Form sb4 - Thank You Letter sb4 - Antibiotic Education sb4 - Prescription Opioid Use sb4 - Patient Portal Instructions sb4 - Leadership Thank You Letter sb4 Prescriptions: - Tessalon Perles 100 mg Oral Capsule - take 1 capsule ORAL route every 8 hours As needed; 15 capsule; Refills: 0, sb4 Product Selection Permitted - Doxycycline Hyclate 100 mg Oral Tablet - take 1 tablet ORAL route every 12 hours; 20 tablet; Refills: 0, Product sb4 Selection Permitted - Medrol (Ever) 4 mg Oral Tablets, Dose Pack - take 1 tablet ORAL route as directed - follow package instructions; 1 packet; sb4 Refills: 0, Product Selection Permitted Addendum: 18:36 I was immediately available for consultation during this patient's visit. I did not e c2 personally see the patient or guide the patient's care. . Signatures: Annette Ochoa RN RN Lissy Daigle PA-C PA-C sb4 Leonel Chapin MD MD ec2
--- NOTE | 2023-03-04 17:03 | ER ---
Nurse's Notes [facility] Name: Zaria De Oliveira Age: 37 yrs Sex: Female : 1985 Arrival Date: 03/04/2023 Time: 16:02 Bed Waiting Private MD: Diagnosis: Acute pansinusitis;Acute upper respiratory infection, unspecified Presentation: 03/04 16:54 Chief complaint: See in ED for COVID 02/01, c/o persistent cough, diarrhea, migraines, hb sinus congestion, and chills. Coronavirus screen: Client presents with at least one sign or symptom that may indicate coronavirus-19. Provider contacted for isolation considerations. Ebola Screen: No symptoms or risks identified at this time. Initial Sepsis Screen: Does the patient meet any 2 criteria? No. Patient's initial sepsis screen is negative. Does the patient have a suspected source of infection? No. Patient's initial sepsis screen is negative. Risk Assessment: Do you want to hurt yourself or someone else? Patient reports no desire to harm self or others. Onset of symptoms was January 30, 2023. 16:54 Method Of Arrival: Ambulatory hb 16:54 Acuity: CELESTINO 3 hb Historical: - Allergies: 16:56 Bluestar ointments; hb 16:56 Oxistat; hb - Home Meds: 16:56 lisinopril 10 mg Oral tablet daily [Active]; hb - PMHx: 16:56 Hypertensive disorder; Migraines; hb - PSHx: 16:56 section; hb - Immunization history:: Adult Immunizations unknown. - Social history:: Smoking status: Patient denies any tobacco usage or history of. Vital Signs: 16:54 BP 150 / 93; Pulse 98; Resp 18; Temp 98.5; Pulse Ox 98% on R/A; Weight 105.23 kg; hb Height 5 ft. 2 in. ; Pain 10/10; 16:54 Body Mass Index 42.43 (105.23 kg, 157.48 cm) hb 16:54 Pain Scale: Adult hb ED Course: 16:04 Patient arrived in ED. im 16:14 [facility] sb4 16:14 Leonel Chapin MD is Attending Physician. sb4 16:56 Triage completed. hb 16:56 Arm band placed on. hb Administered Medications: No medications were administered Outcome: 17:03 Discharge ordered by MD. mcnulty 17:14 Patient left the ED. hb Signatures: Annette Ochoa RN RN Lissy Daigle PA-C PA-C sb4 Mendoza, Itzel Corrections: (The following items were deleted from the chart) 16:56 16:54 Chief complaint: hb hb
[2023-03-04 17:35] VITALS: BP 150/93; TEMP 98.5; O2SAT 98
== END 2023-03-04 17:14 | disposition home or self-care (01) ==
LOC: ER 16:02
DX: J01.40 Acute pansinusitis, unspecified (principal); J06.9 Acute upper respiratory infection, unspecified; R19.7 Diarrhea, unspecified; I10 Essential (primary) hypertension; Z88.8 Allergy status to other drugs, medicaments and biological substances
CPT/HCPCS: 99281

== ENCOUNTER 2023-08-11 07:57 | Emergency (ER) | payer SELFPAY ==
--- OUTSIDE RECORDS SUMMARY | 2023-08-11 08:01 | XMS REPORT | Continuity of Care Document ---
Author Name Unknown Address [address] [facility] [facility] [address] [place] [address] [facility] Address [address] [place] [address] Care Team Providers Care Compliance Representative Name Role Phone Pcp, Patient Does Not Have A Primary Care Physic felipe Doctor Unassigned, Malin Attending Clinician U giovanniailable VICK GARY Attending Clinician Unavailable Vick Gary NP Attending Clinician Krissy Hernandez Attending Clinician KRISSY MERRITT Attending Clinician Unavailable VICK GARY Admitting Clinician Unavailable KRISSY MERRITT Admitting Clinician Unavailable Payers Payer Name Policy Type Policy Number Effective Date Expirati on Date Source [employer] [place] [employer] [id number] 2020 00:00:00 Problems Condition Name Condition Details Condition Category Status Onset Date Resolution Date Last Treatment Date Treating Clinician Comments Source No known active problems No known active problems Disease [facility] Allergies, Adverse Reactions, Alerts Allergy Name Allergy Type Status Severity Reaction(s) Onset Date Inactive Date Treating Clinician Comments Source Oxiconaz ole Nitrate Propensi ty to adverse reaction s Active Swelling 12-07 00:00: 00 [facility] OXICONAZ OLE NITRATE DRUG INGREDI Active Swelling 12-07 00:00: 00 [facility] Social History Social Habit Start Date Stop Date Quantity Comments Source History SDOH Alcohol Frequency [facility] History SDOH Alcohol Std Drinks [facility] History SDOH Alcohol Binge [facility] Exposure to SARS-CoV-2 (event) Not sure [facility] intake 2021-11-16 00:00:00 2021-11-16 00:00:00 0 /d [facility] History of Social function 2021-11-16 00:00:00 2021-11-16 00:00:00 [facility] Tobacco use and exposure 2015-12-08 00:00:00 2015-12-08 00:00:00 Smokeless tobacco non-user [facility] Alcohol Comment 2015-12-08 00:00:00 2015-12-08 00:00:00 Occasional [facility] Sex Assigned At 1985 00:00:00 1985 00:00:00 [facility] Smoking Status Start Date Stop Date Source Never smoked tobacco [facility] Medications Ordered Medication Name Filled Medication Name Start Date Stop Date Current Medication? Ordering Clinician Indication Dosage Frequency Signature (SIG) Comments Components Source Depo-Contact Lens Lathe Operator a 150 mg/mL intramuscul ar syringe 11-02 00:00: 00 No 1mg/mL TAKE 1 CAPSULE BY MOUTH THREE TIMES A DAY NEEDED FOR COUGH 11-02 00:00: 00 No INJECT 1 ML INTRAMUSCUL CARTER ONCE EVERY 3 MONTHS. 11-02 00:00: 00 No TAKE 1 CAPSULE BY MOUTH THREE TIMES A DAY NEEDED FOR COUGH 11-02 00:00: 00 No Dose Unknown 05-24 00:00: 00 No Dose Unknown 05-24 00:00: 00 No Dose Unknown 05-24 00:00: 00 No Dose Unknown 05-24 00:00: 00 No ketorolac (TORADOL) injection 30 mg 2020-05 07:15: 00 04-11 06:22 :00 No 30mg 30 mg, Slow IV Push, ONCE, 1 dose, On 04/11/21 at 0115, Routine
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 [facility] acyclovir (ZOVIRAX) 200 mg capsule 2020-05 23:44: 39 Yes 200mg Take 200 mg by mouth. [facility] Depo-Contact Lens Lathe Operator a 150 mg/mL intramuscul ar syringe 2020-05 00:00: 00 No 1mg/mL Depo-Contact Lens Lathe Operator a 150 mg/mL intramuscul ar syringe 2020-05 00:00: 00 No 1mg/mL benzonatate 100 mg capsule 12-26 00:00: 00 04-10 00:00 :00 No [id number] 100mg Take 1 capsule by mouth 3 (three) times daily as needed for Cough. [facility] albuterol 90 mcg/actuati on inhaler 12-26 00:00: 00 04-10 00:00 :00 No [id number] 4{puff} Inhale 4 Puffs every 4 (four) hours as needed for Wheezing or Shortness of Breath. [facility] ondansetron 4 mg disintegrat ing tablet 12-26 00:00: 00 04-10 00:00 :00 No [id number] 4mg Take 1 tablet by mouth every 8 (eight) hours as needed for Nausea and Vomiting (N/V). [facility] Depo-Contact Lens Lathe Operator a 150 mg/mL intramuscul ar syringe 12-10 00:00: 00 No 1mg/mL Depo-Contact Lens Lathe Operator a 150 mg/mL intramuscul ar syringe 12-10 00:00: 00 No 1mg/mL esomeprazol e (NEXIUM) 20 mg capsule 05-27 00:00: 00 04-10 00:00 :00 No [id number] 20mg Take 20 mg by mouth daily before a meal. Neto alston [facility] lisinopril 10 mg tablet 2019-05 00:00: 00 No 1mg Dose Unknown 2019-05 00:00: 00 No lisinopril 10 mg tablet 2019-05 2 00:00: 00 No 1mg lisinopril 10 mg tablet 2019-05 00:00: 00 No 1mg lisinopril 10 mg tablet 08-05 00:00: 00 No 1mg acyclovir 200 mg capsule 08-05 00:00: 00 No 3mg Dose Unknown 08-05 00:00: 00 No Dose Unknown 08-05 00:00: 00 No lisinopril 10 mg tablet 0 8 00:00: 00 No 1mg acyclovir 200 mg capsule 0 8 00:00: 00 No 3mg lisinopril 10 mg tablet 0 8 00:00: 00 No 1mg acyclovir 200 mg capsule 0 820 00:00: 00 No 3mg clotrimazol e 1 % topical cream 0 507 00:00: 00 No 1% clotrimazol e 1 % topical cream 0 507 00:00: 00 No 1% lisinopril 10 mg tablet 0 3 00:00: 00 No 1mg lisinopril 10 mg tablet 0 3 00:00: 00 No 1mg lisinopril 10 mg tablet 0 2-13 00:00: 00 No 1mg acyclovir 200 mg capsule 0 2-13 00:00: 00 No 3mg lisinopril 10 mg tablet 0 2-13 00:00: 00 No 1mg acyclovir 200 mg capsule 0 2-13 00:00: 00 No 3mg acyclovir 200 mg capsule 0 212 00:00: 00 No 3mg acyclovir 200 mg capsule 0 2-12 00:00: 00 No 3mg clarithromy joanna 500 mg tablet 2016-05 0-25 00:00: 00 No 1mg amoxicillin 500 mg capsule 2016-05 00:00: 00 No 2mg clarithromy joanna 500 mg tablet 2016-05 00:00: 00 No 1mg amoxicillin 500 mg capsule 2016-05 00:00: 00 No 2mg Immunizations Ordered Immunization Name Filled Immunization Name Date Status Comments Source Influenza, seasonal, inj 2018-06-19 00:00:00 Completed Tdap 2018-06-19 00:00:00 Completed Influenza, seasonal, inj 2018-06-19 00:00:00 Completed Tdap 2018-06-19 00:00:00 Completed Influenza, seasonal, inj 2018-06-19 00:00:00 Completed Tdap 2018-06-19 00:00:00 Completed Influenza Virus Vaccine Quad IM 3+ YRS 2016-04-11 00:00:00 Completed [facility] TDAP 2016-04-11 00:00:00 Completed [facility] Influenza Virus Vaccine Quad IM 3+ YRS Unknown Completed [facility] TDAP Unknown Completed [facility] Vital Signs Vital Name Observation Time Observation Value Comments S ource Systolic blood pressure 2021-04-11 08:00:00 132 mm[Hg] [facility] Diastolic blood pressure 2021-04-11 08:00:00 88 mm[Hg] [facility] Heart rate 2021-04-11 08:00:00 61 /min [facility] Respiratory rate 2021-04-11 08:00:00 20 /min [facility] Oxygen saturation in Arterial blood by Pulse oximetry 2021-04-11 08:00:00 100 /min [facility] Body temperature 2021-04-11 05:42:00 36.94 Penny [facility] Body height 2021-04-11 05:42:[address] [facility] Body weight 2021-04-11 05:42:[address] [facility] BMI 2021-04-11 05:42:00 39.32 kg/m2 [facility] BP Systolic 2022-04-06 10:27:00 135 mm[Hg] [...] Procedures Procedure Date / Time Performed Performing Clinicia n Source EXTERNAL PROVIDER RECORDS 2023-06-20 06:01:00 Doctor Unassigned, Malin [facility] XR CHEST 1 VW 2021-04-11 06:41:03 [facility]-D[facility] 2021-04-11 06:34:[address] [facility] LIPASE 2021-04-11 06:15:[address] [facility] TROPONIN I 2021-04-11 06:15:[address] [facility] COMP. METABOLIC PANEL (94220) 2021-04-11 06:15:00 Vick Gary [facility] CBC WITH DIFF 2021-04-11 06:15:00 Vick Gary [facility] CONSENT/REFUSAL FOR DIAGNOSIS AND TREATMENT 2021-04-11 05:33:33 Doctor Unassigned, Malin [facility] Plan of Care Planned Activity Planned Date Details Comments Source Goal Plan of Care Note [code = 86935-8] Goal Plan of Care Note [code = 89754-5] Goal Plan of Care Note [code = 69014-9] Goal Plan of Care Note [code = 83943-1] Goal Plan of Care Note [code = 20379-1] Goal Plan of Care Note [code = 82690-6] Goal Plan of Care Note [code = 67289-4] Goal Plan of Care Note [code = 57765-6] Goal Plan of Care Note [code = 80528-6] Goal Plan of Care Note [code = 71013-9] Goal Plan of Care Note [code = 19862-0] Goal Plan of Care Note [code = 82116-6] Goal Plan of Care Note [code = 53591-1] Goal Plan of Care Note [code = 97282-9] Goal Plan of Care Note [code = 71394-8] Goal Plan of Care Note [code = 32624-5] Goal Plan of Care Note [code = 11695-2] Goal Plan of Care Note [code = 95622-1] Goal Plan of Care Note [code = 53046-9] Goal Plan of Care Note [code = 80120-1] Goal Plan of Care Note [code = 16492-8] Goal Plan of Care Note [code = 19288-7] Goal Plan of Care Note [code = 33146-9] Goal Plan of Care Note [code = 45386-4] Goal Plan of Care Note [code = 15569-7] Goal Plan of Care Note [code = 89641-2] Goal Plan of Care Note [code = 92569-2] Goal Plan of Care Note [code = 68009-2] Goal Plan of Care Note [code = 18404-8] Goal Plan of Care Note [code = 54756-3] Goal Plan of Care Note [code = 65215-8] Goal Plan of Care Note [code = 59906-8] Goal Plan of Care Note [code = 59454-5] Goal Plan of Care Note [code = 30627-1] Goal Plan of Care Note [code = 51411-4] Goal Plan of Care Note [code = 96922-5] Goal Plan of Care Note [code = 83209-3] Goal Plan of Care Note [code = 11902-9] Goal Plan of Care Note [code = 56078-6] Goal Plan of Care Note [code = 50439-7] Goal Plan of Care Note [code = 71119-4] Goal Plan of Care Note [code = 57307-0] Goal Plan of Care Note [code = 06367-0] Goal Plan of Care Note [code = 34261-4] Goal Plan of Care Note [code = 34040-8] Goal Plan of Care Note [code = 45855-3] Goal Plan of Care Note [code = 43120-1] Goal Plan of Care Note [code = 28648-1] Goal Plan of Care Note [code = 27728-2] Goal Plan of Care Note [code = 12865-8] Goal Plan of Care Note [code = 91394-6] Goal Plan of Care Note [code = 47745-3] Goal Plan of Care Note [code = 27078-1] Goal Plan of Care Note [code = 00018-8] Goal Plan of Care Note [code = 83341-7] Goal Plan of Care Note [code = 44481-4] Goal Plan of Care Note [code = 98955-9] Goal Plan of Care Note [code = 51262-0] Goal Plan of Care Note [code = 25732-3] Goal Plan of Care Note [code = 55194-9] Goal Plan of Care Note [code = 84396-3] Goal Plan of Care Note [code = 50698-3] Goal Plan of Care Note [code = 14082-0] Goal Plan of Care Note [code = 01096-0] Goal Plan of Care Note [code = 05912-4] Goal Plan of Care Note [code = 50775-0] Goal Plan of Care Note [code = 29845-4] Goal Plan of Care Note [code = 21874-8] Goal Plan of Care Note [code = 79188-8] Goal Plan of Care Note [code = 97563-5] Goal Plan of Care Note [code = 66706-8] Goal Plan of Care Note [code = 04608-3] Goal Plan of Care Note [code = 46657-7] Goal Plan of Care Note [code = 02632-4] Goal Plan of Care Note [code = 39179-0] Goal Plan of Care Note [code = 46261-9] Goal Plan of Care Note [code = 06831-7] Goal Plan of Care Note [code = 61888-1] Goal Plan of Care Note [code = 19671-2] Goal Plan of Care Note [code = 47240-7] Goal Plan of Care Note [code = 74141-0] Encounters Start Date/Time End Date/Time Encounter Type Admission Type Attending [facility] Facility Care Department Encounter ID Source 2021-03-08 17:07:32 Emergency [facility] [id number] [facility] 2023-06-20 00:00:00 2023-06-20 00:00:00 Orders Only Doctor Unassigned, Malin [facility] 1.2.840.114 350.1.13.10 [id number] [id number] [facility] 2023-05-30 13:16:44 2023-05-30 13:16:44 Outpatient S[facility] [id number] Jaun F Madhav 2023-02-23 10:25:11 2023-02-23 10:25:11 Outpatient SFA [id number] Jaun Rabia Madhav 2023-01-05 14:31:44 2023-01-05 14:31:44 Outpatient SFA [id number] Jaun Rabia Madhav 2022-12-02 17:31:26 2022-12-02 17:31:26 Outpatient [facility] [id number] Jaun Rabia Madhav 2022-09-16 10:18:08 2022-09-16 10:18:08 Outpatient SFA SFA [id number] Jaun Corey 2022-06-24 13:07:39 2022-06-24 13:07:39 Outpatient SFA [id number] Jaun Corey 2022-04-06 10:14:07 2022-04-06 10:14:07 Outpatient SFA [id number] Jaun Corey 2022-04-06 00:00:00 2022-04-06 00:00:00 Outpatient Visit [id number] 2022-01-19 00:00:00 2022-01-19 00:00:00 Outpatient Visit [id number] 0927-06-28 00:00:00 2021-11-02 00:00:00 Outpatient Visit [id number] 23:45:00 2021-04-11 02:10:00 Emergency X VICK GARY [facility] ERT [id number] [facility] 2021-04-10 23:45:00 2021-04-11 02:10:00 Emergency Vick Gary G [facility] 1.2.840.114 350.1.13.10 4.2.7.2.686 [id number] [facility] 2020-05-27 11:00:00 2020-05-27 13:42:00 Emergency Krissy Merritt S [facility] 1.2.840.114 350.1.13.10 4.2.7.2.686 [id number] 2020-05-27 11:00:00 2020-05-27 13:42:00 Emergency X KRISSY MERRITT [facility] ERT [id number] [facility] Results Test Description Test Time Test Comments Results Result Co mments Source [id number] 06:46:29* Test Item Value Reference Range Interpretation Comments TROPONIN I (test code = 4564813375) 0.000 ng/mL See_Comment [Automated message] The system which generated this result transmitted reference range: <=0.034. The reference range was not used to interpret this result as normal/abnormal. JO (test code = JO) Reference (Normal) Range (defined by the 99th percentile reference [...] to patient's use of biotin. Lab Interpretation (test code = 39019-1) Normal [facility]. METABOLIC PANEL (48958)2021-04-11 06:35:05* Test Item Value Reference Range Interpretation Comme nts NA (test code = 0771482203) 141 mmol/L 135-145 K (test code = 9676935573) 4.2 mmol/L 3.5-5.0 CL (test code = 0590156739) 107 mmol/L 98-108 CO2 TOTAL (test code = 3819546394) 25 mmol/L 23-31 AGAP (test code = 6278862596) 2-16 BUN (test code = 5956132148) 15 mg/dL 7-23 GLUCOSE (test code = 7577680214) 112 mg/dL 70-110 H CREATININE (test code = 3131199129) 0.79 mg/dL 0.50-1.04 TOTAL BILI (test code = 9216219202) 0.4 mg/dL 0.1-1.1 CALCIUM (test code = 3869199029) 10.0 mg/dL 8.6-10.6 T PROTEIN (test code = 2688368531) 7.5 g/dL 6.3-8.2 ALBUMIN (test code = 4444968698) 4.2 g/dL 3.5-5.0 ALK PHOS (test code = 0493319863) 92 U/L 34-122 ALTv (test code = 1742-6) 19 U/L 5-35 AST(SGOT) (test code = 5197875430) 21 U/L 13-40 eGFR (test code = 2486732792) mL/min/1.73m2 JO (test code = JO) Association of [...] or abnormalities in imaging tests). Lab Interpretation (test code = 90695-5) [facility] 06:34:45* Test Item Value Reference Range Interpretation Comme nts LIPASE (test code = 8495218087) 64 U/L 0-220 Lab Interpretation (test cod e = 66545-1) Normal [facility] WITH [id number] 06:24:53* Test Item Value Reference Range Interpretation Comme nts WBC (test code = 6690-2) See_Comment H [Automated messa ge] The system which generated this result transmitted reference range: 4.30 - 11.10 10*3/?L. The reference range was not used to interpret this result as normal/abnormal. RBC (test code = 789-8) See_Comment [Automated messa ge] The system which generated this result transmitted reference range: 3.93 - 5.25 10*6/?L. The reference range was not used to interpret this result as normal/abnormal. HGB (test code = 718-7) 12.4 g/dL 11.6-15.0 HCT (test code = 4544-3) 39.5 % 35.7-45.2 MCV (test code = 787-2) 80.0 fL 80.6-95.5 L MCH (test code = 785-6) 25.1 pg 25.9-32.8 L MCHC (test code = 786-4) 31.4 g/dL 31.6-35.1 L RDW-SD (test code = 91757-8) 41.1 fL 39.0-49.9 RDW-CV (test code = 788-0) 14.4 % 12.0-15.5 PLT (test code = 777-3) See_Comment H [Automated messa ge] The system which generated this result transmitted reference range: 166 - 358 10*3/?L. The reference range was not used to interpret this result as normal/abnormal. MPV (test code = 90606-0) 10.1 fL 9.5-12.9 NRBC/100 WBC (test code = 2517333540) See_Comment [Automated me ssage] The system which generated this result transmitted reference range: 0.0 - 10.0 /100 WBCs. The reference range was not used to interpret this result as normal/abnormal. NRBC x10^3 (test code = 7413751456) <0.01 See_Comment [Automated messa ge] The system which generated this result transmitted reference range: 10*3/?L. The reference range was not used to interpret this result as normal/abnormal. GRAN MAT (NEUT) % (test code = 770-8) 59.1 % IMM GRAN % (test code = 8884652573) 0.60 % LYMPH % (test code = 736-9) 28.9 % MONO % (test code = 5905-5) 9.1 % EOS % (test code = 713-8) 1.7 % BASO % (test code = 706-2) 0.6 % GRAN MAT x10^3(ANC) (test code = 4381185165) 8.48 10*3/uL 1.88-7.09 H IMM GRAN x10^3 (test code = 7729703430) 0.08 10*3/uL 0.00-0.06 H LYMPH x10^3 (test code = 731-0) 4.14 10*3/uL 1.32-3.29 H MONO x10^3 (test code = 742-7) 1.30 10*3/uL 0.33-0.92 H EOS x10^3 (test code = 711-2) 0.24 10*3/uL 0.03-0.39 BASO x10^3 (test code = 704-7) 0.08 10*3/uL 0.01-0.07 H Lab Interpretation (test code = 74557-8) Abnormal [facility] AB/AG COMBO RFLX [id number] 00:00:00* Test Item Value Reference Range Interpretation Comme nts HIV 1/2 4TH GEN, RFLX CONF ( test code = 3514) NON-REACTIVE HIV AB/AG COMBO RFLX [id number] 00:00:00* Test Item Value Reference Range Interpretation Comme nts HIV 1/2 4TH GEN, RFLX CONF ( test code = 3514) NON-REACTIVE GC AND CHLAMYDIA, AMPLIFIED, [id number] 00:00:00* Test Item Value Reference Range Interpretation Comme nts GONORRHEA, NAAT (test code = 34716) NEGATIVE CHLAMYDIA, NAAT (test code = 49306) NEGATIVE GC AND CHLAMYDIA, AMPLIFIED, [id number] 00:00:00* Test Item Value Reference Range Interpretation Comme nts GONORRHEA, NAAT (test code = 43389) NEGATIVE CHLAMYDIA, NAAT (test code = 60244) NEGATIVE [id number] 00:00:00* Test Item Value Reference Range Interpretation Comme nts RPR RESULT (test code = 3501) NON-REACTIVE RPR TITER (test code = 3500) NOT INDIC. TITER [id number] 00:00:00* Test Item Value Reference Range Interpretation Comme nts RPR RESULT (test code = 3501) NON-REACTIVE RPR TITER (test code = 3500) NOT INDIC. TITER [id number] 00:00:00* Test Item Value Reference Range Interpretation Comme nts RPR RESULT (test code = 3501) NON-REACTIVE RPR TITER (test code = 3500) NOT INDIC. TITER HIV AB/AG COMBO RFLX [id number] 00:00:00* Test Item Value Reference Range Interpretation Comme nts HIV 1/2 4TH GEN, RFLX CONF ( test code = 3514) NON-REACTIVE HIV AB/AG COMBO RFLX [id number] 00:00:00* Test Item Value Reference Range Interpretation Comme nts HIV 1/2 4TH GEN, RFLX CONF ( test code = 3514) NON-REACTIVE GC AND CHLAMYDIA, AMPLIFIED, [id number] 00:00:00* Test Item Value Reference Range Interpretation Comme nts GONORRHEA, NAAT (test code = 87493) NEGATIVE CHLAMYDIA, NAAT (test code = 96345) NEGATIVE GC AND CHLAMYDIA, AMPLIFIED, [id number] 00:00:00* Test Item Value Reference Range Interpretation Comme nts GONORRHEA, NAAT (test code = 58895) NEGATIVE CHLAMYDIA, NAAT (test code = 26555) NEGATIVE [id number] 00:00:00* Test Item Value Reference Range Interpretation Comme nts RPR RESULT (test code = 3501) NON-REACTIVE RPR TITER (test code = 3500) NOT INDIC. TITER [id number] 00:00:00* Test Item Value Reference Range Interpretation Comme nts RPR RESULT (test code = 3501) NON-REACTIVE RPR TITER (test code = 3500) NOT INDIC. TITER [id number] 00:00:00* Test Item Value Reference Range Interpretation Comme nts RPR RESULT (test code = 3501) NON-REACTIVE RPR TITER (test code = 3500) NOT INDIC. TITER HIV AB/AG COMBO RFLX [id number] 00:00:00* Test Item Value Reference Range Interpretation Comme nts HIV 1/2 4TH GEN, RFLX CONF ( test code = 3514) NON-REACTIVE GC AND CHLAMYDIA, AMPLIFIED, [id number] 00:00:00* Test Item Value Reference Range Interpretation Comme nts GONORRHEA, NAAT (test code = 92489) NEGATIVE CHLAMYDIA, NAAT (test code = 10413) NEGATIVE [id number] 00:00:00* Test Item Value Reference Range Interpretation Comme nts RPR RESULT (test code = 3501) NON-REACTIVE RPR TITER (test code = 3500) NOT INDIC. TITER [id number] 00:00:00* Test Item Value Reference Range Interpretation Comme nts RPR RESULT (test code = 3501) NON-REACTIVE RPR TITER (test code = 3500) NOT INDIC. TITER SARS-CoV-2 (COVID-19) by RT-PCR (HIGH RISK)2019-11-26 00:00:00* Test Item Value Reference Range Interpretation Comme nts SARS-CoV-2 INTERPRETATION (t est code = 12659) NEGATIVE SOURCE (test code = 65279) NOT SPECIFIED SARS-CoV-2 (COVID-19) by RT-PCR (HIGH RISK)2019-11-26 00:00:00* Test Item Value Reference Range Interpretation Comme nts SARS-CoV-2 INTERPRETATION (t est code = 86295) NEGATIVE SOURCE (test code = 41831) NOT SPECIFIED SARS-CoV-2 (COVID-19) by RT-PCR (HIGH RISK)2019-11-26 00:00:00* Test Item Value Reference Range Interpretation Comme nts SARS-CoV-2 INTERPRETATION (t est code = 74940) NEGATIVE SOURCE (test code = 48593) NOT SPECIFIED SARS-CoV-2 (COVID-19) by RT-PCR (HIGH RISK)2019-11-26 00:00:00* Test Item Value Reference Range Interpretation Comme nts SARS-CoV-2 INTERPRETATION (t est code = 48715) NEGATIVE SOURCE (test code = 04594) NOT SPECIFIED SARS-CoV-2 (COVID-19) by RT-PCR (HIGH RISK)2019-11-26 00:00:00* Test Item Value Reference Range Interpretation Comme nts SARS-CoV-2 INTERPRETATION (t est code = 09186) NEGATIVE SOURCE (test code = 76933) NOT SPECIFIED PAP TEST, THINPREP, [id number] 00:00:00* Test Item Value Reference Range Interpretation Comme nts SOURCE: (test code = 8001) Cervical/Endocervical SLIDES: (test code = 8011) 1 LMP: (test code = 8021) 03/08/2018 SPECIMEN ADEQUACY: (test code = 42539) (NOTE) INTERPRETATION: (test code = 70350) NILM/NO EPITH. ABNORMALITY;SEE BELOW BELT WEAVER: (test code = 8101) BEN Guaman(ASCP)IAC LOCATION: (test code = 33089) (NOTE) CPT: (test code = 8140) (NOTE) PAP TEST, THINPREP, [id number] 00:00:00* Test Item Value Reference Range Interpretation Comme nts SOURCE: (test code = 8001) Cervical/Endocervical SLIDES: (test code = 8011) 1 LMP: (test code = 8021) 03/08/2018 SPECIMEN ADEQUACY: (test code = 81672) (NOTE) INTERPRETATION: (test code = 03294) NILM/NO EPITH. ABNORMALITY;SEE BELOW BELT WEAVER: (test code = 8101) BEN Guaman(ASCP)IAC LOCATION: (test code = 23142) (NOTE) CPT: (test code = 8140) (NOTE) PAP TEST, THINPREP, [id number] 00:00:00* Test Item Value Reference Range Interpretation Comme nts SOURCE: (test code = 8001) Cervical/Endocervical SLIDES: (test code = 8011) 1 LMP: (test code = 8021) 03/08/2018 SPECIMEN ADEQUACY: (test code = 54153) (NOTE) INTERPRETATION: (test code = 04155) NILM/NO EPITH. ABNORMALITY;SEE BELOW BELT WEAVER: (test code = 8101) BEN Guaman(ASCP)IAC LOCATION: (test code = 78129) (NOTE) CPT: (test code = 8140) (NOTE) PAP TEST, THINPREP, [id number] 00:00:00* Test Item Value Reference Range Interpretation Comme nts SOURCE: (test code = 8001) Cervical/Endocervical SLIDES: (test code = 8011) 1 LMP: (test code = 8021) 03/08/2018 SPECIMEN ADEQUACY: (test code = 93118) (NOTE) INTERPRETATION: (test code = 35650) NILM/NO EPITH. ABNORMALITY;SEE BELOW BELT WEAVER: (test code = 8101) BEN Guaman(ASCP)IAC LOCATION: (test code = 56580) (NOTE) CPT: (test code = 8140) (NOTE) PAP TEST, THINPREP, [id number] 00:00:00* Test Item Value Reference Range Interpretation Comme nts SOURCE: (test code = 8001) Cervical/Endocervical SLIDES: (test code = 8011) 1 LMP: (test code = 8021) 03/08/2018 SPECIMEN ADEQUACY: (test code = 90002) (NOTE) INTERPRETATION: (test code = 87356) NILM/NO EPITH. ABNORMALITY;SEE BELOW BELT WEAVER: (test code = 8101) BEN Guaman(ASCP)IAC LOCATION: (test code = 41501) (NOTE) CPT: (test code = 8140) (NOTE) PAP TEST, THINPREP, [id number] 00:00:00* Test Item Value Reference Range Interpretation Comme nts SOURCE: (test code = 8001) Cervical/Endocervical SLIDES: (test code = 8011) 2 LMP: (test code = 8021) 03/08/2018 SPECIMEN ADEQUACY: (test code = 07177) (NOTE) INTERPRETATION: (test code = 96997) UNSATISFACTORY; SEE BELOW OTHER COMMENTS: (test code = 8081) (NOTE) BELT WEAVER: (test code = 8101) BEN Perla(ASCP)IAC QC TECHNOLOGIST: (test code = 8111) Macarena Valentine,SCT(ASCP)CT(IA C) LOCATION: (test code = 51887) (NOTE) CPT: (test code = 8140) (NOTE) PAP TEST, THINPREP, [id number] 00:00:00* Test Item Value Reference Range Interpretation Comme nts SOURCE: (test code = 8001) Cervical/Endocervical SLIDES: (test code = 8011) 2 LMP: (test code = 8021) 03/08/2018 SPECIMEN ADEQUACY: (test code = 55131) (NOTE) INTERPRETATION: (test code = 36954) UNSATISFACTORY; SEE BELOW OTHER COMMENTS: (test code = 8081) (NOTE) BELT WEAVER: (test code = 8101) BEN Perla(ASCP)IAC QC TECHNOLOGIST: (test code = 8111) Macarena ValentineSCT(ASCP)CT(IA C) LOCATION: (test code = 14643) (NOTE) CPT: (test code = 8140) (NOTE) PAP TEST, THINPREP, [id number] 00:00:00* Test Item Value Reference Range Interpretation Comme nts SOURCE: (test code = 8001) Cervical/Endocervical SLIDES: (test code = 8011) 2 LMP: (test code = 8021) 03/08/2018 SPECIMEN ADEQUACY: (test code = 26133) (NOTE) INTERPRETATION: (test code = 21078) UNSATISFACTORY; SEE BELOW OTHER COMMENTS: (test code = 8081) (NOTE) BELT WEAVER: (test code = 8101) BEN Perla(ASCP)IAC QC TECHNOLOGIST: (test code = 8111) [facility](IA C) LOCATION: (test code = 77989) (NOTE) CPT: (test code = 8140) (NOTE) PAP TEST, THINPREP, [id number] 00:00:00* Test Item Value Reference Range Interpretation Comme nts SOURCE: (test code = 8001) Cervical/Endocervical SLIDES: (test code = 8011) 2 LMP: (test code = 8021) 03/08/2018 SPECIMEN ADEQUACY: (test code = 76485) (NOTE) INTERPRETATION: (test code = 18944) UNSATISFACTORY; SEE BELOW OTHER COMMENTS: (test code = 8081) (NOTE) BELT WEAVER: (test code = 8101) BEN Perla(ASCP)IAC QC TECHNOLOGIST: (test code = 8111) [facility](IA C) LOCATION: (test code = 73561) (NOTE) CPT: (test code = 8140) (NOTE) PAP TEST, THINPREP, [id number] 00:00:00* Test Item Value Reference Range Interpretation Comme nts SOURCE: (test code = 8001) Cervical/Endocervical SLIDES: (test code = 8011) 2 LMP: (test code = 8021) 03/08/2018 SPECIMEN ADEQUACY: (test code = 12732) (NOTE) INTERPRETATION: (test code = 01696) UNSATISFACTORY; SEE BELOW OTHER COMMENTS: (test code = 8081) (NOTE) BELT WEAVER: (test code = 8101) BEN Perla(ASCP)IAC QC TECHNOLOGIST: (test code = 8111) [facility](IA C) LOCATION: (test code = 97487) (NOTE) CPT: (test code = 8140) (NOTE) HEMOGLOBIN [id number] 00:00:00* Test Item Value Reference Range Interpretation Comme nts HEMOGLOBIN A1c (test code = 56154) 5.0 % HEMOGLOBIN [id number] 00:00:00* Test Item Value Reference Range Interpretation Comme nts HEMOGLOBIN A1c (test code = 54702) 5.0 % GC AND CHLAMYDIA AMPLIFIED, [id number] 00:00:00* Test Item Value Reference Range Interpretation Comme nts GONORRHEA, TMA (test code = 80620) NEGATIVE CHLAMYDIA, TMA (test code = 01077) NEGATIVE GC AND CHLAMYDIA AMPLIFIED, [id number] 00:00:00* Test Item Value Reference Range Interpretation Comme nts GONORRHEA, TMA (test code = 68232) NEGATIVE CHLAMYDIA, TMA (test code = 72621) NEGATIVE HEMOGLOBIN [id number] 00:00:00* Test Item Value Reference Range Interpretation Comme nts HEMOGLOBIN A1c (test code = 77625) 5.0 % LIPID [id number] 00:00:00* Test Item Value Reference Range Interpretation Comme nts CHOLESTEROL (test code = 2210) 149 MG/DL TRIGLYCERIDES (test code = 2232) 160 MG/DL HDL CHOLESTEROL (test code = 2220) 38 MG/DL CALC LDL CHOL (test code = 2237) 79 MG/DL RISK RATIO LDL/HDL (test cod e = 2238) 2.08 RATIO LIPID [id number] 00:00:00* Test Item Value Reference Range Interpretation Comme nts CHOLESTEROL (test code = 2210) 149 MG/DL TRIGLYCERIDES (test code = 2232) 160 MG/DL HDL CHOLESTEROL (test code = 2220) 38 MG/DL CALC LDL CHOL (test code = 2237) 79 MG/DL RISK RATIO LDL/HDL (test cod e = 2238) 2.08 RATIO HPV HIGH RISK WITH GENOTYPE, [id number] 00:00:00* Test Item Value Reference Range Interpretation Comme nts HPV HIGH RISK INTERP (test c ode = 04708) NEGATIVE HPV 16 (test code = 99210) NEGATIVE HPV 18 (test code = 20946) NEGATIVE HPV, HR, OTHER GENOTYPES (te st code = 12626) NEGATIVE HPV HIGH RISK WITH GENOTYPE, [id number] 00:00:00* Test Item Value Reference Range Interpretation Comme nts HPV HIGH RISK INTERP (test c ode = 87357) NEGATIVE HPV 16 (test code = 81257) NEGATIVE HPV 18 (test code = 04938) NEGATIVE HPV, HR, OTHER GENOTYPES (te st code = 24029) NEGATIVE COMPREHENSIVE METABOLIC [id number] 00:00:00* Test Item Value Reference Range Interpretation Comme nts GLUCOSE (test code = 2217) 96 MG/DL BUN (test code = 2208) 8 MG/DL CREATININE (test code = 2214) 0.82 MG/DL eGFR AMER. (test cod e = 66077) 109 ML/MIN/1.73 eGFR NON- AMER. (test code = 47308) 94 ML/MIN/1.73 CALC BUN/CREAT (test code = 2235) 10 RATIO SODIUM (test code = 2231) 142 MEQ/L POTASSIUM (test code = 2228) 4.4 MEQ/L CHLORIDE (test code = 2215) 101 MEQ/L CARBON DIOXIDE (test code = 2206) 29 MEQ/L CALCIUM (test code = 2209) 9.7 MG/DL PROTEIN, TOTAL (test code = 2229) 7.2 G/DL ALBUMIN (test code = 2201) 4.5 G/DL CALC GLOBULIN (test code = 2240) 2.7 G/DL CALC A/G RATIO (test code = 2234) 1.7 RATIO BILIRUBIN, TOTAL (test code = 2207) 0.3 MG/DL ALKALINE PHOSPHATASE (test code = 2204) 91 U/L AST (test code = 2218) 15 U/L ALT (test code = 2219) 16 U/L COMPREHENSIVE METABOLIC [id number] 00:00:00* Test Item Value Reference Range Interpretation Comme nts GLUCOSE (test code = 2217) 96 MG/DL BUN (test code = 2208) 8 MG/DL CREATININE (test code = 2214) 0.82 MG/DL eGFR AMER. (test cod e = 17869) 109 ML/MIN/1.73 eGFR NON- AMER. (test code = 93473) 94 ML/MIN/1.73 CALC BUN/CREAT (test code = 2235) 10 RATIO SODIUM (test code = 2231) 142 MEQ/L POTASSIUM (test code = 2228) 4.4 MEQ/L CHLORIDE (test code = 2215) 101 MEQ/L CARBON DIOXIDE (test code = 2206) 29 MEQ/L CALCIUM (test code = 2209) 9.7 MG/DL PROTEIN, TOTAL (test code = 2229) 7.2 G/DL ALBUMIN (test code = 2201) 4.5 G/DL CALC GLOBULIN (test code = 2240) 2.7 G/DL CALC A/G RATIO (test code = 2234) 1.7 RATIO BILIRUBIN, TOTAL (test code = 2207) 0.3 MG/DL ALKALINE PHOSPHATASE (test code = 2204) 91 U/L AST (test code = 2218) 15 U/L ALT (test code = 2219) 16 U/L [id number] 00:00:00* Test Item Value Reference Range Interpretation Comme nts RPR RESULT (test code = 3501) NON-REACTIVE RPR TITER (test code = 3500) NOT INDIC. TITER [id number] 00:00:00* Test Item Value Reference Range Interpretation Comme nts RPR RESULT (test code = 3501) NON-REACTIVE RPR TITER (test code = 3500) NOT INDIC. TITER [id number] 00:00:00* Test Item Value Reference Range Interpretation Comme nts RPR RESULT (test code = 3501) NON-REACTIVE RPR TITER (test code = 3500) NOT INDIC. TITER ACUTE HEPATITIS [id number] 00:00:00* Test Item Value Reference Range Interpretation Comme nts HEPATITIS A IgM (test code = 87819) NON-REACTIVE HEPATITIS B CORE IgM (test c ode = 4644) NON-REACTIVE HEPATITIS B SURF AG (test co de = 2739) NON-REACTIVE HEPATITIS C ANTIBODY (test c ode = 4675) NON-REACTIVE HCV INDEX (test code = 59383) 0.08 INTERPRETATION HEPATITIS A: (test code = 2552) (NOTE) INTERPRETATION HEPATITIS B: (test code = 26093) (NOTE) INTERPRETATION HEPATITIS C: (test code = 05878) (NOTE) ACUTE HEPATITIS [id number] 00:00:00* Test Item Value Reference Range Interpretation Comme nts HEPATITIS A IgM (test code = 37264) NON-REACTIVE HEPATITIS B CORE IgM (test c ode = 4644) NON-REACTIVE HEPATITIS B SURF AG (test co de = 2739) NON-REACTIVE HEPATITIS C ANTIBODY (test c ode = 4675) NON-REACTIVE HCV INDEX (test code = 40929) 0.08 INTERPRETATION HEPATITIS A: (test code = 2552) (NOTE) INTERPRETATION HEPATITIS B: (test code = 91570) (NOTE) INTERPRETATION HEPATITIS C: (test code = 43415) (NOTE) HIV AB/AG COMBO RFLX [id number] 00:00:00* Test Item Value Reference Range Interpretation Comme nts HIV 1/2 4TH GEN, RFLX CONF ( test code = 3514) NON-REACTIVE HIV AB/AG COMBO RFLX [id number] 00:00:00* Test Item Value Reference Range Interpretation Comme nts HIV 1/2 4TH GEN, RFLX CONF ( test code = 3514) NON-REACTIVE HEMOGLOBIN [id number] 00:00:00* Test Item Value Reference Range Interpretation Comme nts HEMOGLOBIN A1c (test code = 10962) 5.0 % HEMOGLOBIN [id number] 00:00:00* Test Item Value Reference Range Interpretation Comme nts HEMOGLOBIN A1c (test code = 23028) 5.0 % HEMOGLOBIN [id number] 00:00:00* Test Item Value Reference Range Interpretation Comme nts HEMOGLOBIN A1c (test code = 95085) 5.0 % GC AND CHLAMYDIA AMPLIFIED, [id number] 00:00:00* Test Item Value Reference Range Interpretation Comme nts GONORRHEA, TMA (test code = 17001) NEGATIVE CHLAMYDIA, TMA (test code = 26863) NEGATIVE GC AND CHLAMYDIA AMPLIFIED, [id number] 00:00:00* Test Item Value Reference Range Interpretation Comme nts GONORRHEA, TMA (test code = 03525) NEGATIVE CHLAMYDIA, TMA (test code = 48039) NEGATIVE HEMOGLOBIN [id number] 00:00:00* Test Item Value Reference Range Interpretation Comme nts HEMOGLOBIN A1c (test code = 69992) 5.0 % LIPID [id number] 00:00:00* Test Item Value Reference Range Interpretation Comme nts CHOLESTEROL (test code = 2210) 149 MG/DL TRIGLYCERIDES (test code = 2232) 160 MG/DL HDL CHOLESTEROL (test code = 2220) 38 MG/DL CALC LDL CHOL (test code = 2237) 79 MG/DL RISK RATIO LDL/HDL (test cod e = 2238) 2.08 RATIO LIPID [id number] 00:00:00* Test Item Value Reference Range Interpretation Comme nts CHOLESTEROL (test code = 2210) 149 MG/DL TRIGLYCERIDES (test code = 2232) 160 MG/DL HDL CHOLESTEROL (test code = 2220) 38 MG/DL CALC LDL CHOL (test code = 2237) 79 MG/DL RISK RATIO LDL/HDL (test cod e = 2238) 2.08 RATIO HPV HIGH RISK WITH GENOTYPE, [id number] 00:00:00* Test Item Value Reference Range Interpretation Comme nts HPV HIGH RISK INTERP (test c ode = 51236) NEGATIVE HPV 16 (test code = 99494) NEGATIVE HPV 18 (test code = 44778) NEGATIVE HPV, HR, OTHER GENOTYPES (te st code = 09581) NEGATIVE HPV HIGH RISK WITH GENOTYPE, [id number] 00:00:00* Test Item Value Reference Range Interpretation Comme nts HPV HIGH RISK INTERP (test c ode = 72598) NEGATIVE HPV 16 (test code = 42793) NEGATIVE HPV 18 (test code = 26983) NEGATIVE HPV, HR, OTHER GENOTYPES (te st code = 35011) NEGATIVE COMPREHENSIVE METABOLIC [id number] 00:00:00* Test Item Value Reference Range Interpretation Comme nts GLUCOSE (test code = 2217) 96 MG/DL BUN (test code = 2208) 8 MG/DL CREATININE (test code = 2214) 0.82 MG/DL eGFR AMER. (test cod e = 80020) 109 ML/MIN/1.73 eGFR NON- AMER. (test code = 94857) 94 ML/MIN/1.73 CALC BUN/CREAT (test code = 2235) 10 RATIO SODIUM (test code = 2231) 142 MEQ/L POTASSIUM (test code = 2228) 4.4 MEQ/L CHLORIDE (test code = 2215) 101 MEQ/L CARBON DIOXIDE (test code = 2206) 29 MEQ/L CALCIUM (test code = 2209) 9.7 MG/DL PROTEIN, TOTAL (test code = 2229) 7.2 G/DL ALBUMIN (test code = 2201) 4.5 G/DL CALC GLOBULIN (test code = 2240) 2.7 G/DL CALC A/G RATIO (test code = 2234) 1.7 RATIO BILIRUBIN, TOTAL (test code = 2207) 0.3 MG/DL ALKALINE PHOSPHATASE (test code = 2204) 91 U/L AST (test code = 2218) 15 U/L ALT (test code = 2219) 16 U/L COMPREHENSIVE METABOLIC [id number] 00:00:00* Test Item Value Reference Range Interpretation Comme nts GLUCOSE (test code = 2217) 96 MG/DL BUN (test code = 2208) 8 MG/DL CREATININE (test code = 2214) 0.82 MG/DL eGFR AMER. (test cod e = 98404) 109 ML/MIN/1.73 eGFR NON- AMER. (test code = 33531) 94 ML/MIN/1.73 CALC BUN/CREAT (test code = 2235) 10 RATIO SODIUM (test code = 2231) 142 MEQ/L POTASSIUM (test code = 2228) 4.4 MEQ/L CHLORIDE (test code = 2215) 101 MEQ/L CARBON DIOXIDE (test code = 2206) 29 MEQ/L CALCIUM (test code = 2209) 9.7 MG/DL PROTEIN, TOTAL (test code = 2229) 7.2 G/DL ALBUMIN (test code = 2201) 4.5 G/DL CALC GLOBULIN (test code = 2240) 2.7 G/DL CALC A/G RATIO (test code = 2234) 1.7 RATIO BILIRUBIN, TOTAL (test code = 2207) 0.3 MG/DL ALKALINE PHOSPHATASE (test code = 2204) 91 U/L AST (test code = 2218) 15 U/L ALT (test code = 2219) 16 U/L [id number] 00:00:00* Test Item Value Reference Range Interpretation Comme nts RPR RESULT (test code = 3501) NON-REACTIVE RPR TITER (test code = 3500) NOT INDIC. TITER [id number] 00:00:00* Test Item Value Reference Range Interpretation Comme nts RPR RESULT (test code = 3501) NON-REACTIVE RPR TITER (test code = 3500) NOT INDIC. TITER [id number] 00:00:00* Test Item Value Reference Range Interpretation Comme nts RPR RESULT (test code = 3501) NON-REACTIVE RPR TITER (test code = 3500) NOT INDIC. TITER ACUTE HEPATITIS [id number] 00:00:00* Test Item Value Reference Range Interpretation Comme nts HEPATITIS A IgM (test code = 01159) NON-REACTIVE HEPATITIS B CORE IgM (test c ode = 4644) NON-REACTIVE HEPATITIS B SURF AG (test co de = 2739) NON-REACTIVE HEPATITIS C ANTIBODY (test c ode = 4675) NON-REACTIVE HCV INDEX (test code = 04388) 0.08 INTERPRETATION HEPATITIS A: (test code = 2552) (NOTE) INTERPRETATION HEPATITIS B: (test code = 63121) (NOTE) INTERPRETATION HEPATITIS C: (test code = 47847) (NOTE) ACUTE HEPATITIS [id number] 00:00:00* Test Item Value Reference Range Interpretation Comme nts HEPATITIS A IgM (test code = 98668) NON-REACTIVE HEPATITIS B CORE IgM (test c ode = 4644) NON-REACTIVE HEPATITIS B SURF AG (test co de = 2739) NON-REACTIVE HEPATITIS C ANTIBODY (test c ode = 4675) NON-REACTIVE HCV INDEX (test code = 21210) 0.08 INTERPRETATION HEPATITIS A: (test code = 2552) (NOTE) INTERPRETATION HEPATITIS B: (test code = 38684) (NOTE) INTERPRETATION HEPATITIS C: (test code = 64573) (NOTE) HIV AB/AG COMBO RFLX [id number] 00:00:00* Test Item Value Reference Range Interpretation Comme nts HIV 1/2 4TH GEN, RFLX CONF ( test code = 3514) NON-REACTIVE HIV AB/AG COMBO RFLX [id number] 00:00:00* Test Item Value Reference Range Interpretation Comme nts HIV 1/2 4TH GEN, RFLX CONF ( test code = 3514) NON-REACTIVE HEMOGLOBIN [id number] 00:00:00* Test Item Value Reference Range Interpretation Comme nts HEMOGLOBIN A1c (test code = 14434) 5.0 % GC AND CHLAMYDIA AMPLIFIED, [id number] 00:00:00* Test Item Value Reference Range Interpretation Comme nts GONORRHEA, TMA (test code = 56136) NEGATIVE CHLAMYDIA, TMA (test code = 95357) NEGATIVE LIPID [id number] 00:00:00* Test Item Value Reference Range Interpretation Comme nts CHOLESTEROL (test code = 2210) 149 MG/DL TRIGLYCERIDES (test code = 2232) 160 MG/DL HDL CHOLESTEROL (test code = 2220) 38 MG/DL CALC LDL CHOL (test code = 2237) 79 MG/DL RISK RATIO LDL/HDL (test cod e = 2238) 2.08 RATIO HPV HIGH RISK WITH GENOTYPE, [id number] 00:00:00* Test Item Value Reference Range Interpretation Comme nts HPV HIGH RISK INTERP (test c ode = 14686) NEGATIVE HPV 16 (test code = 86727) NEGATIVE HPV 18 (test code = 76795) NEGATIVE HPV, HR, OTHER GENOTYPES (te st code = 36133) NEGATIVE COMPREHENSIVE METABOLIC [id number] 00:00:00* Test Item Value Reference Range Interpretation Comme nts GLUCOSE (test code = 2217) 96 MG/DL BUN (test code = 2208) 8 MG/DL CREATININE (test code = 2214) 0.82 MG/DL eGFR AMER. (test cod e = 77070) 109 ML/MIN/1.73 eGFR NON- AMER. (test code = 07647) 94 ML/MIN/1.73 CALC BUN/CREAT (test code = 2235) 10 RATIO SODIUM (test code = 2231) 142 MEQ/L POTASSIUM (test code = 2228) 4.4 MEQ/L CHLORIDE (test code = 2215) 101 MEQ/L CARBON DIOXIDE (test code = 2206) 29 MEQ/L CALCIUM (test code = 2209) 9.7 MG/DL PROTEIN, TOTAL (test code = 2229) 7.2 G/DL ALBUMIN (test code = 2201) 4.5 G/DL CALC GLOBULIN (test code = 2240) 2.7 G/DL CALC A/G RATIO (test code = 2234) 1.7 RATIO BILIRUBIN, TOTAL (test code = 2207) 0.3 MG/DL ALKALINE PHOSPHATASE (test code = 2204) 91 U/L AST (test code = 2218) 15 U/L ALT (test code = 2219) 16 U/L [id number] 00:00:00* Test Item Value Reference Range Interpretation Comme nts RPR RESULT (test code = 3501) NON-REACTIVE RPR TITER (test code = 3500) NOT INDIC. TITER [id number] 00:00:00* Test Item Value Reference Range Interpretation Comme nts RPR RESULT (test code = 3501) NON-REACTIVE RPR TITER (test code = 3500) NOT INDIC. TITER ACUTE HEPATITIS [id number] 00:00:00* Test Item Value Reference Range Interpretation Comme nts HEPATITIS A IgM (test code = 08160) NON-REACTIVE HEPATITIS B CORE IgM (test c ode = 4644) NON-REACTIVE HEPATITIS B SURF AG (test co de = 8679) NON-REACTIVE HEPATITIS C ANTIBODY (test c ode = 4675) NON-REACTIVE HCV INDEX (test code = 68459) 0.08 INTERPRETATION HEPATITIS A: (test code = 2552) (NOTE) INTERPRETATION HEPATITIS B: (test code = 59371) (NOTE) INTERPRETATION HEPATITIS C: (test code = 13619) (NOTE) HIV AB/AG COMBO RFLX [id number] 00:00:00* Test Item Value Reference Range Interpretation Comme [facility] HIV 1/2 4TH GEN, RFLX CONF ( test code = 3514) NON-REACTIVE"
[2023-08-11] MEDS ORDERED: dexAMETHasone 10 MG/ML VIAL ONE (08:15)
[2023-08-11] MEDS ORDERED: METOCLOPRAMIDE 10 MG/2mL INJ ONE (08:15)
[2023-08-11] MEDS ORDERED: IBUPROFEN 400 MG TAB ONE (08:15)
[2023-08-11] MEDS ORDERED: NA CHLORIDE 0.9% 1,000 ML ONE (08:16)
[2023-08-11 08:32] LABS: Absolute Basophils 0.1 K/uL (0-0.5); Absolute Eosinophils 0.7 K/uL (0-0.5); Absolute Lymphocytes (CBC) 2.7 K/uL (0.7-4.9); Absolute Neutrophil 7.8 K/uL (1.8-8.0); Basophils % 0.9 % (0-1.3); Eosinophils % 5.3 % (0-4.4); Hematocrit 36.7 % (36.0-45.0); MCH 24.8 pg (27.0-35.0); MCHC 32.6 g/dL (32.0-36.0); Monocytes % 7.8 % (3.3-12.3); Platelets 469 thou/uL (152-406); RBC Red Blood Cell Count 4.84 M/uL (3.86-4.86); Red Cell Distribution Width 15.9 % (12.1-15.2)
[2023-08-11 08:43] LABS: SARS-CoV-2 Antigen CONTROL BLUE LINE VIS/BG OK; SARS-CoV-2 Antigen Rapid Res Negative (Negative)
--- NOTE | 2023-08-11 08:43 | RAD REPORT ---
EXAM DESCRIPTION: CT - Head Brain Wo Cont - 08/11/2023 8:32 am CLINICAL HISTORY: Headache COMPARISON: none TECHNIQUE: Computed axial tomography of the head was obtained. IV contrast was not requested. All CT scans are performed using dose optimization technique as appropriate and may include automated exposure control or mA/KV adjustment according to patient size. FINDINGS: An intracranial bleed is not seen The ventricles are normal in caliber No significant hypodense areas within the brain visualized. Basal ganglia calcifications likely not s ignificant. No extra-axial fluid collection is noted. Fluid within the sinuses/ mastoids is not seen IMPRESSION: No acute intracranial abnormality is seen If patient's symptoms persist MRI of the brain would be recommended
[2023-08-11 08:56] LABS: Specific Gravity 1.025 (1.005-1.030); Sqamous Epithelial <5 /HPF (None Seen); Urine Bacteria None Seen /HPF (<20); Urine Bilirubin NEGATIVE (Negative); Urine Blood Negative (Negative); Urine Clarity Turbid (Clear); Urine Color Light-Yellow (Yellow); Urine Culture Reflex Order REFLEXED; Urine Glucose NEGATIVE (Negative); Urine Ketones NEGATIVE (Negative); Urine Microscopic Reflex YN ORDER UMIC; Urine Mucus Slight /HPF (None Seen); Urine Nitrite NEGATIVE (Negative); Urine Protein NEGATIVE (Negative); Urine Urobilinogen Normal (Normal); Urine pH 5.5 (5.0-7.0)
--- NOTE | 2023-08-11 09:42 | ER ---
Nurse's Notes [facility] Name: Zaria De Oliveira Age: 37 yrs Sex: Female : 1985 Arrival Date: 08/11/2023 Time: 07:57 Bed 7 Private MD: Diagnosis: Migraine without aura, not intractable, without status migrainosus Presentation: 08/10 08:08 Chief complaint: Headache, nausea, and intermittent blurred vision x 3 days. Hx of hb migraines. Coronavirus screen: At this time, the client does not indicate any symptoms associated with coronavirus-19. Ebola Screen: No symptoms or risks identified at this time. Initial Sepsis Screen: Does the patient meet any 2 criteria? No. Patient's initial sepsis screen is negative. Does the patient have a suspected source of infection? No. Patient's initial sepsis screen is negative. Risk Assessment: Do you want to hurt yourself or someone else? Patient reports no desire to harm self or others. Onset of symptoms was August 08, 2023. 08:08 Method Of Arrival: Ambulatory hb 08:08 Acuity: CELESTINO 3 hb Triage Assessment: 08:10 General: Appears in no apparent distress. Behavior is calm, cooperative. Pain: Pain hb currently is 8 out of 10 on a pain scale. EENT: Reports blurred vision. Neuro: Level of Consciousness is awake, alert, obeys commands, Oriented to person, place, time, situation. Cardiovascular: Patient's skin is warm and dry. Respiratory: Respiratory effort is even, unlabored, Respiratory pattern is regular, symmetrical. GI: Reports nausea. Historical: - Allergies: 08:09 Bluestar ointments; hb 08:09 Oxistat; hb - Home Meds: 08:09 lisinopril 10 mg Oral tablet daily [Active]; hb - PMHx: 08:09 Hypertensive disorder; Migraines; hb - PSHx: 08:09 section; hb - Immunization history:: Adult Immunizations up to date. - Infectious Disease History:: Denies. - Social history:: Smoking status: Patient denies any tobacco usage or history of. - Family history:: not pertinent. - Hospitalizations: : No recent hospitalization is reported. Screenin:12 [facility] ED Fall Risk Assessment (Adult) History of falling in the last 3 months, ap3 including since admission No falls in past 3 months (0 pts) Confusion or Disorientation No (0 pts) Intoxicated or Sedated No (0 pts) Impaired Gait No (0 pts) Mobility Assist Device Used No (0 pt) Altered Elimination No (0 pt) Score/Fall Risk Level 0 - 2 = Low Risk Oriented to surroundings, Maintained a safe environment, Educated pt \T\ family on fall prevention, incl call for assistance when getting out of bed, Assessed \T\ reinforced patient's understanding of fall precautions, Provided non-skid footwear, Hourly rounding (assess needs \T\ fall precautionary measures) done, Used ambulatory aids as needed (educated on \T\ assisted with), Used gait belt as appropriate. Abuse screen: Denies threats or abuse. Nutritional screening: No deficits noted. Tuberculosis screening: No symptoms or risk factors identified. Assessment: 08:10 General: Appears in no apparent distress. Behavior is calm, cooperative, appropriate ap3 for age. Pain: Complains of pain in face. Neuro: Level of Consciousness is awake, alert, obeys commands, Oriented to person, place, time, situation, Reports headache since three days. Cardiovascular: Patient's skin is warm and dry. Respiratory: Airway is patent Respiratory effort is even, unlabored, Respiratory pattern is regular, symmetrical. GI: Abdomen is non-distended, Reports nausea. Derm: Reports itching. Vital Signs: 08:08 BP 139 / 95; Pulse 98; Resp 16; Pulse Ox 97% on R/A; Weight 104.33 kg; Height 5 ft. 2 hb in. ; Pain 8/10; 08:10 Temp 99(O); ap3 09:11 BP 129 / 83; Pulse 89; Resp 15; Pulse Ox 100% ; ko1 08:08 Body Mass Index 42.07 (104.33 kg, 157.48 cm) hb 08:08 Pain Scale: Adult hb Abbe Coma Score: 09:41 Eye Response: spontaneous(4). Motor Response: obeys commands(6). Verbal Response: rn oriented(5). Total: 15. ED Course: 08:00 Patient arrived in ED. rg4 08:00 Raj Phillips MD is Attending Physician. rn 08:03 Clau Mays RN is Primary Nurse. ko1 08:09 Triage completed. hb 08:12 Arm band placed on. hb 08:12 Patient has correct armband on for positive identification. Bed in low position. Call ap3 light in reach. Side rails up X 1. Pulse ox on. NIBP on. 08:13 Client placed on continuous cardiac and pulse oximetry monitoring. NIBP monitoring hb applied. 08:27 SARS RAPID Sent. ko1 08:27 Strep Sent. ko1 08:27 Flu Sent. ko1 08:27 Basic Metabolic Panel Sent. ko1 08:28 CBC with Diff Sent. ko1 08:28 Initial lab(s) drawn, by me, sent to lab. Inserted saline lock: 22 gauge in right ap3 antecubital area, using aseptic technique. Blood collected. 08:34 CT Head Brain wo Cont In Process Unspecified. EDMS 09:51 Provided Education on: na. ko1 09:51 No provider procedures requiring assistance completed. IV discontinued, intact, ko1 bleeding controlled, No redness/swelling at site. Pressure dressing applied. Administered Medications: 08:27 Drug: NS 0.9% IV 1000 ml IV at 1000 ml once Route: IV; Rate: 1000 ml; Site: right ko1 antecubital; 09:33 Follow up: Response: No adverse reaction; IV Status: Completed infusion; IV Intake: ko1 1000ml 08:27 Drug: metoCLOPramide IVP 10 mg IVP once; over 1 to 2 minutes Route: IVP; Site: right ko1 antecubital; 08:45 Follow up: Response: No adverse reaction ko1 08:27 Drug: Decadron - Dexamethasone IVP 10 mg IVP once Route: IVP; Site: right antecubital; ko1 08:45 Follow up: Response: No adverse reaction ko1 08:27 Drug: Ibuprofen PO 800 mg PO once Route: PO; ko1 09:15 Follow up: Response: No adverse reaction ko1 Medication: 09:51 VIS not applicable for this client. ko1 Intake: 09:33 IV: 1000ml; Total: 1000ml. ko1 Outcome: 09:42 Discharge ordered by . rn 09:51 Discharged to home ambulatory, ko1 09:51 Condition: improved 09:51 Discharge instructions given to patient, Instructed on discharge instructions, follow up and referral plans. medication usage, Demonstrated understanding of instructions, follow-up care, medications, Prescriptions given X 1, 09:52 Patient left the ED. ko1 Signatures: Dispatcher [employer] Raj Villalobos MD MD rn Baxter, Heather RN RN Bobbi Garvey 4 Jessica Montero RN RN [email or web address] Clau Mays RN RN ko1 Corrections: (The following items were deleted from the chart) 08:12 08:08 BP 139 / 95; Pulse 98bpm; Resp 16bpm; Pulse Ox 97% RA; Pain 8, Adult; hb hb
--- NOTE | 2023-08-11 09:42 | EDPHYS ---
Physician Documentation [facility] Name: Zaria De Oliveira Age: 37 yrs Sex: Female : 1985 Arrival Date: 08/11/2023 Time: 07:57 Bed 7 Private MD: ED Physician Raj Phillips HPI: 08/10 08:14 This 37 yrs old Female presents to ER via Ambulatory with complaints of Migraine, rn Blurred Vision, Nausea. 08:14 The patient complains of pain to the top of head and forehead. The patient describes rn the headache as aching. Onset: The symptoms/episode began/occurred 3 day(s) ago. Associated signs and symptoms: Pertinent positives: nausea, blurred vision, Pertinent negatives: altered mental status, fever, vision loss. 08:15 Severity of symptoms: At its worst the pain was moderate, "similar to past headaches". rn Headache History: The patient has had previous headaches and this one is similar to previous episodes. The symptoms are alleviated by nothing. the symptoms are aggravated by nothing. The patient has experienced similar episodes in the past. Patient reports migraine headache for the last 3 days. Similar to other migraines but new symptom is blurred vision. Vision currently normal. Takes Excedrin [id number] usually for migraines and helps. Denies head injury. Reports has been having congestion and headache recently. No neck pain or stiffness. No vomiting. No abdominal pain or diarrhea. No cough or shortness of breath.. Historical: - Allergies: 08:09 Bluestar ointments; hb 08:09 Oxistat; hb - Home Meds: 08:09 lisinopril 10 mg Oral tablet daily [Active]; hb - PMHx: 08:09 Hypertensive disorder; Migraines; hb - PSHx: 08:09 section; hb - Immunization history:: Adult Immunizations up to date. - Infectious Disease History:: Denies. - Social history:: Smoking status: Patient denies any tobacco usage or history of. - Family history:: not pertinent. - Hospitalizations: : No recent hospitalization is reported. ROS: 08:15 Constitutional: Positive for subjective fever Eyes: Negative for injury, pain, redness, rn and discharge, ENT: Positive for nasal congestion Neck: Negative for injury, pain, and swelling, Cardiovascular: Negative for chest pain, palpitations, and edema, Respiratory: Negative for shortness of breath, cough, wheezing, and pleuritic chest pain, Abdomen/GI: Negative for abdominal pain, vomiting, diarrhea, and constipation, MS/Extremity: Negative for injury and deformity, Skin: Negative for injury, rash, and discoloration, Neuro: Positive for headache Exam: 08:15 Constitutional: This is a well developed, well nourished patient who is awake, alert, rn and in no acute distress. Head/Face: Normocephalic, atraumatic. Eyes: Pupils equal round and reactive to light, extra-ocular motions intact. ENT: No stridor Neck: Trachea midline, no thyromegaly or masses palpated, and no cervical lymphadenopathy. Supple, full range of motion without nuchal rigidity, or vertebral point tenderness. No Meningismus. Cardiovascular: Regular rate and rhythm. No pulse deficits. Respiratory: No increased work of breathing, no retractions or nasal flaring. Abdomen/GI: Soft, nontender Skin: Warm, dry. Dry nodular rash pretibial regions and near bilateral elbows on arms. MS/ Extremity: Pulses equal, no cyanosis. Neuro: Awake and alert, GCS 15, oriented to person, place, time, and situation. Cranial nerves II-XII grossly intact. Motor strength 5/5 in all extremities. Sensory grossly intact. Cerebellar exam normal. Normal gait. Vital Signs: 08:08 BP 139 / 95; Pulse 98; Resp 16; Pulse Ox 97% on R/A; Weight 104.33 kg; Height 5 ft. 2 hb in. ; Pain 8/10; 08:10 Temp 99(O); ap3 09:11 BP 129 / 83; Pulse 89; Resp 15; Pulse Ox 100% ; ko1 08:08 Body Mass Index 42.07 (104.33 kg, 157.48 cm) hb 08:08 Pain Scale: Adult hb Abbe Coma Score: 09:41 Eye Response: spontaneous(4). Motor Response: obeys commands(6). Verbal Response: rn oriented(5). Total: 15. MDM: 08:00 Patient medically screened. rn 09:41 Differential diagnosis: migraine, tension headache, vasomotor headache, Flu, COVID, rn viral illness. Data reviewed: vital signs, nurses notes, lab test result(s), radiologic studies, CT scan, and as a result, I will discharge patient. Counseling: I had a detailed discussion with the patient and/or guardian regarding the historical points, exam findings, and any diagnostic results supporting the discharge/admit diagnosis, lab results, radiology results, the need for outpatient follow up, to return to the emergency department if symptoms worsen or persist or if there are any questions or concerns that arise at home. Response to treatment: the patient's symptoms have markedly improved after treatment, and as a result, I will discharge patient. Special discussion: I discussed with the patient/guardian in detail that at this point there is no indication for admission to the hospital. It is understood, however, that if the symptoms persist or worsen the patient needs to return immediately for re-evaluation. 08/10 08:15 Order name: Strep 08/10 08:11 Order name: CBC with Diff; Complete Time: 08:46 08/10 08:11 Order name: Basic Metabolic Panel 08/10 08:11 Order name: Test, Urine; Complete Time: 09:14 08/10 08:11 Order name: Urinalysis w/ reflexes; Complete Time: 09:14 08/10 08:15 Order name: Flu; Complete Time: 09:37 08/10 08:15 Order name: SARS RAPID; Complete Time: 08:46 08/10 08:57 Order name: Throat Culture [facility] 08/10 08:59 Order name: Urine Culture [facility] 08/10 08:11 Order name: CT Head Brain wo Cont; Complete Time: 08:46 08/10 08:11 Order name: IV Start; Complete Time: 08:28 rn Administered Medications: 08:27 Drug: NS 0.9% IV 1000 ml IV at 1000 ml once Route: IV; Rate: 1000 ml; Site: right ko1 antecubital; 09:33 Follow up: Response: No adverse reaction; IV Status: Completed infusion; IV Intake: ko1 1000ml 08:27 Drug: metoCLOPramide IVP 10 mg IVP once; over 1 to 2 minutes Route: IVP; Site: right ko1 antecubital; 08:45 Follow up: Response: No adverse reaction ko1 08:27 Drug: Decadron - Dexamethasone IVP 10 mg IVP once Route: IVP; Site: right antecubital; ko1 08:45 Follow up: Response: No adverse reaction ko1 08:27 Drug: Ibuprofen PO 800 mg PO once Route: PO; ko1 09:15 Follow up: Response: No adverse reaction ko1 Disposition Summary: 08/11/23 09:42 Discharge Ordered Notes: Location: Home rn Problem: new rn Symptoms: have improved rn Condition: Stable rn Diagnosis - Migraine without aura, not intractable, without status migrainosus rn Followup: rn - With: Private Physician - When: As needed - Reason: Recheck today's complaints, Re-evaluation by your physician Discharge Instructions: - Discharge Summary Sheet rn - Migraine Headache rn Forms: - Medication Reconciliation Form rn - Thank You Letter rn - Antibiotic rn documentation - Prescription Opioid Use rn - Patient Portal Instructions rn - Leadership Thank You Letter rn - Work release form ko1 Prescriptions: - Medrol (Ever) 4 mg Oral Tablets, Dose Pack - take 1 tablet ORAL route as directed - follow package instructions; 1 packet; rn Refills: 0, Product Selection Permitted Signatures: Dispatcher [employer] EDMS Raj Phillips MD MD rn Baxter, Heather, RN RN hb Oliver, Kathy, RN RN ko1 Corrections: (The following items were deleted from the chart) 08:11 08:11 Head Brain Wo Cont+CT.RAD.BRZ ordered. EDMS EDMS 08:11 08:11 CBC+H.LAB.BRZ ordered. EDMS EDMS 08:11 08:11 BASIC METABOLIC PANEL+C.LAB.BRZ ordered. EDMS EDMS 08:11 08:11 Test, Urine+UC.LAB.BRZ ordered. EDMS EDMS 08:11 08:11 Urinalysis+U.LAB.BRZ ordered. EDMS EDMS
[2023-08-11 10:37] VITALS: BP 129/83; TEMP 99; O2SAT 100
== END 2023-08-11 09:52 | disposition home or self-care (01) ==
LOC: ER 07:57
DX: G43.009 Migraine without aura, not intractable, without status migrainosus (principal); Z11.52 Encounter for screening for COVID-19
CPT/HCPCS: 36415; 70450; 80048; 81001; 81025; 85025; 87070; 87077; 87081; 87086; 87088; 87186; 87804; 87811; 96361; 96374; 96375; 99284; J1100; J2765; J7030

== ENCOUNTER 2023-12-28 22:11 | Emergency (ER) | payer OTHER ==
--- OUTSIDE RECORDS SUMMARY | 2023-12-28 22:17 | XMS REPORT | Continuity of Care Document ---
Author Name Unknown Address [address] [facility] [address] [place] [address] [facility] thconnect Address [address] [facility] [address] [facility] 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 Role Phone Jesus WILSON, [facility] Primary Care Physician [phone] YENI DAVID Attending Clinician Unavailab Yeni Reece Attending Clinician Doctor Unassigned, [place] Attending Clinician U navailable VICK TOBAR Attending Clinician Unavailable Vick Tobar NP Attending Clinician [phone] Krissy Hernandez Attending Clinician [phone] KRISSY MERRITT Attending Clinician Unavailable VICK TOBAR Admitting Clinician Unavailable KRISSY MERRITT Admitting Clinician Unavailable Payers Payer Name Policy Type Policy Number Effective Date Expirati on Date Source [facility] [id number] 00:00:00 [facility] [id number] 2023 00:00:00 Problems Condition Name Condition Details Condition Category Status Onset Date Resolution Date Last Treatment Date Treating Clinician Comments Source No known active problems No known active problems Disease [facility] Allergies, Adverse Reactions, Alerts Allergy Name Allergy Type Status Severity Reaction(s) Onset Date Inactive Date Treating Clinician Comments Source OXICONAZ OLE NITRATE DRUG INGREDI Active Swelling 12-07 00:00: 00 [facility] Oxiconaz ole Nitrate Propensi ty to adverse reaction s Active Swelling 12-07 00:00: 00 [facility] Social History Social Habit Start Date Stop Date Quantity Comments Source History SDOH Alcohol Frequency [facility] History SDOH Alcohol Std Drinks [facility] History SDOH Alcohol Binge [facility] Exposure to SARS-CoV-2 (event) Not sure [facility] 2021-11-16 00:00:00 2021-11-16 00:00:00 0 /d [facility] History of Social function 2021-11-16 00:00:00 2021-11-16 00:00:00 [facility] Tobacco use and exposure 2015-12-08 00:00:00 2015-12-08 00:00:00 Smokeless tobacco non-user [facility] Alcohol Comment 2015-12-08 00:00:00 2015-12-08 00:00:00 Occasional [facility] Sex Assigned At 1985 00:00:00 1985 00:00:00 [facility] Smoking Status Start Date Stop Date Source Never smoked tobacco [facility] Medications Ordered Medication Name Filled Medication Name Start Date Stop Date Current Medication? Ordering Clinician Indication Dosage Frequency Signature (SIG) Comments Components Source Depo-Roll Coverer a 150 mg/mL intramuscul ar syringe 6-27 00:00: 00 Yes 1mg/mL Jaun Corey triamcinolo ne acetonide 0.1 % ointment 4- 00:00: 00 Yes [id number] Apply to area(s) 2 (two) times daily. [facility] Depo-Roll Coverer a 150 mg/mL intramuscul ar syringe 4-10 00:00: 00 Yes 1mg/mL Jaun Corey TAKE 6 TABLETS ON DAY 1 DIRECTED ON PACKAGE AND DECREASE BY 1 TAB EACH DAY FOR A TOTAL OF 6 DAYS 4-05 00:00: 00 Yes Jaun Corey TAKE 6 TABLETS ON DAY 1 DIRECTED ON PACKAGE AND DECREASE BY 1 TAB EACH DAY FOR A TOTAL OF 6 DAYS 2022-05 0 00:00: 00 Yes Jaun Corey DOXYCYCL HYC 100MG 2022-05 0-28 00:00: 00 Yes Jaun Corey TAKE 10ML EVERY 6-8HRS 0 8-31 00:00: 00 09-19 00:00 :00 No [id number] Jaun Corey TAKE 1 TABLET DAILY. 8-07 00:00: 00 09-19 00:00 :00 No 10 Jaun Corey MEDROXYPR AC 150MG/ML SYN 12-02 00:00: 00 Yes Jaun Corey INJECT 1 ML INTRAMUSCUL CARTER ONCE EVERY 3 MONTHS. 12-02 00:00: 00 09-19 00:00 :00 No 150 Jaun Corey DOXYCYCL HYC 100MG -16 00:00: 00 Yes Jaun Corey TAKE 1 TABLET DAILY. - 00:00: 00 09-19 00:00 :00 No 10 Jaun Corey MEDROXYPR AC 150MG/ML SYN 5-12 00:00: 00 Yes Jaun Corey TAKE 1 TABLET BY MOUTH EVERY 8 HOURS NEEDED FOR MUSCLE SPASMS 3-20 00:00: 00 09-19 00:00 :00 No Jaun Corey TAKE 1 TABLET BY MOUTH DAILY FOR 14 DAYS 3-20 00:00: 00 09-19 00:00 :00 No Jaun Corey INJECT 1 ML INTRAMUSCUL CARTER ONCE EVERY 3 MONTHS. 2-17 00:00: 00 09-19 00:00 :00 No 150 Jaun Corey TAKE 10ML EVERY 6-8HRS 0 1-20 00:00: 00 09-19 00:00 :00 No [id number] Jaun Corey TAKE 2 TABLETS ON DAY 1 THEN TAKE 1 TABLET A DAY FOR 4 DAYS. -20 00:00: 00 09-19 00:00 :00 No 250 Jaun Corey TOME VIANEY C PSULA ADY VECES AL D A CON LAS COMIDAS 2021-05 00:00: 00 09-19 00:00 :00 No 300 Jaun Corey Dose Unknown 2021-05 00:00: 00 09-19 00:00 :00 No 100 Jaun Corey DEPO-COLOR TESTER A 150 MG/ML SYRI 2021-05 00:00: 00 09-19 00:00 :00 No Jaun Corey Depo-Roll Coverer a 150 mg/mL intramuscul ar syringe 11-02 00:00: 00 No 1mg/mL TAKE 1 CAPSULE BY MOUTH THREE TIMES A DAY NEEDED FOR COUGH 0 11-02 00:00: 00 No INJECT 1 ML INTRAMUSCUL CARTER ONCE EVERY 3 MONTHS. 11-02 00:00: 00 No TAKE 1 CAPSULE BY MOUTH THREE TIMES A DAY NEEDED FOR COUGH 0 11-02 00:00: 00 No INJECT 1 ML INTRAMUSCUL CARTER ONCE EVERY 3 MONTHS. 0 11-02 00:00: 00 Yes Jaun Corey TAKE 1 CAPSULE BY MOUTH THREE TIMES A DAY NEEDED FOR COUGH 0 11-02 00:00: 00 Yes Jaun Corey DEPO-COLOR TESTER A 150 MG/ML SYRI 4-09 00:00: 00 09-19 00:00 :00 No Jaun Corey Dose Unknown 1-17 00:00: 00 Yes Jaun Corey Dose Unknown 1-17 00:00: 00 Yes Jaun Corey Dose Unknown 0 1-17 00:00: 00 No Dose Unknown 0 1-17 00:00: 00 No Dose Unknown 0 1-17 00:00: 00 No Dose Unknown 0 1-17 00:00: 00 No ketorolac (TORADOL) injection 30 mg 2020-05 2 07:15: 00 04-11 06:22 :00 No 30mg 30 mg, Slow IV Push, ONCE, 1 dose, On 04/11/21 at 0115, Routine
pricing/signage team member approving Restricted medication : VICK TOBAR [facility] etodolac 300 mg capsule 2020-05 00:00: 00 Yes [id number] 300mg Take 1 capsule by mouth 3 (three) times daily with meals. [facility] acyclovir (ZOVIRAX) 200 mg capsule 2020-05 23:44: 39 Yes 200mg Take 200 mg by mouth. [facility] Depo-Roll Coverer a 150 mg/mL intramuscul ar syringe 2020-05 00:00: 00 Yes 1mg/mL Jaun F Madhav Depo-Roll Coverer a 150 mg/mL intramuscul ar syringe 2020-05 00:00: 00 No 1mg/mL Depo-Roll Coverer a 150 mg/mL intramuscul ar syringe 2020-05 00:00: 00 No 1mg/mL benzonatate 100 mg capsule 12-26 00:00: 00 04-10 00:00 :00 No [id number] 100mg Take 1 capsule by mouth 3 (three) times daily as needed for Cough. [facility] albuterol 90 mcg/actuati on inhaler 12-26 00:00: 00 04-10 00:00 :00 No [id number] 4{puff} Inhale 4 Puffs every 4 (four) hours as needed for Wheezing or Shortness of Breath. [facility] ondansetron 4 mg disintegrat ing tablet 12-26 00:00: 00 04-10 00:00 :00 No [id number] 4mg Take 1 tablet by mouth every 8 (eight) hours as needed for Nausea and Vomiting (N/V). [facility] Depo-Roll Coverer a 150 mg/mL intramuscul ar syringe 12-10 00:00: 00 Yes 1mg/mL Jaun F Madhav Depo-Roll Coverer a 150 mg/mL intramuscul ar syringe 12-10 00:00: 00 No 1mg/mL Depo-Roll Coverer a 150 mg/mL intramuscul ar syringe 8-05 00:00: 00 No 1mg/mL esomeprazol e (NEXIUM) 20 mg capsule 120 00:00: 00 04-10 00:00 :00 No [id number] 20mg Take 20 mg by mouth daily before a meal. [facility] Dose Unknown 2019-05 00:00: 00 Yes Jaun Corey lisinopril 10 mg tablet 2019-05 00:00: 00 No 1mg Dose Unknown 2019-05 00:00: 00 No lisinopril 10 mg tablet 2019-05 00:00: 00 Yes 1mg Jaun Corey lisinopril 10 mg tablet 2019-05 00:00: 00 No 1mg lisinopril 10 mg tablet 2019-05 00:00: 00 No 1mg Dose Unknown 3 00:00: 00 Yes Jaun Corey Dose Unknown 08-05 00:00: 00 Yes Jaun Corey lisinopril 10 mg tablet 3 00:00: 00 No 1mg acyclovir 200 mg capsule 3 00:00: 00 No 3mg Dose Unknown 3 00:00: 00 No Dose Unknown 3 00:00: 00 No lisinopril 10 mg tablet 8 00:00: 00 Yes 1mg Jaun Corey acyclovir 200 mg capsule 8 00:00: 00 Yes 3mg Jaun Corey lisinopril 10 mg tablet 8 00:00: 00 No 1mg acyclovir 200 mg capsule 820 00:00: 00 No 3mg lisinopril 10 mg tablet 820 00:00: 00 No 1mg acyclovir 200 mg capsule 20 00:00: 00 No 3mg clotrimazol e 1 % topical cream 09-11 00:00: 00 Yes 1% Jaun Corey clotrimazol e 1 % topical cream 09-11 00:00: 00 No 1% clotrimazol e 1 % topical cream 07 00:00: 00 No 1% lisinopril 10 mg tablet 08-01 00:00: 00 Yes 1mg Jaun Corey lisinopril 10 mg tablet 08-01 00:00: 00 No 1mg lisinopril 10 mg tablet 08-01 00:00: 00 No 1mg lisinopril 10 mg tablet 0 2 00:00: 00 Yes 1mg Jaun Corey acyclovir 200 mg capsule 2 00:00: 00 Yes 3mg Jaun Corey lisinopril 10 mg tablet 2 00:00: 00 No 1mg acyclovir 200 mg capsule 0 2 00:00: 00 No 3mg lisinopril 10 mg tablet 0 2 00:00: 00 No 1mg acyclovir 200 mg capsule 2 00:00: 00 No 3mg acyclovir 200 mg capsule 2 00:00: 00 Yes 3mg Jaun Corey acyclovir 200 mg capsule 2 00:00: 00 No 3mg acyclovir 200 mg capsule 212 00:00: 00 No 3mg clarithromy joanna 500 mg tablet 2016-05 0 00:00: 00 Yes 1mg Jaun Corey amoxicillin 500 mg capsule 2016-05 025 00:00: 00 Yes 2mg Jaun Corey clarithromy joanna 500 mg tablet 2016-05 0 00:00: 00 No 1mg amoxicillin 500 mg capsule 2016-05 025 00:00: 00 No 2mg clarithromy joanna 500 mg tablet 2016-05 025 00:00: 00 No 1mg amoxicillin 500 mg capsule 2016-05 025 00:00: 00 No 2mg Immunizations Ordered Immunization Name Filled Immunization Name Date Status Comments Source Influenza, seasonal, inj Influenza, seasonal, inj 2018-06-19 00:00:00 Completed Jaun Corey Tdap Tdap 2018-06-19 00:00:00 Completed Jaun Corey Influenza, seasonal, inj 2018-06-19 00:00:00 Completed Tdap 2018-06-19 00:00:00 Completed Influenza, seasonal, inj 2018-06-19 00:00:00 Completed Tdap 2018-06-19 00:00:00 Completed Influenza, seasonal, inj 2018-06-19 00:00:00 Completed Tdap 2018-06-19 00:00:00 Completed Influenza Virus Vaccine Quad IM 3+ YRS 2016-04-11 00:00:00 Completed [facility] TDAP 2016-04-11 00:00:00 Completed [facility] Influenza Virus Vaccine Quad IM 3+ YRS Unknown Completed [facility] TDAP Unknown Completed [facility] Influenza Virus Vaccine Quad IM 3+ YRS Unknown Completed [facility] TDAP Unknown Completed [facility] Vital Signs Vital Name Observation Time Observation Value Comments S ource Systolic blood pressure 2023-08-27 20:20:00 158 mm[Hg] [facility] Diastolic blood pressure 2023-08-27 20:20:00 111 mm[Hg] [facility] Heart rate 2023-08-27 20:18:00 80 /min [facility] Body temperature 2023-08-27 20:18:00 37 Penny [facility] Respiratory rate 2023-08-27 20:18:00 20 /min [facility] Body height 2023-08-27 20:18:00 157.5 cm [facility] Body weight 2023-08-27 20:18:00 108.863 kg [facility] BMI 2023-08-27 20:18:00 43.90 kg/m2 [facility] Oxygen saturation in Arterial blood by Pulse oximetry 2023-08-27 20:18:00 99 /min [facility] Systolic blood pressure 2021-04-11 08:00:00 132 mm[Hg] [facility] Diastolic blood pressure 2021-04-11 08:00:00 88 mm[Hg] [facility] Heart rate 2021-04-11 08:00:00 61 /min [facility] Respiratory rate 2021-04-11 08:00:00 20 /min [facility] Oxygen saturation in Arterial blood by Pulse oximetry 2021-04-11 08:00:00 100 /min [facility] Body temperature 2021-04-11 05:42:00 36.94 Penny [facility] Body height 2021-04-11 05:42:00 157.5 cm [facility] Body weight 2021-04-11 05:42:00 97.523 kg [facility] BMI 2021-04-11 05:42:00 39.32 kg/m2 [facility] BP Systolic 2023-11-02 09:39:00 139 mm[Hg] Step hen F Madhav BP Diastolic 2023-11-02 09:39:00 89 mm[Hg] Phil phen F Madhav Weight Measured 2023-11-02 09:39:00 235.40 pounds Jaun F Madhav Height Measured 2023-11-02 09:39:00 61.00 inches Jaun F Madhav Body Temperature 2023-11-02 09:39:00 98.30 degrees Jaun F Madhav Heart Rate 2023-11-02 09:39:00 72.00 /min Nubia en F Madhav Respiratory Rate 2023-11-02 09:39:00 17.00 /min Jaun F Madhav BP Systolic 2023-08-16 08:49:00 127 mm[Hg] Step hen F Madhav BP Diastolic 2023-08-16 08:49:00 88 mm[Hg] Phil phen F Madhav Weight Measured 2023-08-16 08:49:00 240.20 pounds Jaun F Madhav Height Measured 2023-08-16 08:49:00 61.00 inches Jaun F Madhav Body Temperature 2023-08-16 08:49:00 98.40 degrees Jaun F Madhav Heart Rate 2023-08-16 08:49:00 71.00 /min Nubia en F Madhav Respiratory Rate 2023-08-16 08:49:00 Jaun F Madhav BP Systolic 2023-05-30 13:25:00 143 mm[Hg] Step hen F Madhav BP Diastolic 2023-05-30 13:25:00 98 mm[Hg] Phil phen F Madhav Weight Measured 2023-05-30 13:25:00 231.40 pounds Jaun F Madhav Height Measured 2023-05-30 13:25:00 61.00 inches Jaun F Madhav Body Temperature 2023-05-30 13:25:00 98.10 degrees Jaun F Madhav Heart Rate 2023-05-30 13:25:00 98.00 /min Nubia en F Madhav Respiratory Rate 2023-05-30 13:25:00 17.00 /min Jaun F Madhav BP Systolic 2023-02-23 10:34:00 117 mm[Hg] Step hen F Madhav BP Diastolic 2023-02-23 10:34:00 84 mm[Hg] Phil phen F Madhav Weight Measured 2023-02-23 10:34:00 232.00 pounds Jaun F Madhav Height Measured 2023-02-23 10:34:00 61.00 inches Jaun F Madhav Body Temperature 2023-02-23 10:34:00 97.40 degrees Jaun F Madhav Heart Rate 2023-02-23 10:34:00 97.00 /min Nubia en F Madhav Respiratory Rate 2023-02-23 10:34:00 Jaun F Madhav BP Systolic 2023-01-09 11:40:00 Step hen F Madhav BP Diastolic 2023-01-09 11:40:00 Phil phen F Madhav Weight Measured 2023-01-09 11:40:00 Jaun F Madhav Height Measured 2023-01-09 11:40:00 Jaun F Madhav Body Temperature 2023-01-09 11:40:00 Jaun F Madhav Heart Rate 2023-01-09 11:40:00 Nubia en F Madhav Respiratory Rate 2023-01-09 11:40:00 Jaun F Madhav BP Systolic 2022-12-02 17:38:00 123 mm[Hg] Step hen F Madhav BP Diastolic 2022-12-02 17:38:00 88 mm[Hg] Phil phen F Madhav Weight Measured 2022-12-02 17:38:00 232.20 pounds Jaun F Madhav Height Measured 2022-12-02 17:38:00 61.00 inches Jaun F Madhav Body Temperature 2022-12-02 17:38:00 98.20 degrees Juan F Madhav Heart Rate 2022-12-02 17:38:00 85.00 /min Nubia en F Madhav Respiratory Rate 2022-12-02 17:38:00 19.00 /min Jaun F Madhav BP Systolic 2022-09-16 10:23:00 129 mm[Hg] Step hen F Madhav BP Diastolic 2022-09-16 10:23:00 85 mm[Hg] Phil phen F Madhav Weight Measured 2022-09-16 10:23:00 235.80 pounds Jaun F Madhav Height Measured 2022-09-16 10:23:00 61.00 inches Jaun F Madhav Body Temperature 2022-09-16 10:23:00 Jaun F Madhav Heart Rate 2022-09-16 10:23:00 82.00 /min Nubia en F Madhav Respiratory Rate 2022-09-16 10:23:00 Jaun F Madhav BP Systolic 2022-06-24 13:10:00 137 mm[Hg] Step hen F Madhav BP Diastolic 2022-06-24 13:10:00 86 mm[Hg] Hpil phen F Madhav Weight Measured 2022-06-24 13:10:00 236.60 pounds Ajun F Madhav Height Measured 2022-06-24 13:10:00 61.00 inches Jaun F Madhav Body Temperature 2022-06-24 13:10:00 97.90 degrees Jaun F Madhav Heart Rate 2022-06-24 13:10:00 97.00 /min Nubia en F Madhav Respiratory Rate 2022-06-24 13:10:00 18.00 /min Jaun F Madhav BP Systolic 2022-04-06 10:27:00 135 mm[Hg] Step hen F Madhav BP Diastolic 2022-04-06 10:27:00 93 mm[Hg] Phil phen F Madhav Weight Measured 2022-04-06 10:27:00 224.20 pounds Jaun F Madhav Height Measured 2022-04-06 10:27:00 61.00 inches Jaun F Madhav Body Temperature 2022-04-06 10:27:00 98.30 degrees Jaun F Madhav Heart Rate 2022-04-06 10:27:00 97.00 /min Nubia en F Madhav Respiratory Rate 2022-04-06 10:27:00 18.00 /min Jaun F Madhav BP Systolic 2022-01-19 10:24:00 129 mm[Hg] Step hen F Madhav BP Diastolic 2022-01-19 10:24:00 94 mm[Hg] Phil phen F Madhav Weight Measured 2022-01-19 10:24:00 226.00 pounds Jaun F Madhav Height Measured 2022-01-19 10:24:00 61.00 inches Jaun F Madhav Body Temperature 2022-01-19 10:24:00 98.10 degrees Jaun F Madhav Heart Rate 2022-01-19 10:24:00 92.00 /min Nubia richard F Madhav Respiratory Rate 2022-01-19 10:24:00 18.00 /min Jaun Corey BP Systolic 2021-11-02 14:37:00 109 mm[Hg] BP [...] EXTERNAL PROVIDER RECORDS 2023-06-20 06:01:00 Doctor Unassigned, [place] [facility] XR CHEST 1 VW 2021-04-11 06:41:03 Vick Tobar [facility] D-DIMER 2021-04-11 06:34:00 Vick Tobar [facility] LIPASE 2021-04-11 06:15:00 Vick Tobar [facility] TROPONIN I 2021-04-11 06:15:00 Vick Tobar [facility] COMP. METABOLIC PANEL (38937) 2021-04-11 06:15:00 Vick Tobar [facility] CBC WITH DIFF 2021-04-11 06:15:00 Vick Tobar [facility] CONSENT/REFUSAL FOR DIAGNOSIS AND TREATMENT 2021-04-11 05:33:33 Doctor Unassigned, [place] [facility] Plan of Care Planned Activity Planned Date Details Comments Source Goal Plan of Care Note [code = 53403-7] Goal Plan of Care Note [code = 50318-4] Goal Plan of Care Note [code = 02503-2] Goal Plan of Care Note [code = 08829-6] Goal Plan of Care Note [code = 80317-4] Goal Plan of Care Note [code = 06624-3] Goal Plan of Care Note [code = 98506-7] Goal Plan of Care Note [code = 18333-5] Goal Plan of Care Note [code = 62639-7] Goal Plan of Care Note [code = 22146-6] Goal Plan of Care Note [code = 62057-3] Goal Plan of Care Note [code = 13424-7] Goal Plan of Care Note [code = 58594-0] Goal Plan of Care Note [code = 52586-0] Goal Plan of Care Note [code = 56216-3] Goal Plan of Care Note [code = 14021-2] Goal Plan of Care Note [code = 44779-9] Goal Plan of Care Note [code = 71472-6] Goal Plan of Care Note [code = 32189-3] Goal Plan of Care Note [code = 45064-3] Goal Plan of Care Note [code = 58733-8] Goal Plan of Care Note [code = 94218-5] Goal Plan of Care Note [code = 74114-2] Goal Plan of Care Note [code = 52953-6] Goal Plan of Care Note [code = 56127-6] Goal Plan of Care Note [code = 14882-8] Goal Plan of Care Note [code = 34232-5] Goal Plan of Care Note [code = 53010-4] Goal Plan of Care Note [code = 40352-1] Goal Plan of Care Note [code = 40201-1] Goal Plan of Care Note [code = 20080-2] Goal Plan of Care Note [code = 49117-2] Goal Plan of Care Note [code = 96657-2] Goal Plan of Care Note [code = 17615-1] Goal Plan of Care Note [code = 86840-7] Goal Plan of Care Note [code = 72254-4] Goal Plan of Care Note [code = 11990-5] Goal Plan of Care Note [code = 82236-8] Goal Plan of Care Note [code = 86694-7] Goal Plan of Care Note [code = 98347-5] Goal Plan of Care Note [code = 21808-7] Goal Plan of Care Note [code = 08499-8] Goal Plan of Care Note [code = 18495-9] Goal Plan of Care Note [code = 89736-5] Goal Plan of Care Note [code = 23570-8] Goal Plan of Care Note [code = 34838-3] Goal Plan of Care Note [code = 19641-7] Goal Plan of Care Note [code = 25662-5] Goal Plan of Care Note [code = 46963-9] Goal Plan of Care Note [code = 10082-7] Goal Plan of Care Note [code = 81498-3] Goal Plan of Care Note [code = 72014-9] Goal Plan of Care Note [code = 07318-3] Goal Plan of Care Note [code = 35469-2] Goal Plan of Care Note [code = 04080-7] Goal Plan of Care Note [code = 78375-8] Goal Plan of Care Note [code = 16515-4] Goal Plan of Care Note [code = 28541-4] Goal Plan of Care Note [code = 60023-9] Goal Plan of Care Note [code = 49808-5] Goal Plan of Care Note [code = 69977-7] Goal Plan of Care Note [code = 38822-5] Goal Plan of Care Note [code = 29438-7] Goal Plan of Care Note [code = 37642-3] Goal Plan of Care Note [code = 06066-2] Goal Plan of Care Note [code = 93653-0] Goal Plan of Care Note [code = 46611-3] Goal Plan of Care Note [code = 76558-5] Goal Plan of Care Note [code = 84795-2] Goal Plan of Care Note [code = 84452-7] Goal Plan of Care Note [code = 18750-3] Goal Plan of Care Note [code = 03326-8] Goal Plan of Care Note [code = 92229-8] Goal Plan of Care Note [code = 55892-7] Goal Plan of Care Note [code = 59437-6] Goal Plan of Care Note [code = 49524-6] Goal Plan of Care Note [code = 32458-3] Goal Plan of Care Note [code = 35040-2] Goal Plan of Care Note [code = 31016-3] Goal Plan of Care Note [code = 66801-9] Goal Plan of Care Note [code = 42189-5] Encounters Start Date/Time End Date/Time Encounter Type Admission Type Attending [facility] Facility Care Department Encounter ID Source 2021-03-08 17:07:[address] [facility] [id number] [facility] 2023-11-02 09:35:09 2023-11-02 09:35:[address] [facility] [id number] Jaun Corey 2023-11-02 00:00:00 2023-11-02 00:00:[address] [facility] [id number] Jaun Corey 2023-08-27 15:20:00 2023-08-27 16:48:00 Emergency X YENI DAVID [facility] ERT [id number] [facility] 2023-08-27 15:20:00 2023-08-27 16:48:00 Emergency Yeni David Lubna [facility] 1..840.114 [id number] [facility] 2023-08-16 08:44:41 2023-08-16 08:44:[address] [facility] [id number] Jaun Corey 2023-06-20 00:00:00 2023-06-20 00:00:00 Orders Only Doctor Unassigned, [place] [facility] [id number] 350.1.13.10 [id number] [id number] [facility] 2023-05-30 13:16:44 2023-05-30 13:16:[address] [facility] [id number] Jaun Corey 2023-02-23 10:25:11 2023-02-23 10:25:11 Outpatient SFA [facility] [id number] Jaun Corey 2023-01-05 14:31:44 2023-01-05 14:31:44 Outpatient SFA SFA [id number] Jaun Corey 2022-12-02 17:31:26 2022-12-02 17:31:26 Outpatient SFA SFA [id number] Jaun Corey 2022-09-16 10:18:08 2022-09-16 10:18:08 Outpatient SFA SFA [id number] Jaun Corey 2022-06-24 13:07:39 2022-06-24 13:07:39 Outpatient SFA SFA [id number] Jaun Corey 2022-04-06 10:14:07 2022-04-06 10:14:07 Outpatient SFA SFA [id number] Jaun Corey 2022-04-06 00:00:00 2022-04-06 00:00:00 Outpatient Visit [id number] 2022-01-19 00:00:00 2022-01-19 00:00:00 Outpatient Visit [id number] 00:00:00 2021-11-02 00:00:00 Outpatient Visit [id number] 23:45:00 2021-04-11 02:10:00 Emergency X VICK TOBAR [facility] [id number] [facility] 2021-04-10 23:45:00 2021-04-11 02:10:00 Emergency Vick Tobar [facility] [id number] [id number] [id number] [id number] [facility] 2020-05-27 11:00:00 2020-05-27 13:42:00 Emergency Krissy Merritt [facility] [id number] [id number] [id number] 2020-05-27 11:00:00 2020-05-27 13:42:00 Emergency X KRISSY MERRITT [facility] ERT [id number] [facility] Results Test Description Test Time Test Comments Results Result Co mments Source [id number] 06:46:29* Test Item Value Reference Range Interpretation Comments TROPONIN I (test code = 3131015074) 0.000 ng/mL See_Comment [Automated message] The system [...] of biotin. Lab Interpretation (test code = 81581-2) Normal [facility] (44078)2021-04-11 06:35:05* Test Item Value Reference Range Interpretation Comme nts NA (test code = 6752388309) 141 mmol/L 135-145 K (test code = 4961268455) 4.2 mmol/L 3.5-5.0 CL (test code = 2624304899) 107 mmol/L 98-108 CO2 TOTAL (test code = 6629806220) 25 mmol/L 23-31 AGAP (test code = 0098862427) 2-16 BUN (test code = 0594345175) 15 mg/dL 7-23 GLUCOSE (test code = 1052201550) 112 mg/dL 70-110 H CREATININE (test code = 6163188826) 0.79 mg/dL 0.50-1.04 TOTAL BILI (test code = 5430873178) 0.4 mg/dL 0.1-1.1 CALCIUM (test code = 8058427783) 10.0 mg/dL 8.6-10.6 T PROTEIN (test code = 6251376959) 7.5 g/dL 6.3-8.2 ALBUMIN (test code = 0338724287) 4.2 g/dL 3.5-5.0 ALK PHOS (test code = [id number]) 92 U/L 34-122 ALTv (test code = 1742-6) 19 U/L 5-35 AST(SGOT) (test code = 8939792153) 21 U/L 13-40 eGFR (test code = 5500258466) mL/min/1.73m2 JO (test code = JO) Association [...] imaging tests). Lab Interpretation (test code = 31009-6) [facility] 06:34:45* Test Item Value Reference Range Interpretation Comme nts LIPASE (test code = 6297511577) 64 U/L 0-220 Lab Interpretation (test cod e = 45850-3) [facility] WITH [id number] 06:24:53* Test Item Value Reference Range Interpretation [...] g/dL 31.6-35.1 L RDW-SD (test code = 60255-4) 41.1 fL 39.0-49.9 RDW-CV (test code = 788-0) 14.4 % 12.0-15.5 PLT (test code = 777-3) See_Comment H [Automated messa ge] The system which generated this result transmitted reference range: 166 - 358 10*3/?L. The reference range was not used to interpret this result as normal/abnormal. MPV (test code = 49082-9) 10.1 fL 9.5-12.9 NRBC/100 WBC (test code = 9261597172) See_Comment [Automated me ssage] The system which generated this result transmitted reference range: 0.0 - 10.0 /100 WBCs. The reference range was not used to interpret this result as normal/abnormal. NRBC x10^3 (test code = 3325228707) <0.01 See_Comment [Automated messa ge] The system which generated this result transmitted reference range: 10*3/?L. The reference range was not used to interpret this result as normal/abnormal. GRAN MAT (NEUT) % (test code = 770-8) 59.1 % IMM GRAN % (test code = 6517383200) 0.60 % LYMPH % (test code = 736-9) 28.9 % MONO % (test code = 5905-5) 9.1 % EOS % (test code = 713-8) 1.7 % BASO % (test code = 706-2) 0.6 % GRAN MAT x10^3(ANC) (test code = 7625076003) 8.48 10*3/uL 1.88-7.09 H IMM GRAN x10^3 (test code = 4037712704) 0.08 10*3/uL 0.00-0.06 H LYMPH x10^3 (test code = 731-0) 4.14 10*3/uL 1.32-3.29 H MONO x10^3 (test code = 742-7) 1.30 10*3/uL 0.33-0.92 H EOS x10^3 (test code = 711-2) 0.24 10*3/uL 0.03-0.39 BASO x10^3 (test code = 704-7) 0.08 10*3/uL 0.01-0.07 H Lab Interpretation (test code = 36989-9) [facility] COMBO RFLX [id number] 00:00:00* Test Item Value Reference Range Interpretation Comme nts HIV 1/2 4TH GEN, RFLX CONF ( test code = 3514) NON-REACTIVE HIV AB/AG COMBO RFLX [id number] 00:00:00* Test Item Value Reference Range Interpretation Comme nts HIV 1/2 4TH GEN, RFLX CONF ( test code = 3514) NON-REACTIVE GC AND CHLAMYDIA, AMPLIFIED, [id number] 00:00:00* Test Item Value Reference Range Interpretation Comme nts GONORRHEA, NAAT (test code = 59876) NEGATIVE CHLAMYDIA, NAAT (test code = 80405) NEGATIVE GC AND CHLAMYDIA, AMPLIFIED, [id number] 00:00:00* Test Item Value Reference Range Interpretation Comme nts GONORRHEA, NAAT (test code = 79588) NEGATIVE CHLAMYDIA, NAAT (test code = 42577) NEGATIVE [id number] 00:00:00* Test Item Value Reference Range Interpretation Comme nts RPR RESULT (test code = 3501) NON-REACTIVE RPR TITER (test code = 3500) NOT INDIC. TITER [id number] 00:00:00* Test Item Value Reference Range Interpretation Comme nts RPR RESULT (test code = 3501) NON-REACTIVE RPR TITER (test code = 3500) NOT INDIC. TITER [id number] 00:00:00* Test Item Value Reference Range Interpretation Comme nts RPR RESULT (test code = 3501) NON-REACTIVE RPR TITER (test code = 3500) NOT INDIC. TITER HIV AB/AG COMBO RFLX [id number] 00:00:00* Test Item Value Reference Range Interpretation Comme nts HIV 1/2 4TH GEN, RFLX CONF ( test code = 3514) NON-REACTIVE HIV AB/AG COMBO RFLX [id number] 00:00:00* Test Item Value Reference Range Interpretation Comme nts HIV 1/2 4TH GEN, RFLX CONF ( test code = 3514) NON-REACTIVE GC AND CHLAMYDIA, AMPLIFIED, [id number] 00:00:00* Test Item Value Reference Range Interpretation Comme nts GONORRHEA, NAAT (test code = 65446) NEGATIVE CHLAMYDIA, NAAT (test code = 92465) NEGATIVE GC AND CHLAMYDIA, AMPLIFIED, [id number] 00:00:00* Test Item Value Reference Range Interpretation Comme nts GONORRHEA, NAAT (test code = 65227) NEGATIVE CHLAMYDIA, NAAT (test code = 89131) NEGATIVE [id number] 00:00:00* Test Item Value Reference Range Interpretation Comme nts RPR RESULT (test code = 3501) NON-REACTIVE RPR TITER (test code = 3500) NOT INDIC. TITER [id number] 00:00:00* Test Item Value Reference Range Interpretation Comme nts RPR RESULT (test code = 3501) NON-REACTIVE RPR TITER (test code = 3500) NOT INDIC. TITER [id number] 00:00:00* Test Item Value Reference Range Interpretation Comme nts RPR RESULT (test code = 3501) NON-REACTIVE RPR TITER (test code = 3500) NOT INDIC. TITER HIV AB/AG COMBO RFLX [id number] 00:00:00* Test Item Value Reference Range Interpretation Comme nts HIV 1/2 4TH GEN, RFLX CONF ( test code = 3514) NON-REACTIVE GC AND CHLAMYDIA, AMPLIFIED, [id number] 00:00:00* Test Item Value Reference Range Interpretation Comme nts GONORRHEA, NAAT (test code = 46805) NEGATIVE CHLAMYDIA, NAAT (test code = 28603) NEGATIVE [id number] 00:00:00* Test Item Value Reference Range Interpretation Comme nts RPR RESULT (test code = 3501) NON-REACTIVE RPR TITER (test code = 3500) NOT INDIC. TITER [id number] 00:00:00* Test Item Value Reference Range Interpretation Comme nts RPR RESULT (test code = 3501) NON-REACTIVE RPR TITER (test code = 3500) NOT INDIC. TITER HIV AB/AG COMBO RFLX [id number] 00:00:00* Test Item Value Reference Range Interpretation Comme nts HIV 1/2 4TH GEN, RFLX CONF ( test code = 3514) NON-REACTIVE Jaun F AustinGC AND CHLAMYDIA, AMPLIFIED, [id number] 00:00:00* Test Item Value Reference Range Interpretation Comme nts GONORRHEA, NAAT (test code = 84286) NEGATIVE CHLAMYDIA, NAAT (test code = 34137) NEGATIVE Jaun F [id number] 00:00:00* Test Item Value Reference Range Interpretation Comme nts RPR RESULT (test code = 3501) NON-REACTIVE RPR TITER (test code = 3500) NOT INDIC. TITER Jaun [place] [id number] (COVID-19) by RT-PCR (HIGH RISK)2019-11-26 00:00:00* Test Item Value Reference Range Interpretation Comme nts SARS-CoV-2 INTERPRETATION (t est code = 05912) NEGATIVE SOURCE (test code = 11293) NOT SPECIFIED SARS-CoV-2 (COVID-19) by RT-PCR (HIGH RISK)2019-11-26 00:00:00* Test Item Value Reference Range Interpretation Comme nts SARS-CoV-2 INTERPRETATION (t est code = 22355) NEGATIVE SOURCE (test code = 04003) NOT SPECIFIED SARS-CoV-2 (COVID-19) by RT-PCR (HIGH RISK)2019-11-26 00:00:00* Test Item Value Reference Range Interpretation Comme nts SARS-CoV-2 INTERPRETATION (t est code = 63806) NEGATIVE SOURCE (test code = 08740) NOT SPECIFIED SARS-CoV-2 (COVID-19) by RT-PCR (HIGH RISK)2019-11-26 00:00:00* Test Item Value Reference Range Interpretation Comme nts SARS-CoV-2 INTERPRETATION (t est code = 35280) NEGATIVE SOURCE (test code = 99931) NOT SPECIFIED SARS-CoV-2 (COVID-19) by RT-PCR (HIGH RISK)2019-11-26 00:00:00* Test Item Value Reference Range Interpretation Comme nts SARS-CoV-2 INTERPRETATION (t est code = 54485) NEGATIVE SOURCE (test code = 79984) NOT SPECIFIED SARS-CoV-2 (COVID-19) by RT-PCR (HIGH RISK)2019-11-26 00:00:00* Test Item Value Reference Range Interpretation Comme nts SARS-CoV-2 INTERPRETATION (t est code = 48356) NEGATIVE SOURCE (test code = 02803) NOT SPECIFIED Jaun [place] TEST, THINPREP, [id number] 00:00:00* Test Item Value Reference Range Interpretation Comme nts SOURCE: (test code = 8001) Cervical/Endocervical SLIDES: (test code = 8011) 1 LMP: (test code = 8021) 03/08/2018 SPECIMEN ADEQUACY: (test code = 87761) (NOTE) INTERPRETATION: (test code = 12384) NILM/NO EPITH. ABNORMALITY;SEE BELOW STAVE LOG RIPSAW OPERATOR: (test code = 8101) BEN Guaman(ASCP)IAC LOCATION: (test code = 86044) (NOTE) CPT: (test code = 8140) (NOTE) PAP TEST, THINPREP, [id number] 00:00:00* Test Item Value Reference Range Interpretation Comme nts SOURCE: (test code = 8001) Cervical/Endocervical SLIDES: (test code = 8011) 1 LMP: (test code = 8021) 03/08/2018 SPECIMEN ADEQUACY: (test code = 14241) (NOTE) INTERPRETATION: (test code = 29166) NILM/NO EPITH. ABNORMALITY;SEE BELOW STAVE LOG RIPSAW OPERATOR: (test code = 8101) BEN Guaman(ASCP)IAC LOCATION: (test code = 06031) (NOTE) CPT: (test code = 8140) (NOTE) PAP TEST, THINPREP, [id number] 00:00:00* Test Item Value Reference Range Interpretation Comme nts SOURCE: (test code = 8001) Cervical/Endocervical SLIDES: (test code = 8011) 1 LMP: (test code = 8021) 03/08/2018 SPECIMEN ADEQUACY: (test code = 96297) (NOTE) INTERPRETATION: (test code = 22932) NILM/NO EPITH. ABNORMALITY;SEE BELOW STAVE LOG RIPSAW OPERATOR: (test code = 8101) BEN Guaman(ASCP)IAC LOCATION: (test code = 45137) (NOTE) CPT: (test code = 8140) (NOTE) PAP TEST, THINPREP, [id number] 00:00:00* Test Item Value Reference Range Interpretation Comme nts SOURCE: (test code = 8001) Cervical/Endocervical SLIDES: (test code = 8011) 1 LMP: (test code = 8021) 03/08/2018 SPECIMEN ADEQUACY: (test code = 25992) (NOTE) INTERPRETATION: (test code = 90534) NILM/NO EPITH. ABNORMALITY;SEE BELOW STAVE LOG RIPSAW OPERATOR: (test code = 8101) Andrew Ayanna,CT(ASCP)IAC LOCATION: (test code = 85800) (NOTE) CPT: (test code = 8140) (NOTE) PAP TEST, THINPREP, [id number] 00:00:00* Test Item Value Reference Range Interpretation Comme nts SOURCE: (test code = 8001) Cervical/Endocervical SLIDES: (test code = 8011) 1 LMP: (test code = 8021) 03/08/2018 SPECIMEN ADEQUACY: (test code = 05422) (NOTE) INTERPRETATION: (test code = 57899) NILM/NO EPITH. ABNORMALITY;SEE BELOW STAVE LOG RIPSAW OPERATOR: (test code = 8101) BEN Guaman(ASCP)IAC LOCATION: (test code = 29248) (NOTE) CPT: (test code = 8140) (NOTE) PAP TEST, THINPREP, [id number] 00:00:00* Test Item Value Reference Range Interpretation Comme nts SOURCE: (test code = 8001) Cervical/Endocervical SLIDES: (test code = 8011) 1 LMP: (test code = 8021) 03/08/2018 SPECIMEN ADEQUACY: (test code = 47828) (NOTE) INTERPRETATION: (test code = 87997) NILM/NO EPITH. ABNORMALITY;SEE BELOW STAVE LOG RIPSAW OPERATOR: (test code = 8101) BEN Guaman(ASCP)IAC LOCATION: (test code = 34429) (NOTE) CPT: (test code = 8140) (NOTE) Jaun CoreyPAP TEST, THINPREP, [id number] 00:00:00* Test Item Value Reference Range Interpretation Comme nts SOURCE: (test code = 8001) Cervical/Endocervical SLIDES: (test code = 8011) 2 LMP: (test code = 8021) 03/08/2018 SPECIMEN ADEQUACY: (test code = 55041) (NOTE) INTERPRETATION: (test code = 43673) UNSATISFACTORY; SEE BELOW OTHER COMMENTS: (test code = 8081) (NOTE) STAVE LOG RIPSAW OPERATOR: (test code = 8101) Farrah Nicole,CT(ASCP)IAC QC TECHNOLOGIST: (test code = 8111) Macarena Valentine,SCT(ASCP)CT(IA C) LOCATION: (test code = 54023) (NOTE) CPT: (test code = 8140) (NOTE) PAP TEST, THINPREP, [id number] 00:00:00* Test Item Value Reference Range Interpretation Comme nts SOURCE: (test code = 8001) Cervical/Endocervical SLIDES: (test code = 8011) 2 LMP: (test code = 8021) 03/08/2018 SPECIMEN ADEQUACY: (test code = 01152) (NOTE) INTERPRETATION: (test code = 17075) UNSATISFACTORY; SEE BELOW OTHER COMMENTS: (test code = 8081) (NOTE) STAVE LOG RIPSAW OPERATOR: (test code = 8101) BEN Perla(ASCP)IAC QC TECHNOLOGIST: (test code = 8111) [facility](IA C) LOCATION: (test code = 03344) (NOTE) CPT: (test code = 8140) (NOTE) PAP TEST, THINPREP, [id number] 00:00:00* Test Item Value Reference Range Interpretation Comme nts SOURCE: (test code = 8001) Cervical/Endocervical SLIDES: (test code = 8011) 2 LMP: (test code = 8021) 03/08/2018 SPECIMEN ADEQUACY: (test code = 96293) (NOTE) INTERPRETATION: (test code = 02461) UNSATISFACTORY; SEE BELOW OTHER COMMENTS: (test code = 8081) (NOTE) STAVE LOG RIPSAW OPERATOR: (test code = 8101) BEN Perla(ASCP)IAC QC TECHNOLOGIST: (test code = 8111) Macarena [facility]PRES[facility](AS[facility])CT(IA C) LOCATION: (test code = 90281) (NOTE) CPT: (test code = 8140) (NOTE) PAP TEST, THINPREP, [id number] 00:00:00* Test Item Value Reference Range Interpretation Comme nts SOURCE: (test code = 8001) Cervical/Endocervical SLIDES: (test code = 8011) 2 LMP: (test code = 8021) 03/08/2018 SPECIMEN ADEQUACY: (test code = 97275) (NOTE) INTERPRETATION: (test code = 01404) UNSATISFACTORY; SEE BELOW OTHER COMMENTS: (test code = 8081) (NOTE) STAVE LOG RIPSAW OPERATOR: (test code = 8101) BEN Perla(ASCP)IAC QC TECHNOLOGIST: (test code = 8111) JENARO Jimenez(ASCP)CT(IA C) LOCATION: (test code = 46362) (NOTE) CPT: (test code = 8140) (NOTE) PAP TEST, THINPREP, [id number] 00:00:00* Test Item Value Reference Range Interpretation Comme nts SOURCE: (test code = 8001) Cervical/Endocervical SLIDES: (test code = 8011) 2 LMP: (test code = 8021) 03/08/2018 SPECIMEN ADEQUACY: (test code = 72650) (NOTE) INTERPRETATION: (test code = 78595) UNSATISFACTORY; SEE BELOW OTHER COMMENTS: (test code = 8081) (NOTE) STAVE LOG RIPSAW OPERATOR: (test code = 8101) BEN Perla(ASCP)IAC QC TECHNOLOGIST: (test code = 8111) JENARO Jimenez(ASCP)CT(IA C) LOCATION: (test code = 06730) (NOTE) CPT: (test code = 8140) (NOTE) PAP TEST, THINPREP, [id number] 00:00:00* Test Item Value Reference Range Interpretation Comme nts SOURCE: (test code = 8001) Cervical/Endocervical SLIDES: (test code = 8011) 2 LMP: (test code = 8021) 03/08/2018 SPECIMEN ADEQUACY: (test code = 59842) (NOTE) INTERPRETATION: (test code = 07754) UNSATISFACTORY; SEE BELOW OTHER COMMENTS: (test code = 8081) (NOTE) STAVE LOG RIPSAW OPERATOR: (test code = 8101) BEN Perla(ASCP)IAC QC TECHNOLOGIST: (test code = 8111) JENARO Jimenez(ASCP)CT(IA C) LOCATION: (test code = 96704) (NOTE) CPT: (test code = 8140) (NOTE) Jaun Camarillo AustinHEMOGLOBIN [id number] 00:00:00* Test Item Value Reference Range Interpretation Comme nts HEMOGLOBIN A1c (test code = 81199) 5.0 % HEMOGLOBIN [id number] 00:00:00* Test Item Value Reference Range Interpretation Comme nts HEMOGLOBIN A1c (test code = 61150) 5.0 % GC AND CHLAMYDIA AMPLIFIED, [id number] 00:00:00* Test Item Value Reference Range Interpretation Comme nts GONORRHEA, TMA (test code = 31269) NEGATIVE CHLAMYDIA, TMA (test code = 45850) NEGATIVE GC AND CHLAMYDIA AMPLIFIED, [id number] 00:00:00* Test Item Value Reference Range Interpretation Comme nts GONORRHEA, TMA (test code = 77492) NEGATIVE CHLAMYDIA, TMA (test code = 02422) NEGATIVE HEMOGLOBIN [id number] 00:00:00* Test Item Value Reference Range Interpretation Comme nts HEMOGLOBIN A1c (test code = 60452) 5.0 % LIPID [id number] 00:00:00* Test Item Value Reference Range Interpretation Comme nts CHOLESTEROL (test code = 2210) 149 MG/DL TRIGLYCERIDES (test code = 2232) 160 MG/DL HDL CHOLESTEROL (test code = 2220) 38 MG/DL CALC LDL CHOL (test code = 2237) 79 MG/DL RISK RATIO LDL/HDL (test cod e = 2238) 2.08 RATIO LIPID [id number] 00:00:00* Test Item Value Reference Range Interpretation Comme nts CHOLESTEROL (test code = 2210) 149 MG/DL TRIGLYCERIDES (test code = 2232) 160 MG/DL HDL CHOLESTEROL (test code = 2220) 38 MG/DL CALC LDL CHOL (test code = 2237) 79 MG/DL RISK RATIO LDL/HDL (test cod e = 2238) 2.08 RATIO HPV HIGH RISK WITH GENOTYPE, [id number] 00:00:00* Test Item Value Reference Range Interpretation Comme nts HPV HIGH RISK INTERP (test c ode = 58716) NEGATIVE HPV 16 (test code = 17059) NEGATIVE HPV 18 (test code = 29722) NEGATIVE HPV, HR, OTHER GENOTYPES (te st code = 68722) NEGATIVE HPV HIGH RISK WITH GENOTYPE, [id number] 00:00:00* Test Item Value Reference Range Interpretation Comme nts HPV HIGH RISK INTERP (test c ode = 50507) NEGATIVE HPV 16 (test code = 24684) NEGATIVE HPV 18 (test code = 13017) NEGATIVE HPV, HR, OTHER GENOTYPES (te st code = 50831) NEGATIVE COMPREHENSIVE METABOLIC [id number] 00:00:00* Test Item Value Reference Range Interpretation Comme nts GLUCOSE (test code = 2217) 96 MG/DL BUN (test code = 2208) 8 MG/DL CREATININE (test code = 2214) 0.82 MG/DL eGFR AMER. (test cod e = 83835) 109 ML/MIN/1.73 eGFR NON- AMER. (test code = 23166) 94 ML/MIN/1.73 CALC BUN/CREAT (test code = [...] code = 2219) 16 U/L COMPREHENSIVE METABOLIC [id number] 00:00:00* Test Item Value Reference Range Interpretation Comme nts GLUCOSE (test code = 2217) 96 MG/DL BUN (test code = 2208) 8 MG/DL CREATININE (test code = 2214) 0.82 MG/DL eGFR AMER. (test cod e = 24625) 109 ML/MIN/1.73 eGFR NON- AMER. (test code = 12960) 94 ML/MIN/1.73 CALC BUN/CREAT (test code = [...] ALT (test code = 2219) 16 U/L [id number] 00:00:00* Test Item Value Reference Range Interpretation Comme nts RPR RESULT (test code = 3501) NON-REACTIVE RPR TITER (test code = 3500) NOT INDIC. TITER [id number] 00:00:00* Test Item Value Reference Range Interpretation Comme nts RPR RESULT (test code = 3501) NON-REACTIVE RPR TITER (test code = 3500) NOT INDIC. TITER [id number] 00:00:00* Test Item Value Reference Range Interpretation Comme nts RPR RESULT (test code = 3501) NON-REACTIVE RPR TITER (test code = 3500) NOT INDIC. TITER ACUTE HEPATITIS [id number] 00:00:00* Test Item Value Reference Range Interpretation Comme nts HEPATITIS A IgM (test code = 55916) NON-REACTIVE HEPATITIS B CORE IgM (test c ode = 4644) NON-REACTIVE HEPATITIS B SURF AG (test co de = 2739) NON-REACTIVE HEPATITIS C ANTIBODY (test c ode = 4675) NON-REACTIVE HCV INDEX (test code = 59366) 0.08 INTERPRETATION HEPATITIS A: (test code = 2552) (NOTE) INTERPRETATION HEPATITIS B: (test code = 16832) (NOTE) INTERPRETATION HEPATITIS C: (test code = 46087) (NOTE) ACUTE HEPATITIS [id number] 00:00:00* Test Item Value Reference Range Interpretation Comme nts HEPATITIS A IgM (test code = 57062) NON-REACTIVE HEPATITIS B CORE IgM (test c ode = 4644) NON-REACTIVE HEPATITIS B SURF AG (test co de = 2739) NON-REACTIVE HEPATITIS C ANTIBODY (test c ode = 4675) NON-REACTIVE HCV INDEX (test code = 53721) 0.08 INTERPRETATION HEPATITIS A: (test code = 2552) (NOTE) INTERPRETATION HEPATITIS B: (test code = 94155) (NOTE) INTERPRETATION HEPATITIS C: (test code = 07500) (NOTE) HIV AB/AG COMBO RFLX [id number] 00:00:00* Test Item Value Reference Range Interpretation Comme nts HIV 1/2 4TH GEN, RFLX CONF ( test code = 3514) NON-REACTIVE HIV AB/AG COMBO RFLX [id number] 00:00:00* Test Item Value Reference Range Interpretation Comme nts HIV 1/2 4TH GEN, RFLX CONF ( test code = 3514) NON-REACTIVE HEMOGLOBIN [id number] 00:00:00* Test Item Value Reference Range Interpretation Comme nts HEMOGLOBIN A1c (test code = 41359) 5.0 % HEMOGLOBIN [id number] 00:00:00* Test Item Value Reference Range Interpretation Comme nts HEMOGLOBIN A1c (test code = 36085) 5.0 % HEMOGLOBIN [id number] 00:00:00* Test Item Value Reference Range Interpretation Comme nts HEMOGLOBIN A1c (test code = 13267) 5.0 % GC AND CHLAMYDIA AMPLIFIED, [id number] 00:00:00* Test Item Value Reference Range Interpretation Comme nts GONORRHEA, TMA (test code = 65558) NEGATIVE CHLAMYDIA, TMA (test code = 07534) NEGATIVE GC AND CHLAMYDIA AMPLIFIED, [id number] 00:00:00* Test Item Value Reference Range Interpretation Comme nts GONORRHEA, TMA (test code = 72415) NEGATIVE CHLAMYDIA, TMA (test code = 84737) NEGATIVE HEMOGLOBIN [id number] 00:00:00* Test Item Value Reference Range Interpretation Comme nts HEMOGLOBIN A1c (test code = 00514) 5.0 % LIPID [id number] 00:00:00* Test Item Value Reference Range Interpretation Comme nts CHOLESTEROL (test code = 2210) 149 MG/DL TRIGLYCERIDES (test code = 2232) 160 MG/DL HDL CHOLESTEROL (test code = 2220) 38 MG/DL CALC LDL CHOL (test code = 2237) 79 MG/DL RISK RATIO LDL/HDL (test cod e = 2238) 2.08 RATIO LIPID [id number] 00:00:00* Test Item Value Reference Range Interpretation Comme nts CHOLESTEROL (test code = 2210) 149 MG/DL TRIGLYCERIDES (test code = 2232) 160 MG/DL HDL CHOLESTEROL (test code = 2220) 38 MG/DL CALC LDL CHOL (test code = 2237) 79 MG/DL RISK RATIO LDL/HDL (test cod e = 2238) 2.08 RATIO HPV HIGH RISK WITH GENOTYPE, [id number] 00:00:00* Test Item Value Reference Range Interpretation Comme nts HPV HIGH RISK INTERP (test c ode = 07446) NEGATIVE HPV 16 (test code = 44587) NEGATIVE HPV 18 (test code = 48890) NEGATIVE HPV, HR, OTHER GENOTYPES (te st code = 37271) NEGATIVE HPV HIGH RISK WITH GENOTYPE, [id number] 00:00:00* Test Item Value Reference Range Interpretation Comme nts HPV HIGH RISK INTERP (test c ode = 07470) NEGATIVE HPV 16 (test code = 98844) NEGATIVE HPV 18 (test code = 17799) NEGATIVE HPV, HR, OTHER GENOTYPES (te st code = 96698) NEGATIVE COMPREHENSIVE METABOLIC [id number] 00:00:00* Test Item Value Reference Range Interpretation Comme nts GLUCOSE (test code = 2217) 96 MG/DL BUN (test code = 2208) 8 MG/DL CREATININE (test code = 2214) 0.82 MG/DL eGFR AMER. (test cod e = 41657) 109 ML/MIN/1.73 eGFR NON- AMER. (test code = 69289) 94 ML/MIN/1.73 CALC BUN/CREAT (test code = [...] code = 2219) 16 U/L COMPREHENSIVE METABOLIC [id number] 00:00:00* Test Item Value Reference Range Interpretation Comme nts GLUCOSE (test code = 2217) 96 MG/DL BUN (test code = 2208) 8 MG/DL CREATININE (test code = 2214) 0.82 MG/DL eGFR AMER. (test cod e = 82408) 109 ML/MIN/1.73 eGFR NON- AMER. (test code = 60498) 94 ML/MIN/1.73 CALC BUN/CREAT (test code = [...] ALT (test code = 2219) 16 U/L [id number] 00:00:00* Test Item Value Reference Range Interpretation Comme nts RPR RESULT (test code = 3501) NON-REACTIVE RPR TITER (test code = 3500) NOT INDIC. TITER [id number] 00:00:00* Test Item Value Reference Range Interpretation Comme nts RPR RESULT (test code = 3501) NON-REACTIVE RPR TITER (test code = 3500) NOT INDIC. TITER [id number] 00:00:00* Test Item Value Reference Range Interpretation Comme nts RPR RESULT (test code = 3501) NON-REACTIVE RPR TITER (test code = 3500) NOT INDIC. TITER ACUTE HEPATITIS [id number] 00:00:00* Test Item Value Reference Range Interpretation Comme nts HEPATITIS A IgM (test code = 76231) NON-REACTIVE HEPATITIS B CORE IgM (test c ode = 4681) NON-REACTIVE HEPATITIS B SURF AG (test co de = 2739) NON-REACTIVE HEPATITIS C ANTIBODY (test c ode = 4675) NON-REACTIVE HCV INDEX (test code = 87726) 0.08 INTERPRETATION HEPATITIS A: (test code = 2552) (NOTE) INTERPRETATION HEPATITIS B: (test code = 47396) (NOTE) INTERPRETATION HEPATITIS C: (test code = 31687) (NOTE) ACUTE HEPATITIS [id number] 00:00:00* Test Item Value Reference Range Interpretation Comme nts HEPATITIS A IgM (test code = 29311) NON-REACTIVE HEPATITIS B CORE IgM (test c ode = 4644) NON-REACTIVE HEPATITIS B SURF AG (test co de = 2739) NON-REACTIVE HEPATITIS C ANTIBODY (test c ode = 4675) NON-REACTIVE HCV INDEX (test code = 14229) 0.08 INTERPRETATION HEPATITIS A: (test code = 2552) (NOTE) INTERPRETATION HEPATITIS B: (test code = 11149) (NOTE) INTERPRETATION HEPATITIS C: (test code = 24410) (NOTE) HIV AB/AG COMBO RFLX [id number] 00:00:00* Test Item Value Reference Range Interpretation Comme nts HIV 1/2 4TH GEN, RFLX CONF ( test code = 3514) NON-REACTIVE HIV AB/AG COMBO RFLX [id number] 00:00:00* Test Item Value Reference Range Interpretation Comme nts HIV 1/2 4TH GEN, RFLX CONF ( test code = 3514) NON-REACTIVE HEMOGLOBIN [id number] 00:00:00* Test Item Value Reference Range Interpretation Comme nts HEMOGLOBIN A1c (test code = 51951) 5.0 % GC AND CHLAMYDIA AMPLIFIED, [id number] 00:00:00* Test Item Value Reference Range Interpretation Comme nts GONORRHEA, TMA (test code = 37589) NEGATIVE CHLAMYDIA, TMA (test code = 32272) NEGATIVE LIPID [id number] 00:00:00* Test Item Value Reference Range Interpretation Comme nts CHOLESTEROL (test code = 2210) 149 MG/DL TRIGLYCERIDES (test code = 2232) 160 MG/DL HDL CHOLESTEROL (test code = 2220) 38 MG/DL CALC LDL CHOL (test code = 2237) 79 MG/DL RISK RATIO LDL/HDL (test cod e = 2238) 2.08 RATIO HPV HIGH RISK WITH GENOTYPE, [id number] 00:00:00* Test Item Value Reference Range Interpretation Comme nts HPV HIGH RISK INTERP (test c ode = 67509) NEGATIVE HPV 16 (test code = 54683) NEGATIVE HPV 18 (test code = 20958) NEGATIVE HPV, HR, OTHER GENOTYPES (te st code = 79578) NEGATIVE COMPREHENSIVE METABOLIC [id number] 00:00:00* Test Item Value Reference Range Interpretation Comme nts GLUCOSE (test code = 2217) 96 MG/DL BUN (test code = 2208) 8 MG/DL CREATININE (test code = 2214) 0.82 MG/DL eGFR AMER. (test cod e = 06002) 109 ML/MIN/1.73 eGFR NON- AMER. (test code = 42923) 94 ML/MIN/1.73 CALC BUN/CREAT (test code = [...] ALT (test code = 2219) 16 U/L [id number] 00:00:00* Test Item Value Reference Range Interpretation Comme nts RPR RESULT (test code = 3501) NON-REACTIVE RPR TITER (test code = 3500) NOT INDIC. TITER [id number] 00:00:00* Test Item Value Reference Range Interpretation Comme nts RPR RESULT (test code = 3501) NON-REACTIVE RPR TITER (test code = 3500) NOT INDIC. TITER ACUTE HEPATITIS [id number] 00:00:00* Test Item Value Reference Range Interpretation Comme nts HEPATITIS A IgM (test code = 72109) NON-REACTIVE HEPATITIS B CORE IgM (test c ode = 4644) NON-REACTIVE HEPATITIS B SURF AG (test co de = 2739) NON-REACTIVE HEPATITIS C ANTIBODY (test c ode = 4648) NON-REACTIVE HCV INDEX (test code = 34248) 0.08 INTERPRETATION HEPATITIS A: (test code = 2552) (NOTE) INTERPRETATION HEPATITIS B: (test code = 26814) (NOTE) INTERPRETATION HEPATITIS C: (test code = 89430) (NOTE) HIV AB/AG COMBO RFLX [id number] 00:00:00* Test Item Value Reference Range Interpretation Comme nts HIV 1/2 4TH GEN, RFLX CONF ( test code = 3514) NON-REACTIVE GC AND CHLAMYDIA AMPLIFIED, [id number] 00:00:00* Test Item Value Reference Range Interpretation Comme nts GONORRHEA, TMA (test code = 38758) NEGATIVE CHLAMYDIA, TMA (test code = 26332) NEGATIVE Jaun CoreyHEMOGLOBIN [id number] 00:00:00* Test Item Value Reference Range Interpretation Comme nts HEMOGLOBIN A1c (test code = 44588) 5.0 % Jaun CoreyLIPID [id number] 00:00:00* Test Item Value Reference Range Interpretation Comme nts CHOLESTEROL (test code = 2210) 149 MG/DL TRIGLYCERIDES (test code = 2232) 160 MG/DL HDL CHOLESTEROL (test code = 2220) 38 MG/DL CALC LDL CHOL (test code = 2237) 79 MG/DL RISK RATIO LDL/HDL (test cod e = 2238) 2.08 RATIO Jaun [place] MadhavCOMPREHENSIVE METABOLIC [id number] 00:00:00* Test Item Value Reference Range Interpretation Comme nts GLUCOSE (test code = 2217) 96 MG/DL BUN (test code = 2208) 8 MG/DL CREATININE (test code = 2214) 0.82 MG/DL eGFR AMER. (test cod e = 82912) 109 ML/MIN/1.73 eGFR NON- AMER. (test code = 43567) 94 ML/MIN/1.73 CALC BUN/CREAT (test code = [...] ALT (test code = 2219) 16 U/L Jaun [place] MadhavHPV HIGH RISK WITH GENOTYPE, [id number] 00:00:00* Test Item Value Reference Range Interpretation Comme nts HPV HIGH RISK INTERP (test c ode = 84070) NEGATIVE HPV 16 (test code = 34089) NEGATIVE HPV 18 (test code = 88110) NEGATIVE HPV, HR, OTHER GENOTYPES (te st code = 22662) NEGATIVE Jaun [place] [id number] 00:00:00* Test Item Value Reference Range Interpretation Comme nts RPR RESULT (test code = 3501) NON-REACTIVE RPR TITER (test code = 3500) NOT INDIC. TITER Jaun [place] MadhavACUTE HEPATITIS [id number] 00:00:00* Test Item Value Reference Range Interpretation Comme nts HEPATITIS A IgM (test code = 73201) NON-REACTIVE HEPATITIS B CORE IgM (test c ode = 4644) NON-REACTIVE HEPATITIS B SURF AG (test co de = 2739) NON-REACTIVE HEPATITIS C ANTIBODY (test c ode = 4675) NON-REACTIVE HCV INDEX (test code = 99008) 0.08 INTERPRETATION HEPATITIS A: (test code = 2552) (NOTE) INTERPRETATION HEPATITIS B: (test code = 15044) (NOTE) INTERPRETATION HEPATITIS C: (test code = 95824) (NOTE) Jaun Rabia MadhavHIV AB/AG COMBO RFLX [id number] 00:00:00* Test Item Value Reference Range Interpretation Comme nts HIV 1/2 4TH GEN, RFLX CONF ( test code = 3514) NON-REACTIVE Jaun Corey Notes Date/Time Note Provider Source Jaun F. [facility]2024-04-21 16:47:49 Pt given printed and verbal discharge instructions regarding atopic dermatitis, encouraged hydration, 1 Prescriptions provided Discussed ibuprofen and to take with food to avoid GI distress. Pt verbalized understanding of instructions, pt awake alert oriented, resp reg unlabored, skin w/d, color appropriate for race, moves all ext well,pt encouraged to follow up with pcp Advised to seek medical attention for new/prolonged/worsening of symptoms, No adverse reaction to meds given in ER noted upon discharge Awake, alert oriented, resp reg unlabored, skin w/d, pt leaving amb with steady gait, in no apparent distress, [id number] 15:17:10 Patient reports having a rash on her lower legs, and under her abdomen that is sometimes itchy for the past month or more. States that she has been taking OTC medications with no relief. Patient reports that her legs are swollen as well. T Brenda Albarado [facility]"
[2023-12-28] MEDS ORDERED: ACETAMINOPHEN 500 MG TAB ONE (22:48)
[2023-12-28] MEDS ORDERED: KETOROLAC 30 MG/ML INJ ONE (22:49)
[2023-12-28] MEDS ORDERED: LORATADINE 10 MG TAB ONE (22:54)
[2023-12-28] MEDS ORDERED: GUAIFENESIN/DM 5 ML UCUP ONE (22:55)
[2023-12-28 23:33] LABS: Specific Gravity > 1.030 (1.005-1.030)
[2023-12-28 23:38] LABS: Specific Gravity > 1.030 (1.005-1.030); Sqamous Epithelial <5 /HPF (None Seen); Urine Bacteria <20 /HPF (<20); Urine Bilirubin NEGATIVE (Negative); Urine Blood Negative (Negative); Urine Clarity Turbid (Clear); Urine Color Yellow (Yellow); Urine Culture Reflex Order REFLEXED; Urine Glucose NEGATIVE (Negative); Urine Ketones NEGATIVE (Negative); Urine Micro Reflex YN NO BILL MICROSCOPIC; Urine Mucus 4+ /HPF (None Seen); Urine Nitrite NEGATIVE (Negative); Urine Protein TRACE (Negative); Urine RBC <5 /HPF (None Seen); Urine Urobilinogen 1+ (Normal); Urine pH 5.5 (5.0-7.0)
[2023-12-29 01:10] LABS: SARS-CoV-2 Antigen CONTROL BLUE LINE VIS/BG OK; SARS-CoV-2 Antigen Rapid Res Negative (Negative)
--- NOTE | 2023-12-29 01:18 | EDPHYS ---
Physician Documentation [facility] Name: Zaria De Oliveira Age: 38 yrs Sex: Female : 1985 Arrival Date: 12/28/2023 Time: 22:11 Bed 15 Private MD: ED Physician Rodney Chavarria HPI: 12/27 22:20 This 38 yrs old Female presents to ER via Unassigned with complaints of Flu sp4 Symptoms, Cough, Dizziness. 22:22 Patient was here 11/17/2023 and diagnosed with pharyngitis -and prescribed following - sp4 dextromethorphan-guaifenesin 20-400 mg Oral tablet take 1 tablet ORAL route every 4 hours PRN cough; 40 tablet Ibuprofen 800 mg Oral Tablet take 1 tablet ORAL route every 8 hours As needed take with food; 30 tablet Claritin 10 mg Oral tablet take 1 tablet ORAL route once daily As needed PRN congestion; 30 tablet; Refills: 0; Product Zithromax Z-Ever 250 mg Oral Tablet take 1 tablet ORAL route as directed for 5 days Day 1 - take two (2) tablets one time. Day 2, 3, 4 , 5 take one (1) tablet once daily.; 6 tablet; Refills: 0; . 12/28 01:21 38-year-old female presents with acute onset of cough, dizziness and feeling unwell.. 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 - Infectious Disease History:: Denies. - Social history:: Smoking status: Patient denies any tobacco usage or history of. Patient uses alcohol, on a daily basis. - Family history:: not pertinent. ROS: 12/28 01:21 Constitutional: Positive cough, positive dizziness, positive overall feeling unwell, sp4 negative fever All other systems are negative, Exam: 01:15 Constitutional: This is a well developed, well nourished patient who is awake, alert, sp4 and in no acute distress. Head/Face: Normocephalic, atraumatic. Eyes: Pupils equal round and reactive to light, extra-ocular motions intact. Lids and lashes normal. Conjunctiva and sclera are not injected. Cornea within normal limits. Periorbital areas with no swelling, redness, or edema. ENT: Nares patent. No nasal discharge, no septal abnormalities noted. Tympanic membranes are normal and external auditory canals are clear. Oropharynx with no redness, swelling, or masses, exudates, or evidence of obstruction, uvula midline. Mucous membranes moist. Neck: Trachea midline, no thyromegaly or masses palpated, and no cervical lymphadenopathy. Supple, full range of motion without nuchal rigidity, or vertebral point tenderness. Chest/axilla: Normal chest wall appearance and motion. Nontender with no deformity. No lesions are appreciated. Cardiovascular: Regular rate and rhythm with a normal S1 and S2. No gallops, murmurs, or rubs. Normal PMI, no JVD. No pulse deficits. Respiratory: Lungs have equal breath sounds bilaterally, clear to auscultation and percussion. No rales, rhonchi or wheezes noted. No increased work of breathing, no retractions or nasal flaring. Abdomen/GI: Soft, with normal bowel sounds. No distension or tympany. No guarding or rebound. No evidence of tenderness throughout. Back: No spinal tenderness. No costovertebral tenderness. Skin: Warm, dry with normal turgor. Normal color with no rashes, no lesions, and no evidence of cellulitis. MS/ Extremity: Pulses equal, no cyanosis. Neurovascular intact. Full, normal range of motion. Neuro: Awake and alert, GCS 15, oriented to person, place, time, and situation. Cranial nerves II-XII grossly intact. Motor strength 5/5 in all extremities. Sensory grossly intact. Psych: Awake, alert, with orientation to person, place and time. Behavior, mood, and affect are within normal limits 01:15 ECG was reviewed by the Attending Physician. EKG at 2240 normal EKG rate 72, normal sinus rhythm. Vital Signs: 12/27 22:32 BP 149 / 89; Pulse 74; Resp 16; Temp 98.1(O); Pulse Ox 100% on R/A; Weight 106.59 kg jb4 (R); Height 5 ft. 2 in. (R); Pain 7/10; 22:45 BP 115 / 60; Pulse 63; Resp 18; Temp 98.4(O); Pulse Ox 98% on R/A; rg5 23:57 BP 120 / 57; Pulse 66; Resp 18; Pulse Ox 99% on R/A; Pain 6/10; rg5 12/28 00:35 BP 110 / 64; Pulse 62; Resp 17; Temp 98; Pulse Ox 100% on R/A; rg5 01:15 BP 120 / 70; Pulse 62; Resp 17; Pulse Ox 99% on R/A; Pain 3/10; rg5 12/27 22:32 Body Mass Index 42.98 (106.59 kg, 157.48 cm) 4 12/27 22:32 Pain Scale: Adult jb4 23:57 Pain Scale: Adult rg5 01:15 Pain Scale: Adult rg5 Abbe Coma Score: 12/27 22:45 Eye Response: spontaneous(4). Motor Response: obeys commands(6). Verbal Response: rg5 oriented(5). Total: 15. MDM: 22:21 Patient medically screened. 4 12/28 01:03 ED course: EXAM: XR Chest, 1 View CLINICAL HISTORY: Chest pain. TECHNIQUE: Frontal view sp4 of the chest. COMPARISON: No relevant prior studies available. FINDINGS: Lungs: Unremarkable. No consolidation. Pleural space: Unremarkable. No pneumothorax. Heart: Unremarkable. No cardiomegaly. Mediastinum: Unremarkable. Normal mediastinal contour. Bones/joints: Unremarkable. No acute fracture. Upper abdomen: Mild elevation of the right hemidiaphragm. IMPRESSION: No acute disease.. 01:21 Differential Diagnosis: Bronchitis Influenza Upper Respiratory Infection Sinusitis sp4 Pharyngitis. Data reviewed: vital signs, nurses notes, lab test result(s), radiologic studies, plain films. ED course: Patient is feeling better. Stable for discharge. 12/27 22:21 Order name: Urinalysis W/Microscopic; Complete Time: 00:51 sp4 12/27 22:21 Order name: Influenza Screen (a \T\ B); Complete Time: 01:02 4 12/27 22:21 Order name: Test, Urine; Complete Time: 00:52 sp4 12/27 23:41 Order name: Urine Culture EDMS 12/28 00:52 Order name: SARS RAPID; Complete Time: 01:10 sp4 12/27 22:37 Order name: Chest Single View XRAY sp4 12/27 22:37 Order name: EKG; Complete Time: 22:38 sp4 12/27 22:37 Order name: EKG - Nurse/Tech; Complete Time: 22:44 sp4 EC:15 Rate is 72 beats/min. Rhythm is regular, Normal Sinus Rhythm. QRS Orient is Normal. [place] sp4 interval is normal. QRS interval is normal. QT interval is normal. No Q waves. T waves are Normal. No ST changes noted. Clinical impression: Normal ECG. Interpreted by me. Reviewed by me. Administered Medications: 12/27 23:00 Drug: Acetaminophen PO 1000 mg PO once Route: PO; [facility] 12/28 00:32 Follow up: Response: No adverse reaction; Pain is decreased 5 12/27 23:01 Drug: Ketorolac IM 60 mg IM once Route: IM; Site: right deltoid; 5 12/28 00:32 Follow up: Response: No adverse reaction; Pain is decreased 5 12/27 23:10 Drug: Loratadine PO 10 mg PO once Route: PO; 5 12/28 00:33 Follow up: Response: No adverse reaction 5 12/27 23:10 Drug: Dextromethorphan-Guaifenesin PO Liquid 10 mg-100 mg/5 mL 10 ml PO once Route: PO; 5 12/28 00:32 Follow up: Response: No adverse reaction [facility] Disposition Summary: 12/29/23 01:18 Discharge Ordered Notes: Location: Home sp4 Problem: new sp4 Symptoms: have improved sp4 Condition: Stable sp4 Diagnosis - UTI/ Urinary tract infection, site not specified sp4 - Acute upper respiratory infection, unspecified sp4 Followup: sp4 - With: Private Physician - When: 7 - 10 days - Reason: Recheck today's complaints Discharge Instructions: - Discharge Summary Sheet sp4 - Urinary Tract Infection, Adult, [id number] sp4 Forms: - Work release form sp4 - Patient Portal Instructions sp4 Prescriptions: - dextromethorphan-guaifenesin 60-1,200 mg Oral Tablet, Extended Release 12 hr - take 1 tablet ORAL route 2 times per day as needed for cold symptoms; 30 sp4 tablet; Refills: 0, Product Selection Permitted - Cephalexin 500 mg Oral capsule - take 1 capsule ORAL route every 12 hours for 5 days; 10 capsule; Refills: 0, sp4 Product Selection Permitted Signatures: Dispatcher [employer] Remy Mcknight, RN RN jb4 Rodney Chavarria MD MD sp4 Myles Cross RN RN rg5
--- NOTE | 2023-12-29 01:18 | ER ---
Nurse's Notes [facility] Name: Zaria De Oliveira Age: 38 yrs Sex: Female : 1985 Arrival Date: 12/28/2023 Time: 22:11 Bed 15 Private MD: Diagnosis: UTI/ Urinary tract infection, site not specified;Acute upper respiratory infection, unspecified Presentation: 12/27 22:32 Chief complaint: Patient states: I have been having SOB, dizzy, and having chest jb4 tightness with fatigue on an off all day. It felt like I had something sitting on my chest. The pain is a 7/10. Coronavirus screen: At this time, the client does not indicate any symptoms associated with coronavirus-19. Ebola Screen: No symptoms or risks identified at this time. Initial Sepsis Screen: Does the patient meet any 2 criteria? No. Patient's initial sepsis screen is negative. Does the patient have a suspected source of infection? No. Patient's initial sepsis screen is negative. Risk Assessment: Do you want to hurt yourself or someone else? Patient reports no desire to harm self or others. Onset of symptoms was December 28, 2023. Transition of care: patient was not received from another setting of care. 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 - Infectious Disease History:: Denies. - Social history:: Smoking status: Patient denies any tobacco usage or history of. Patient uses alcohol, on a daily basis. - Family history:: not pertinent. Screenin:45 [facility] ED Fall Risk Assessment (Adult) History of falling in the last 3 months, rg5 including since admission No falls in past 3 months (0 pts) Confusion or Disorientation No (0 pts) Intoxicated or Sedated No (0 pts) Impaired Gait No (0 pts) Mobility Assist Device Used No (0 pt) Altered Elimination No (0 pt) Score/Fall Risk Level 0 - 2 = Low Risk Oriented to surroundings, Maintained a safe environment, Hourly rounding (assess needs \T\ fall precautionary measures) done. Abuse screen: Denies threats or abuse. Nutritional screening: No deficits noted. Tuberculosis screening: No symptoms or risk factors identified. Assessment: 22:45 General: Appears comfortable, Behavior is calm, cooperative, appropriate for age. Pain: rg5 Complains of pain in chest Pain currently is 7 out of 10 on a pain scale. Quality of pain is described as pressure, Pain began 4 hours ago. Is continuous. 22:45 Neuro: Level of Consciousness is awake, alert, obeys commands, Reports dizziness. rg5 Cardiovascular: Reports chest pain, Capillary refill < 3 seconds Patient's skin is warm and dry. Rhythm is sinus rhythm. Respiratory: Reports shortness of breath cough that is dry, Airway is patent Trachea midline Respiratory effort is even, unlabored, Respiratory pattern is regular, symmetrical. GI: Abdomen is round non-distended, Abd is soft and non tender. : No signs and/or symptoms were reported regarding the genitourinary system. Urine is clear. EENT: No deficits noted. Derm: Skin is intact, Skin is dry, Skin is normal, Skin temperature is warm. Musculoskeletal: Range of motion: intact in all extremities. 23:57 Reassessment: Patient and/or family updated on plan of care and expected duration. Pain rg5 level reassessed. Patient is alert, oriented x 3, equal unlabored respirations, skin warm/dry/pink. 12/28 00:31 Reassessment: Patient and/or family updated on plan of care and expected duration. Pain rg5 level reassessed. Patient is alert, oriented x 3, equal unlabored respirations, skin warm/dry/pink. Patient states feeling better. 01:26 Reassessment: Patient and/or family updated on plan of care and expected duration. Pain rg5 level reassessed. Patient is alert, oriented x 3, equal unlabored respirations, skin warm/dry/pink. Patient states feeling better. Vital Signs: 12/27 22:32 BP 149 / 89; Pulse 74; Resp 16; Temp 98.1(O); Pulse Ox 100% on R/A; Weight 106.59 kg jb4 (R); Height 5 ft. 2 in. (R); Pain 7/10; 22:45 BP 115 / 60; Pulse 63; Resp 18; Temp 98.4(O); Pulse Ox 98% on R/A; rg5 23:57 BP 120 / 57; Pulse 66; Resp 18; Pulse Ox 99% on R/A; Pain 6/10; rg5 12/28 00:35 BP 110 / 64; Pulse 62; Resp 17; Temp 98; Pulse Ox 100% on R/A; rg5 01:15 BP 120 / 70; Pulse 62; Resp 17; Pulse Ox 99% on R/A; Pain 3/10; rg5 12/27 22:32 Body Mass Index 42.98 (106.59 kg, 157.48 cm) jb4 08 22:32 Pain Scale: Adult jb4 23:57 Pain Scale: Adult rg5 01:15 Pain Scale: Adult rg5 Mongo Coma Score: 12/27 22:45 Eye Response: spontaneous(4). Motor Response: obeys commands(6). Verbal Response: rg5 oriented(5). Total: 15. ED Course: 22:16 Patient arrived in ED. gm2 22:20 Rodney Chavarria MD is Attending Physician. sp4 22:38 Triage completed. jb4 22:38 Arm band placed on right wrist. jb4 22:44 Myles Cross, NANCY is Primary Nurse. rg5 22:45 Patient has correct armband on for positive identification. Bed in low position. Call rg5 light in reach. Side rails up X 1. 22:45 No provider procedures requiring assistance completed. rg5 22:52 Chest Single View XRAY In Process Unspecified. EDMS 12/28 00:00 Resting quietly. Appears to be sleeping. rg5 00:00 Awaiting lab results. rg5 01:15 Provided Education on: post er care. rg5 01:15 Patient did not have IV access during this emergency room visit. rg5 Administered Medications: 12/27 23:00 Drug: Acetaminophen PO 1000 mg PO once Route: PO; rg5 12/28 00:32 Follow up: Response: No adverse reaction; Pain is decreased rg5 12/27 23:01 Drug: Ketorolac IM 60 mg IM once Route: IM; Site: right deltoid; rg5 12/28 00:32 Follow up: Response: No adverse reaction; Pain is decreased rg5 12/27 23:10 Drug: Loratadine PO 10 mg PO once Route: PO; rg5 12/28 00:33 Follow up: Response: No adverse reaction rg5 12/27 23:10 Drug: Dextromethorphan-Guaifenesin PO Liquid 10 mg-100 mg/5 mL 10 ml PO once Route: PO; rg5 12/28 00:32 Follow up: Response: No adverse reaction rg5 Medication: 12/27 22:45 VIS not applicable for this client. rg5 Outcome: 12/28 01:18 Discharge ordered by . sp4 01:28 Discharged to home ambulatory, rg5 01:28 Condition: good 01:28 Discharge instructions given to patient, Instructed on discharge instructions, follow up and referral plans. Demonstrated understanding of instructions, medications, Prescriptions given X 2, 01:29 Patient left the ED. rg5 Signatures: Dispatcher [employer] EDMS Remy Jiang, RN RN jb4 Rodney Chavarria MD MD sp4 Libertad Zhao gm2 Myles Cross RN RN rg5 Corrections: (The following items were deleted from the chart) 00:05 12/27 22:45 Neuro: Level of Consciousness is awake, alert, obeys commands, rg5 rg5
[2023-12-29 01:52] VITALS: TEMP 98
[2023-12-29 01:53] VITALS: BP 120/70; O2SAT 99
--- NOTE | 2023-12-29 13:27 | EKG ---
Test Date: 2023-12-28 Test Time: 22:40:18 [employer] Teacher: JORDAN MEASUREMENT RESULTS: Intervals: Rate: 72 NM: 170 QRSD: 88 QT: 402 QTc: 440 [place]: P: 39 NM: 170 QRS: 66 T: 50 INTERPRETIVE STATEMENTS: Normal sinus rhythm Normal ECG Compared to ECG 11/19/2022 23:33:51 Sinus bradycardia no longer present Sinus arrhythmia no longer present Electronically Signed On 12-29-23 13:26:15 CDT by David Govea
--- NOTE | 2024-01-01 12:11 | RAD REPORT ---
EXAM DESCRIPTION: RAD - Chest Single View - 12/28/2023 10:50 pm CLINICAL HISTORY: Chest pain. TECHNIQUE: Frontal view of the chest. COMPARISON: No relevant prior studies available. FINDINGS: Lungs: Unremarkable. No consolidation. Pleural space: Unremarkable. No pneumothorax. Heart: Unremarkable. No cardiomegaly. Mediastinum: Unremarkable. Normal mediastinal contour. Bones/joints: Unremarkable. No acute fracture. Upper abdomen: Mild elevation of the right hemidiaphragm. IMPRESSION: No acute disease. Electronically signed by: Blanche Mccauley MD 12/28/2023 11:36 PM CDT Due to temporary technical issues with the PACS/Fluency reporting system, reports are being signed by the in house radiologist without review as a courtesy to ensure prompt reporting. The interpreting r adiologist is fully responsible for the content of the report.
== END 2023-12-29 01:29 | disposition home or self-care (01) ==
LOC: ER 22:11
DX: J06.9 Acute upper respiratory infection, unspecified (principal); N39.0 Urinary tract infection, site not specified; I10 Essential (primary) hypertension; Z11.52 Encounter for screening for COVID-19
CPT/HCPCS: 36415; 71045; 81001; 81025; 87086; 87088; 87804; 87811; 93005; 96372; 99284

== ENCOUNTER 2024-04-13 07:15 | Emergency (ER) | payer OTHER ==
--- OUTSIDE RECORDS SUMMARY | 2024-04-13 07:20 | XMS REPORT | Continuity of Care Document ---
Author Name Unknown Address [address] [facility] [address] [place] [address] [facility] Address [address] [facility] [address] [place] [address] Care Team Providers Care Gatehouse Attendant Name Role Phone Jesus WILSON, [facility] Primary Care Physician [phone] YENI DAVID Attending Clinician Unavailab Yeni Reece Attending Clinician Doctor Unassigned, Elverta Attending Clinician U navailable VICK TOBAR Attending Clinician Unavailable Vick Tobar NP Attending Clinician [phone] KRISSY MERRITT Attending Clinician Unavailable Krissy Hernandez Attending Clinician [phone] VICK TOBAR Admitting Clinician Unavailable KRISSY MERRITT Admitting Clinician Unavailable Payers Payer Name Policy Type Policy Number Effective Date Expirati on Date Source [facility] [id number] 00:00:00 [facility] [id number] 2023 00:00:00 Problems Condition Name Condition Details Condition Category Status Onset Date Resolution Date Last Treatment Date Treating Clinician Comments Source No known active problems No known active problems Disease [facility] Allergies, Adverse Reactions, Alerts Allergy Name Allergy Type Status Severity Reaction(s) Onset Date Inactive Date Treating Clinician Comments Source OXICONAZ OLE NITRATE DRUG INGREDI Active Swelling 12-07 00:00: 00 [facility] Oxiconaz ole Nitrate Propensi ty to adverse reaction s Active Swelling 12-07 00:00: 00 [facility] Social History Social Habit Start Date Stop Date Quantity Comments Source History SDOH Alcohol Frequency [facility] History SDOH Alcohol Std Drinks [facility] History SDOH Alcohol Binge [facility] Exposure to SARS-CoV-2 (event) Not sure [facility] 2021-11-16 00:00:00 2021-11-16 00:00:00 0 /d [facility] History of Social function 2021-11-16 00:00:00 2021-11-16 00:00:00 [facility] Tobacco use and exposure 2015-12-08 00:00:00 2015-12-08 00:00:00 Smokeless tobacco non-user [facility] Alcohol Comment 2015-12-08 00:00:00 2015-12-08 00:00:00 Occasional [facility] Sex Assigned At 1985 00:00:00 1985 00:00:00 [facility] Smoking Status Start Date Stop Date Source Never smoked tobacco [facility] Medications Ordered Medication Name Filled Medication Name Start Date Stop Date Current Medication? Ordering Clinician Indication Dosage Frequency Signature (SIG) Comments Components Source Depo-Front Office Manager a 150 mg/mL intramuscul ar syringe 6-27 00:00: 00 Yes 1mg/mL Jaun Corey triamcinolo ne acetonide 0.1 % ointment 4- 00:00: 00 Yes [id number] Apply to area(s) 2 (two) times daily. [facility] Depo-Front Office Manager a 150 mg/mL intramuscul ar syringe 4-10 [...] 8-31 00:00: 00 09-19 00:00 :00 No [id number] Jaun Corey TAKE 1 TABLET DAILY. 8-07 [...] 1-20 00:00: 00 09-19 00:00 :00 No [id number] Jaun Corey TAKE 2 TABLETS ON DAY 1 THEN TAKE 1 TABLET A DAY FOR 4 DAYS. -20 00:00: 00 09-19 00:00 :00 No 250 Jaun Corey TOME VIANEY C PSULA ADY VECES AL D A CON LAS COMIDAS 2021-05 00:00: 00 09-19 00:00 :00 No 300 Jaun Corey Dose Unknown 2021-05 00:00: 00 09-19 00:00 :00 No 100 Jaun Corey DEPO-INSULATOR CUTTER AND FORMER A 150 MG/ML SYRI 2021-05 00:00: 00 09-19 00:00 :00 No Jaun Corey Depo-Front Office Manager a 150 mg/mL intramuscul ar syringe 11-02 [...] 0 11-02 00:00: 00 Yes Jaun Corey DEPO-INSULATOR CUTTER AND FORMER A 150 MG/ML SYRI 4-09 00:00: 00 [...] 1 dose, On 04/11/21 at 0115, Routine
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 [facility] acyclovir (ZOVIRAX) 200 mg capsule 2020-05 23:44: 39 Yes 200mg Take 200 mg by mouth. [facility] Depo-Front Office Manager a 150 mg/mL intramuscul ar syringe 2020-05 00:00: 00 Yes 1mg/mL Jaun F Madhav Depo-Front Office Manager a 150 mg/mL intramuscul ar syringe 2020-05 00:00: 00 No 1mg/mL Depo-Front Office Manager a 150 mg/mL intramuscul ar syringe 2020-05 00:00: 00 No 1mg/mL benzonatate 100 mg capsule 12-26 00:00: 00 04-10 00:00 :00 No [id number] 100mg Take 1 capsule by mouth 3 (three) times daily as needed for Cough. [facility] albuterol 90 mcg/actuati on inhaler 12-26 00:00: 00 04-10 00:00 :00 No [id number] 4{puff} Inhale 4 Puffs every 4 (four) hours as needed for Wheezing or Shortness of Breath. [facility] ondansetron 4 mg disintegrat ing tablet 12-26 00:00: 00 04-10 00:00 :00 No [id number] 4mg Take 1 tablet by mouth every 8 (eight) hours as needed for Nausea and Vomiting (N/V). [facility] Depo-Front Office Manager a 150 mg/mL intramuscul ar syringe 12-10 00:00: 00 Yes 1mg/mL Jaun F Madhav Depo-Front Office Manager a 150 mg/mL intramuscul ar syringe 12-10 00:00: 00 No 1mg/mL Depo-Front Office Manager a 150 mg/mL intramuscul ar syringe 8-05 00:00: 00 No 1mg/mL esomeprazol e (NEXIUM) 20 mg capsule 120 00:00: 00 04-10 00:00 :00 No [id number] 20mg Take 20 mg by mouth daily before a meal. [facility] Dose Unknown 2019-05 00:00: 00 Yes [...] Quad IM 3+ YRS 2016-04-11 00:00:00 Completed [facility] TDAP 2016-04-11 00:00:00 Completed [facility] Influenza Virus Vaccine Quad IM 3+ YRS Unknown Completed [facility] TDAP Unknown Completed [facility] Influenza Virus Vaccine Quad IM 3+ YRS Unknown Completed [facility] TDAP Unknown Completed [facility] Vital Signs Vital Name Observation Time Observation Value Comments S ource Systolic blood pressure 2023-08-27 20:20:00 158 mm[Hg] [facility] Diastolic blood pressure 2023-08-27 20:20:00 111 mm[Hg] [facility] Heart rate 2023-08-27 20:18:00 80 /[facility] Body temperature 2023-08-27 20:18:00 37 Penny [facility] Respiratory rate 2023-08-27 20:18:00 20 /min [facility] Body height 2023-08-27 20:18:00 157.5 cm [facility] Body weight 2023-08-27 20:18:00 108.863 kg [facility] BMI 2023-08-27 20:18:00 43.90 kg/m2 [facility] Oxygen saturation in Arterial blood by Pulse oximetry 2023-08-27 20:18:00 99 /min [facility] Systolic blood pressure 2021-04-11 08:00:00 132 mm[Hg] [facility] Diastolic blood pressure 2021-04-11 08:00:00 88 mm[Hg] [facility] Heart rate 2021-04-11 08:00:00 61 /min [facility] Respiratory rate 2021-04-11 08:00:00 20 /min [facility] Oxygen saturation in Arterial blood by Pulse oximetry 2021-04-11 08:00:00 100 /min [facility] Body temperature 2021-04-11 05:42:00 36.94 Penny [facility] Body height 2021-04-11 05:42:00 157.5 cm [facility] Body weight 2021-04-11 05:42:00 97.523 kg [facility] BMI 2021-04-11 05:42:00 39.32 kg/m2 [facility] BP Systolic 2023-11-02 09:39:00 139 mm[Hg] Step [...] Madhav Body Temperature 2022-12-02 17:38:00 98.20 degrees Jaun F Madhav Heart Rate 2022-12-02 17:38:00 85.00 [...] Madhav BP Diastolic 2022-06-24 13:10:00 86 mm[Hg] Phil phen F Madhav Weight Measured 2022-06-24 13:10:00 236.60 pounds Jaun F Madhav Height Measured 2022-06-24 13:10:00 61.00 [...] Madhav Heart Rate 2022-04-06 10:27:00 97.00 /min Unbia en F Madhav Respiratory Rate 2022-04-06 10:27:00 [...] EXTERNAL PROVIDER RECORDS 2023-06-20 06:01:00 Doctor Unassigned, Elverta [facility] XR CHEST 1 VW 2021-04-11 06:41:03 Vick Tobar [facility] D-DIMER 2021-04-11 06:34:00 Vick Tobar [facility] LIPASE 2021-04-11 06:15:00 Vick Tobar [facility] TROPONIN I 2021-04-11 06:15:00 Vick Tobar [facility] COMP. METABOLIC PANEL (92482) 2021-04-11 06:15:00 Vick Tobar [facility] CBC WITH DIFF 2021-04-11 06:15:00 Vick Tobar [facility] CONSENT/REFUSAL FOR DIAGNOSIS AND TREATMENT 2021-04-11 05:33:33 Doctor Unassigned, Elverta [facility] Plan of Care Planned Activity Planned Date Details Comments Source Goal Plan of Care Note [code = 45795-7] Goal Plan of Care Note [code = 46636-3] Goal Plan of Care Note [code = 69254-0] Goal Plan of Care Note [code = 55613-0] Goal Plan of Care Note [code = 30150-9] Goal Plan of Care Note [code = 65021-9] Goal Plan of Care Note [code = 32917-8] Goal Plan of Care Note [code = 22201-8] Goal Plan of Care Note [code = 37870-7] Goal Plan of Care Note [code = 96916-0] Goal Plan of Care Note [code = 03588-1] Goal Plan of Care Note [code = 93941-5] Goal Plan of Care Note [code = 61219-0] Goal Plan of Care Note [code = 22775-2] Goal Plan of Care Note [code = 87547-0] Goal Plan of Care Note [code = 74526-9] Goal Plan of Care Note [code = 52213-8] Goal Plan of Care Note [code = 30070-5] Goal Plan of Care Note [code = 48657-3] Goal Plan of Care Note [code = 18584-8] Goal Plan of Care Note [code = 65451-9] Goal Plan of Care Note [code = 06182-3] Goal Plan of Care Note [code = 36780-5] Goal Plan of Care Note [code = 60188-7] Goal Plan of Care Note [code = 97835-8] Goal Plan of Care Note [code = 82584-5] Goal Plan of Care Note [code = 15851-0] Goal Plan of Care Note [code = 60904-0] Goal Plan of Care Note [code = 27642-3] Goal Plan of Care Note [code = 64424-3] Goal Plan of Care Note [code = 30011-3] Goal Plan of Care Note [code = 71532-1] Goal Plan of Care Note [code = 26932-1] Goal Plan of Care Note [code = 98645-9] Goal Plan of Care Note [code = 29842-7] Goal Plan of Care Note [code = 50875-4] Goal Plan of Care Note [code = 75828-6] Goal Plan of Care Note [code = 53587-2] Goal Plan of Care Note [code = 66781-9] Goal Plan of Care Note [code = 88879-8] Goal Plan of Care Note [code = 06500-4] Goal Plan of Care Note [code = 90051-1] Goal Plan of Care Note [code = 11033-8] Goal Plan of Care Note [code = 34716-5] Goal Plan of Care Note [code = 15727-9] Goal Plan of Care Note [code = 35655-2] Goal Plan of Care Note [code = 16181-9] Goal Plan of Care Note [code = 73808-4] Goal Plan of Care Note [code = 51998-2] Goal Plan of Care Note [code = 58598-2] Goal Plan of Care Note [code = 11263-6] Goal Plan of Care Note [code = 43459-4] Goal Plan of Care Note [code = 53751-5] Goal Plan of Care Note [code = 37153-2] Goal Plan of Care Note [code = 33586-9] Goal Plan of Care Note [code = 94873-8] Goal Plan of Care Note [code = 12167-0] Goal Plan of Care Note [code = 62602-7] Goal Plan of Care Note [code = 69592-7] Goal Plan of Care Note [code = 69909-1] Goal Plan of Care Note [code = 74478-5] Goal Plan of Care Note [code = 21742-3] Goal Plan of Care Note [code = 27961-4] Goal Plan of Care Note [code = 94362-2] Goal Plan of Care Note [code = 38029-8] Goal Plan of Care Note [code = 61317-1] Goal Plan of Care Note [code = 20235-7] Goal Plan of Care Note [code = 67416-9] Goal Plan of Care Note [code = 95968-1] Goal Plan of Care Note [code = 08458-9] Goal Plan of Care Note [code = 67201-0] Goal Plan of Care Note [code = 57442-5] Goal Plan of Care Note [code = 83758-2] Goal Plan of Care Note [code = 14490-3] Goal Plan of Care Note [code = 50360-2] Goal Plan of Care Note [code = 53502-9] Goal Plan of Care Note [code = 70638-1] Goal Plan of Care Note [code = 03042-2] Goal Plan of Care Note [code = 28907-7] Goal Plan of Care Note [code = 42124-5] Goal Plan of Care Note [code = 02171-0] Encounters Start Date/Time End Date/Time Encounter Type Admission Type Attending [facility] Facility Care Department Encounter ID Source 2021-03-08 17:07:32 Emergency [facility] [id number] [facility] 2023-11-02 09:35:09 2023-11-02 09:35:09 Outpatient [facility] [id number] Jaun Corey 2023-11-02 00:00:00 2023-11-02 00:00:00 Outpatient Visit [facility] [id number] Jaun Corey 2023-08-27 15:20:00 2023-08-27 16:48:00 Emergency X YENI DAVID [facility] ERT [id number] [facility] 2023-08-27 15:20:00 2023-08-27 16:48:00 Emergency Yeni David Lubna [facility] 1..840.114 350.1.13.10 4.2.7.2.686 [id number] [facility] 2023-08-16 08:44:41 2023-08-16 08:44:41 Outpatient [facility] [id number] Jaun Corey 2023-06-20 00:00:00 2023-06-20 00:00:00 Orders Only Doctor Unassigned, Elverta [facility] 1.840.114 350.1.13.10 4.2.7.2.686 [id number] [facility] 2023-05-30 13:16:44 2023-05-30 13:16:44 Outpatient [facility] [id number] Jaun Corey 2023-02-23 10:25:11 2023-02-23 10:25:11 Outpatient [facility] [id number] Jaun Corey 2023-01-05 14:31:44 2023-01-05 14:31:44 Outpatient [facility] [id number] Jaun Corey 2022-12-02 17:31:26 2022-12-02 17:31:26 Outpatient [facility] [id number] Jaun Corey 2022-09-16 10:18:08 2022-09-16 10:18:08 Outpatient [facility] [id number] Jaun Corey 2022-06-24 13:07:39 2022-06-24 13:07:39 Outpatient S[facility] [id number] Jaun Corey 2022-04-06 10:14:07 2022-04-06 10:14:07 Outpatient [facility] [id number] Jaun Corey 2022-04-06 00:00:00 2022-04-06 00:00:00 Outpatient Visit [id number] 2022-01-19 00:00:00 2022-01-19 00:00:00 Outpatient Visit [id number] 00:00:00 2021-11-02 00:00:00 Outpatient Visit [id number] 23:45:00 2021-04-11 02:10:00 Emergency X VICK TOBAR [facility] [id number] [facility] 2021-04-10 23:45:00 2021-04-11 02:10:00 Emergency Vick Tobar [facility] 1.2.840.114 350.1.13.10 4.2.7.2.686 [id number] [facility] 2020-05-27 11:00:00 2020-05-27 13:42:00 Emergency KRISSY FIGUEREDO [facility] ERT [id number] [facility] 2020-05-27 11:00:00 2020-05-27 13:42:00 Emergency Krissy Merritt [facility] 1.2.840.114 350.1.13.10 4.2.7.2.686 [id number] Results Test Description Test Time Test Comments Results Result Co mments Source [facility] [id number] 06:46:29* Test Item Value Reference Range Interpretation Comments TROPONIN I (test code = 0590049388) 0.000 ng/mL See_Comment [Automated message] The system [...] of biotin. Lab Interpretation (test code = 78172-5) [facility]. METABOLIC PANEL (84014)2021-04-11 06:35:05* Test Item Value Reference Range Interpretation Comme nts NA (test code = 4394245589) 141 mmol/L 135-145 K (test code = 4223650502) 4.2 mmol/L 3.5-5.0 CL (test code = 0085403321) 107 mmol/L 98-108 CO2 TOTAL (test code = 9661826613) 25 mmol/L 23-31 AGAP (test code = 4997295028) 2-16 BUN (test code = 3969094187) 15 mg/dL 7-23 GLUCOSE (test code = 0892450668) 112 mg/dL 70-110 H CREATININE (test code = 4471782820) 0.79 mg/dL 0.50-1.04 TOTAL BILI (test code = 6901433844) 0.4 mg/dL 0.1-1.1 CALCIUM (test code = 9201180369) 10.0 mg/dL 8.6-10.6 T PROTEIN (test code = 8833795246) 7.5 g/dL 6.3-8.2 ALBUMIN (test code = 0578306900) 4.2 g/dL 3.5-5.0 ALK PHOS (test code = 4022034493) 92 U/L 34-122 ALTv (test code = 1742-6) 19 U/L 5-35 AST(SGOT) (test code = 4299207252) 21 U/L 13-40 eGFR (test code = 3478979091) mL/min/1.73m2 JO (test code = JO) Association [...] imaging tests). Lab Interpretation (test code = 53370-8) [facility]normal [facility] 06:34:45* Test Item Value Reference Range Interpretation Comme nts LIPASE (test code = 6621723031) 64 U/L 0-220 Lab Interpretation (test cod e = 59573-1) Normal [facility] [id number] 06:24:53* Test Item Value Reference Range Interpretation [...] g/dL 31.6-35.1 L RDW-SD (test code = 12693-6) 41.1 fL 39.0-49.9 RDW-CV (test code = 788-0) 14.4 % 12.0-15.5 PLT (test code = 777-3) See_Comment H [Automated messa ge] The system which generated this result transmitted reference range: 166 - 358 10*3/?L. The reference range was not used to interpret this result as normal/abnormal. MPV (test code = 40088-5) 10.1 fL 9.5-12.9 NRBC/100 WBC (test code = 0911121190) See_Comment [Automated me ssage] The system which generated this result transmitted reference range: 0.0 - 10.0 /100 WBCs. The reference range was not used to interpret this result as normal/abnormal. NRBC x10^3 (test code = 6146422989) <0.01 See_Comment [Automated messa ge] The system which generated this result transmitted reference range: 10*3/?L. The reference range was not used to interpret this result as normal/abnormal. GRAN MAT (NEUT) % (test code = 770-8) 59.1 % IMM GRAN % (test code = 7039842946) 0.60 % LYMPH % (test code = 736-9) 28.9 % MONO % (test code = 5905-5) 9.1 % EOS % (test code = 713-8) 1.7 % BASO % (test code = 706-2) 0.6 % GRAN MAT x10^3(ANC) (test code = 1420099249) 8.48 10*3/uL 1.88-7.09 H IMM GRAN x10^3 (test code = 3679217436) 0.08 10*3/uL 0.00-0.06 H LYMPH x10^3 (test code = 731-0) 4.14 10*3/uL 1.32-3.29 H MONO x10^3 (test code = 742-7) 1.30 10*3/uL 0.33-0.92 H EOS x10^3 (test code = 711-2) 0.24 10*3/uL 0.03-0.39 BASO x10^3 (test code = 704-7) 0.08 10*3/uL 0.01-0.07 H Lab Interpretation (test code = 71238-6) [facility] [id number] 00:00:00* Test Item Value Reference Range Interpretation Comme nts HIV 1/2 4TH GEN, RFLX CONF ( test code = 3514) NON-REACTIVE GC AND CHLAMYDIA, AMPLIFIED, [id number] 00:00:00* Test Item Value Reference Range Interpretation Comme nts GONORRHEA, NAAT (test code = 12904) NEGATIVE CHLAMYDIA, NAAT (test code = 01551) NEGATIVE [id number] 00:00:00* Test Item Value Reference Range Interpretation Comme nts RPR RESULT (test code = 3501) NON-REACTIVE RPR TITER (test code = 3500) NOT INDIC. TITER HIV AB/AG COMBO RFLX [id number] 00:00:00* Test Item Value Reference Range Interpretation Comme nts HIV 1/2 4TH GEN, RFLX CONF ( test code = 3514) NON-REACTIVE GC AND CHLAMYDIA, AMPLIFIED, [id number] 00:00:00* Test Item Value Reference Range Interpretation Comme nts GONORRHEA, NAAT (test code = 14258) NEGATIVE CHLAMYDIA, NAAT (test code = 76525) NEGATIVE [id number] 00:00:00* Test Item Value Reference Range Interpretation Comme nts RPR RESULT (test code = 3501) NON-REACTIVE RPR TITER (test code = 3500) NOT INDIC. TITER HIV AB/AG COMBO RFLX [id number] 00:00:00* Test Item Value Reference Range Interpretation Comme nts HIV 1/2 4TH GEN, RFLX CONF ( test code = 3514) NON-REACTIVE GC AND CHLAMYDIA, AMPLIFIED, [id number] 00:00:00* Test Item Value Reference Range Interpretation Comme nts GONORRHEA, NAAT (test code = 56638) NEGATIVE CHLAMYDIA, NAAT (test code = 11529) NEGATIVE [id number] 00:00:00* Test Item Value Reference Range Interpretation Comme nts RPR RESULT (test code = 3501) NON-REACTIVE RPR TITER (test code = 3500) NOT INDIC. TITER HIV AB/AG COMBO RFLX [id number] 00:00:00* Test Item Value Reference Range Interpretation Comme nts HIV 1/2 4TH GEN, RFLX CONF ( test code = 3514) NON-REACTIVE Jaun F AustinGC AND CHLAMYDIA, AMPLIFIED, [id number] 00:00:00* Test Item Value Reference Range Interpretation Comme nts GONORRHEA, NAAT (test code = 58556) NEGATIVE CHLAMYDIA, NAAT (test code = 95300) NEGATIVE Jaun [id number] 00:00:00* Test Item Value Reference Range Interpretation Comme nts RPR RESULT (test code = 3501) NON-REACTIVE RPR TITER (test code = 3500) NOT INDIC. TITER Jaun CoreySARS-CoV-2 (COVID-19) by RT-PCR (HIGH RISK)2019-11-26 00:00:00* Test Item Value Reference Range Interpretation Comme nts SARS-CoV-2 INTERPRETATION (t est code = 02921) NEGATIVE SOURCE (test code = 21948) NOT SPECIFIED SARS-CoV-2 (COVID-19) by RT-PCR (HIGH RISK)2019-11-26 00:00:00* Test Item Value Reference Range Interpretation Comme nts SARS-CoV-2 INTERPRETATION (t est code = 84711) NEGATIVE SOURCE (test code = 08782) NOT SPECIFIED SARS-CoV-2 (COVID-19) by RT-PCR (HIGH RISK)2019-11-26 00:00:00* Test Item Value Reference Range Interpretation Comme nts SARS-CoV-2 INTERPRETATION (t est code = 07647) NEGATIVE SOURCE (test code = 96758) NOT SPECIFIED SARS-CoV-2 (COVID-19) by RT-PCR (HIGH RISK)2019-11-26 00:00:00* Test Item Value Reference Range Interpretation Comme nts SARS-CoV-2 INTERPRETATION (t est code = 59022) NEGATIVE SOURCE (test code = 02379) NOT SPECIFIED Jaun CoreyPAP TEST, THINPREP, [id number] 00:00:00* Test Item Value Reference Range Interpretation Comme nts SOURCE: (test code = 8001) Cervical/Endocervical SLIDES: (test code = 8011) 1 LMP: (test code = 8021) 03/08/2018 SPECIMEN ADEQUACY: (test code = 28981) (NOTE) INTERPRETATION: (test code = 57583) NILM/NO EPITH. ABNORMALITY;SEE BELOW MANIFOLD OPERATOR: (test code = 8101) BEN Guaman(ASCP)IAC LOCATION: (test code = 74728) (NOTE) CPT: (test code = 8140) (NOTE) PAP TEST, THINPREP, [id number] 00:00:00* Test Item Value Reference Range Interpretation Comme nts SOURCE: (test code = 8001) Cervical/Endocervical SLIDES: (test code = 8011) 1 LMP: (test code = 8021) 03/08/2018 SPECIMEN ADEQUACY: (test code = 68680) (NOTE) INTERPRETATION: (test code = 12426) NILM/NO EPITH. ABNORMALITY;SEE BELOW MANIFOLD OPERATOR: (test code = 8101) BEN Guaman(ASCP)IAC LOCATION: (test code = 47350) (NOTE) CPT: (test code = 8140) (NOTE) PAP TEST, THINPREP, [id number] 00:00:00* Test Item Value Reference Range Interpretation Comme nts SOURCE: (test code = 8001) Cervical/Endocervical SLIDES: (test code = 8011) 1 LMP: (test code = 8021) 03/08/2018 SPECIMEN ADEQUACY: (test code = 12365) (NOTE) INTERPRETATION: (test code = 84846) NILM/NO EPITH. ABNORMALITY;SEE BELOW MANIFOLD OPERATOR: (test code = 8101) BEN Guaman(ASCP)IAC LOCATION: (test code = 73231) (NOTE) CPT: (test code = 8140) (NOTE) PAP TEST, THINPREP, [id number] 00:00:00* Test Item Value Reference Range Interpretation Comme nts SOURCE: (test code = 8001) Cervical/Endocervical SLIDES: (test code = 8011) 1 LMP: (test code = 8021) 03/08/2018 SPECIMEN ADEQUACY: (test code = 16663) (NOTE) INTERPRETATION: (test code = 12369) NILM/NO EPITH. ABNORMALITY;SEE BELOW MANIFOLD OPERATOR: (test code = 8101) BEN Guaman(ASCP)IAC LOCATION: (test code = 38115) (NOTE) CPT: (test code = 8140) (NOTE) Jaun CoreyPAP TEST, THINPREP, [id number] 00:00:00* Test Item Value Reference Range Interpretation Comme nts SOURCE: (test code = 8001) Cervical/Endocervical SLIDES: (test code = 8011) 2 LMP: (test code = 8021) 03/08/2018 SPECIMEN ADEQUACY: (test code = 48968) (NOTE) INTERPRETATION: (test code = 25697) UNSATISFACTORY; SEE BELOW OTHER COMMENTS: (test code = 8081) (NOTE) MANIFOLD OPERATOR: (test code = 8101) BEN Perla(ASCP)IAC QC TECHNOLOGIST: (test code = 8111) Macarena ValentineSCT(ASCP)CT(IA C) LOCATION: (test code = 64760) (NOTE) CPT: (test code = 8140) (NOTE) PAP TEST, THINPREP, [id number] 00:00:00* Test Item Value Reference Range Interpretation Comme nts SOURCE: (test code = 8001) Cervical/Endocervical SLIDES: (test code = 8011) 2 LMP: (test code = 8021) 03/08/2018 SPECIMEN ADEQUACY: (test code = 90072) (NOTE) INTERPRETATION: (test code = 08536) UNSATISFACTORY; SEE BELOW OTHER COMMENTS: (test code = 8081) (NOTE) MANIFOLD OPERATOR: (test code = 8101) BEN Perla(ASCP)IAC QC TECHNOLOGIST: (test code = 8111) Macarena ValentineSCT(ASCP)CT(IA C) LOCATION: (test code = 33509) (NOTE) CPT: (test code = 8140) (NOTE) PAP TEST, THINPREP, [id number] 00:00:00* Test Item Value Reference Range Interpretation Comme nts SOURCE: (test code = 8001) Cervical/Endocervical SLIDES: (test code = 8011) 2 LMP: (test code = 8021) 03/08/2018 SPECIMEN ADEQUACY: (test code = 04497) (NOTE) INTERPRETATION: (test code = 26272) UNSATISFACTORY; SEE BELOW OTHER COMMENTS: (test code = 8081) (NOTE) MANIFOLD OPERATOR: (test code = 8101) BEN Perla(ASCP)IAC QC TECHNOLOGIST: (test code = 8111) JENARO Jimenez(ASCP)CT(IA C) LOCATION: (test code = 85638) (NOTE) CPT: (test code = 8140) (NOTE) PAP TEST, THINPREP, [id number] 00:00:00* Test Item Value Reference Range Interpretation Comme nts SOURCE: (test code = 8001) Cervical/Endocervical SLIDES: (test code = 8011) 2 LMP: (test code = 8021) 03/08/2018 SPECIMEN ADEQUACY: (test code = 39192) (NOTE) INTERPRETATION: (test code = 29552) UNSATISFACTORY; SEE BELOW OTHER COMMENTS: (test code = 8081) (NOTE) MANIFOLD OPERATOR: (test code = 8101) Farrah Nicole,CT(ASCP)IAC QC TECHNOLOGIST: (test code = 8111) Macarena Valentine,SCT(ASCP)CT(IA C) LOCATION: (test code = 05152) (NOTE) CPT: (test code = 8140) (NOTE) Jaun F AustinHEMOGLOBIN [id number] 00:00:00* Test Item Value Reference Range Interpretation Comme nts HEMOGLOBIN A1c (test code = 84813) 5.0 % GC AND CHLAMYDIA AMPLIFIED, [id number] 00:00:00* Test Item Value Reference Range Interpretation Comme nts GONORRHEA, TMA (test code = 55521) NEGATIVE CHLAMYDIA, TMA (test code = 67519) NEGATIVE LIPID [id number] 00:00:00* Test Item Value Reference Range Interpretation Comme nts CHOLESTEROL (test code = 2210) 149 MG/DL TRIGLYCERIDES (test code = 2232) 160 MG/DL HDL CHOLESTEROL (test code = 2220) 38 MG/DL CALC LDL CHOL (test code = 2237) 79 MG/DL RISK RATIO LDL/HDL (test cod e = 2238) 2.08 RATIO HPV HIGH RISK WITH GENOTYPE, [id number] 00:00:00* Test Item Value Reference Range Interpretation Comme nts HPV HIGH RISK INTERP (test c ode = 74930) NEGATIVE HPV 16 (test code = 49318) NEGATIVE HPV 18 (test code = 65596) NEGATIVE HPV, HR, OTHER GENOTYPES (te st code = 74240) NEGATIVE COMPREHENSIVE METABOLIC [id number] 00:00:00* Test Item Value Reference Range Interpretation Comme nts GLUCOSE (test code = 2217) 96 MG/DL BUN (test code = 2208) 8 MG/DL CREATININE (test code = 2214) 0.82 MG/DL eGFR AMER. (test cod e = 07207) 109 ML/MIN/1.73 eGFR NON- AMER. (test code = 16379) 94 ML/MIN/1.73 CALC BUN/CREAT (test code = [...] ALT (test code = 2219) 16 U/L [id number] 00:00:00* Test Item Value Reference Range Interpretation Comme nts RPR RESULT (test code = 3501) NON-REACTIVE RPR TITER (test code = 3500) NOT INDIC. TITER ACUTE HEPATITIS [id number] 00:00:00* Test Item Value Reference Range Interpretation Comme [facility] HEPATITIS A IgM (test code = 55657) NON-REACTIVE HEPATITIS B CORE IgM (test c ode = 4644) NON-REACTIVE HEPATITIS B SURF AG (test co de = 2739) NON-REACTIVE HEPATITIS C ANTIBODY (test c ode = 4675) NON-REACTIVE HCV INDEX (test code = 33649) 0.08 INTERPRETATION HEPATITIS A: (test code = 2552) (NOTE) INTERPRETATION HEPATITIS B: (test code = 72893) (NOTE) INTERPRETATION HEPATITIS C: (test code = 18240) (NOTE) HIV AB/AG COMBO RFLX [id number] 00:00:00* Test Item Value Reference Range Interpretation Comme [facility] HIV 1/2 4TH GEN, RFLX CONF ( test code = 3514) NON-REACTIVE HEMOGLOBIN [id number] 00:00:00* Test Item Value Reference Range Interpretation Comme [facility] HEMOGLOBIN A1c (test code = 71843) 5.0 % HEMOGLOBIN [id number] 00:00:00* Test Item Value Reference Range Interpretation Comme nts HEMOGLOBIN A1c (test code = 91834) 5.0 % GC AND CHLAMYDIA AMPLIFIED, [id number] 00:00:00* Test Item Value Reference Range Interpretation Comme nts GONORRHEA, TMA (test code = 24232) NEGATIVE CHLAMYDIA, TMA (test code = 21359) NEGATIVE LIPID [id number] 00:00:00* Test Item Value Reference Range Interpretation Comme nts CHOLESTEROL (test code = 2210) 149 MG/DL TRIGLYCERIDES (test code = 2232) 160 MG/DL HDL CHOLESTEROL (test code = 2220) 38 MG/DL CALC LDL CHOL (test code = 2237) 79 MG/DL RISK RATIO LDL/HDL (test cod e = 2238) 2.08 RATIO HPV HIGH RISK WITH GENOTYPE, [id number] 00:00:00* Test Item Value Reference Range Interpretation Comme nts HPV HIGH RISK INTERP (test c ode = 26513) NEGATIVE HPV 16 (test code = 40283) NEGATIVE HPV 18 (test code = 89530) NEGATIVE HPV, HR, OTHER GENOTYPES (te st code = 19014) NEGATIVE COMPREHENSIVE METABOLIC [id number] 00:00:00* Test Item Value Reference Range Interpretation Comme nts GLUCOSE (test code = 2217) 96 MG/DL BUN (test code = 2208) 8 MG/DL CREATININE (test code = 2214) 0.82 MG/DL eGFR AMER. (test cod e = 63818) 109 ML/MIN/1.73 eGFR NON- AMER. (test code = 20110) 94 ML/MIN/1.73 CALC BUN/CREAT (test code = [...] ALT (test code = 2219) 16 U/L [id number] 00:00:00* Test Item Value Reference Range Interpretation Comme nts RPR RESULT (test code = 3501) NON-REACTIVE RPR TITER (test code = 3500) NOT INDIC. TITER ACUTE HEPATITIS [id number] 00:00:00* Test Item Value Reference Range Interpretation Comme nts HEPATITIS A IgM (test code = 84149) NON-REACTIVE HEPATITIS B CORE IgM (test c ode = 4644) NON-REACTIVE HEPATITIS B SURF AG (test co de = 2739) NON-REACTIVE HEPATITIS C ANTIBODY (test c ode = 4675) NON-REACTIVE HCV INDEX (test code = 32145) 0.08 INTERPRETATION HEPATITIS A: (test code = 2552) (NOTE) INTERPRETATION HEPATITIS B: (test code = 87529) (NOTE) INTERPRETATION HEPATITIS C: (test code = 98461) (NOTE) HIV AB/AG COMBO RFLX [id number] 00:00:00* Test Item Value Reference Range Interpretation Comme nts HIV 1/2 4TH GEN, RFLX CONF ( test code = 3514) NON-REACTIVE GC AND CHLAMYDIA AMPLIFIED, [id number] 00:00:00* Test Item Value Reference Range Interpretation Comme nts GONORRHEA, TMA (test code = 14591) NEGATIVE CHLAMYDIA, TMA (test code = 48515) NEGATIVE LIPID [id number] 00:00:00* Test Item Value Reference Range Interpretation Comme nts CHOLESTEROL (test code = 2210) 149 MG/DL TRIGLYCERIDES (test code = 2232) 160 MG/DL HDL CHOLESTEROL (test code = 2220) 38 MG/DL CALC LDL CHOL (test code = 2237) 79 MG/DL RISK RATIO LDL/HDL (test cod e = 2238) 2.08 RATIO HPV HIGH RISK WITH GENOTYPE, [id number] 00:00:00* Test Item Value Reference Range Interpretation Comme nts HPV HIGH RISK INTERP (test c ode = 35870) NEGATIVE HPV 16 (test code = 34742) NEGATIVE HPV 18 (test code = 44557) NEGATIVE HPV, HR, OTHER GENOTYPES (te st code = 90499) NEGATIVE COMPREHENSIVE METABOLIC [id number] 00:00:00* Test Item Value Reference Range Interpretation Comme nts GLUCOSE (test code = 2217) 96 MG/DL BUN (test code = 2208) 8 MG/DL CREATININE (test code = 2214) 0.82 MG/DL eGFR AMER. (test cod e = 27206) 109 ML/MIN/1.73 eGFR NON- AMER. (test code = 06020) 94 ML/MIN/1.73 CALC BUN/CREAT (test code = [...] ALT (test code = 2219) 16 U/L [id number] 00:00:00* Test Item Value Reference Range Interpretation Comme nts RPR RESULT (test code = 3501) NON-REACTIVE RPR TITER (test code = 3500) NOT INDIC. TITER ACUTE HEPATITIS [id number] 00:00:00* Test Item Value Reference Range Interpretation Comme nts HEPATITIS A IgM (test code = 02371) NON-REACTIVE HEPATITIS B CORE IgM (test c ode = 3944) NON-REACTIVE HEPATITIS B SURF AG (test co de = 4727) NON-REACTIVE HEPATITIS C ANTIBODY (test c ode = 4654) NON-REACTIVE HCV INDEX (test code = 18229) 0.08 INTERPRETATION HEPATITIS A: (test code = 2552) (NOTE) INTERPRETATION HEPATITIS B: (test code = 55633) (NOTE) INTERPRETATION HEPATITIS C: (test code = 25919) (NOTE) HIV AB/AG COMBO RFLX [id number] 00:00:00* Test Item Value Reference Range Interpretation Comme nts HIV 1/2 4TH GEN, RFLX CONF ( test code = 3514) NON-REACTIVE GC AND CHLAMYDIA AMPLIFIED, [id number] 00:00:00* Test Item Value Reference Range Interpretation Comme nts GONORRHEA, TMA (test code = 88591) NEGATIVE CHLAMYDIA, TMA (test code = 66850) NEGATIVE Jaun CoreyHEMOGLOBIN [id number] 00:00:00* Test Item Value Reference Range Interpretation Comme eugenio HEMOGLOBIN A1c (test code = 17064) 5.0 % Jaun CoreyLIPID [id number] 00:00:00* Test Item Value Reference Range Interpretation Comme nts CHOLESTEROL (test code = 2210) 149 MG/DL TRIGLYCERIDES (test code = 2232) 160 MG/DL HDL CHOLESTEROL (test code = 2220) 38 MG/DL CALC LDL CHOL (test code = 2237) 79 MG/DL RISK RATIO LDL/HDL (test cod e = 2238) 2.08 RATIO Jaun CoreyCOMPREHENSIVE METABOLIC [id number] 00:00:00* Test Item Value Reference Range Interpretation Comme nts GLUCOSE (test code = 2217) 96 MG/DL BUN (test code = 2208) 8 MG/DL CREATININE (test code = 2214) 0.82 MG/DL eGFR AMER. (test cod e = 42562) 109 ML/MIN/1.73 eGFR NON- AMER. (test code = 21686) 94 ML/MIN/1.73 CALC BUN/CREAT (test code = [...] (test code = 2219) 16 U/L Jaun CoreyHPV HIGH RISK WITH GENOTYPE, [id number] 00:00:00* Test Item Value Reference Range Interpretation Comme nts HPV HIGH RISK INTERP (test c ode = 22762) NEGATIVE HPV 16 (test code = 73808) NEGATIVE HPV 18 (test code = 69894) NEGATIVE HPV, HR, OTHER GENOTYPES (te st code = 14751) NEGATIVE Jaun [id number] 00:00:00* Test Item Value Reference Range Interpretation Comme nts RPR RESULT (test code = 3501) NON-REACTIVE RPR TITER (test code = 3500) NOT INDIC. TITER Jaun CoreyACUTE HEPATITIS [id number] 00:00:00* Test Item Value Reference Range Interpretation Comme nts HEPATITIS A IgM (test code = 26733) NON-REACTIVE HEPATITIS B CORE IgM (test c ode = 4644) NON-REACTIVE HEPATITIS B SURF AG (test co de = 2739) NON-REACTIVE HEPATITIS C ANTIBODY (test c ode = 4675) NON-REACTIVE HCV INDEX (test code = 03649) 0.08 INTERPRETATION HEPATITIS A: (test code = 2552) (NOTE) INTERPRETATION HEPATITIS B: (test code = 54705) (NOTE) INTERPRETATION HEPATITIS C: (test code = 23053) (NOTE) Jaun CoreyHIV AB/AG COMBO RFLX [id number] 00:00:00* Test Item Value Reference Range Interpretation Comme nts HIV 1/2 4TH GEN, RFLX CONF ( test code = 3514) NON-REACTIVE Jaun Corey"
--- NOTE | 2024-04-13 08:31 | RAD REPORT ---
EXAMINATION: Ankle Left 3 View CLINICAL INDICATION: Female, 38 years old. PAIN COMPARISON: 12/10/2017 FINDINGS: No acute fracture. No malalignment/dislocation. Calcaneal spurs. Other: n/a IMPRESSION: No acute osseous abnormality.
--- NOTE | 2024-04-13 08:38 | ER ---
Nurse's Notes [facility] Name: Zaria De Oliveira Age: 38 yrs Sex: Female : 1985 Arrival Date: 04/13/2024 Time: 07:15 Bed 13 Private MD: Diagnosis: Sprain of unspecified ligament of left ankle, initial encounter Presentation: 04/13 07:28 Chief complaint: Rolled left ankle last night, c/o 02/14 miller today. Coronavirus screen: hb At this time, the client does not indicate any symptoms associated with coronavirus-19. Ebola Screen: No symptoms or risks identified at this time. Initial Sepsis Screen: Does the patient meet any 2 criteria? No. Patient's initial sepsis screen is negative. Does the patient have a suspected source of infection? No. Patient's initial sepsis screen is negative. Risk Assessment: Do you want to hurt yourself or someone else? Patient reports no desire to harm self or others. Onset of symptoms was April 12, 2024. 07:28 Method Of Arrival: Ambulatory hb 07:28 Acuity: CELESTINO 4 hb Triage Assessment: 07:35 General: Appears in no apparent distress. Behavior is calm, cooperative. Pain: ph Complains of pain in left lateral ankle. Musculoskeletal: Circulation, motion, and sensation intact. Historical: - Allergies: 07:30 Bluestar ointments; hb 07:30 Oxistat; hb - PMHx: 07:30 Hypertensive disorder; Migraines; hb - PSHx: 07:30 section; hb - Immunization history:: Adult Immunizations unknown. - Infectious Disease History:: Denies. - Family history:: not pertinent. - Hospitalizations: : No recent hospitalization is reported. - Social history:: Smoking status: unknown. Screenin:58 [facility] ED Fall Risk Assessment (Adult) History of falling in the last 3 months, ph including since admission No falls in past 3 months (0 pts) Confusion or Disorientation No (0 pts) Intoxicated or Sedated No (0 pts) Impaired Gait No (0 pts) Mobility Assist Device Used No (0 pt) Altered Elimination No (0 pt) Score/Fall Risk Level 0 - 2 = Low Risk Oriented to surroundings, Maintained a safe environment, Hourly rounding (assess needs \T\ fall precautionary measures) done. Abuse screen: Denies threats or abuse. Denies injuries from another. Nutritional screening: No deficits noted. Tuberculosis screening: No symptoms or risk factors identified. Assessment: 08:00 General: Appears in no apparent distress. Behavior is calm, cooperative. Pain: ph Complains of pain in left lateral ankle. Neuro: Level of Consciousness is awake, alert, obeys commands, Oriented to person, place, time, situation. Cardiovascular: Capillary refill < 3 seconds in bilateral fingers Patient's skin is warm and dry. Respiratory: Airway is patent Respiratory effort is even, unlabored, Respiratory pattern is regular, symmetrical. Musculoskeletal: Range of motion: intact in all extremities. Vital Signs: 07:28 BP 141 / 93; Pulse 82; Resp 16; Temp 97.3; Pulse Ox 100% on R/A; Weight 107.5 kg; hb Height 5 ft. 2 in. ; Pain 10; 09:09 BP 137 / 89; Pulse 82; Resp 18; Temp 97.9; Pulse Ox 98% on R/A; ph 07:28 Body Mass Index 43.35 (107.50 kg, 157.48 cm) hb 07:28 Pain Scale: Adult hb ED Course: 07:18 Patient arrived in ED. ra3 07:20 Raj Phillips MD is Attending Physician. rn 07:30 Jodi Brandon, NANCY is Primary Nurse. kc6 07:30 Triage completed. hb 07:58 Arm band placed on Patient placed in an exam room, on a stretcher. ph 07:59 Patient has correct armband on for positive identification. Bed in low position. Call ph light in reach. Side rails up X 1. Pulse ox on. NIBP on. Door closed. Noise minimized. Warm blanket given. 08:23 XRAY Ankle LEFT 3 view In Process Unspecified. EDMS 09:10 No provider procedures requiring assistance completed. Patient did not have IV access ph during this emergency room visit. Giovanni wrap to left ankle Air stirrup applied to left ankle. Administered Medications: No medications were administered Medication: 07:59 VIS not applicable for this client. ph Outcome: 08:37 Discharge ordered by MD. rn 09:10 Discharged to home ambulatory, ph 09:10 Condition: good 09:10 Discharge instructions given to patient, Instructed on discharge instructions, follow up and referral plans. Demonstrated understanding of instructions, follow-up care, 09:10 Patient left the ED. ph Signatures: Dispatcher [employer] EDRaj Herzog MD MD rn Hall, Patricia, RN RN Annette Mena RN RN Jodi Sampson RN RN kc6 Nilsa Cross ra3
--- NOTE | 2024-04-13 08:38 | EDPHYS ---
Physician Documentation [facility] Name: Zaria De Oliveira Age: 38 yrs Sex: Female : 1985 Arrival Date: 04/13/2024 Time: 07:15 Bed 13 Private MD: ED Physician Raj Phillips HPI: 04/13 07:30 This 38 yrs old Female presents to ER via Ambulatory with complaints of Ankle Injury - rn Left. 07:30 The patient presents with an injury, pain, swelling. The complaints affect the left rn ankle. Onset: The symptoms/episode began/occurred last night. Context: The problem was sustained at home, resulted from a mis-step by the patient, The mechanism of injury is unknown. The patient can partially bear weight on the affected extremity. the patient is able to ambulate. Severity of symptoms: At their worst the symptoms were mild, in the emergency department the symptoms are actually worse. The patient has experienced a previous episode. Patient reports misstep yesterday while moving, rolled her ankle while wearing shoes and now has pain to the left lateral malleolus. Was able to walk on it last night but swelling worsened and more pain today. No other injury. Reports isolated pain to the left lateral ankle. Historical: - Allergies: 07:30 Bluestar ointments; hb 07:30 Oxistat; hb - PMHx: 07:30 Hypertensive disorder; Migraines; hb - PSHx: 07:30 section; hb - Immunization history:: Adult Immunizations unknown. - Infectious Disease History:: Denies. - Family history:: not pertinent. - Hospitalizations: : No recent hospitalization is reported. - Social history:: Smoking status: unknown. ROS: 07:30 Constitutional: Negative for fever, chills, and weight loss, MS/Extremity: Positive for rn left ankle swelling and injury Exam: 07:30 Constitutional: This is a well developed, well nourished patient who is awake, alert, rn and in no acute distress. MS/ Extremity: Pulses equal, no cyanosis. Neurovascular intact. left lateral malleolus tenderness with swelling. No open wounds. No tenderness of proximal tib-fib or foot proper. No medial malleolus tenderness. Vital Signs: 07:28 BP 141 / 93; Pulse 82; Resp 16; Temp 97.3; Pulse Ox 100% on R/A; Weight 107.5 kg; hb Height 5 ft. 2 in. ; Pain 10/10; 09:09 BP 137 / 89; Pulse 82; Resp 18; Temp 97.9; Pulse Ox 98% on R/A; ph 07:28 Body Mass Index 43.35 (107.50 kg, 157.48 cm) hb 07:28 Pain Scale: Adult hb MDM: 07:20 Medical Screening Exam initiated rn 08:37 Differential diagnosis: fracture, sprain. Data reviewed: vital signs, nurses notes, rn radiologic studies, plain films, and as a result, I will discharge patient. Counseling: I had a detailed discussion with the patient and/or guardian regarding the historical points, exam findings, and any diagnostic results supporting the discharge/admit diagnosis, radiology results, the need for outpatient follow up, to return to the emergency department if symptoms worsen or persist or if there are any questions or concerns that arise at home. Special discussion: I discussed with the patient/guardian in detail that at this point there is no indication for admission to the hospital. It is understood, however, that if the symptoms persist or worsen the patient needs to return immediately for re-evaluation. Further emergent ED testing is not indicated at this point in time. I discussed with the patient/guardian in detail the need to arrange with the PCP or specialist further outpatient testing, MRI, Based on the history and exam findings, there is no indication for further emergent testing or inpatient evaluation. I discussed with the patient/guardian the need to see the orthopedic surgeon for further evaluation of the symptoms. 04/13 07:30 Order name: XRAY Ankle LEFT 3 view; Complete Time: 08:31 rn 04/13 08:38 Order name: Aircast Ankle Splint; Complete Time: 09:11 rn 04/13 08:38 Order name: Giovanni Wrap; Complete Time: 09:11 rn Administered Medications: No medications were administered Disposition Summary: 04/13/24 08:37 Discharge Ordered Notes: Location: Home rn Problem: new rn Symptoms: have improved rn Condition: Stable rn Diagnosis - Sprain of unspecified ligament of left ankle, initial encounter rn Followup: rn - With: Private Physician - When: As needed - Reason: Recheck today's complaints, Re-evaluation by your physician Discharge Instructions: - Discharge Summary Sheet rn - Ankle Sprain rn Forms: - Medication Reconciliation Form rn - Antibiotic patternmaker helper - Prescription Opioid Use rn - Patient Portal Instructions rn - Leadership Thank You Letter rn - Work release form ph Signatures: Dispatcher [employer] Raj Villalobos MD MD rn Hall, Patricia, RN RN Annette Mena RN RN
[2024-04-13 09:57] VITALS: BP 137/89; TEMP 97.9; O2SAT 98
== END 2024-04-13 09:10 | disposition home or self-care (01) ==
LOC: ER 07:15
DX: S93.402A Sprain of unspecified ligament of left ankle, initial encounter (principal)
CPT/HCPCS: 99283